=== PATIENT | male | born 1955 | race Caucasian/White ===

== ENCOUNTER 2018-09-29 07:07 | Day surgery (SDC) | END 2018-09-29 14:20 | disposition home or self-care (01) ==

== ENCOUNTER 2018-10-28 08:45 | Day surgery (SDC) | END 2018-10-28 15:42 | disposition home or self-care (01) ==

== ENCOUNTER 2019-05-17 21:00 | Inpatient (IN) | payer MEDICARE, OTHER ==
[~2019-05-17] VITALS: Ht 165.1 cm; Wt 84.8 kg
[~2019-05-17 21:00] MED LIST: ALLO100T PO; ATOR-2 PO; CALC667C PO; CARV3.1260 PO; FURO80TA78 PO; INSU100I12 SQ; INSU100I33 SC; MIRT7.5T8 PO; NIFE30TA23 PO; OMEG-158 PO; RANI150T5 PO; TAMS0.4C2 PO
[2019-05-18] VITALS (19 sets, daily range): BP systolic 94–142; BP diastolic 44–71; PULSE 77–92; RESP 18–20; Ht 165.1 cm; Wt 84.8 kg
--- NOTE | 2019-05-18 01:01 | ERD ---
ER Documentation Chief Complaint Chief Complaint FEVER, VOMIT X'S 2 DAYS HPI This is a 63-year-old male who presents here in the emergency department with multiple complaints including fever, vomiting, epigastric discomfort for about 2 days. Denies headache, head injury, loss of consciousness, dizziness, neck pain, neck stiffness, throat pain, difficulty swallowing, difficulty breathing lying flat, shoulder pain, chest pain, back pain, abdominal pain, nausea, vomiting, constipation, diarrhea, urinary symptoms, loss of bowel and bladder control, trauma, injury, falls, difficulty walking due to pain, numbness or tingling sens ation, calf pain, recent travel, recent major surgery in the last 3 weeks, calf pain, recent long travel, recent exposure to any illness, recent antibiotic use in the last 3 months, fever, chills, seizures. Past medical history: Diabetes. Hypertension. CHF. Surgical history: Appendectomy. Social: Denies smoking, use of alcoholic beverages, use of illegal drugs. ROS All systems reviewed and are negative except as per history of present illness. Medications Home Meds Reported Medications Insulin Lispro (Humalog Kwikpen U-100) 100 Unit/1 Ml Insuln.pen, 5 UNIT SQ AC B, EA 09/29/18 Insulin Glargine,Hum.rec.anlog (Basaglar Kwikpen U-100) 100 Unit/1 Ml Insuln.pen, 10 UNIT SC QHS, EA 09/29/18 Allopurinol* (Allopurinol*) 100 Mg Tablet, 100 MG PO DAILY, TAB 09/29/18 Mirtazapine* (Mirtazapine*) 7.5 Mg Tablet, 7.5 MG PO HS, TAB 09/29/18 [place]-3/Dha/Epa/Fish Oil (FISH OIL 1,000 MG SOFTGEL) 1 Each Capsule, 1 EACH PO BID, CAP 09/29/18 Atorvastatin* (Atorvastatin*) 80 Mg Tablet, 80 MG PO QHS, #30 TAB 09/29/18 Carvedilol* (Carvedilol*) 3.125 Mg Tablet, 3.125 MG PO BID, #60 TAB 09/29/18 Tamsulosin Hcl* (Tamsulosin Hcl*) 0.4 Mg Cap.er.24h, 0.4 MG PO HS, CAP 09/29/18 Nifedipine* (Nifedipine ER*) 30 Mg Tablet.sa, 30 MG PO DAILY, TAB.SA 09/29/18 Ranitidine Hcl* (Ranitidine Hcl*) 150 Mg Tablet, 150 MG PO HS, #30 TAB 09/29/18 Furosemide* (Lasix*) 80 Mg Tablet, 80 MG PO DAILY, TAB 09/29/18 Calcium Acetate* (Calcium Acetate*) 667 Mg Capsule, 1334 MG PO WITH MEALS, #60 CAP 09/29/18 Allergies Allergies: Coded Allergies: Penicillins (Verified Allergy, Unknown, 09/29/18) PMhx/Soc History of Surgery: Yes (permackat, AV fistula, apendicitis) Anesthesia Reaction: No Hx Neurological Disorder: No Hx Respiratory Disorders: No Hx Cardiac Disorders: Yes (htn) Hx Psychiatric Problems: No Hx Miscellaneous Medical Probl: No Hx Alcohol Use: No Hx Substance Use: No Hx Tobacco Use: No Smoking Status: Never smoker Physical Exam Vitals Vital Signs Date Temp Pulse Resp B/P (MAP) Pulse Ox O2 O2 Flow FiO2 Time Delivery Rate 05/17/19 101.7 108 18 159/74 97 21:03 (102) Physical Exam Const: No acute distress Head: Atraumatic Eyes: Normal Conjunctiva. ENT: Normal External Ears, Nose and Mouth. Neck: Full range of motion. No meningismus. Resp: Clear to auscultation bilaterally Cardio: Regular rate and rhythm, no murmurs Abd: Soft, non tender, non distended. Normal bowel sounds. Right upper abdominal tenderness to light and deep palpation. Negative Mora sign (heel jar test). Negative psoas sign. Negative Rovsing sign. Able to jump 10 times without developing lower abdominal pain. No CVA tenderness. Ambulatory with st ailyn gait and without pain to abdomen. Skin: No petechiae or rashes. Color appears normal for ethnicity. No skin tenting. No signs of severe dehydration. Back: No midline or flank tenderness Ext: No cyanosis, or edema Neur: Awake and alert. No neurological deficits. Psych: Normal Mood and Affect Result Diagram: 05/18/1920905/18/19209 Results 24 hrs Laboratory Tests Test 05/18/19 02:10 05/18/19 02:18 White Blood Count 15.7 10^3/ul Red Blood Count 3.26 10^6/ul Hemoglobin 9.9 g/dl Hematocrit 30.7 % Mean Corpuscular Volume 94.2 fl Mean Corpuscular Hemoglobin 30.4 pg Mean Corpuscular Hemoglobin Concent 32.2 g/dl Red Cell Distribution Width 14.7 % Platelet Count 236 10^3/UL Mean Platelet Volume 11.1 fl Immature Granulocytes % 1.000 % Neutrophils % 88.6 % Lymphocytes % 3.2 % Monocytes % 6.4 % Eosinophils % 0.4 % Basophils % 0.4 % Nucleated Red Blood Cells % 0.0 /100WBC Immature Granulocytes # 0.150 10^3/ul Neutrophils # 13.9 10^3/ul Lymphocytes # 0.5 10^3/ul Monocytes # 1.0 10^3/ul Eosinophils # 0.1 10^3/ul Basophils # 0.1 10^3/ul Nucleated Red Blood Cells # 0.0 10^3/ul Prothrombin Time 15.4 Sec Prothrombin Time Ratio 1.2 INR International Normalized Ratio 1.21 Activated Partial Thromboplast Time 31.0 Sec Sodium Level 138 mmol/L Potassium Level 4.2 mmol/L Chloride Level 90 mmol/L Carbon Dioxide Level 31 mmol/L Anion Gap 17 Blood Urea Nitrogen 55 mg/dl Creatinine 8.09 mg/dl Est Glomerular Filtrat Rate mL/min 7 mL/min Glucose Level 228 mg/dl Calcium Level 8.0 mg/dl Total Bilirubin 0.5 mg/dl Direct Bilirubin 0.00 mg/dl Indirect Bilirubin 0.5 mg/dl Aspartate Amino Transf (AST/SGOT) 31 IU/L Alanine Aminotransferase (ALT/SGPT) 41 IU/L Alkaline Phosphatase 352 IU/L Troponin I 0.078 ng/ml B-Type Natriuretic Peptide 92798 PG/ML Total Protein 7.8 g/dl Albumin 3.9 g/dl Globulin 3.90 g/dl Albumin/Globulin Ratio 1.00 Amylase Level 83 U/L Lipase 46 U/L POC Venous Lactate 1.3 mmol/L Current Medications Medications Dose Sig/[place] Start Time Status Last (Trade) Ordered Route PRN Stop Time Admin Dose Reason Admin Cefepime HCl 50 ml @ ONCE STAT 05/18/19 100 mls/hr IVPB 03:36 05/18/19 04:05 Vancomycin 250 ml @ ONCE ONCE 05/18/19 HCl 125 mls/hr IVPB 04:00 05/18/19 05:59 Procedures/MDM Diagnostic tests: EKG: Sinus tachycardia with ventricular rate of 1 1 bpm. No STEMI. Read by supervising physician. Urinalysis: Blood works: Chest x-ray: Ultrasound of the abdomen: Treatment: Re-evaluation: Differential diagnosis Final diagnosis: Prescription: Follow-up with PCP in the next 24-48 hours. Come back here in the emergency department for any new symptoms or any worsening symptoms. All questions and concerns were answered. Patient and family members verbalized understanding and agreed with plan of care. Hemodynamically stable on discharge. SUBHASH FAULKNER May 18, 2019 01:01
[2019-05-18] MEDS ORDERED: CEFEPIME 2GM/50 ML (PMX) 50 ML IVPB STA (03:36)
[2019-05-18] MEDS ORDERED: ONDANSETRON 4 MG INJ IV PRN ×2 (04:00→07:00)
[2019-05-18] MEDS ORDERED: ACETAMINOPHEN 325 MG TAB PO PRN ×2 (04:00→07:00)
[2019-05-18] MEDS ORDERED: VANCOMYCIN 1 GM (PMX) 250 ML IVPB ONE (04:00)
--- NOTE | 2019-05-18 04:06 | ERD ---
ER Documentation Chief Complaint Chief Complaint FEVER, VOMIT X'S 2 DAYS HPI This 63-year-old male who presents for evaluation of fever for the last 2 days. Associated with nausea and vomiting as well as a cough. He denies chest pain or shortness of breath, he has not had any altered mental state, he has not had any numbness or tingling. He denies leg swelling, he has not noted any rashes. Patient received dialysis through a left-sided AV fistula. ROS All systems reviewed and are negative except as per history of present illness. Medications Home Meds Reported Medications Insulin Lispro (Humalog Kwikpen U-100) 100 Unit/1 Ml Insuln.pen, 5 UNIT SQ AC B, EA 09/29/18 Insulin Glargine,Hum.rec.anlog (Basaglar Kwikpen U-100) 100 Unit/1 Ml Insuln.pen , 10 UNIT SC QHS, EA 09/29/18 Allopurinol* (Allopurinol*) 100 Mg Tablet, 100 MG PO DAILY, TAB 09/29/18 Mirtazapine* (Mirtazapine*) 7.5 Mg Tablet, 7.5 MG PO HS, TAB 09/29/18 [place]-3/Dha/Epa/Fish Oil (FISH OIL 1,000 MG SOFTGEL) 1 Each Capsule, 1 EACH PO BID, CAP 09/29/18 Atorvastatin* (Atorvastatin*) 80 Mg Tablet, 80 MG PO QHS, #30 TAB 09/29/18 Carvedilol* (Carvedilol*) 3.125 Mg Tablet, 3.125 MG PO BID, #60 TAB 09/29/18 Tamsulosin Hcl* (Tamsulosin Hcl*) 0.4 Mg Cap.er.24h, 0.4 MG PO HS, CAP 09/29/18 Nifedipine* (Nifedipine ER*) 30 Mg Tablet.sa, 30 MG PO DAILY, TAB.SA 09/29/18 Ranitidine Hcl* (Ranitidine Hcl*) 150 Mg Tablet, 150 MG PO HS, #30 TAB 09/29/18 Furosemide* (Lasix*) 80 Mg Tablet, 80 MG PO DAILY, TAB 09/29/18 Calcium Acetate* (Calcium Acetate*) 667 Mg Capsule, 1334 MG PO WITH MEALS, #60 CAP 09/29/18 Allergies Allergies: Coded Allergies: Penicillins (Verified Allergy, Unknown, 09/29/18) PMhx/Soc History of Surgery: Yes (permackat, AV fistula, apendicitis) Anesthesia Reaction: No Hx Neurological Disorder: No Hx Respiratory Disorders: No Hx Cardiac Disorders: Yes (htn) Hx Psychiatric Problems: No Hx Miscellaneous Medical Probl: No Hx Alcohol Use: No Hx Substance Use: No Hx Tobacco Use: No Smoking Status: Never smoker Physical Exam Vitals Vital Signs Date Temp Pulse Resp B/P (MAP) Pulse Ox O2 O2 Flow FiO2 Time Delivery Rate 05/17/19 101.7 108 18 159/74 97 21:03 (102) Physical Exam Const: Fever noted, Head: Atraumatic Eyes: Normal Conjunctiva ENT: Normal External Ears, Nose and Mouth. Neck: Full range of motion. No meningismus. Resp: Clear to auscultation bilaterally Cardio: Regular rate and rhythm, no murmurs Abd: Soft, non tender, non distended, no rebound or guarding. Normal bowel sounds Skin: No petechiae or rashes Back: No midline or flank tenderness Ext: No cyanosis, or edema Neur: Awake and alert Psych: Normal Mood and Affect Result Diagram: 05/18/19 0210 05/18/19 0210 Results 24 hrs Laboratory Tests Test 05/18/19 02:10 05/18/19 02:18 White Blood Count 15.7 10^3/ul Red Blood Count 3.26 10^6/ul Hemoglobin 9.9 g/dl Hematocrit 30.7 % Mean Corpuscular Volume 94.2 fl Mean Corpuscular Hemoglobin 30.4 pg Mean Corpuscular Hemoglobin Concent 32.2 g/dl Red Cell Distribution Width 14.7 % Platelet Count 236 10^3/UL Mean Platelet Volume 11.1 fl Immature Granulocytes % 1.000 % Neutrophils % 88.6 % Lymphocytes % 3.2 % Monocytes % 6.4 % Eosinophils % 0.4 % Basophils % 0.4 % Nucleated Red Blood Cells % 0.0 /100WBC Immature Granulocytes # 0.150 10^3/ul Neutrophils # 13.9 10^3/ul Lymphocytes # 0.5 10^3/ul Monocytes # 1.0 10^3/ul Eosinophils # 0.1 10^3/ul Basophils # 0.1 10^3/ul Nucleated Red Blood Cells # 0.0 10^3/ul Prothrombin Time 15.4 Sec Prothrombin Time Ratio 1.2 INR International Normalized Ratio 1.21 Activated Partial Thromboplast Time 31.0 Sec Sodium Level 138 mmol/L Potassium Level 4.2 mmol/L Chloride Level 90 mmol/L Carbon Dioxide Level 31 mmol/L Anion Gap 17 Blood Urea Nitrogen 55 mg/dl Creatinine 8.09 mg/dl Est Glomerular Filtrat Rate mL/min 7 mL/min Glucose Level 228 mg/dl Calcium Level 8.0 mg/dl Total Bilirubin 0.5 mg/dl Direct Bilirubin 0.00 mg/dl Indirect Bilirubin 0.5 mg/dl Aspartate Amino Transf (AST/SGOT) 31 IU/L Alanine Aminotransferase (ALT/SGPT) 41 IU/L Alkaline Phosphatase 352 IU/L Troponin I 0.078 ng/ml B-Type Natriuretic Peptide 87963 PG/ML Total Protein 7.8 g/dl Albumin 3.9 g/dl Globulin 3.90 g/dl Albumin/Globulin Ratio 1.00 Amylase Level 83 U/L Lipase 46 U/L POC Venous Lactate 1.3 mmol/L Current Medications Medications Dose Sig/[place] Start Time Status Last (Trade) Ordered Route PRN Stop Time Admin Dose Reason Admin Cefepime HCl 50 ml @ ONCE STAT 05/18/19 05/18/19 100 mls/hr IVPB 03:36 05/18/19 03:48 04:05 Vancomycin 250 ml @ ONCE ONCE 05/18/19 HCl 125 mls/hr IVPB 04:00 05/18/19 05:59 Procedures/MDM 63-year-old male presents for relation of fever. Patient had initially been evaluated here, for fever without a source, he had no evidence of severe sepsis or septic shock. But given that he met septic criteria, and with a history of immunosuppression, he is at high risk for bacteremia, thus he will be admitted for treatment of sepsis, with vancomycin and cefepime. I received a call from mid-level provider Jewel, and at approximately 3:30 AM, who discussed the case with me, code sepsis had not been called initially, given that the patient did not have a source, when I reviewed the case, I determined that antibiotics should be initiated, based on his past medical history as above. EKG: Rate/Rhythm: Normal Sinus Rhythm QRS, ST, T-waves: No changes consistent w/ acute ischemia Impression: No evidence of ischemia or arrhythmia Sepsis Documentation: Patient's infectious symptoms have not stabilized and the patient is at risk of rapid decompensation. The patient will be admitted for careful hydration, antibiotic therapy, and infectious source control. SEVERE SEPSIS CRITERIA: Infectious source: Unknown End organ damage indicated by: No evidence of organ damage SEPSIS MANAGEMENT Time of recognition of sepsis: 3:30 AM. Time of recognition of severe sepsis: [No severe sepsis at this time]. Time of recognition of septic shock: [No septic shock at this time]. 3 HOUR BUNDLE Blood cultures x 2 before broad-spectrum antibiotics: [Yes] 30 ml/kg NS bolus not given secondary to renal failure, with concern for volume overload Initial lactate 1.2 Repeat lactate not needed CRITICAL CARE Critical care time [35] minutes Emergent fluid management while maintaining close respiratory support. Provision of immediate and broad-spectrum antibiotic therapy. Simultaneous assessment for possible sources in order to direct targeted therapy. Consideration for invasive and chemical support to prevent cardiopulmonary collapse. Critical care time is independent of procedures performed. Departure Diagnosis: Primary Impression: Fever Fever type: unspecified Qualified Codes: R50.9 - Fever, unspecified Additional Impressions: Sepsis Sepsis type: sepsis due to unspecified organism Qualified Codes: A41.9 - Sepsis, unspecified organism Renal failure Renal failure chronicity: unspecified chronicity Qualified Codes: N19 - Unspecified kidney failure Condition: TITO Ortiz MD May 18, 2019 04:06
[2019-05-18] MEDS ORDERED: NON-FORMULARY/PATIENT OWN MED (Insulin Lispro (Humalog Kwikpen U-100) 5 UNIT) SQ SCH (07:00)
[2019-05-18] MEDS ORDERED: NACL 0.9% 3 ML SYG IV SCH (07:00)
[2019-05-18] MEDS ORDERED: ALBUTEROL/IPRATROPIUM (NEB) 3 ML AMP HHN PRN (07:00)
[2019-05-18] MEDS ORDERED: NITROGLYCERIN (SL) 0.4 MG TAB SL PRN (07:00)
[2019-05-18] MEDS: CALCIUM ACETATE 667 MG CAP PO SCH ×3 (08:56→17:51)
[2019-05-18] MEDS: FUROSEMIDE 40 MG TAB PO SCH (08:57)
[2019-05-18] MEDS: NIFEdipine (XL) 30 MG TAB PO SCH (08:57)
[2019-05-18] MEDS: HEPARIN 5,000 UNIT/1 ML VIAL SC SCH ×2 (09:19→21:34)
--- NOTE | 2019-05-18 09:21 | HP ---
Date/Time of Note Date/Time of Note DATE: 05/18/19 TIME: 09:18 Assessment/Plan VTE Prophylaxis Pharmacological prophylaxis: heparin Lines/Catheters IV Catheter Type (from Nrsg): Saline Lock Assessment/Plan Assessment/Plan 1. Sepsis: Suspect gastroenteritis or URI -Empiric IV antibiotic -Follow-up culture results 2. ESRD on HD: Nephrology for dialysis 3. Type 1 diabetes: Continue insulin 4. Hypertension: Continue home meds. Adjust as needed Result Diagram: 05/18/1920905/18/190 Results 24hrs Laboratory Tests Test 05/18/19 02:10 05/18/19 02:18 05/18/19 03:30 05/18/19 05:47 White Blood Count 15.7 #H Red Blood Count 3.26 L Hemoglobin 9.9 L Hematocrit 30.7 L Mean Corpuscular Volume 94.2 Mean Corpuscular 30.4 Hemoglobin Mean Corpuscular 32.2 Hemoglobin Concent Red Cell Distribution 14.7 H Width Platelet Count 236 Mean Platelet Volume 11.1 H Immature Granulocytes % 1.000 H Neutrophils % 88.6 H Lymphocytes % 3.2 L Monocytes % 6.4 Eosinophils % 0.4 Basophils % 0.4 Nucleated Red Blood 0.0 Cells % Immature Granulocytes # 0.150 H Neutrophils # 13.9 H Lymphocytes # 0.5 L Monocytes # 1.0 H Eosinophils # 0.1 Basophils # 0.1 Nucleated Red Blood 0.0 Cells # Prothrombin Time 15.4 H 15.8 H Prothrombin Time Ratio 1.2 1.2 INR International 1.21 1.25 Normalized Ratio Activated 31.0 31.2 Partial Thromboplast Time Sodium Level 138 Potassium Level 4.2 Chloride Level 90 L Carbon Dioxide Level 31 Anion Gap 17 H Blood Urea Nitrogen 55 H Creatinine 8.09 H Est Glomerular Filtrat 7 L Rate mL/min Glucose Level 228 H Calcium Level 8.0 L Total Bilirubin 0.5 Direct Bilirubin 0.00 Indirect Bilirubin 0.5 Aspartate Amino 31 Transf (AST/SGOT) Alanine 41 Aminotransferase (ALT/SG PT) Alkaline Phosphatase 352 H Troponin I 0.078 0.079 B-Type Natriuretic 42402 H Peptide Total Protein 7.8 Albumin 3.9 Globulin 3.90 H Albumin/Globulin Ratio 1.00 Amylase Level 83 Lipase 46 POC Venous Lactate 1.3 Urine Color YELLOW Urine Clarity CLEAR Urine pH 8.0 Urine Specific [place] 1.017 Urine Ketones NEGATIVE Urine Nitrite NEGATIVE Urine Bilirubin NEGATIVE Urine Urobilinogen NEGATIVE Urine Leukocyte Esterase NEGATIVE Urine Microscopic RBC 2 Urine Microscopic WBC 4 Urine Mucus FEW A Urine Hemoglobin NEGATIVE Urine Glucose 2+ H Urine Total Protein 3+ H Lactic Acid Level 1.5 Creatine Kinase 102 Creatine Kinase Index 2.3 Creatinine Kinase MB 2.30 (Mass) HPI/ROS Admit Date/Time Admit Date/Time May 18, 2019 at 03:55 Hx of Present Illness Patient is a 63-year-old male with a history of hypertension, type 1 diabetes, ESRD on HD who presented to the ER complaining of fever as well as nausea and vomiting. Patient also reported some cough and malaise. Denies chest pain or acute shortness of breath When presented to ER, he was febrile with temperature of 101.7. WBC almost 16,000. Chest x-ray and UA nondiagnostic. PMH/Family/Social Past Medical History Past Surgical Hx: other Family History Significant Family History: no pertinent family hx Social History Alcohol Use: none Smoking Status: Never smoker Drug Use: none Exam Constitutional: other (No acute distress) Head: normocephalic, atraumatic Eyes: EOMI, PERRL Respiratory: clear to auscultation, normal air movement Cardiovascular: regular rate and rhythm Gastrointestinal: soft Extremities: normal pulses Medications Current Medications IV Flush (NS 3 ml) 3 ml PER PROTOCOL IV ; Start 05/18/19 at 07:00 Ondansetron HCl (Zofran Inj) 4 mg Q6H PRN IV NAUSEA/VOMITING; Start 05/18/19 at 07:00 Nitroglycerin (Nitroglycerin (Sl Tab) 0.4 Mg) 1 tab Q5M PRN SL .CHEST PAIN; Start 05/18/19 at 07:00 Acetaminophen (Tylenol Tab) 650 mg Q6H PRN PO .PAIN 1-3 OR TEMP; Start 05/18/19 at 07:00 Heparin Sodium (Porcine) (Heparin (5000 Units/1ml)) 5,000 unit Q12 SC ; Start 05/18/19 at 09:00 Albuterol/ Ipratropium (Duoneb) 3 ml Q2H RESP THERAPY PRN HHN SHORTNESS OF BREATH; Start 05/18/19 at 07:00 Allopurinol (Zyloprim) 100 mg DAILY PO ; Start 05/18/19 at 09:00 Atorvastatin Calcium (Lipitor) 80 mg QHS PO ; Start 05/18/19 at 21:00 Calcium Acetate (Phoslo) 1,334 mg WITH MEALS PO ; Start 05/18/19 at 08:00 Carvedilol (Coreg) 3.125 mg BID PO ; Start 05/18/19 at 09:00 Furosemide (Lasix) 80 mg DAILY PO ; Start 05/18/19 at 09:00 Insulin Glargine (Lantus) 10 units HS SC ; Start 05/18/19 at 21:00 Mirtazapine (Remeron) 7.5 mg HS PO ; Start 05/18/19 at 21:00 Nifedipine (Procardia Xl) 30 mg DAILY PO ; Start 05/18/19 at 09:00 Ranitidine HCl (Zantac) 150 mg HS PO ; Start 05/18/19 at 21:00 Tamsulosin HCl (Flomax) 0.4 mg HS PO ; Start 05/18/19 at 21:00 Miscellaneous Information 5 unit AC B SQ ; Start 05/18/19 at 07:00; Status UNV Coded Allergies: Penicillins (Verified Allergy, Unknown, 09/29/18) Social History Smoking Status: Never smoker Exam/Review of Systems Vital Signs Vitals Vital Signs Date Temp Pulse Resp B/P (MAP) Pulse Ox O2 O2 Flow FiO2 Time Delivery Rate 05/18/19 98.2 88 18 125/62 98 Room Air 07:57 (83) 05/18/19 2.0 06:32 Intake and Output 05/17/19 05/17/19 05/18/19 1515:00 23:00 07:00 IntakeIntake Total 50 ml BalanceBalance 50 ml MICHEL HERNANDEZ MD May 18, 2019 09:21
[2019-05-18] MEDS ORDERED: GLUCAGON 1 MG INJ IM PRN (10:00)
[2019-05-18] MEDS ORDERED: GLUCOSE GEL 15 GRAM TUBE BUCCAL PRN (10:00)
[2019-05-18] MEDS ORDERED: LEVOFLOXACIN 500MG/D5W (PMX) 100 ML IVPB ONE (10:00)
[2019-05-18] MEDS ORDERED: GLUCOSE GEL 15 GRAM TUBE PO PRN ×2 (10:00)
[2019-05-18] MEDS ORDERED: DEXTROSE 50% 50 ML SYRINGE IV PRN ×2 (10:00)
[2019-05-18] MEDS: ALLOPURINOL 100 MG TAB PO SCH (11:28)
[2019-05-18] MEDS: INSULIN ASPART [NOVOLOG] 3 ML PEN SC SCH ×3 (12:33→21:00)
[2019-05-18] MEDS: RANITIDINE 150 MG TAB PO SCH ×2 (13:02→21:17)
[2019-05-18] MEDS: FISH OIL 1,000 MG CAP PO SCH ×2 (13:09→21:18)
--- NOTE | 2019-05-18 13:14 | PN ---
Date/Time of Note Date/Time of Note DATE: 05/18/19 TIME: 13:10 Assessment/Plan VTE Prophylaxis Risk score (from Ns)>0 risk: 5 SCD applied (from Ns): No SCD contraindicated: other Pharmacological prophylaxis: heparin Lines/Catheters IV Catheter Type (from [facility]): [place] [facility] Assessment/Plan Hospital Course S: Patient still having some cough. Seen by renal team earlier today and await ing dialysis for later today. O: VS - see below PE: Gen: Lying in bed, no acute distress Head: Atraumatic Eyes: Normal Conjunctiva ENT: Normal External Ears, Nose and Mouth. Neck: Full range of motion. No meningismus. Resp: Clear to auscultation bilaterally Cardio: Regular rate and rhythm, no murmurs Abd: Soft, non tender, non distended, no rebound or guarding. Normal bowel sounds Ext: Small 2 to 3 cm circumferential ulcer with some drainage noted on right foot sole, no bilateral lower extremity edema Neuro: Awake and alert Assessment/Plan: 63-year-old male who presents with: 1. Nausea vomiting and fever: Signs of sepsis, possibly secondary to gas troenteritis or URI, or right foot wound infection. -We will obtain infectious disease consult and for now continue empiric IV antibiotic -Follow-up culture results 2. ESRD on HD: Have consulted nephrology for dialysis 3. Type 1 diabetes: Monitor sugars, follow-up A1c, continue insulin 4. Hypertension: Continue home meds. Adjust as needed Result Diagram: 05/18/19 0210 05/18/19 0210 Results 24hrs Laboratory Tests Test 05/18/19 02:10 05/18/19 02:18 05/18/19 03:30 05/18/19 05:47 White Blood Count 15.7 #H Red Blood Count 3.26 L Hemoglobin 9.9 L Hematocrit 30.7 L Mean Corpuscular Volume 94.2 Mean Corpuscular 30.4 Hemoglobin Mean Corpuscular 32.2 Hemoglobin Concent Red Cell Distribution 14.7 H Width Platelet Count 236 Mean Platelet Volume 11.1 H Immature Granulocytes % 1.000 H Neutrophils % 88.6 H Lymphocytes % 3.2 L Monocytes % 6.4 Eosinophils % 0.4 Basophils % 0.4 Nucleated Red Blood 0.0 Cells % Immature Granulocytes # 0.150 H Neutrophils # 13.9 H Lymphocytes # 0.5 L Monocytes # 1.0 H Eosinophils # 0.1 Basophils # 0.1 Nucleated Red Blood 0.0 Cells # Prothrombin Time 15.4 H 15.8 H Prothrombin Time Ratio 1.2 1.2 INR International 1.21 1.25 Normalized Ratio Activated 31.0 31.2 Partial Thromboplast Time Sodium Level 138 Potassium Level 4.2 Chloride Level 90 L Carbon Dioxide Level 31 Anion Gap 17 H Blood Urea Nitrogen 55 H Creatinine 8.09 H Est Glomerular Filtrat 7 L Rate mL/min Glucose Level 228 H Calcium Level 8.0 L Total Bilirubin 0.5 Direct Bilirubin 0.00 Indirect Bilirubin 0.5 Aspartate Amino 31 Transf (AST/SGOT) Alanine 41 Aminotransferase (ALT/SG PT) Alkaline Phosphatase 352 H Troponin I 0.078 0.079 B-Type Natriuretic 58099 H Peptide Total Protein 7.8 Albumin 3.9 Globulin 3.90 H Albumin/Globulin Ratio 1.00 Amylase Level 83 Lipase 46 POC Venous Lactate 1.3 Urine Color YELLOW Urine Clarity CLEAR Urine pH 8.0 Urine Specific Reed 1.017 Urine Ketones NEGATIVE Urine Nitrite NEGATIVE Urine Bilirubin NEGATIVE Urine Urobilinogen NEGATIVE Urine Leukocyte Esterase NEGATIVE Urine Microscopic RBC 2 Urine Microscopic WBC 4 Urine Mucus FEW A Urine Hemoglobin NEGATIVE Urine Glucose 2+ H Urine Total Protein 3+ H Lactic Acid Level 1.5 Creatine Kinase 102 Creatine Kinase Index 2.3 Creatinine Kinase MB 2.30 (Mass) Test 05/18/19 11:51 Bedside Glucose 207 Exam/Review of Systems Exam Vitals Vital Signs Date Temp Pulse Resp B/P (MAP) Pulse Ox O2 O2 Flow FiO2 Time Delivery Rate 05/18/19 98.3 83 140/67 96 Room Air 11:10 (91) 05/18/19 18 07:57 05/18/19 2.0 06:32 Intake and Output 05/17/19 05/17/19 05/18/19 1515:00 23:00 07:00 IntakeIntake Total 50 ml BalanceBalance 50 ml Results Results 24hrs Laboratory Tests Test 05/18/19 02:10 05/18/19 02:18 05/18/19 03:30 05/18/19 05:47 White Blood Count 15.7 #H Red Blood Count 3.26 L Hemoglobin 9.9 L Hematocrit 30.7 L Mean Corpuscular Volume 94.2 Mean Corpuscular 30.4 Hemoglobin Mean Corpuscular 32.2 Hemoglobin Concent Red Cell Distribution 14.7 H Width Platelet Count 236 Mean Platelet Volume 11.1 H Immature Granulocytes % 1.000 H Neutrophils % 88.6 H Lymphocytes % 3.2 L Monocytes % 6.4 Eosinophils % 0.4 Basophils % 0.4 Nucleated Red Blood 0.0 Cells % Immature Granulocytes # 0.150 H Neutrophils # 13.9 H Lymphocytes # 0.5 L Monocytes # 1.0 H Eosinophils # 0.1 Basophils # 0.1 Nucleated Red Blood 0.0 Cells # Prothrombin Time 15.4 H 15.8 H Prothrombin Time Ratio 1.2 1.2 INR International 1.21 1.25 Normalized Ratio Activated 31.0 31.2 Partial Thromboplast Time Sodium Level 138 Potassium Level 4.2 Chloride Level 90 L Carbon Dioxide Level 31 Anion Gap 17 H Blood Urea Nitrogen 55 H Creatinine 8.09 H Est Glomerular Filtrat 7 L Rate mL/min Glucose Level 228 H Calcium Level 8.0 L Total Bilirubin 0.5 Direct Bilirubin 0.00 Indirect Bilirubin 0.5 Aspartate Amino 31 Transf (AST/SGOT) Alanine 41 Aminotransferase (ALT/SG PT) Alkaline Phosphatase 352 H Troponin I 0.078 0.079 B-Type Natriuretic 00436 H Peptide Total Protein 7.8 Albumin 3.9 Globulin 3.90 H Albumin/Globulin Ratio 1.00 Amylase Level 83 Lipase 46 POC Venous Lactate 1.3 Urine Color YELLOW Urine Clarity CLEAR Urine pH 8.0 Urine Specific Reed 1.017 Urine Ketones NEGATIVE Urine Nitrite NEGATIVE Urine Bilirubin NEGATIVE Urine Urobilinogen NEGATIVE Urine Leukocyte Esterase NEGATIVE Urine Microscopic RBC 2 Urine Microscopic WBC 4 Urine Mucus FEW A Urine Hemoglobin NEGATIVE Urine Glucose 2+ H Urine Total Protein 3+ H Lactic Acid Level 1.5 Creatine Kinase 102 Creatine Kinase Index 2.3 Creatinine Kinase MB 2.30 (Mass) Test 05/18/19 11:51 Bedside Glucose 207 Medications Medication Current Medications IV Flush (NS 3 ml) 3 ml PER PROTOCOL IV ; Start 05/18/19 at 07:00 Ondansetron HCl (Zofran Inj) 4 mg Q6H PRN IV NAUSEA/VOMITING; Start 05/18/19 at 07:00 Nitroglycerin (Nitroglycerin (Sl Tab) 0.4 Mg) 1 tab Q5M PRN SL .CHEST PAIN; Start 05/18/19 at 07:00 Acetaminophen (Tylenol Tab) 650 mg Q6H PRN PO .PAIN 1-3 OR TEMP; Start 05/18/19 at 07:00 Heparin Sodium (Porcine) (Heparin (5000 Units/1ml)) 5,000 unit Q12 SC Last administered on 05/18/19at 09:19; Admin Dose 5,000 UNIT; Start 05/18/19 at 09:00 Albuterol/ Ipratropium (Duoneb) 3 ml Q2H RESP THERAPY PRN HHN SHORTNESS OF BREATH; Start 05/18/19 at 07:00 Allopurinol (Zyloprim) 100 mg DAILY PO ; Start 05/18/19 at 09:00 Atorvastatin Calcium (Lipitor) 80 mg QHS PO ; Start 05/18/19 at 21:00 Calcium Acetate (Phoslo) 1,334 mg WITH MEALS PO Last administered on 05/18/19at 12:30; Admin Dose 1,334 MG; Start 05/18/19 at 08:00 Carvedilol (Coreg) 3.125 mg BID PO Last administered on 05/18/19at 08:57; Admin Dose 3.125 MG; Start 05/18/19 at 09:00 Furosemide (Lasix) 80 mg DAILY PO Last administered on 05/18/19at 08:57; Admin Dose 80 MG; Start 05/18/19 at 09:00 Insulin Glargine (Lantus) 10 units HS SC ; Start 05/18/19 at 21:00 Mirtazapine (Remeron) 7.5 mg HS PO ; Start 05/18/19 at 21:00 Nifedipine (Procardia Xl) 30 mg DAILY PO Last administered on 05/18/19at 08:57; Admin Dose 30 MG; Start 05/18/19 at 09:00 Tamsulosin HCl (Flomax) 0.4 mg HS PO ; Start 05/18/19 at 21:00 Miscellaneous Information 5 unit AC B SQ ; Start 05/18/19 at 07:00; Status UNV Diagnostic Test (Pha) (Accu-Chek) 1 ea 02 XX ; Start 05/19/19 at 02:00 Insulin Aspart (Novolog Insulin Pen) NOVOLOG *MILD* ALGORITHM WITH MEALS BEDTIME SC Last administered on 05/18/19at 12:33; Admin Dose 2 UNIT; Start 05/18/19 at 11:50 Levofloxacin/ Dextrose 50 ml @ 50 mls/hr Q48H IVPB ; Start 05/20/19 at 10:00 Miscellaneous Information 1 ea NOTE XX ; Start 05/18/19 at 10:00 Glucose (Glutose) 15 gm Q15M PRN PO DECREASED GLUCOSE; Start 05/18/19 at 10:00 Glucose (Glutose) 22.5 gm Q15M PRN PO DECREASED GLUCOSE; Start 05/18/19 at 10:00 Dextrose (D50w Syringe) 25 ml Q15M PRN IV DECREASED GLUCOSE; Start 05/18/19 at 10:00 Dextrose (D50w Syringe) 50 ml Q15M PRN IV DECREASED GLUCOSE; Start 05/18/19 at 10:00 Glucagon (Glucagen) 1 mg Q15M PRN IM DECREASED GLUCOSE; Start 05/18/19 at 10:00 Glucose (Glutose) 15 gm Q15M PRN BUCCAL DECREASED GLUCOSE; Start 05/18/19 at 10:00 Ranitidine HCl (Zantac) 150 mg HS PO ; Start 05/18/19 at 13:00 Fish Oil (Fish Oil) 1,000 mg BID PO ; Start 05/18/19 at 13:00 CHRISTO BROWNING May 18, 2019 13:14
--- NOTE | 2019-05-18 15:07 | CONS ---
DATE OF ADMISSION: 05/18/2019 DATE OF CONSULTATION: 05/18/2019 TYPE OF CONSULTATION: Nephrology. REASON FOR CONSULTATION: End-stage renal disease. HISTORY OF PRESENT ILLNESS: This is a 63-year-old male with a past medical history of end-stage syd l disease on dialysis Wednesday, , Wednesday, access AV fistula. The patient's primary nephrolo gist is Dr. Berry, who presents to [facility] with nausea and vomiting. The patient states he is having increased nausea and vomiting over the past several days which progressively wor sened. The patient also reported some cough. The patient upon arrival to the emergency room was not ed to be febrile with temperature of 101.7 Chest x-ray, urinalysis was done, showed no acute infiltr ates or pyuria. The patient had a white count of 16,000. In the emergency room, the patient was sta rted on antibiotic therapy and admitted to telemetry for evaluation. In terms of patient's renal history, the patient has end-stage renal disease on hemodialysis Wednesday as stated above. The patient dialyzes at a lower [place]. 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 Berry. The patient denies any hemoptysis, hematemesis or hematochezia. PAST MEDICAL HISTORY: History of end-stage renal disease, history of diabetes, history of hypertensi on, history of anemia, mineral bone disorder. FAMILY HISTORY: No family history of . SOCIAL HISTORY: Does not drink, smoke or do drugs. MEDICATIONS: Reviewed. PAST SURGICAL HISTORY: Status post AV fistula. REVIEW OF SYSTEMS: A 14-point review of systems conducted. Pertinent positives stated in HPI, other dong negative. PHYSICAL EXAMINATION: VITAL SIGNS: Blood pressure is 135/76, respirations 16, pulse 72, temperature 98.6. HEENT: Head is normocephalic. NECK: Supple. HEART: Regular rate. LUNGS: Show diminished breath sounds at the base. ABDOMEN: Soft, nontender to palpation without rebound or guarding. EXTREMITIES: Negative for clubbing, cyanosis, no edema. DERMATOLOGIC: No rashes. MUSCULOSKELETAL: No joint effusions. NEUROLOGIC: No focal deficits. MEDICATIONS: The patient's medications have been reviewed. LABORATORY DATA: Has been reviewed. IMAGING STUDIES: Have been reviewed. ASSESSMENT AND PLAN: This is a 63-year-old male who presents with: 1. End-stage renal disease. The patient is on dialysis Wednesday, , Wednesday, access AV fistu la, plan for dialysis today. We will dialyze 3 hours 3k bath, calcium 2.5, ultrafiltrate as tolerate d. 2. Anemia. Continue to monitor hemoglobin and hematocrit levels. Will give Epogen as needed. 3. Mineral bone disorder, monitor calcium and phosphorus levels. We will give phosphate binders as needed. 4. Sepsis secondary to possible upper respiratory infection, gastroenteritis. Continue current anti biotic regimen. Follow up cultures. 5. Diabetes. Continue current insulin regimen. 6. Hypertension. Continue current blood pressure regimen. Will continue ultrafiltration with dialy sis. Thank you, Dr. Hernandez, for this interesting consult. It will be a pleasure to follow patient with you throughout the hospital course. Dictated By: MEGHAN CASILLAS DO NR/NTS Conf#: [id number] DID#: [id number] CC: MICHEL HERNANDEZ MD;*EndCC*
--- NOTE | 2019-05-18 16:11 | CONS ---
DATE OF ADMISSION: 05/18/2019 DATE OF CONSULTATION: 05/18/2019 TYPE OF CONSULTATION: Infectious disease. REASON FOR CONSULTATION: Antibiotic management. HISTORY OF PRESENT ILLNESS: Bandar Cunningham is a 63-year-old male who came in with fever and vomitin g for 2 days. The patient also complains of a cough. The patient is end-stage renal disease on hemo dialysis. He has an AV fistula. He also has a Perm-A-Cath and has a history of appendectomy in the past. He denies chest pain or shortness of breath. He denies altered mental status without numbness or tingling. He received dialysis through a left-sided AV fistula. PAST MEDICAL HISTORY: As outlined. Has a history of hypertension as well. FAMILY HISTORY: Noncontributory. SOCIAL HISTORY: He does not smoke, drink or abuse drugs. ALLERGIES: PENICILLIN, not to sulfa or foods. MEDICATIONS: Per chart. REVIEW OF SYSTEMS: As per HPI. PHYSICAL EXAMINATION: VITAL SIGNS: His temperature was 101.7 in the Emergency Room. ANCILLARY LABORATORY DATA: White count was 15.7 with 89% neutrophils, H and H of 9.9 and 30.7, plate let count of 236. BUN and creatinine 55/8.09. Random glucose of 228. PHYSICAL EXAMINATION: GENERAL: He is a well-developed, somewhat ill 63-year-old male, awake, responsive, in no acute distr ess. VITAL SIGNS: As noted T-max of 101.7. SKIN: Without generalized rash. HEENT: Within normal limits. NECK: Supple. LYMPH NODES: None palpable. CHEST: Decreased breath sounds at the bases. HEART: Without murmur or gallop. ABDOMEN: Soft, nontender, without organosplenomegaly or masses. EXTREMITIES: Without cyanosis, clubbing, or edema. RECTAL AND GENITAL: Deferred. NEUROLOGIC: No focal neurological abnormality. IMPRESSION AND PLAN: Patient was started on vancomycin and cefepime. The patient had no evidence of severe sepsis or septic shock. He has a history of immunosuppression and is therefore at high risk for bacteremia. He was admitted, started on vancomycin and cefepime. Blood cultures were done today there is suspect for gastroenteritis or upper respiratory tract infection. He is on IV antibiotics. White count today 15.7 as before. Still having some cough. He has a small 2 to 3 cm circumferenti al ulcer with some drainage noted on his right foot. No bilateral lower extremity edema. I doubt th at that is the source of his sepsis. A gallbladder ultrasound showed no cholelithiasis or pericholec ystic fluid. There is gallbladder wall thickening and acalculous cholecystitis, no biliary duct dila tation. Hepatomegaly, hepatic fatty infiltration, 1 cm superior right renal cyst, otherwise unremark able right kidney, inability to visualize the pancreas. At this point, there is no evidence of christine lithiasis or pericholecystic fluid. The source of his sepsis is unclear, it may be from the wound on his leg. We will continue him on current antibiotic therapy. I will dictate my findings to the [facility] pitalist. At this point, the patient had received vancomycin and cefepime and vancomycin will last f or 3 or 4 days and he was also given Levaquin. I will dictate my findings to the hospitalist. Dictated By: MIGUEL BURR MD, JD/NTS Conf#: [id number] DID#: [id number] CC: MICHEL HERNANDEZ MD;*EndCC*
[2019-05-18] MEDS ORDERED: VANCOMYCIN IV PER PHARMACY XX SCH (18:30)
[2019-05-18] MEDS ORDERED: RANITIDINE 150 MG TAB PO SCH (21:00)
[2019-05-18] MEDS: MIRTAZAPINE 15 MG TAB PO SCH (21:18)
[2019-05-18] MEDS: ATORVASTATIN 80 MG TAB PO SCH (21:18)
[2019-05-18] MEDS: TAMSULOSIN (SR) 0.4 MG CAP PO SCH (21:19)
[2019-05-18] MEDS: INSULIN GLARGINE [LANTus] (100 UNITS/ML) SYG SC SCH (21:35)
[2019-05-18] MEDS ORDERED: VANCOMYCIN 500 MG (PMX) 100 ML IVPB ONE (22:00)
[2019-05-19] MEDS: ACCU-CHEK XX SCH (02:00)
[2019-05-19 03:22] VITALS: BP 102/51; PULSE 81; RESP 18
[2019-05-19 07:25] VITALS: BP 95/39; PULSE 77; RESP 20
[2019-05-19] MEDS: INSULIN ASPART [NOVOLOG] 3 ML PEN SC SCH ×5 (08:18→21:32)
--- NOTE | 2019-05-19 08:49 | PN ---
DATE: 05/19/2019 SUBJECTIVE: The patient is stable. No events overnight. No fevers, chills, nausea or vomiting. OBJECTIVE: VITAL SIGNS: Blood pressure is 95/39, pulse 77, respirations 20, temperature 98.4. HEENT: Head is normocephalic. NECK: Supple. HEART: Regular rate. LUNGS: Show diminished breath sounds at the base. ABDOMEN: Soft, nontender to palpation without rebound or guarding. EXTREMITIES: Negative for clubbing, cyanosis, no edema. DERMATOLOGIC: No rashes. MUSCULOSKELETAL: No joint effusion. NEUROLOGIC: No change in exam. MEDICATIONS: Reviewed. LABORATORY DATA: Reviewed. IMAGING STUDIES: Reviewed. ASSESSMENT AND PLAN: 1. End-stage renal disease. The patient had hemodialysis yesterday, tolerated well. Plan is for di alysis again tomorrow. 2. Anemia. Monitor hemoglobin and hematocrit levels. We will give Epogen as needed. 3. Mineral bone disorder. Monitor calcium and phosphorus levels. We will give phosphate binders. 4. Sepsis, secondary to possible gastroenteritis, upper respiratory infection. Continue current ant ibiotic regimen. Follow up with Infectious Disease. 5. Diabetes. Continue current insulin regimen. 6. Hypertension. Blood pressure is improved. Continue ultrafiltration with dialysis. Dictated By: MEGHAN CASILLAS DO NR/NTS Conf#: [id number] DID#: [id number] CC: MICHEL HERNANDEZ MD; MIGUEL BURR MD;*EndCC*
[2019-05-19] MEDS: CALCIUM ACETATE 667 MG CAP PO SCH ×3 (08:53→17:05)
[2019-05-19] MEDS: FISH OIL 1,000 MG CAP PO SCH ×2 (08:54→21:06)
[2019-05-19] MEDS: ALLOPURINOL 100 MG TAB PO SCH (08:55)
[2019-05-19] MEDS: FUROSEMIDE 40 MG TAB PO SCH (08:55)
[2019-05-19] MEDS: NIFEdipine (XL) 30 MG TAB PO SCH (08:55)
[2019-05-19] MEDS: HEPARIN 5,000 UNIT/1 ML VIAL SC SCH ×2 (09:15→21:32)
[2019-05-19] MEDS ORDERED: EPOETIN ALFA-EPBX (ESRD) 10,000 UNIT/ML VIAL SC SCH (10:00)
--- NOTE | 2019-05-19 10:35 | PN ---
Date/Time of Note Date/Time of Note DATE: 05/19/19 TIME: 10:29 Assessment/Plan VTE Prophylaxis Risk score (from Ns)>0 risk: 5 SCD applied (from Ns): No SCD contraindicated: other Pharmacological prophylaxis: heparin Lines/Catheters IV Catheter Type (from [facility], [place]): Saline Lock Urinary Cath still in place: No Assessment/Plan Hospital Course S: Patient seen by renal and ID team yesterday. Both urine and blood cultures have come back positive for group B strep. Tolerating diet, had dialysis yesterday. O: VS - see below PE: Gen: Lying in bed, no acute distress Head: Atraumatic Eyes: Normal Conjunctiva ENT: Normal External Ears, Nose and Mouth. Neck: Full range of motion. No meningismus. Resp: Clear to auscultation bilaterally Cardio: Regular rate and rhythm, no murmurs Abd: Soft, non tender, non distended, no rebound or guarding. Normal bowel sounds Ext: Small 2 to 3 cm circumferential ulcer with some drainage noted on right foot sole, no bilateral lower extremity edema Neuro: Awake and alert Assessment/Plan: 63-year-old male who presents with: 1. Nausea vomiting and fever: Symptoms improving, initial signs of sepsis, now likely secondary to both blood and urine group B strep infections. -Continue vancomycin, stop Levaquin and switch to meropenem for now, follow further ID recommendations -Tylenol PRN pain fever -Follow-up results of the wound culture drawn from the small foot ulcer 2. ESRD on HD: Received dialysis yesterday -Continue dialysis per renal recommendations, continue current medications 3. Type 1 diabetes: A1c = 6.2. -Monitor sugars, continue insulin 4. Hypertension: Today blood pressure in the low normal range -Monitor, hold p.o. Lasix for now, but continue other medications Result Diagram: 05/19/19 0626 05/19/19 0625 Results 24hrs Laboratory Tests Test 05/18/19 11:51 05/18/19 17:49 05/18/19 21:15 05/19/19 06:25 Bedside Glucose 207 118 113 Sodium Level 139 Potassium Level 4.3 Chloride Level 94 L Carbon Dioxide Level 32 H Anion Gap 13 Blood Urea Nitrogen 40 #H Creatinine 5.71 #H Est Glomerular Filtrat 10 L Rate mL/min Glucose Level 209 Calcium Level 8.2 L Magnesium Level 1.8 Total Bilirubin 0.5 Direct Bilirubin 0.00 Indirect Bilirubin 0.5 Aspartate Amino 22 Transf (AST/SGOT) Alanine 34 Aminotransferase (ALT/SG PT) Alkaline Phosphatase 282 H Total Protein 6.8 # Albumin 3.4 Globulin 3.40 H Albumin/Globulin Ratio 1.00 Triglycerides Level 181 H Cholesterol Level 102 LDL Cholesterol, 49 Calculated HDL Cholesterol 17 L Cholesterol/HDL Ratio 6.0 Test 05/19/19 06:26 05/19/19 08:07 White Blood Count 8.3 # Red Blood Count 2.87 L Hemoglobin 8.8 L Hematocrit 27.3 L Mean Corpuscular Volume 95.1 Mean Corpuscular 30.7 Hemoglobin Mean Corpuscular 32.2 Hemoglobin Concent Red Cell Distribution 14.8 H Width Platelet Count 182 # Mean Platelet Volume 11.4 H Immature Granulocytes % 0.200 Neutrophils % 81.1 H Lymphocytes % 8.3 L Monocytes % 8.1 Eosinophils % 1.6 Basophils % 0.7 Nucleated Red Blood 0.0 Cells % Immature Granulocytes # 0.020 Neutrophils # 6.8 Lymphocytes # 0.7 L Monocytes # 0.7 Eosinophils # 0.1 Basophils # 0.1 Nucleated Red Blood 0.0 Cells # Bedside Glucose 184 Exam/Review of Systems Exam Vitals Vital Signs Date Temp Pulse Resp B/P (MAP) Pulse Ox O2 O2 Flow FiO2 Time Delivery Rate 05/19/19 98.4 77 20 95/39 (57) 96 Room Air 07:25 05/18/19 2.0 06:32 Intake and Output 05/18/19 05/18/19 05/19/19 1414:59 22:59 06:59 IntakeIntake Total 100 ml 350 ml OutputOutput Total 2500 ml BalanceBalance 100 ml -2500 ml 350 ml Results Results 24hrs Laboratory Tests Test 05/18/19 11:51 05/18/19 17:49 05/18/19 21:15 05/19/19 06:25 Bedside Glucose 207 118 113 Sodium Level 139 Potassium Level 4.3 Chloride Level 94 L Carbon Dioxide Level 32 H Anion Gap 13 Blood Urea Nitrogen 40 #H Creatinine 5.71 #H Est Glomerular Filtrat 10 L Rate mL/min Glucose Level 209 Calcium Level 8.2 L Magnesium Level 1.8 Total Bilirubin 0.5 Direct Bilirubin 0.00 Indirect Bilirubin 0.5 Aspartate Amino 22 Transf (AST/SGOT) Alanine 34 Aminotransferase (ALT/SG PT) Alkaline Phosphatase 282 H Total Protein 6.8 # Albumin 3.4 Globulin 3.40 H Albumin/Globulin Ratio 1.00 Triglycerides Level 181 H Cholesterol Level 102 LDL Cholesterol, 49 Calculated HDL Cholesterol 17 L Cholesterol/HDL Ratio 6.0 Test 05/19/19 06:26 05/19/19 08:07 White Blood Count 8.3 # Red Blood Count 2.87 L Hemoglobin 8.8 L Hematocrit 27.3 L Mean Corpuscular Volume 95.1 Mean Corpuscular 30.7 Hemoglobin Mean Corpuscular 32.2 Hemoglobin Concent Red Cell Distribution 14.8 H Width Platelet Count 182 # Mean Platelet Volume 11.4 H Immature Granulocytes % 0.200 Neutrophils % 81.1 H Lymphocytes % 8.3 L Monocytes % 8.1 Eosinophils % 1.6 Basophils % 0.7 Nucleated Red Blood 0.0 Cells % Immature Granulocytes # 0.020 Neutrophils # 6.8 Lymphocytes # 0.7 L Monocytes # 0.7 Eosinophils # 0.1 Basophils # 0.1 Nucleated Red Blood 0.0 Cells # Bedside Glucose 184 Medications Medication Current Medications IV Flush (NS 3 ml) 3 ml PER PROTOCOL IV ; Start 05/18/19 at 07:00 Ondansetron HCl (Zofran Inj) 4 mg Q6H PRN IV NAUSEA/VOMITING; Start 05/18/19 at 07:00 Nitroglycerin (Nitroglycerin (Sl Tab) 0.4 Mg) 1 tab Q5M PRN SL .CHEST PAIN; Start 05/18/19 at 07:00 Acetaminophen (Tylenol Tab) 650 mg Q6H PRN PO .PAIN 1-3 OR TEMP; Start 05/18/19 at 07:00 Heparin Sodium (Porcine) (Heparin (5000 Units/1ml)) 5,000 unit Q12 SC Last administered on 05/19/19at 09:15; Admin Dose 5,000 UNIT; Start 05/18/19 at 09:00 Albuterol/ Ipratropium (Duoneb) 3 ml Q2H RESP THERAPY PRN HHN SHORTNESS OF BREATH; Start 05/18/19 at 07:00 Allopurinol (Zyloprim) 100 mg DAILY PO Last administered on 05/19/19at 08:55; Admin Dose 100 MG; Start 05/18/19 at 09:00 Atorvastatin Calcium (Lipitor) 80 mg QHS PO Last administered on 05/18/19 21:18; Admin Dose 80 MG; Start 05/18/19 at 21:00 Calcium Acetate (Phoslo) 1,334 mg WITH MEALS PO Last administered on 05/19/19 08:53; Admin Dose 1,334 MG; Start 05/18/19 at 08:00 Carvedilol (Coreg) 3.125 mg BID PO Last administered on 05/18/19 21:18; Admin Dose 3.125 MG; Start 05/18/19 at 09:00 Furosemide (Lasix) 80 mg DAILY PO Last administered on 05/18/19 08:57; Admin Dose 80 MG; Start 05/18/19 at 09:00 Insulin Glargine (Lantus) 10 units HS SC Last administered on 05/18/19 21:35; Admin Dose 10 UNITS; Start 05/18/19 at 21:00 Mirtazapine (Remeron) 7.5 mg HS PO Last administered on 05/18/19 21:18; Admin Dose 7.5 MG; Start 05/18/19 at 21:00 Nifedipine (Procardia Xl) 30 mg DAILY PO Last administered on 05/18/19 08:57; Admin Dose 30 MG; Start 05/18/19 at 09:00 Tamsulosin HCl (Flomax) 0.4 mg HS PO Last administered on 05/18/19 21:19; Admin Dose 0.4 MG; Start 05/18/19 at 21:00 Diagnostic Test (Pha) (Accu-Chek) 1 ea 02 XX ; Start 05/19/19 at 02:00 Insulin Aspart (Novolog Insulin Pen) NOVOLOG *MILD* ALGORITHM WITH MEALS BEDTIME SC Last administered on 05/19/19 08:18; Admin Dose 2 UNIT; Start 05/18/19 at 11:50 Miscellaneous Information 1 ea NOTE XX ; Start 05/18/19 at 10:00 Glucose (Glutose) 15 gm Q15M PRN PO DECREASED GLUCOSE; Start 05/18/19 at 10:00 Glucose (Glutose) 22.5 gm Q15M PRN PO DECREASED GLUCOSE; Start 05/18/19 at 10:00 Dextrose (D50w Syringe) 25 ml Q15M PRN IV DECREASED GLUCOSE; Start 05/18/19 at 10:00 Dextrose (D50w Syringe) 50 ml Q15M PRN IV DECREASED GLUCOSE; Start 05/18/19 at 10:00 Glucagon (Glucagen) 1 mg Q15M PRN IM DECREASED GLUCOSE; Start 05/18/19 at 10:00 Glucose (Glutose) 15 gm Q15M PRN BUCCAL DECREASED GLUCOSE; Start 05/18/19 at 10:00 Ranitidine HCl (Zantac) 150 mg HS PO Last administered on 05/18/19at 21:17; Admin Dose 150 MG; Start 05/18/19 at 13:00 Fish Oil (Fish Oil) 1,000 mg BID PO Last administered on 05/19/19at 08:54; Admin Dose 1,000 MG; Start 05/18/19 at 13:00 Vancomycin HCl (Vanco Iv Per Pharmacy) VANCOMYCIN PER PHARMACY PER PROTOCOL XX ; Start 05/18/19 at 18:30 Insulin Aspart (Novolog Insulin Pen) 5 unit WITH BREAKFAST SC Last administered on 05/19/19at 08:18; Admin Dose 5 UNIT; Start 05/19/19 at 07:55 Miscellaneous Information (*Rx Drug Level Order Reminder*) RANDOM VANCO W/ AM LABS... 0500 ONCE XX ; Start 05/20/19 at 05:00; Stop 05/20/19 at 05:01 Epoetin Tutu-epbx (Retacrit (Esrd)) 10,000 unit ONCE SC ; Start 05/19/19 at 10:00; Stop 05/19/19 at 23:59 Epoetin Tutu-epbx (Retacrit (Esrd)) 10,000 unit TuThSa@1700 SC ; Start 05/20/19 at 17:00 Meropenem/Sodium Chloride 50 ml @ 100 mls/hr Q12 IVPB ; Start 05/19/19 at 21:00; Status CHRISTO FAITH May 19, 2019 10:35
[2019-05-19 10:59] VITALS: BP 102/54; PULSE 78; RESP 20
--- NOTE | 2019-05-19 11:17 | RADRPT ---
Echocardiogram Report Patient Name: ALIS SHARMAPatient ID: [id number] : 1955 (63y 5m)Study Date: 05/18/2019 10:13:42 AM Gender: MAccession #: [id number] Tech: Ubaldo Riley RDCS Location: Ref.Physician: MICHEL HERNANDEZ Height(Cm): BSA: Weight(Kg): Quality: AdequateOrder Physician: MICHEL HERNANDEZ Account #: Procedures: Echocardiographic Report: Transthoracic echocardiogram with complete 2D, M-Mode, and doppler examination. Indications: Congestive Heart Failure. Measurements: 2D/M Mode Doppler Measurement Value Normal Range Measurement Value Normal Range LVIDd 2D 4.8 [ 4.2 - 5.8 ] cm AV Peak Raúl 1.4 [ 100.0 - 170.0 ] cm/se c LVIDs 2D 3.4 [ 2.5 - 4.0 ] cm AV Peak PG 8.0 [ 2.0 - 9.0 ] mmHg LVPWd 2D 0.9 [ 0.6 - 1.0 ] cm LVOT Peak Raúl 1.0 [ 70.0 - 110.0 ] cm/sec IVSd 2D 1.0 [ 0.6 - 1.0 ] cm LVOT Peak PG 4.0 [ 2.0 - 6.0 ] mmHg AoR Diam 2D 2.7 [ 2.6 - 3.4 ] cm MV E Peak Raúl 1.1 [ 60.0 - 130.0 ] cm/sec EDV 2D 106.0 [ 62.0 - 150.0 ] ml MV A Peak Raúl 0.6 [ 100.0 - 120.0 ] cm/se c ESV 2D 47.4 [ 21.0 - 61.0 ] ml MV E/A 1.7 [ 0.8 - 1.5 ] ratio EF 2D 55.3 [ 52.0 - 72.0 ] percent MV PHT 57.0 [ 20.0 - 100.0 ] msec LA Dimen 2D 4.3 [ 3.0 - 4.0 ] cm MV Decel Time 194 [ 104 - 258 ] msec MV Decel Lemhi 6 Lat E` Raúl 0.1 [ 10.0 - 15.0 ] cm/sec Lateral E/E` 13.2 [ 1.0 - 2.0 ] ratio Med E` Raúl 0.1 cm/sec MV E/A 1.7 [ 0.8 - 1.5 ] ratio MVA PHT 3.9 [ 2.0 - 4.0 ] cm2 Findings: Left Ventricle: Normal left ventricular systolic function. Normal left ventricular cavity size. Normal left ventricular wall thickness. Ejection fraction is visually estimated at 50-55 %. Right Ventricle: Normal right ventricular size. Normal right ventricular systolic function. Left Atrium: Upper limit of normal left atrial size. Right Atrium: The right atrium is normal in size. Atrial Septum: Normal atrial septum. Ventricular septum: Normal/intact ventricular septum. Mitral Valve: Normal appearance of the mitral valve. Mild mitral valve regurgitation. Aortic Valve: Normal appearance of the aortic valve. No aortic regurgitation. Tricuspid Valve: Normal appearance of the tricuspid valve. Unable to obtain RVSP due to minimal presence of tricuspid regurgitation. No evidence of tricuspid regurgitation. Pulmonic Valve: Normal pulmonic valve appearance. No evidence of pulmonic regurgitation. Pericardium: Normal pericardium with no significant pericardial effusion. Aorta: Normal aortic root. IVC: Normal size and normal respiratory collapse consistent with normal right atrial pressure. Conclusions: Normal left ventricular systolic function. Normal left ventricular cavity size. Normal left ventricular wall thickness. Ejection fraction is visually estimated at 50-55 %. Normal appearance of the mitral valve. Mild mitral valve regurgitation. n. Normal appearance of the tricuspid valve. Unable to obtain RVSP due to minimal presence of tricuspid regurgitation. No evidence of tricuspid regurgitation. Electronically Signed By: Cain Abebe 2019-05-19 11:16:44 PDT
[2019-05-19] MEDS: MEROPENEM 1 GM/50ML(PMX) 50 ML IVPB SCH (11:22)
[2019-05-19 15:11] VITALS: BP 111/56; PULSE 78; RESP 20
--- NOTE | 2019-05-19 15:53 | CONS ---
Assessment/Plan Assessment/Plan Hospital Course (Demo Recall) ID PROGRESS NOTE CURRENT ABX: DAY # 2=>MERREM S/P Vanco IV X1 05/19/19 0626 05/19/19 0625 24H INTERVAL SUMMARY * Awake, alert, fevers resolved, WBC normalized -- s/p HD yesterday, feeling better, tired DIAGNOSTIC IMAGING * 05/18/19 CXR:Mild cardiomegaly without congestive heart failure or pneumonia. * 05/18/19 GB US:1. No cholelithiasis or pericholecystic fluid. There is however gallbladder wall thickening and rule out acalculous cholecystitis. 2. No biliary ductal dilation. 3. Hepatomegaly with hepatic fatty infiltration. 4. 1 cm superior right renal cyst with an otherwise unremarkable right kidney. 5. Inability to visualize the pancreas. MICRO * 05/18/19 BCx #2=> (-) * 05/18/19 FOOT Cx (+) STREP AGALACTIAE - (GROUP B) * 05/18/19 Urine Cx (+) STREP AGALACTIAE - (GROUP B) * 05/18/19 BCx #1 (+) 2/2 bottles: STREP AGALACTIAE - (GROUP B) PHYSICAL EXAMINATION: GENERAL: VSS, NAD HEENT: AT, NC, NECK: Supple, CHEST: Rise symmetrical HEART: Pulse RRR ABDOMEN: Obese EXTREMITIES: Warm, dry Small 2 to 3 cm circumferential ulcer with some drainage noted on right foot sole, no bilateral lower extremity edema SKIN: No rash, no diaphoresis ID ASSESSMENT 63 yo M admit with: 1. Sepsis w/Strep Agalactiae (GBS) bacteremia due to UTI and R-Foot ulcer 2. DMT1 w/polyneuropathies: Renal, Peripheral 3. Right DM foot ulcer 4. 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 Gallbladder wall thickening and rule out acalculous cholecystitis 6. Hepatomegaly with fatty liver disease 7. ESRD on HD 8. Anemia 9. Hypertension 10. Obesity ABX ALLERGIES: PCN INVASIVES: PIV CURRENT ABX: ABX DAY # 2=>MERREM S/P Vanco IV X1 ID RECOMMENDATIONS/PLAN: 1. Continue current ABX -- Merrem appropriate due to PCN allergy / Consultation Date/Type/Reason Admit Date/Time May 18, 2019 at 03:55 Initial Consult Date Date/Time of Note DATE: 05/19/19 TIME: 15:42 Exam/Review of Systems Exam Vitals Vital Signs Date Temp Pulse Resp B/P (MAP) Pulse Ox O2 O2 Flow FiO2 Time Delivery Rate 05/19/19 97.8 78 20 111/56 95 Room Air 15:11 (74) 05/18/19 2.0 06:32 Intake and Output 05/18/19 05/18/19 05/19/19 1515:00 23:00 07:00 IntakeIntake Total 100 ml 350 ml OutputOutput Total 2500 ml BalanceBalance 100 ml -2500 ml 350 ml Results Result Diagram: 05/19/19 0626 05/19/19 0625 Results 24hrs Laboratory Tests Test 05/18/19 17:49 05/18/19 21:15 05/19/19 06:25 05/19/19 06:26 Bedside Glucose 118 113 Sodium Level 139 Potassium Level 4.3 Chloride Level 94 L Carbon Dioxide Level 32 H Anion Gap 13 Blood Urea Nitrogen 40 #H Creatinine 5.71 #H Est Glomerular Filtrat 10 L Rate mL/min Glucose Level 209 Calcium Level 8.2 L Magnesium Level 1.8 Total Bilirubin 0.5 Direct Bilirubin 0.00 Indirect Bilirubin 0.5 Aspartate Amino 22 Transf (AST/SGOT) Alanine 34 Aminotransferase (ALT/SG PT) Alkaline Phosphatase 282 H Total Protein 6.8 # Albumin 3.4 Globulin 3.40 H Albumin/Globulin Ratio 1.00 Triglycerides Level 181 H Cholesterol Level 102 LDL Cholesterol, 49 Calculated HDL Cholesterol 17 L Cholesterol/HDL Ratio 6.0 White Blood Count 8.3 # Red Blood Count 2.87 L Hemoglobin 8.8 L Hematocrit 27.3 L Mean Corpuscular Volume 95.1 Mean Corpuscular 30.7 Hemoglobin Mean Corpuscular 32.2 Hemoglobin Concent Red Cell Distribution 14.8 H Width Platelet Count 182 # Mean Platelet Volume 11.4 H Immature Granulocytes % 0.200 Neutrophils % 81.1 H Lymphocytes % 8.3 L Monocytes % 8.1 Eosinophils % 1.6 Basophils % 0.7 Nucleated Red Blood 0.0 Cells % Immature Granulocytes # 0.020 Neutrophils # 6.8 Lymphocytes # 0.7 L Monocytes # 0.7 Eosinophils # 0.1 Basophils # 0.1 Nucleated Red Blood 0.0 Cells # Test 05/19/19 08:07 05/19/19 12:17 Bedside Glucose 184 139 Medications Medication Current Medications IV Flush (NS 3 ml) 3 ml PER PROTOCOL IV ; Start 05/18/19 at 07:00 Ondansetron HCl (Zofran Inj) 4 mg Q6H PRN IV NAUSEA/VOMITING; Start 05/18/19 at 07:00 Nitroglycerin (Nitroglycerin (Sl Tab) 0.4 Mg) 1 tab Q5M PRN SL .CHEST PAIN; Start 05/18/19 at 07:00 Acetaminophen (Tylenol Tab) 650 mg Q6H PRN PO .PAIN 1-3 OR TEMP; Start 05/18/19 at 07:00 Heparin Sodium (Porcine) (Heparin (5000 Units/1ml)) 5,000 unit Q12 SC Last administered on 05/19/19at 09:15; Admin Dose 5,000 UNIT; Start 05/18/19 at 09:00 Albuterol/ Ipratropium (Duoneb) 3 ml Q2H RESP THERAPY PRN HHN SHORTNESS OF BREATH; Start 05/18/19 at 07:00 Allopurinol (Zyloprim) 100 mg DAILY PO Last administered on 05/19/19at 08:55; Admin Dose 100 MG; Start 05/18/19 at 09:00 Atorvastatin Calcium (Lipitor) 80 mg QHS PO Last administered on 05/18/19at 21:18; Admin Dose 80 MG; Start 05/18/19 at 21:00 Calcium Acetate (Phoslo) 1,334 mg WITH MEALS PO Last administered on 05/19/19 12:19; Admin Dose 1,334 MG; Start 05/18/19 at 08:00 Carvedilol (Coreg) 3.125 mg BID PO Last administered on 05/18/19at 21:18; Admin Dose 3.125 MG; Start 05/18/19 at 09:00 Furosemide (Lasix) 80 mg DAILY PO Last administered on 05/18/19at 08:57; Admin Dose 80 MG; Start 05/18/19 at 09:00; Status Hold Insulin Glargine (Lantus) 10 units HS SC Last administered on 05/18/19at 21:35; Admin Dose 10 UNITS; Start 05/18/19 at 21:00 Mirtazapine (Remeron) 7.5 mg HS PO Last administered on 05/18/19at 21:18; Admin Dose 7.5 MG; Start 05/18/19 at 21:00 Nifedipine (Procardia Xl) 30 mg DAILY PO Last administered on 05/18/19at 08:57; Admin Dose 30 MG; Start 05/18/19 at 09:00 Tamsulosin HCl (Flomax) 0.4 mg HS PO Last administered on 05/18/19 21:19; Admin Dose 0.4 MG; Start 05/18/19 at 21:00 Diagnostic Test (Pha) (Accu-Chek) 1 ea 02 XX ; Start 05/19/19 at 02:00 Insulin Aspart (Novolog Insulin Pen) NOVOLOG *MILD* ALGORITHM WITH MEALS BEDTIME SC Last administered on 05/19/19at 08:18; Admin Dose 2 UNIT; Start 05/18/19 at 11:50 Miscellaneous Information 1 ea NOTE XX ; Start 05/18/19 at 10:00 Glucose (Glutose) 15 gm Q15M PRN PO DECREASED GLUCOSE; Start 05/18/19 at 10:00 Glucose (Glutose) 22.5 gm Q15M PRN PO DECREASED GLUCOSE; Start 05/18/19 at 10:00 Dextrose (D50w Syringe) 25 ml Q15M PRN IV DECREASED GLUCOSE; Start 05/18/19 at 10:00 Dextrose (D50w Syringe) 50 ml Q15M PRN IV DECREASED GLUCOSE; Start 05/18/19 at 10:00 Glucagon (Glucagen) 1 mg Q15M PRN IM DECREASED GLUCOSE; Start 05/18/19 at 10:00 Glucose (Glutose) 15 gm Q15M PRN BUCCAL DECREASED GLUCOSE; Start 05/18/19 at 10:00 Ranitidine HCl (Zantac) 150 mg HS PO Last administered on 05/18/19at 21:17; Admin Dose 150 MG; Start 05/18/19 at 13:00 Fish Oil (Fish Oil) 1,000 mg BID PO Last administered on 05/19/19at 08:54; Admin Dose 1,000 MG; Start 05/18/19 at 13:00 Vancomycin HCl (Vanco Iv Per Pharmacy) VANCOMYCIN PER PHARMACY PER PROTOCOL XX ; Start 05/18/19 at 18:30 Insulin Aspart (Novolog Insulin Pen) 5 unit WITH BREAKFAST SC Last administered on 05/19/19at 08:18; Admin Dose 5 UNIT; Start 05/19/19 at 07:55 Miscellaneous Information (*Rx Drug Level Order Reminder*) RANDOM VANCO W/ AM LABS... 0500 ONCE XX ; Start 05/20/19 at 05:00; Stop 05/20/19 at 05:01 Epoetin Tutu-epbx (Retacrit (Esrd)) 10,000 unit ONCE SC Last administered on 05/19/19at 11:13; Admin Dose 10,000 UNIT; Start 05/19/19 at 10:00; Stop 05/19/19 at 23:59 Epoetin Tutu-epbx (Retacrit (Esrd)) 10,000 unit TuThSa@1700 SC ; Start 05/20/19 at 17:00 Meropenem/Sodium Chloride 50 ml @ 100 mls/hr Q24H IVPB Last administered on 05/19/19at 11:22; Admin Dose 100 MLS/HR; Start 05/19/19 at 11:00 RUPINDER WOODWARD NP May 19, 2019 15:53
[2019-05-19 20:00] VITALS: BP 131/61; PULSE 77; RESP 20
[2019-05-19] MEDS: ATORVASTATIN 80 MG TAB PO SCH (21:06)
[2019-05-19] MEDS: TAMSULOSIN (SR) 0.4 MG CAP PO SCH (21:06)
[2019-05-19] MEDS: RANITIDINE 150 MG TAB PO SCH (21:06)
[2019-05-19] MEDS: MIRTAZAPINE 15 MG TAB PO SCH (21:06)
[2019-05-19] MEDS: INSULIN GLARGINE [LANTus] (100 UNITS/ML) SYG SC SCH (21:31)
[2019-05-20] VITALS (20 sets, daily range): BP systolic 111–134; BP diastolic 52–68; PULSE 65–77; RESP 17–18
[2019-05-20] MEDS: ACCU-CHEK XX SCH (01:50)
[2019-05-20] MEDS: INSULIN ASPART [NOVOLOG] 3 ML PEN SC SCH ×5 (07:55→20:54)
[2019-05-20] MEDS: NIFEdipine (XL) 30 MG TAB PO SCH (08:10)
[2019-05-20] MEDS: CALCIUM ACETATE 667 MG CAP PO SCH ×3 (08:10→17:39)
[2019-05-20] MEDS: FISH OIL 1,000 MG CAP PO SCH ×2 (08:12→20:21)
[2019-05-20] MEDS: ALLOPURINOL 100 MG TAB PO SCH (08:12)
[2019-05-20] MEDS: HEPARIN 5,000 UNIT/1 ML VIAL SC SCH ×2 (08:14→20:22)
--- NOTE | 2019-05-20 08:51 | PN ---
DATE: 05/20/2019 SUBJECTIVE: The patient is stable, no events overnight. No fevers, chills. OBJECTIVE: VITAL SIGNS: Blood pressure is 132/56, pulse 65, respiration 18, temperature 98.2. HEENT: Head is normocephalic. NECK: Supple. HEART: Regular rate. LUNGS: Show diminished breath sounds at the base. ABDOMEN: Soft, nontender to palpation. No rebound or guarding. EXTREMITIES: Negative for clubbing, cyanosis, no edema. DERMATOLOGIC: No rashes. MUSCULOSKELETAL: No joint effusions. NEUROLOGIC: No change in exam. MEDICATIONS: Have been reviewed. LABORATORY DATA: Has been reviewed. IMAGING STUDIES: Have been reviewed. ASSESSMENT AND PLAN: 1. End-stage renal disease, plan for hemodialysis today. Will dialyze 3 hours 2k bath, calcium 2.5. 2. Anemia. Continue to monitor hemoglobin and hematocrit levels. Will give Epogen intermittently. 3. Mineral bone disorder, monitor calcium and phosphorus levels. Continue phosphatase binders. 4. Sepsis. Etiology secondary to bacteremia, strep agalactia, upper respiratory infection. Etiolog y was due to right foot ulcer, urinary tract infection. Continue broad spectrum antibiotics. Follow up infectious disease. 5. Diabetes, continue current insulin regimen. 6. Hypertension. Blood pressure is improved. Continue ultrafiltration dialysis. Dictated By: MEGHAN HODGES/WARREN Conf#: [id number] DID#: [id number] CC: MICHEL HERNANDEZ MD;*EndCC*
[2019-05-20] MEDS ORDERED: VANCOMYCIN 1 GM 250 ML IVPB SCH (10:00)
[2019-05-20] MEDS ORDERED: LEVOFLOXACIN 250MG/D5W (PMX) 50 ML IVPB SCH (10:00)
--- NOTE | 2019-05-20 12:07 | PN ---
Date/Time of Note Date/Time of Note DATE: 05/20/19 TIME: 12:03 Assessment/Plan VTE Prophylaxis Risk score (from Ns)>0 risk: 5 SCD applied (from Ns): No SCD contraindicated: other Pharmacological prophylaxis: heparin Lines/Catheters IV [facility]from [facility] Urinary Cath still in place: No Assessment/Plan Hospital Course S: Had no acute events overnight. Presently getting dialysis. O: VS - see below PE: Gen: Lying in bed, no acute distress Head: Atraumatic Eyes: Normal Conjunctiva ENT: Normal External Ears, Nose and Mouth. Neck: Full range of motion. No meningismus. Resp: Clear to auscultation bilaterally Cardio: Regular rate and rhythm, no murmurs Abd: Soft, non tender, non distended, no rebound or guarding. Normal bowel sounds Ext: Small 2 to 3 cm circumferential ulcer with some drainage noted on right foot sole, no bilateral lower extremity edema Neuro: no focal deficits Assessment/Plan: 63-year-old male who presents with: 1. Nausea vomiting and fever: Symptoms improving, initial signs of sepsis, now likely secondary to both blood and urine group B strep infections. Wound culture also positive for group B strep infection -Continue vancomycin, meropenem for now, follow further ID recommendations -Tylenol PRN pain fever 2. ESRD on HD: Followed by renal team -Continue dialysis per renal recommendations, continue current medications 3. Type 1 diabetes: A1c = 6.2. -Monitor sugars, continue insulin 4. Hypertension: Today blood pressure in the low normal range -Monitor, hold p.o. Lasix for now, but continue other medications Result Diagram: 05/20/19 0457 05/20/19 0457 Results 24hrs Laboratory Tests Test 05/19/19 12:17 05/19/19 17:03 05/19/19 21:09 05/20/19 01:48 Bedside Glucose 139 182 202 140 Test 05/20/19 04:57 05/20/19 08:07 05/20/19 11:49 White Blood Count 7.6 Red Blood Count 2.99 L Hemoglobin 9.3 L Hematocrit 27.9 L Mean Corpuscular Volume 93.3 Mean Corpuscular 31.1 Hemoglobin Mean Corpuscular 33.3 Hemoglobin Concent Red Cell Distribution 14.7 H Width Platelet Count 213 Mean Platelet Volume 11.9 H Immature Granulocytes % 0.500 H Neutrophils % 65.7 Lymphocytes % 15.9 Monocytes % 11.6 H Eosinophils % 5.1 Basophils % 1.2 Nucleated Red Blood 0.0 Cells % Immature Granulocytes # 0.040 H Neutrophils # 5.0 Lymphocytes # 1.2 Monocytes # 0.9 Eosinophils # 0.4 Basophils # 0.1 Nucleated Red Blood 0.0 Cells # Sodium Level 136 Potassium Level 4.5 Chloride Level 92 L Carbon Dioxide Level 26 Anion Gap 18 H Blood Urea Nitrogen 69 H Creatinine 7.69 H Est Glomerular Filtrat 7 L Rate mL/min Glucose Level 125 # Calcium Level 8.4 Phosphorus Level 6.1 H Magnesium Level 2.2 Random Vancomycin Level 10.3 Bedside Glucose 119 131 Exam/Review of Systems Exam Vitals Vital Signs Date Temp Pulse Resp B/P (MAP) Pulse Ox O2 O2 Flow FiO2 Time Delivery Rate 05/20/19 98.0 69 18 111/59 96 11:14 (76) 05/20/19 Room Air 10:30 05/18/19 2.0 06:32 Intake and Output 05/19/19 05/19/19 05/20/19 1515:00 23:00 07:00 IntakeIntake Total 720 ml 240 ml 100 ml BalanceBalance 720 ml 240 ml 100 ml Results Results 24hrs Laboratory Tests Test 05/19/19 12:17 05/19/19 17:03 05/19/19 21:09 05/20/19 01:48 Bedside Glucose 139 182 202 140 Test 05/20/19 04:57 05/20/19 08:07 05/20/19 11:49 White Blood Count 7.6 Red Blood Count 2.99 L Hemoglobin 9.3 L Hematocrit 27.9 L Mean Corpuscular Volume 93.3 Mean Corpuscular 31.1 Hemoglobin Mean Corpuscular 33.3 Hemoglobin Concent Red Cell Distribution 14.7 H Width Platelet Count 213 Mean Platelet Volume 11.9 H Immature Granulocytes % 0.500 H Neutrophils % 65.7 Lymphocytes % 15.9 Monocytes % 11.6 H Eosinophils % 5.1 Basophils % 1.2 Nucleated Red Blood 0.0 Cells % Immature Granulocytes # 0.040 H Neutrophils # 5.0 Lymphocytes # 1.2 Monocytes # 0.9 Eosinophils # 0.4 Basophils # 0.1 Nucleated Red Blood 0.0 Cells # Sodium Level 136 Potassium Level 4.5 Chloride Level 92 L Carbon Dioxide Level 26 Anion Gap 18 H Blood Urea Nitrogen 69 H Creatinine 7.69 H Est Glomerular Filtrat 7 L Rate mL/min Glucose Level 125 # Calcium Level 8.4 Phosphorus Level 6.1 H Magnesium Level 2.2 Random Vancomycin Level 10.3 Bedside Glucose 119 131 Medications Medication Current Medications IV Flush (NS 3 ml) 3 ml PER PROTOCOL IV ; Start 05/18/19 at 07:00 Ondansetron HCl (Zofran Inj) 4 mg Q6H PRN IV NAUSEA/VOMITING; Start 05/18/19 at 07:00 Nitroglycerin (Nitroglycerin (Sl Tab) 0.4 Mg) 1 tab Q5M PRN SL .CHEST PAIN; Start 05/18/19 at 07:00 Acetaminophen (Tylenol Tab) 650 mg Q6H PRN PO .PAIN 1-3 OR TEMP; Start 05/18/19 at 07:00 Heparin Sodium (Porcine) (Heparin (5000 Units/1ml)) 5,000 unit Q12 SC Last administered on 05/20/19at 08:14; Admin Dose 5,000 UNIT; Start 05/18/19 at 09:00 Albuterol/ Ipratropium (Duoneb) 3 ml Q2H RESP THERAPY PRN HHN SHORTNESS OF BREATH; Start 05/18/19 at 07:00 Allopurinol (Zyloprim) 100 mg DAILY PO Last administered on 05/20/19at 08:12; A dmin Dose 100 MG; Start 05/18/19 at 09:00 Atorvastatin Calcium (Lipitor) 80 mg QHS PO Last administered on 05/19/19at 21:06; Admin Dose 80 MG; Start 05/18/19 at 21:00 Calcium Acetate (Phoslo) 1,334 mg WITH MEALS PO Last administered on 05/20/19at 08:10; Admin Dose 1,334 MG; Start 05/18/19 at 08:00 Carvedilol (Coreg) 3.125 mg BID PO Last administered on 05/20/19at 08:13; Admin Dose 3.125 MG; Start 05/18/19 at 09:00 Furosemide (Lasix) 80 mg DAILY PO Last administered on 05/18/19at 08:57; Admin Dose 80 MG; Start 05/18/19 at 09:00; Status Hold Insulin Glargine (Lantus) 10 units HS SC Last administered on 05/19/19 21:31; Admin Dose 10 UNITS; Start 05/18/19 at 21:00 Mirtazapine (Remeron) 7.5 mg HS PO Last administered on 05/19/19 21:06; Admin Dose 7.5 MG; Start 05/18/19 at 21:00 Nifedipine (Procardia Xl) 30 mg DAILY PO Last administered on 05/20/19 08:10; Admin Dose 30 MG; Start 05/18/19 at 09:00 Tamsulosin HCl (Flomax) 0.4 mg HS PO Last administered on 05/19/19 21:06; Admin Dose 0.4 MG; Start 05/18/19 at 21:00 Diagnostic Test (Pha) (Accu-Chek) 1 ea 02 XX Last administered on 05/20/19at 01:50; Admin Dose 1 EA; Start 05/19/19 at 02:00 Insulin Aspart (Novolog Insulin Pen) NOVOLOG *MILD* ALGORITHM WITH MEALS BEDTIME SC Last administered on 05/19/19 21:32; Admin Dose 1 UNIT; Start 05/18/19 at 11:50 Miscellaneous Information 1 ea NOTE XX ; Start 05/18/19 at 10:00 Glucose (Glutose) 15 gm Q15M PRN PO DECREASED GLUCOSE; Start 05/18/19 at 10:00 Glucose (Glutose) 22.5 gm Q15M PRN PO DECREASED GLUCOSE; Start 05/18/19 at 10:00 Dextrose (D50w Syringe) 25 ml Q15M PRN IV DECREASED GLUCOSE; Start 05/18/19 at 10:00 Dextrose (D50w Syringe) 50 ml Q15M PRN IV DECREASED GLUCOSE; Start 05/18/19 at 10:00 Glucagon (Glucagen) 1 mg Q15M PRN IM DECREASED GLUCOSE; Start 05/18/19 at 10:00 Glucose (Glutose) 15 gm Q15M PRN BUCCAL DECREASED GLUCOSE; Start 05/18/19 at 10:00 Ranitidine HCl (Zantac) 150 mg HS PO Last administered on 05/19/19 21:06; Admin Dose 150 MG; Start 05/18/19 at 13:00 Fish Oil (Fish Oil) 1,000 mg BID PO Last administered on 7/6/19at 08:12; Admin Dose 1,000 MG; Start 05/18/19 at 13:00 Vancomycin HCl (Vanco Iv Per Pharmacy) VANCOMYCIN PER PHARMACY PER PROTOCOL XX ; Start 05/18/19 at 18:30 Insulin Aspart (Novolog Insulin Pen) 5 unit WITH BREAKFAST SC Last administered on 05/20/19at 08:13; Admin Dose 5 UNIT; Start 05/19/19 at 07:55 Epoetin Tutu-epbx (Retacrit (Esrd)) 10,000 unit TuThSa@1700 SC ; Start 05/20/19 at 17:00 Meropenem/Sodium Chloride 50 ml @ 100 mls/hr Q24H IVPB Last administered on 05/19/19at 11:22; Admin Dose 100 MLS/HR; Start 05/19/19 at 11:00 CHRISTO BROWNING May 20, 2019 12:07
[2019-05-20] MEDS ORDERED: CALCIUM CARBONATE 500 MG CHEW TAB PO PRN (12:30)
[2019-05-20] MEDS: MEROPENEM 1 GM/50ML(PMX) 50 ML IVPB SCH (13:50)
--- NOTE | 2019-05-20 15:02 | CONS ---
Assessment/Plan Assessment/Plan Hospital Course (Demo Recall) ID PROGRESS NOTE CURRENT ABX: DAY # 3 =>MERREM + Vanco IV S/P Vanco IV X1 24H INTERVAL SUMMARY * Awake, alert, fevers resolved, WBC normalized -- s/p HD yesterday, feeling better, tired DIAGNOSTIC IMAGING * 05/18/19 CXR:Mild cardiomegaly without congestive heart failure or pneumonia. * 05/18/19 GB US:1. No cholelithiasis or pericholecystic fluid. There is however gallbladder wall thickening and rule out acalculous cholecystitis. 2. No biliary ductal dilation. 3. Hepatomegaly with hepatic fatty infiltration. 4. 1 cm superior right renal cyst with an otherwise unremarkable right kidney. 5. Inability to visualize the pancreas. MICRO * 05/18/19 BCx #2=> (-) * 05/18/19 FOOT Cx (+) WOUND CULTURE Preliminary Organism 1 STREP AGALACTIAE - (GROUP B) QUANTITY 1+ Organism 2 STAPHYLOCOCCUS SPECIES QUANTITY SCANT GROWTH S AGA(GR B Zone Size RX --------- --- * CEFOTAXIME S * CLINDAMYCIN S * ERYTHROMYCIN S * PENICILLIN S * VANCOMYCIN S * 05/18/19 Urine Cx (+) STREP AGALACTIAE - (GROUP B) * 05/18/19 BCx #1 (+) 2/2 bottles: STREP AGALACTIAE - (GROUP B) PHYSICAL EXAMINATION: GENERAL: VSS, NAD HEENT: AT, NC, NECK: Supple, CHEST: Rise symmetrical HEART: Pulse RRR ABDOMEN: Obese EXTREMITIES: Warm, dry Small 2 to 3 cm circumferential ulcer with some drainage noted on right foot sole, no bilateral lower extremity edema SKIN: No rash, no diaphoresis ID ASSESSMENT 63 yo M admit with: 1. Sepsis w/Strep Agalactiae (GBS) bacteremia due to UTI and R-Foot ulcer 2. DMT1 w/polyneuropathies: Renal, Peripheral 3. Right DM foot ulcer 4. 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 Gallbladder wall thickening and rule out acalculous cholecystitis 6. Hepatomegaly with fatty liver disease 7. ESRD on HD 8. Anemia 9. Hypertension 10. Obesity ABX ALLERGIES: PCN INVASIVES: PIV CURRENT ABX: ABX DAY # 3 =>MERREM + Vanco IV ID RECOMMENDATIONS/PLAN: 1. Continue current ABX -- Merrem appropriate due to PCN allergy 2. Await final result of STAPH pending prior to final ABX recommendations / Consultation Date/Type/Reason Admit Date/Time May 18, 2019 at 03:55 Initial Consult Date Date/Time of Note DATE: 05/20/19 TIME: 14:58 Exam/Review of Systems Exam Vitals Vital Signs Date Temp Pulse Resp B/P (MAP) Pulse Ox O2 O2 Flow FiO2 Time Delivery Rate 05/20/19 70 13:30 05/20/19 98.0 18 111/59 96 11:14 (76) 05/20/19 Room Air 10:30 05/18/19 2.0 06:32 Intake and Output 05/19/19 05/19/19 05/20/19 1515:00 23:00 07:00 IntakeIntake Total 720 ml 240 ml 100 ml BalanceBalance 720 ml 240 ml 100 ml Results Result Diagram: 05/20/19 0457 05/20/19 0457 Results 24hrs Laboratory Tests Test 05/19/19 17:03 05/19/19 21:09 05/20/19 01:48 05/20/19 04:57 Bedside Glucose 182 202 140 White Blood Count 7.6 Red Blood Count 2.99 L Hemoglobin 9.3 L Hematocrit 27.9 L Mean Corpuscular Volume 93.3 Mean Corpuscular 31.1 Hemoglobin Mean Corpuscular 33.3 Hemoglobin Concent Red Cell Distribution 14.7 H Width Platelet Count 213 Mean Platelet Volume 11.9 H Immature Granulocytes % 0.500 H Neutrophils % 65.7 Lymphocytes % 15.9 Monocytes % 11.6 H Eosinophils % 5.1 Basophils % 1.2 Nucleated Red Blood 0.0 Cells % Immature Granulocytes # 0.040 H Neutrophils # 5.0 Lymphocytes # 1.2 Monocytes # 0.9 Eosinophils # 0.4 Basophils # 0.1 Nucleated Red Blood 0.0 Cells # Sodium Level 136 Potassium Level 4.5 Chloride Level 92 L Carbon Dioxide Level 26 Anion Gap 18 H Blood Urea Nitrogen 69 H Creatinine 7.69 H Est Glomerular Filtrat 7 L Rate mL/min Glucose Level 125 # Calcium Level 8.4 Phosphorus Level 6.1 H Magnesium Level 2.2 Random Vancomycin Level 10.3 Test 05/20/19 08:07 05/20/19 11:49 Bedside Glucose 119 131 Medications Medication Current Medications IV Flush (NS 3 ml) 3 ml PER PROTOCOL IV ; Start 05/18/19 at 07:00 Ondansetron HCl (Zofran Inj) 4 mg Q6H PRN IV NAUSEA/VOMITING; Start 05/18/19 at 07:00 Nitroglycerin (Nitroglycerin (Sl Tab) 0.4 Mg) 1 tab Q5M PRN SL .CHEST PAIN; Start 05/18/19 at 07:00 Acetaminophen (Tylenol Tab) 650 mg Q6H PRN PO .PAIN 1-3 OR TEMP; Start 05/18/19 at 07:00 Heparin Sodium (Porcine) (Heparin (5000 Units/1ml)) 5,000 unit Q12 SC Last administered on 05/20/19at 08:14; Admin Dose 5,000 UNIT; Start 05/18/19 at 09:00 Albuterol/ Ipratropium (Duoneb) 3 ml Q2H RESP THERAPY PRN HHN SHORTNESS OF BREATH; Start 05/18/19 at 07:00 Allopurinol (Zyloprim) 100 mg DAILY PO Last administered on 05/20/19at 08:12; Admin Dose 100 MG; Start 05/18/19 at 09:00 Atorvastatin Calcium (Lipitor) 80 mg QHS PO Last administered on 05/19/19at 21:06 ; Admin Dose 80 MG; Start 05/18/19 at 21:00 Calcium Acetate (Phoslo) 1,334 mg WITH MEALS PO Last administered on 05/20/19at 12:24; Admin Dose 1,334 MG; Start 05/18/19 at 08:00 Carvedilol (Coreg) 3.125 mg BID PO Last administered on 05/20/19at 08:13; Admin Dose 3.125 MG; Start 05/18/19 at 09:00 Furosemide (Lasix) 80 mg DAILY PO Last administered on 05/18/19at 08:57; Admin Dose 80 MG; Start 05/18/19 at 09:00; Status Hold Insulin Glargine (Lantus) 10 units HS SC Last administered on 05/19/19 21:31; Admin Dose 10 UNITS; Start 05/18/19 at 21:00 Mirtazapine (Remeron) 7.5 mg HS PO Last administered on 05/19/19 21:06; Admin Dose 7.5 MG; Start 05/18/19 at 21:00 Nifedipine (Procardia Xl) 30 mg DAILY PO Last administered on 05/20/19 08:10; Admin Dose 30 MG; Start 05/18/19 at 09:00 Tamsulosin HCl (Flomax) 0.4 mg HS PO Last administered on 05/19/19 21:06; Admin Dose 0.4 MG; Start 05/18/19 at 21:00 Diagnostic Test (Pha) (Accu-Chek) 1 ea 02 XX Last administered on 05/20/19at 01:50; Admin Dose 1 EA; Start 05/19/19 at 02:00 Insulin Aspart (Novolog Insulin Pen) NOVOLOG *MILD* ALGORITHM WITH MEALS BEDTIME SC Last administered on 05/19/19 21:32; Admin Dose 1 UNIT; Start 05/18/19 at 11:50 Miscellaneous Information 1 ea NOTE XX ; Start 05/18/19 at 10:00 Glucose (Glutose) 15 gm Q15M PRN PO DECREASED GLUCOSE; Start 05/18/19 at 10:00 Glucose (Glutose) 22.5 gm Q15M PRN PO DECREASED GLUCOSE; Start 05/18/19 at 10:00 Dextrose (D50w Syringe) 25 ml Q15M PRN IV DECREASED GLUCOSE; Start 05/18/19 at 10:00 Dextrose (D50w Syringe) 50 ml Q15M PRN IV DECREASED GLUCOSE; Start 05/18/19 at 10:00 Glucagon (Glucagen) 1 mg Q15M PRN IM DECREASED GLUCOSE; Start 05/18/19 at 10:00 Glucose (Glutose) 15 gm Q15M PRN BUCCAL DECREASED GLUCOSE; Start 05/18/19 at 10:00 Ranitidine HCl (Zantac) 150 mg HS PO Last administered on 05/19/19 21:06; Admin Dose 150 MG; Start 05/18/19 at 13:00 Fish Oil (Fish Oil) 1,000 mg BID PO Last administered on 7/6/19at 08:12; Admin Dose 1,000 MG; Start 05/18/19 at 13:00 Vancomycin HCl (Vanco Iv Per Pharmacy) VANCOMYCIN PER PHARMACY PER PROTOCOL XX ; Start 05/18/19 at 18:30 Insulin Aspart (Novolog Insulin Pen) 5 unit WITH BREAKFAST SC Last administered on 05/20/19at 08:13; Admin Dose 5 UNIT; Start 05/19/19 at 07:55 Epoetin Tutu-epbx (Retacrit (Esrd)) 10,000 unit TuThSa@1700 SC ; Start 05/20/19 a t 17:00 Meropenem/Sodium Chloride 50 ml @ 100 mls/hr Q24H IVPB Last administered on 05/20/19at 13:50; Admin Dose 100 MLS/HR; Start 05/19/19 at 11:00 Calcium Carbonate (Tums) 500 mg PC MEALS PRN PO PAIN; Start 05/20/19 at 12:30 RUPINDER WOODWARD NP May 20, 2019 15:02
[2019-05-20] MEDS: EPOETIN ALFA-EPBX (ESRD) 10,000 UNIT/ML VIAL SC SCH (16:19)
[2019-05-20] MEDS: ATORVASTATIN 80 MG TAB PO SCH (20:21)
[2019-05-20] MEDS: MIRTAZAPINE 15 MG TAB PO SCH (20:21)
[2019-05-20] MEDS: RANITIDINE 150 MG TAB PO SCH (20:21)
[2019-05-20] MEDS: TAMSULOSIN (SR) 0.4 MG CAP PO SCH (20:21)
[2019-05-20] MEDS: INSULIN GLARGINE [LANTus] (100 UNITS/ML) SYG SC SCH (20:55)
[2019-05-21] VITALS (7 sets, daily range): BP systolic 103–140; BP diastolic 52–79; PULSE 70–78; RESP 18–20
[2019-05-21] MEDS: ACCU-CHEK XX SCH (01:27)
[2019-05-21] MEDS: INSULIN ASPART [NOVOLOG] 3 ML PEN SC SCH ×5 (07:55→20:12)
[2019-05-21] MEDS: ALLOPURINOL 100 MG TAB PO SCH (08:35)
[2019-05-21] MEDS: NIFEdipine (XL) 30 MG TAB PO SCH (08:35)
[2019-05-21] MEDS: FISH OIL 1,000 MG CAP PO SCH ×2 (08:35→20:11)
[2019-05-21] MEDS: CALCIUM ACETATE 667 MG CAP PO SCH ×3 (08:35→17:46)
--- NOTE | 2019-05-21 08:45 | PN ---
DATE: 05/21/2019 SUBJECTIVE: The patient is stable, no events overnight. OBJECTIVE: VITAL SIGNS: Blood pressure is 140/60, pulse 70, respirations 20, temperature 98.2. HEENT: Head is normocephalic. NECK: Supple. HEART: Regular rate. LUNGS: Show diminished breath sounds at the base. ABDOMEN: Soft, nontender to palpation without rebound or guarding. EXTREMITIES: Negative for clubbing, cyanosis, no edema. DERMATOLOGIC: No rashes. MUSCULOSKELETAL: No joint effusion. NEUROLOGIC: No change in exam. MEDICATIONS: The patient's medications have been reviewed. LABORATORY DATA: Has been reviewed. IMAGING STUDIES: Imaging have been reviewed. ASSESSMENT AND PLAN: 1. End-stage renal disease. The patient had hemodialysis yesterday, tolerated it well. Anticipate next dialysis on Wednesday. 2. Anemia. Monitor hemoglobin and hematocrit levels. Continue Epogen intermittently. 3. Mineral bone disorder. Monitor calcium and phosphorus levels. Give phosphate binders. 4. Sepsis, secondary to bacteremia respiratory infection, diabetic foot ulcer. Continue current ant ibiotic regimen. Follow up with infectious disease. 5. Diabetes. Continue current insulin regimen. 6. Hypertension. Continue current blood pressure regimen. Dictated By: MEGHAN CASILLAS DO NR/NTS Conf#: [id number] DID#: [id number] CC: MICHEL HERNANDEZ MD; CHRISTO BROWNING; MIGUEL BURR MD;*EndCC*
[2019-05-21] MEDS: HEPARIN 5,000 UNIT/1 ML VIAL SC SCH ×2 (10:04→20:43)
[2019-05-21] MEDS: MEROPENEM 1 GM/50ML(PMX) 50 ML IVPB SCH (11:24)
--- NOTE | 2019-05-21 12:35 | CONS ---
Assessment/Plan Assessment/Plan Hospital Course (Demo Recall) ID PROGRESS NOTE CURRENT ABX: DAY # 4 =>MERREM + Vanco IV S/P Vanco IV X1 05/21/19 0607 05/21/19 0607 24H INTERVAL SUMMARY * Doing well - afebrile, generalized weakness,fatigue DIAGNOSTIC IMAGING * 05/18/19 CXR:Mild cardiomegaly without congestive heart failure or pneumonia. * 05/18/19 GB US:1. No cholelithiasis or pericholecystic fluid. There is however gallbladder wall thickening and rule out acalculous cholecystitis. 2. No biliary ductal dilation. 3. Hepatomegaly with hepatic fatty infiltration. 4. 1 cm superior right renal cyst with an otherwise unremarkable right kidney . 5. Inability to visualize the pancreas. MICRO * 05/18/19 BCx #2=> (-) * 05/18/19 FOOT Cx (+) WOUND CULTURE Preliminary Organism 1 STREP AGALACTIAE - (GROUP B) QUANTITY 1+ Organism 2 STAPHYLOCOCCUS SPECIES QUANTITY SCANT GROWTH Organism 3 DIPTHEROIDS QUANTITY 1+ S AGA(GR B Zone Size RX --------- --- * CEFOTAXIME S * CLINDAMYCIN S * ERYTHROMYCIN S * PENICILLIN S * VANCOMYCIN S * 05/18/19 Urine Cx (+) STREP AGALACTIAE - (GROUP B) * 05/18/19 BCx #1 (+) 2/2 bottles: STREP AGALACTIAE - (GROUP B) PHYSICAL EXAMINATION: GENERAL: VSS, NAD HEENT: AT, NC, NECK: Supple, CHEST: Rise symmetrical HEART: Pulse RRR ABDOMEN: Obese EXTREMITIES: Warm, dry Small 2 to 3 cm circumferential ulcer with some drainage noted on right foot sole, no bilateral lower extremity edema SKIN: No rash, no diaphoresis ID ASSESSMENT 63 yo M admit with: 1. Sepsis w/Strep Agalactiae (GBS) bacteremia due to UTI and R-Foot ulcer 2. DMT1 w/polyneuropathies: Renal, Peripheral 3. Right DM foot ulcer 4. 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 Gallbladder wall thickening and rule out acalculous cholecystitis 6. Hepatomegaly with fatty liver disease 7. ESRD on HD 8. Anemia 9. Hypertension 10. Obesity ABX ALLERGIES: PCN INVASIVES: PIV CURRENT ABX: ABX DAY # 4=>MERREM + Vanco IV ID RECOMMENDATIONS/PLAN: 1. Continue current ABX -- Merrem appropriate due to PCN allergy 2. Await final result of STAPH pending prior to final ABX recommendations / Consultation Date/Type/Reason Admit Date/Time May 18, 2019 at 03:55 Initial Consult Date Date/Time of Note DATE: 05/21/19 TIME: 12:33 Exam/Review of Systems Exam Vitals Vital Signs Date Temp Pulse Resp B/P (MAP) Pulse Ox O2 O2 Flow FiO2 Time Delivery Rate 05/21/19 97.6 70 20 138/65 96 Room Air 10:57 (89) 05/18/19 2.0 06:32 Intake and Output 05/20/19 05/20/19 05/21/19 1515:00 23:00 07:00 IntakeIntake Total 530 ml 300 ml 500 ml OutputOutput Total 2600 ml BalanceBalance -2070 ml 300 ml 500 ml Results Result Diagram: 05/21/19 0607 05/21/19 0607 Results 24hrs Laboratory Tests Test 05/20/19 16:53 05/20/19 20:12 05/21/19 01:21 05/21/19 06:07 Bedside Glucose 154 276 H 217 White Blood Count 8.1 Red Blood Count 3.14 L Hemoglobin 9.4 L Hematocrit 29.4 L Mean Corpuscular Volume 93.6 Mean Corpuscular 29.9 Hemoglobin Mean Corpuscular 32.0 Hemoglobin Concent Red Cell Distribution 15.0 H Width Platelet Count 238 Mean Platelet Volume 11.5 H Immature Granulocytes % 1.400 H Neutrophils % 57.5 Lymphocytes % 19.4 Monocytes % 13.5 H Eosinophils % 7.2 H Basophils % 1.0 Nucleated Red Blood 0.0 Cells % Immature Granulocytes # 0.110 H Neutrophils # 4.7 Lymphocytes # 1.6 Monocytes # 1.1 H Eosinophils # 0.6 H Basophils # 0.1 Nucleated Red Blood 0.0 Cells # Sodium Level 138 Potassium Level 5.1 Chloride Level 97 Carbon Dioxide Level 26 Anion Gap 15 H Blood Urea Nitrogen 51 H Creatinine 6.19 H Est Glomerular Filtrat 9 L Rate mL/min Glucose Level 135 Calcium Level 8.6 Test 05/21/19 07:55 05/21/19 11:37 Bedside Glucose 118 106 Medications Medication Current Medications IV Flush (NS 3 ml) 3 ml PER PROTOCOL IV ; Start 05/18/19 at 07:00 Ondansetron HCl (Zofran Inj) 4 mg Q6H PRN IV NAUSEA/VOMITING; Start 05/18/19 at 07:00 Nitroglycerin (Nitroglycerin (Sl Tab) 0.4 Mg) 1 tab Q5M PRN SL .CHEST PAIN; Start 05/18/19 at 07:00 Acetaminophen (Tylenol Tab) 650 mg Q6H PRN PO .PAIN 1-3 OR TEMP; Start 05/18/19 at 07:00 Heparin Sodium (Porcine) (Heparin (5000 Units/1ml)) 5,000 unit Q12 SC Last administered on 05/21/19at 10:04; Admin Dose 5,000 UNIT; Start 05/18/19 at 09:00 Albuterol/ Ipratropium (Duoneb) 3 ml Q2H RESP THERAPY PRN HHN SHORTNESS OF BREATH; Start 05/18/19 at 07:00 Allopurinol (Zyloprim) 100 mg DAILY PO Last administered on 05/21/19at 08:35; Admin Dose 100 MG; Start 05/18/19 at 09:00 Atorvastatin Calcium (Lipitor) 80 mg QHS PO Last administered on 05/20/19 20:21; Admin Dose 80 MG; Start 05/18/19 at 21:00 Calcium Acetate (Phoslo) 1,334 mg WITH MEALS PO Last administered on 05/21/19at 11:39; Admin Dose 1,334 MG; Start 05/18/19 at 08:00 Carvedilol (Coreg) 3.125 mg BID PO Last administered on 05/21/19 08:35; Admin Dose 3.125 MG; Start 05/18/19 at 09:00 Furosemide (Lasix) 80 mg DAILY PO Last administered on 05/18/19at 08:57; Admin Dose 80 MG; Start 05/18/19 at 09:00; Status Hold Insulin Glargine (Lantus) 10 units HS SC Last administered on 05/20/19 20:55; Admin Dose 10 UNITS; Start 05/18/19 at 21:00 Mirtazapine (Remeron) 7.5 mg HS PO Last administered on 05/20/19 20:21; Admin Dose 7.5 MG; Start 05/18/19 at 21:00 Nifedipine (Procardia Xl) 30 mg DAILY PO Last administered on 05/21/19 08:35; Admin Dose 30 MG; Start 05/18/19 at 09:00 Tamsulosin HCl (Flomax) 0.4 mg HS PO Last administered on 05/20/19 20:21; Admin Dose 0.4 MG; Start 05/18/19 at 21:00 Diagnostic Test (Pha) (Accu-Chek) 1 ea 02 XX Last administered on 05/21/19 01:27; Admin Dose 1 EA; Start 05/19/19 at 02:00 Insulin Aspart (Novolog Insulin Pen) NOVOLOG *MILD* ALGORITHM WITH MEALS BEDTIME SC Last administered on 05/20/19 20:54; Admin Dose 3 UNIT; Start 05/18/19 at 11:50 Miscellaneous Information 1 ea NOTE XX ; Start 05/18/19 at 10:00 Glucose (Glutose) 15 gm Q15M PRN PO DECREASED GLUCOSE; Start 05/18/19 at 10:00 Glucose (Glutose) 22.5 gm Q15M PRN PO DECREASED GLUCOSE; Start 05/18/19 at 10:00 Dextrose (D50w Syringe) 25 ml Q15M PRN IV DECREASED GLUCOSE; Start 05/18/19 at 10:00 Dextrose (D50w Syringe) 50 ml Q15M PRN IV DECREASED GLUCOSE; Start 05/18/19 at 10:00 Glucagon (Glucagen) 1 mg Q15M PRN IM DECREASED GLUCOSE; Start 05/18/19 at 10:00 Glucose (Glutose) 15 gm Q15M PRN BUCCAL DECREASED GLUCOSE; Start 05/18/19 at 10:00 Ranitidine HCl (Zantac) 150 mg HS PO Last administered on 05/20/19 20:21; Admin Dose 150 MG; Start 05/18/19 at 13:00 Fish Oil (Fish Oil) 1,000 mg BID PO Last administered on 05/21/19 08:35; Admin Dose 1,000 MG; Start 05/18/19 at 13:00 Vancomycin HCl (Vanco Iv Per Pharmacy) VANCOMYCIN PER PHARMACY PER PROTOCOL XX ; Start 05/18/19 at 18:30 Insulin Aspart (Novolog Insulin Pen) 5 unit WITH BREAKFAST SC Last a dministered on 05/21/19at 07:59; Admin Dose 5 UNIT; Start 05/19/19 at 07:55 Epoetin Tutu-epbx (Retacrit (Esrd)) 10,000 unit TuThSa@1700 SC Last administered on 05/20/19at 16:19; Admin Dose 10,000 UNIT; Start 05/20/19 at 17:00 Meropenem/Sodium Chloride 50 ml @ 100 mls/hr Q24H IVPB Last administered on at 11:24; Admin Dose 100 MLS/HR; Start 05/19/19 at 11:00 Calcium Carbonate (Tums) 500 mg PC MEALS PRN PO PAIN; Start 05/20/19 at 12:30 RUPINDER WOODWARD NP May 21, 2019 12:35
[2019-05-21] MEDS ORDERED: CEPASTAT LOZENGE MT PRN (17:00)
[2019-05-21] MEDS ORDERED: GUAIFENESIN 20 MG/ML 5ML CUP PO PRN (17:00)
--- NOTE | 2019-05-21 17:00 | PN ---
Date/Time of Note Date/Time of Note DATE: 05/21/19 TIME: 16:58 Assessment/Plan VTE Prophylaxis Risk score (from Ns)>0 risk: 5 SCD applied (from Ns): No SCD contraindicated: other Pharmacological prophylaxis: heparin Lines/Catheters IV [facility]ter [facility]from [facility] Saline Lock Urinary Cath still in place: No Assessment/Plan Hospital Course S: Patient complaining of some mild foot pain, seen by ID and renal teams earlier. O: VS - see below PE: Gen: Lying in bed, no acute distress Head: Atraumatic Eyes: Normal Conjunctiva ENT: Normal External Ears, Nose and Mouth. Neck: Full range of motion. No meningismus. Resp: Clear to auscultation bilaterally Cardio: Regular rate and rhythm, no murmurs Abd: Soft, non tender, non distended, no rebound or guarding. Normal bowel sounds Ext: Small 2 to 3 cm circumferential ulcer with some drainage noted on right foot sole, no bilateral lower extremity edema Neuro: no focal deficits Assessment/Plan: 63-year-old male who presents with: 1. Nausea + vomiting and fever: Symptoms improving, initial signs of sepsis, likely secondary to both blood and urine group B strep infections. Wound culture also positive for group B strep infection, along with 2 other bacteria -Continue vancomycin, meropenem for now, follow up further ID recommendations -Tylenol PRN pain fever 2. ESRD on HD: Followed by renal team -Continue dialysis per renal recommendations, continue current medications 3. Type 1 diabetes: A1c = 6.2. -Monitor sugars, continue insulin 4. Hypertension: Stable -Monitor, continue current medications Result Diagram: 05/21/19 0607 05/21/19 0607 Results 24hrs Laboratory Tests Test 05/20/19 20:12 05/21/19 01:21 05/21/19 06:07 05/21/19 07:55 Bedside Glucose 276 H 217 118 White Blood Count 8.1 Red Blood Count 3.14 L Hemoglobin 9.4 L Hematocrit 29.4 L Mean Corpuscular Volume 93.6 Mean Corpuscular 29.9 Hemoglobin Mean Corpuscular 32.0 Hemoglobin Concent Red Cell Distribution 15.0 H Width Platelet Count 238 Mean Platelet Volume 11.5 H Immature Granulocytes % 1.400 H Neutrophils % 57.5 Lymphocytes % 19.4 Monocytes % 13.5 H Eosinophils % 7.2 H Basophils % 1.0 Nucleated Red Blood 0.0 Cells % Immature Granulocytes # 0.110 H Neutrophils # 4.7 Lymphocytes # 1.6 Monocytes # 1.1 H Eosinophils # 0.6 H Basophils # 0.1 Nucleated Red Blood 0.0 Cells # Sodium Level 138 Potassium Level 5.1 Chloride Level 97 Carbon Dioxide Level 26 Anion Gap 15 H Blood Urea Nitrogen 51 H Creatinine 6.19 H Est Glomerular Filtrat 9 L Rate mL/min Glucose Level 135 Calcium Level 8.6 Test 05/21/19 11:37 Bedside Glucose 106 Exam/Review of Systems Exam Vitals Vital Signs Date Temp Pulse Resp B/P (MAP) Pulse Ox O2 O2 Flow FiO2 Time Delivery Rate 05/21/19 97.9 75 20 103/55 95 Room Air 15:11 (71) 05/18/19 2.0 06:32 Intake and Output 05/20/19 05/20/19 05/21/19 1414:59 22:59 06:59 IntakeIntake Total 530 ml 300 ml 500 ml OutputOutput Total 2600 ml BalanceBalance -2070 ml 300 ml 500 ml Results Results 24hrs Laboratory Tests Test 05/20/19 20:12 05/21/19 01:21 05/21/19 06:07 05/21/19 07:55 Bedside Glucose 276 H 217 118 White Blood Count 8.1 Red Blood Count 3.14 L Hemoglobin 9.4 L Hematocrit 29.4 L Mean Corpuscular Volume 93.6 Mean Corpuscular 29.9 Hemoglobin Mean Corpuscular 32.0 Hemoglobin Concent Red Cell Distribution 15.0 H Width Platelet Count 238 Mean Platelet Volume 11.5 H Immature Granulocytes % 1.400 H Neutrophils % 57.5 Lymphocytes % 19.4 Monocytes % 13.5 H Eosinophils % 7.2 H Basophils % 1.0 Nucleated Red Blood 0.0 Cells % Immature Granulocytes # 0.110 H Neutrophils # 4.7 Lymphocytes # 1.6 Monocytes # 1.1 H Eosinophils # 0.6 H Basophils # 0.1 Nucleated Red Blood 0.0 Cells # Sodium Level 138 Potassium Level 5.1 Chloride Level 97 Carbon Dioxide Level 26 Anion Gap 15 H Blood Urea Nitrogen 51 H Creatinine 6.19 H Est Glomerular Filtrat 9 L Rate mL/min Glucose Level 135 Calcium Level 8.6 Test 05/21/19 11:37 Bedside Glucose 106 Medications Medication Current Medications IV Flush (NS 3 ml) 3 ml PER PROTOCOL IV ; Start 05/18/19 at 07:00 Ondansetron HCl (Zofran Inj) 4 mg Q6H PRN IV NAUSEA/VOMITING; Start 05/18/19 at 07:00 Nitroglycerin (Nitroglycerin (Sl Tab) 0.4 Mg) 1 tab Q5M PRN SL .CHEST PAIN; Start 05/18/19 at 07:00 Acetaminophen (Tylenol Tab) 650 mg Q6H PRN PO .PAIN 1-3 OR TEMP; Start 05/18/19 at 07:00 Heparin Sodium (Porcine) (Heparin (5000 Units/1ml)) 5,000 unit Q12 SC Last administered on 05/21/19 10:04; Admin Dose 5,000 UNIT; Start 05/18/19 at 09:00 Albuterol/ Ipratropium (Duoneb) 3 ml Q2H RESP THERAPY PRN HHN SHORTNESS OF BREATH; Start 05/18/19 at 07:00 Allopurinol (Zyloprim) 100 mg DAILY PO Last administered on 05/21/19 08:35; Admin Dose 100 MG; Start 05/18/19 at 09:00 Atorvastatin Calcium (Lipitor) 80 mg QHS PO Last administered on 05/20/19 20:21; Admin Dose 80 MG; Start 05/18/19 at 21:00 Calcium Acetate (Phoslo) 1,334 mg WITH MEALS PO Last administered on 05/21/19 11:39; Admin Dose 1,334 MG; Start 05/18/19 at 08:00 Carvedilol (Coreg) 3.125 mg BID PO Last administered on 05/21/19 08:35; Admin Dose 3.125 MG; Start 05/18/19 at 09:00 Furosemide (Lasix) 80 mg DAILY PO Last administered on 05/18/19 08:57; Admin Dose 80 MG; Start 05/18/19 at 09:00; Status Hold Insulin Glargine (Lantus) 10 units HS SC Last administered on 05/20/19 20:55; Admin Dose 10 UNITS; Start 05/18/19 at 21:00 Mirtazapine (Remeron) 7.5 mg HS PO Last administered on 05/20/19 20:21; Admin Dose 7.5 MG; Start 05/18/19 at 21:00 Nifedipine (Procardia Xl) 30 mg DAILY PO Last administered on 05/21/19 08:35; Admin Dose 30 MG; Start 05/18/19 at 09:00 Tamsulosin HCl (Flomax) 0.4 mg HS PO Last administered on 05/20/19 20:21; Admin Dose 0.4 MG; Start 05/18/19 at 21:00 Diagnostic Test (Pha) (Accu-Chek) 1 ea 02 XX Last administered on 05/21/19 01:27; Admin Dose 1 EA; Start 05/19/19 at 02:00 Insulin Aspart (Novolog Insulin Pen) NOVOLOG *MILD* ALGORITHM WITH MEALS BEDTIME SC Last administered on 05/20/19 20:54; Admin Dose 3 UNIT; Start 05/18/19 at 11:50 Miscellaneous Information 1 ea NOTE XX ; Start 05/18/19 at 10:00 Glucose (Glutose) 15 gm Q15M PRN PO DECREASED GLUCOSE; Start 05/18/19 at 10:00 Glucose (Glutose) 22.5 gm Q15M PRN PO DECREASED GLUCOSE; Start 05/18/19 at 10:00 Dextrose (D50w Syringe) 25 ml Q15M PRN IV DECREASED GLUCOSE; Start 05/18/19 at 10:00 Dextrose (D50w Syringe) 50 ml Q15M PRN IV DECREASED GLUCOSE; Start 05/18/19 at 10:00 Glucagon (Glucagen) 1 mg Q15M PRN IM DECREASED GLUCOSE; Start 05/18/19 at 10:00 Glucose (Glutose) 15 gm Q15M PRN BUCCAL DECREASED GLUCOSE; Start 05/18/19 at 10: 00 Ranitidine HCl (Zantac) 150 mg HS PO Last administered on 05/20/19 20:21; Admin Dose 150 MG; Start 05/18/19 at 13:00 Fish Oil (Fish Oil) 1,000 mg BID PO Last administered on 05/21/19 08:35; Admin Dose 1,000 MG; Start 05/18/19 at 13:00 Vancomycin HCl (Vanco Iv Per Pharmacy) VANCOMYCIN PER PHARMACY PER PROTOCOL XX ; Start 05/18/19 at 18:30 Insulin Aspart (Novolog Insulin Pen) 5 unit WITH BREAKFAST SC Last administered on 05/21/19at 07:59; Admin Dose 5 UNIT; Start 05/19/19 at 07:55 Epoetin Tutu-epbx (Retacrit (Esrd)) 10,000 unit TuThSa@1700 SC Last administered on 05/20/19at 16:19; Admin Dose 10,000 UNIT; Start 05/20/19 at 17:00 Meropenem/Sodium Chloride 50 ml @ 100 mls/hr Q24H IVPB Last administered on 05/21/19at 11:24; Admin Dose 100 MLS/HR; Start 05/19/19 at 11:00 Calcium Carbonate (Tums) 500 mg PC MEALS PRN PO PAIN; Start 05/20/19 at 12:30 CHRISTO BROWNING May 21, 2019 17:00
[2019-05-21] MEDS: MIRTAZAPINE 15 MG TAB PO SCH (20:11)
[2019-05-21] MEDS: RANITIDINE 150 MG TAB PO SCH (20:11)
[2019-05-21] MEDS: TAMSULOSIN (SR) 0.4 MG CAP PO SCH (20:11)
[2019-05-21] MEDS: ATORVASTATIN 80 MG TAB PO SCH (20:11)
[2019-05-21] MEDS: INSULIN GLARGINE [LANTus] (100 UNITS/ML) SYG SC SCH (20:43)
[2019-05-21] MEDS: ZOLPIDEM 5 MG TAB PO PRN (21:41)
[2019-05-22] MEDS: ACCU-CHEK XX SCH (01:50)
[2019-05-22 04:16] VITALS: BP 131/64; PULSE 70; RESP 20
[2019-05-22 07:52] VITALS: BP 127/78; PULSE 70; RESP 18
[2019-05-22] MEDS: INSULIN ASPART [NOVOLOG] 3 ML PEN SC SCH ×6 (07:55→21:00)
[2019-05-22] MEDS: ALLOPURINOL 100 MG TAB PO SCH (08:18)
[2019-05-22] MEDS: CALCIUM ACETATE 667 MG CAP PO SCH ×3 (08:19→17:21)
[2019-05-22] MEDS: NIFEdipine (XL) 30 MG TAB PO SCH (08:19)
[2019-05-22] MEDS: FISH OIL 1,000 MG CAP PO SCH ×2 (08:19→20:44)
[2019-05-22] MEDS: HEPARIN 5,000 UNIT/1 ML VIAL SC SCH ×2 (08:22→21:01)
--- NOTE | 2019-05-22 08:36 | PN ---
DATE: 05/22/2019 SUBJECTIVE: The patient is stable. No events overnight. Clinically improving. OBJECTIVE: VITAL SIGNS: Blood pressure is 127/78, pulse 70, respiration 19, temperature 98.2. HEENT: Head is normocephalic. NECK: Supple. HEART: Regular rate. LUNGS: Show diminished breath sounds at the base. ABDOMEN: Soft, nontender to palpation without rebound or guarding. EXTREMITIES: Negative for clubbing, cyanosis, no edema. DERMATOLOGIC: No rashes. MUSCULOSKELETAL: No joint effusion. NEUROLOGIC: No change in exam. MEDICATIONS: Have been reviewed. LABORATORY DATA: Has been reviewed. IMAGING STUDIES: Have been reviewed. ASSESSMENT AND PLAN: 1. End-stage renal disease. The patient had hemodialysis Wednesday, tolerated well. Anticipate next dialysis on Wednesday. 2. Anemia. Monitor hemoglobin and hematocrit levels. Will give Epogen intermittently. 3. Mineral bone disorder. Monitor calcium and phosphorus levels. 4. Sepsis secondary to bacteremia, diabetic foot ulcer. Continue current antibiotic regimen. 5. Diabetes. Continue current insulin regimen. 6. Hypertension. Continue current blood pressure regimen. Dictated By: MEGHAN HODGES/WARREN Conf#: [id number] DID#: [id number]
[2019-05-22] MEDS: MEROPENEM 1 GM/50ML(PMX) 50 ML IVPB SCH (11:26)
[2019-05-22 12:40] VITALS: BP 155/74; PULSE 72; RESP 18
[2019-05-22] MEDS ORDERED: VANCOMYCIN 1 GM 250 ML IVPB SCH (16:00)
[2019-05-22 16:08] VITALS: BP 146/68; PULSE 78; RESP 18
--- NOTE | 2019-05-22 16:13 | CONS ---
Assessment/Plan Assessment/Plan Hospital Course (Demo Recall) ID PROGRESS NOTE CURRENT ABX: DAY #5 =>MERREM + Vanco IV S/P Vanco IV X1 24H INTERVAL SUMMARY * No complaints, no new issues since yesterday -- VSS, afebrile, WBC normal, generalized weakness,fatigue DIAGNOSTIC IMAGING * 05/18/19 CXR:Mild cardiomegaly without congestive heart failure or pneumonia. * 05/18/19 GB US:1. No cholelithiasis or pericholecystic fluid. There is however gallbladder wall thickening and rule out acalculous cholecystitis. 2. No biliary ductal dilation. 3. Hepatomegaly with hepatic fatty infiltration. 4. 1 cm superior right renal cyst with an otherwise unremarkable right kidney. 5. Inability to visualize the pancreas. MICRO * 05/18/19 BCx #2=> (-) * 05/18/19 FOOT Cx (+) WOUND CULTURE Preliminary Organism 1 STREP AGALACTIAE - (GROUP B) QUANTITY 1+ Organism 2 STAPHYLOCOCCUS SPECIES QUANTITY SCANT GROWTH Organism 3 DIPTHEROIDS QUANTITY 1+ S AGA(GR B Zone Size RX --------- --- * CEFOTAXIME S * CLINDAMYCIN S * ERYTHROMYCIN S * PENICILLIN S * VANCOMYCIN S * 05/18/19 Urine Cx (+) STREP AGALACTIAE - (GROUP B) * 05/18/19 BCx #1 (+) 2/2 bottles: STREP AGALACTIAE - (GROUP B) PHYSICAL EXAMINATION: GENERAL: VSS, NAD HEENT: AT, NC, NECK: Supple, CHEST: Rise symmetrical HEART: Pulse RRR ABDOMEN: Obese EXTREMITIES: Warm, dry Small 2 to 3 cm circumferential ulcer with some drainage noted on right foot sole, no bilateral lower extremity edema SKIN: No rash, no diaphoresis ID ASSESSMENT 63 yo M admit with: 1. Sepsis w/Strep Agalactiae (GBS) bacteremia due to UTI and R-Foot ulcer 2. DMT1 w/polyneuropathies: Renal, Peripheral 3. Right DM foot ulcer 4. 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 Gallbladder wall thickening and rule out acalculous cholecystitis 6. Hepatomegaly with fatty liver disease 7. ESRD on HD 8. Anemia 9. Hypertension 10. Obesity ABX ALLERGIES: PCN INVASIVES: PIV CURRENT ABX: ABX DAY # 5=>MERREM + Vanco IV ID RECOMMENDATIONS/PLAN: 1. Continue current ABX -- Merrem appropriate due to PCN allergy 2. Await final result of STAPH pending prior to final ABX recommendations / Consultation Date/Type/Reason Admit Date/Time May 18, 2019 at 03:55 Initial Consult Date Date/Time of Note DATE: 05/22/19 TIME: 16:12 Exam/Review of Systems Exam Vitals Vital Signs Date Temp Pulse Resp B/P (MAP) Pulse Ox O2 O2 Flow FiO2 Time Delivery Rate 05/22/19 98.0 78 18 146/68 98 16:08 (94) 05/22/19 Room Air 04:16 Intake and Output 05/21/19 05/21/19 05/22/19 1515:00 23:00 07:00 IntakeIntake Total 480 ml 240 ml 480 ml BalanceBalance 480 ml 240 ml 480 ml Results Result Diagram: 05/22/19 0703 05/22/19 0703 Results 24hrs Laboratory Tests Test 05/21/19 17:27 05/21/19 20:09 05/22/19 07:03 05/22/19 07:04 Bedside Glucose 139 160 White Blood Count 8.8 Red Blood Count 3.18 L Hemoglobin 9.8 L Hematocrit 30.0 L Mean Corpuscular Volume 94.3 Mean Corpuscular 30.8 Hemoglobin Mean Corpuscular 32.7 Hemoglobin Concent Red Cell Distribution 15.0 H Width Platelet Count 254 Mean Platelet Volume 11.4 H Immature Granulocytes % 2.300 H Neutrophils % 55.3 Lymphocytes % 22.6 Monocytes % 11.5 H Eosinophils % 7.2 H Basophils % 1.1 Nucleated Red Blood 0.0 Cells % Immature Granulocytes # 0.200 H Neutrophils # 4.8 Lymphocytes # 2.0 Monocytes # 1.0 H Eosinophils # 0.6 H Basophils # 0.1 Nucleated Red Blood 0.0 Cells # Sodium Level 137 Potassium Level 5.8 H Chloride Level 98 Carbon Dioxide Level 24 Anion Gap 15 H Blood Urea Nitrogen 69 H Creatinine 8.02 H Est Glomerular Filtrat 7 L Rate mL/min Glucose Level 84 # Calcium Level 9.0 Random Vancomycin Level 16.7 Test 05/22/19 08:18 05/22/19 11:26 Bedside Glucose 78 121 Medications Medication Current Medications IV Flush (NS 3 ml) 3 ml PER PROTOCOL IV ; Start 05/18/19 at 07:00 Ondansetron HCl (Zofran Inj) 4 mg Q6H PRN IV NAUSEA/VOMITING; Start 05/18/19 at 07:00 Nitroglycerin (Nitroglycerin (Sl Tab) 0.4 Mg) 1 tab Q5M PRN SL .CHEST PAIN; Start 05/18/19 at 07:00 Acetaminophen (Tylenol Tab) 650 mg Q6H PRN PO .PAIN 1-3 OR TEMP; Start 05/18/19 at 07:00 Heparin Sodium (Porcine) (Heparin (5000 Units/1ml)) 5,000 unit Q12 SC Last administered on 05/22/19 08:22; Admin Dose 5,000 UNIT; Start 05/18/19 at 09:00 Albuterol/ Ipratropium (Duoneb) 3 ml Q2H RESP THERAPY PRN HHN SHORTNESS OF BREATH; Start 05/18/19 at 07:00 Allopurinol (Zyloprim) 100 mg DAILY PO Last administered on 05/22/19 08:18; Admin Dose 100 MG; Start 05/18/19 at 09:00 Atorvastatin Calcium (Lipitor) 80 mg QHS PO Last administered on 05/21/19 20:1 1; Admin Dose 80 MG; Start 05/18/19 at 21:00 Calcium Acetate (Phoslo) 1,334 mg WITH MEALS PO Last administered on 05/22/19 11:26; Admin Dose 1,334 MG; Start 05/18/19 at 08:00 Carvedilol (Coreg) 3.125 mg BID PO Last administered on 05/22/19 08:20; Admin Dose 3.125 MG; Start 05/18/19 at 09:00 Furosemide (Lasix) 80 mg DAILY PO Last administered on 05/18/19 08:57; Admin Dose 80 MG; Start 05/18/19 at 09:00; Status Hold Insulin Glargine (Lantus) 10 units HS SC Last administered on 05/21/19 20:43; Admin Dose 10 UNITS; Start 05/18/19 at 21:00 Mirtazapine (Remeron) 7.5 mg HS PO Last administered on 05/21/19 20:11; Admin Dose 7.5 MG; Start 05/18/19 at 21:00 Nifedipine (Procardia Xl) 30 mg DAILY PO Last administered on 05/22/19 08:19; Admin Dose 30 MG; Start 05/18/19 at 09:00 Tamsulosin HCl (Flomax) 0.4 mg HS PO Last administered on 05/21/19 20:11; Admin Dose 0.4 MG; Start 05/18/19 at 21:00 Diagnostic Test (Pha) (Accu-Chek) 1 ea 02 XX Last administered on 05/21/19 01:27; Admin Dose 1 EA; Start 05/19/19 at 02:00 Insulin Aspart (Novolog Insulin Pen) NOVOLOG *MILD* ALGORITHM WITH MEALS BEDTIME SC Last administered on 05/20/19 20:54; Admin Dose 3 UNIT; Start 05/18/19 at 11:50 Miscellaneous Information 1 ea NOTE XX ; Start 05/18/19 at 10:00 Glucose (Glutose) 15 gm Q15M PRN PO DECREASED GLUCOSE; Start 05/18/19 at 10:00 Glucose (Glutose) 22.5 gm Q15M PRN PO DECREASED GLUCOSE; Start 05/18/19 at 10:00 Dextrose (D50w Syringe) 25 ml Q15M PRN IV DECREASED GLUCOSE; Start 05/18/19 at 10:00 Dextrose (D50w Syringe) 50 ml Q15M PRN IV DECREASED GLUCOSE; Start 05/18/19 at 10:00 Glucagon (Glucagen) 1 mg Q15M PRN IM DECREASED GLUCOSE; Start 05/18/19 at 10:00 Glucose (Glutose) 15 gm Q15M PRN BUCCAL DECREASED GLUCOSE; Start 05/18/19 at 10:00 Ranitidine HCl (Zantac) 150 mg HS PO Last administered on 05/21/19 20:11; Admin Dose 150 MG; Start 05/18/19 at 13:00 Fish Oil (Fish Oil) 1,000 mg BID PO Last administered on 05/22/19 08:19; Admin Dose 1,000 MG; Start 05/18/19 at 13:00 Vancomycin HCl (Vanco Iv Per Pharmacy) VANCOMYCIN PER PHARMACY PER PROTOCOL XX ; Start 05/18/19 at 18:30 Insulin Aspart (Novolog Insulin Pen) 5 unit WITH BREAKFAST SC Last administered on 05/22/19 11:31; Admin Dose 5 UNIT; Start 05/19/19 at 07:55 Epoetin Tutu-epbx (Retacrit (Esrd)) 10,000 unit TuThSa@1700 SC Last administer ed on 05/20/19 16:19; Admin Dose 10,000 UNIT; Start 05/20/19 at 17:00 Meropenem/Sodium Chloride 50 ml @ 100 mls/hr Q24H IVPB Last administered on 05/22/19 11:26; Admin Dose 100 MLS/HR; Start 05/19/19 at 11:00 Calcium Carbonate (Tums) 500 mg PC MEALS PRN PO PAIN; Start 05/20/19 at 12:30 Phenol (Cepastat Lozenge) 1 lozenge Q1H PRN MT COUGH Last administered on 05/21/19 21:41; Admin Dose 1 LOZENGE; Start 05/21/19 at 17:00 Guaifenesin (Robitussin Liquid Cup) 200 mg Q4H PRN PO COUGH Last administered on 05/21/19 17:45; Admin Dose 200 MG; Start 05/21/19 at 17:00 Zolpidem Tartrate (Ambien) 2.5 mg HS PRN PO INSOMNIA Last administered on 05/21/19 21:41; Admin Dose 2.5 MG; Start 05/21/19 at 18:00 Vancomycin HCl 250 ml @ 125 mls/hr ONCE IVPB Last administered on 05/22/19 15:23; Admin Dose 125 MLS/HR; Start 05/22/19 at 16:00; Stop 05/22/19 at 23:00 RUPINDER WOODWARD NP May 22, 2019 16:13
--- NOTE | 2019-05-22 18:21 | PN ---
Date/Time of Note Date/Time of Note DATE: 05/22/19 TIME: 18:09 Assessment/Plan VTE Prophylaxis Risk score (from Ns)>0 risk: 5 SCD applied (from Nsg): Yes Pharmacological prophylaxis: NA/contraindicated Pharm contraindication: low risk/ambulating Lines/Catheters IV Catheter Type (from [facility]): Saline Lock Urinary Cath still in place: No Assessment/Plan Assessment/Plan 63-year-old male with type I diabetes and ESRD on dialysis presents with nausea, vomiting. 1. Nausea + vomiting and fever: - Appears to be UTI that caused bacteremia - Has "wound culture" from a foot ulcer which is polymicrobial but unclear how this sample was collected. There is no documented debridement. If this was a swab on top of the ulcer then it is certainly just skin susi. - Plan for 14 days of IV vancomycin for strep bacteremia 2. ESRD on HD: Followed by renal team -Continue dialysis per renal recommendations, continue current medications 3. Type 1 diabetes: A1c = 6.2. -Monitor sugars, continue insulin 4. Hypertension: Stable -Monitor, continue current medications Dispo: Plan for discharge tomorrow to complete a 14 day course of IV vancomycin. Result Diagram: 05/22/19 0703 05/22/19 0703 Subjective 24 Hr Interval Summary Free Text/Dictation No acute overnight events. Patient feeling better. Exam/Review of Systems Exam Vitals Vital Signs Date Temp Pulse Resp B/P (MAP) Pulse Ox O2 O2 Flow FiO2 Time Delivery Rate 05/22/19 98.0 78 18 146/68 98 16:08 (94) 05/22/19 Room Air 04:16 Intake and Output 05/21/19 05/21/19 05/22/19 1515:00 23:00 07:00 IntakeIntake Total 480 ml 240 ml 480 ml BalanceBalance 480 ml 240 ml 480 ml Exam Gen: Sitting in chair, no acute distress. Head: Atraumatic Eyes: Normal Conjunctiva ENT: Normal External Ears, Nose and Mouth. Neck: Full range of motion. No meningismus. Resp: Clear to auscultation bilaterally Cardio: Regular rate and rhythm, no murmurs Abd: Soft, non tender, non distended, no rebound or guarding. Normal bowel sounds Ext: Small 2 to 3 cm circumferential ulcer with some drainage noted on right foot sole, no bilateral lower extremity edema Results Results 24hrs Laboratory Tests Test 05/21/19 20:09 05/22/19 07:03 05/22/19 07:04 05/22/19 08:18 Bedside Glucose 160 78 White Blood Count 8.8 Red Blood Count 3.18 L Hemoglobin 9.8 L Hematocrit 30.0 L Mean Corpuscular Volume 94.3 Mean Corpuscular 30.8 Hemoglobin Mean Corpuscular 32.7 Hemoglobin Concent Red Cell Distribution 15.0 H Width Platelet Count 254 Mean Platelet Volume 11.4 H Immature Granulocytes % 2.300 H Neutrophils % 55.3 Lymphocytes % 22.6 Monocytes % 11.5 H Eosinophils % 7.2 H Basophils % 1.1 Nucleated Red Blood 0.0 Cells % Immature Granulocytes # 0.200 H Neutrophils # 4.8 Lymphocytes # 2.0 Monocytes # 1.0 H Eosinophils # 0.6 H Basophils # 0.1 Nucleated Red Blood 0.0 Cells # Sodium Level 137 Potassium Level 5.8 H Chloride Level 98 Carbon Dioxide Level 24 Anion Gap 15 H Blood Urea Nitrogen 69 H Creatinine 8.02 H Est Glomerular Filtrat 7 L Rate mL/min Glucose Level 84 # Calcium Level 9.0 Random Vancomycin Level 16.7 Test 05/22/19 11:26 05/22/19 17:20 Bedside Glucose 121 133 Medications Medication Current Medications IV Flush (NS 3 ml) 3 ml PER PROTOCOL IV ; Start 05/18/19 at 07:00 Ondansetron HCl (Zofran Inj) 4 mg Q6H PRN IV NAUSEA/VOMITING; Start 05/18/19 at 07:00 Nitroglycerin (Nitroglycerin (Sl Tab) 0.4 Mg) 1 tab Q5M PRN SL .CHEST PAIN; Start 05/18/19 at 07:00 Acetaminophen (Tylenol Tab) 650 mg Q6H PRN PO .PAIN 1-3 OR TEMP; Start 05/18/19 at 07:00 Heparin Sodium (Porcine) (Heparin (5000 Units/1ml)) 5,000 unit Q12 SC Last administered on 05/22/19at 08:22; Admin Dose 5,000 UNIT; Start 05/18/19 at 09:00 Albuterol/ Ipratropium (Duoneb) 3 ml Q2H RESP THERAPY PRN HHN SHORTNESS OF BREATH; Start 05/18/19 at 07:00 Allopurinol (Zyloprim) 100 mg DAILY PO Last administered on 05/22/19 08:18; Admin Dose 100 MG; Start 05/18/19 at 09:00 Atorvastatin Calcium (Lipitor) 80 mg QHS PO Last administered on 05/21/19 20:11; Admin Dose 80 MG; Start 05/18/19 at 21:00 Calcium Acetate (Phoslo) 1,334 mg WITH MEALS PO Last administered on 05/22/19 17:21; Admin Dose 1,334 MG; Start 05/18/19 at 08:00 Carvedilol (Coreg) 3.125 mg BID PO Last administered on 05/22/19 08:20; Admin Dose 3.125 MG; Start 05/18/19 at 09:00 Furosemide (Lasix) 80 mg DAILY PO Last administered on 05/18/19 08:57; Admin Dose 80 MG; Start 05/18/19 at 09:00; Status Hold Insulin Glargine (Lantus) 10 units HS SC Last administered on 05/21/19 20:43; Admin Dose 10 UNITS; Start 05/18/19 at 21:00 Mirtazapine (Remeron) 7.5 mg HS PO Last administered on 05/21/19 20:11; Admin Dose 7.5 MG; Start 05/18/19 at 21:00 Nifedipine (Procardia Xl) 30 mg DAILY PO Last administered on 05/22/19 08:19; Admin Dose 30 MG; Start 05/18/19 at 09:00 Tamsulosin HCl (Flomax) 0.4 mg HS PO Last administered on 05/21/19 20:11; Admin Dose 0.4 MG; Start 05/18/19 at 21:00 Diagnostic Test (Pha) (Accu-Chek) 1 ea 02 XX Last administered on 05/21/19 01:27; Admin Dose 1 EA; Start 05/19/19 at 02:00 Insulin Aspart (Novolog Insulin Pen) NOVOLOG *MILD* ALGORITHM WITH MEALS BEDTIME SC Last administered on 05/20/19 20:54; Admin Dose 3 UNIT; Start 05/18 at 11:50 Miscellaneous Information 1 ea NOTE XX ; Start 05/18/19 at 10:00 Glucose (Glutose) 15 gm Q15M PRN PO DECREASED GLUCOSE; Start 05/18/19 at 10:00 Glucose (Glutose) 22.5 gm Q15M PRN PO DECREASED GLUCOSE; Start 05/18/19 at 10:00 Dextrose (D50w Syringe) 25 ml Q15M PRN IV DECREASED GLUCOSE; Start 05/18/19 at 10:00 Dextrose (D50w Syringe) 50 ml Q15M PRN IV DECREASED GLUCOSE; Start 05/18/19 at 10:00 Glucagon (Glucagen) 1 mg Q15M PRN IM DECREASED GLUCOSE; Start 05/18/19 at 10:00 Glucose (Glutose) 15 gm Q15M PRN BUCCAL DECREASED GLUCOSE; Start 05/18/19 at 10:00 Ranitidine HCl (Zantac) 150 mg HS PO Last administered on 05/21/19at 20:11; Admin Dose 150 MG; Start 05/18/19 at 13:00 Fish Oil (Fish Oil) 1,000 mg BID PO Last administered on 05/22/19 08:19; Admin Dose 1,000 MG; Start 05/18/19 at 13:00 Vancomycin HCl (Vanco Iv Per Pharmacy) VANCOMYCIN PER PHARMACY PER PROTOCOL XX ; Start 05/18/19 at 18:30 Insulin Aspart (Novolog Insulin Pen) 5 unit WITH BREAKFAST SC Last administered on 05/22/19 11:31; Admin Dose 5 UNIT; Start 05/19/19 at 07:55 Epoetin Tutu-epbx (Retacrit (Esrd)) 10,000 unit TuThSa@1700 SC Last administered on 05/20/19at 16:19; Admin Dose 10,000 UNIT; Start 05/20/19 at 17:00 Meropenem/Sodium Chloride 50 ml @ 100 mls/hr Q24H IVPB Last administered on 05/22/19at 11:26; Admin Dose 100 MLS/HR; Start 05/19/19 at 11:00 Calcium Carbonate (Tums) 500 mg PC MEALS PRN PO PAIN; Start 05/20/19 at 12:30 Phenol (Cepastat Lozenge) 1 lozenge Q1H PRN MT COUGH Last administered on 05/21/19at 21:41; Admin Dose 1 LOZENGE; Start 05/21/19 at 17:00 Guaifenesin (Robitussin Liquid Cup) 200 mg Q4H PRN PO COUGH Last administered on 05/21/19at 17:45; Admin Dose 200 MG; Start 05/21/19 at 17:00 Zolpidem Tartrate (Ambien) 2.5 mg HS PRN PO INSOMNIA Last administered on 05/21/19at 21:41; Admin Dose 2.5 MG; Start 05/21/19 at 18:00 Vancomycin HCl 250 ml @ 125 mls/hr ONCE IVPB Last administered on 05/22/19at 15:23; Admin Dose 125 MLS/HR; Start 05/22/19 at 16:00; Stop 05/22/19 at 23:00 JUAQUIN LOTT MD May 22, 2019 18:19
--- NOTE | 2019-05-22 18:22 | CONS ---
Assessment/Plan Assessment/Plan Hospital Course (Demo Recall) ID PROGRESS NOTE CURRENT ABX: DAY #5 =>MERREM + Vanco IV S/P Vanco IV X1 24H INTERVAL SUMMARY * No complaints, no new issues since yesterday -- VSS, afebrile, WBC normal, generalized weakness,fatigue DIAGNOSTIC IMAGING * 05/18/19 CXR:Mild cardiomegaly without congestive heart failure or pneumonia. * 05/18/19 GB US:1. No cholelithiasis or pericholecystic fluid. There is however gallbladder wall thickening and rule out acalculous cholecystitis. 2. No biliary ductal dilation. 3. Hepatomegaly with hepatic fatty infiltration. 4. 1 cm superior right renal cyst with an otherwise unremarkable right kidney. 5. Inability to visualize the pancreas. MICRO * 05/18/19 BCx #2=> (-) * 05/18/19 FOOT Cx (+) WOUND CULTURE Preliminary Organism 1 STREP AGALACTIAE - (GROUP B) QUANTITY 1+ Organism 2 STAPHYLOCOCCUS SPECIES QUANTITY SCANT GROWTH Organism 3 DIPTHEROIDS QUANTITY 1+ S AGA(GR B Zone Size RX --------- --- * CEFOTAXIME S * CLINDAMYCIN S * ERYTHROMYCIN S * PENICILLIN S * VANCOMYCIN S * 05/18/19 Urine Cx (+) STREP AGALACTIAE - (GROUP B) * 05/18/19 BCx #1 (+) 2/2 bottles: STREP AGALACTIAE - (GROUP B) PHYSICAL EXAMINATION: GENERAL: VSS, NAD HEENT: AT, NC, NECK: Supple, CHEST: Rise symmetrical HEART: Pulse RRR ABDOMEN: Obese EXTREMITIES: Warm, dry Small 2 to 3 cm circumferential ulcer with some drainage noted on right foot sole, no bilateral lower extremity edema SKIN: No rash, no diaphoresis ID ASSESSMENT 63 yo M admit with: 1. Sepsis w/Strep Agalactiae (GBS) bacteremia due to UTI and R-Foot ulcer 2. DMT1 w/polyneuropathies: Renal, Peripheral 3. Right DM foot ulcer plantar 4. 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 Gallbladder wall thickening and rule out acalculous cholecystitis 6. Hepatomegaly with fatty liver disease 7. ESRD on HD 8. Anemia 9. Hypertension 10. Obesity ABX ALLERGIES: PCN INVASIVES: PIV CURRENT ABX: ABX DAY # 5=>MERREM + Vanco IV ID RECOMMENDATIONS/PLAN: 1. He can DC on Vanco IV continued dose per pharmacist to be given at HD unit to complete 14 days coverage for STREP bacteremia 2. Plantar foot wound improved, not draining. Source of bacteremia is UTI 3. DC Merrem / Consultation Date/Type/Reason Admit Date/Time May 18, 2019 at 03:55 Initial Consult Date Date/Time of Note DATE: 05/22/19 TIME: 18:16 Exam/Review of Systems Exam Vitals Vital Signs Date Temp Pulse Resp B/P (MAP) Pulse Ox O2 O2 Flow FiO2 Time Delivery Rate 05/22/19 98.0 78 18 146/68 98 16:08 (94) 05/22/19 Room Air 04:16 Intake and Output 05/21/19 05/21/19 05/22/19 1515:00 23:00 07:00 IntakeIntake Total 480 ml 240 ml 480 ml BalanceBalance 480 ml 240 ml 480 ml Results Result Diagram: 05/22/19 0703 05/22/19 0703 Results 24hrs Laboratory Tests Test 05/21/19 20:09 05/22/19 07:03 05/22/19 07:04 05/22/19 08:18 Bedside Glucose 160 78 White Blood Count 8.8 Red Blood Count 3.18 L Hemoglobin 9.8 L Hematocrit 30.0 L Mean Corpuscular Volume 94.3 Mean Corpuscular 30.8 Hemoglobin Mean Corpuscular 32.7 Hemoglobin Concent Red Cell Distribution 15.0 H Width Platelet Count 254 Mean Platelet Volume 11.4 H Immature Granulocytes % 2.300 H Neutrophils % 55.3 Lymphocytes % 22.6 Monocytes % 11.5 H Eosinophils % 7.2 H Basophils % 1.1 Nucleated Red Blood 0.0 Cells % Immature Granulocytes # 0.200 H Neutrophils # 4.8 Lymphocytes # 2.0 Monocytes # 1.0 H Eosinophils # 0.6 H Basophils # 0.1 Nucleated Red Blood 0.0 Cells # Sodium Level 137 Potassium Level 5.8 H Chloride Level 98 Carbon Dioxide Level 24 Anion Gap 15 H Blood Urea Nitrogen 69 H Creatinine 8.02 H Est Glomerular Filtrat 7 L Rate mL/min Glucose Level 84 # Calcium Level 9.0 Random Vancomycin Level 16.7 Test 05/22/19 11:26 05/22/19 17:20 Bedside Glucose 121 133 Medications Medication Current Medications IV Flush (NS 3 ml) 3 ml PER PROTOCOL IV ; Start 05/18/19 at 07:00 Ondansetron HCl (Zofran Inj) 4 mg Q6H PRN IV NAUSEA/VOMITING; Start 05/18/19 at 07:00 Nitroglycerin (Nitroglycerin (Sl Tab) 0.4 Mg) 1 tab Q5M PRN SL .CHEST PAIN; Start 05/18/19 at 07:00 Acetaminophen (Tylenol Tab) 650 mg Q6H PRN PO .PAIN 1-3 OR TEMP; Start 05/18/19 at 07:00 Heparin Sodium (Porcine) (Heparin (5000 Units/1ml)) 5,000 unit Q12 SC Last administered on 05/22/19 08:22; Admin Dose 5,000 UNIT; Start 05/18/19 at 09:00 Albuterol/ Ipratropium (Duoneb) 3 ml Q2H RESP THERAPY PRN HHN SHORTNESS OF BREATH; Start 05/18/19 at 07:00 Allopurinol (Zyloprim) 100 mg DAILY PO Last administered on 05/22/19at 08:18; Admin Dose 100 MG; Start 05/18/19 at 09:00 Atorvastatin Calcium (Lipitor) 80 mg QHS PO Last administered on 05/21/19at 20:11; Admin Dose 80 MG; Start 05/18/19 at 21:00 Calcium Acetate (Phoslo) 1,334 mg WITH MEALS PO Last administered on 05/22/19 17:21; Admin Dose 1,334 MG; Start 05/18/19 at 08:00 Carvedilol (Coreg) 3.125 mg BID PO Last administered on 05/22/19 08:20; Admin Dose 3.125 MG; Start 05/18/19 at 09:00 Furosemide (Lasix) 80 mg DAILY PO Last administered on 05/18/19at 08:57; Admin Dose 80 MG; Start 05/18/19 at 09:00; Status Hold Insulin Glargine (Lantus) 10 units HS SC Last administered on 05/21/19 20:43; Admin Dose 10 UNITS; Start 05/18/19 at 21:00 Mirtazapine (Remeron) 7.5 mg HS PO Last administered on 05/21/19 20:11; Admin Dose 7.5 MG; Start 05/18/19 at 21:00 Nifedipine (Procardia Xl) 30 mg DAILY PO Last administered on 05/22/19 08:19; Admin Dose 30 MG; Start 05/18/19 at 09:00 Tamsulosin HCl (Flomax) 0.4 mg HS PO Last administered on 05/21/19 20:11; Admin Dose 0.4 MG; Start 05/18/19 at 21:00 Diagnostic Test (Pha) (Accu-Chek) 1 ea 02 XX Last administered on 05/21/19at 01:27; Admin Dose 1 EA; Start 05/19/19 at 02:00 Insulin Aspart (Novolog Insulin Pen) NOVOLOG *MILD* ALGORITHM WITH MEALS BEDTIME SC Last administered on 05/20/19 20:54; Admin Dose 3 UNIT; Start 05/18/19 at 11:50 Miscellaneous Information 1 ea NOTE XX ; Start 05/18/19 at 10:00 Glucose (Glutose) 15 gm Q15M PRN PO DECREASED GLUCOSE; Start 05/18/19 at 10:00 Glucose (Glutose) 22.5 gm Q15M PRN PO DECREASED GLUCOSE; Start 05/18/19 at 10:00 Dextrose (D50w Syringe) 25 ml Q15M PRN IV DECREASED GLUCOSE; Start 05/18/19 at 10:00 Dextrose (D50w Syringe) 50 ml Q15M PRN IV DECREASED GLUCOSE; Start 05/18/19 at 10:00 Glucagon (Glucagen) 1 mg Q15M PRN IM DECREASED GLUCOSE; Start 05/18/19 at 10:00 Glucose (Glutose) 15 gm Q15M PRN BUCCAL DECREASED GLUCOSE; Start 05/18/19 at 10:00 Ranitidine HCl (Zantac) 150 mg HS PO Last administered on 05/21/19 20:11; Admin Dose 150 MG; Start 05/18/19 at 13:00 Fish Oil (Fish Oil) 1,000 mg BID PO Last administered on 05/22/19 08:19; Admin Dose 1,000 MG; Start 05/18/19 at 13:00 Vancomycin HCl (Vanco Iv Per Pharmacy) VANCOMYCIN PER PHARMACY PER PROTOCOL XX ; Start 05/18/19 at 18:30 Insulin Aspart (Novolog Insulin Pen) 5 unit WITH BREAKFAST SC Last administered on 05/22/19 11:31; Admin Dose 5 UNIT; Start 05/19/19 at 07:55 Epoetin Tutu-epbx (Retacrit (Esrd)) 10,000 unit TuThSa@1700 SC Last administered on 05/20/19 16:19; Admin Dose 10,000 UNIT; Start 05/20/19 at 17:00 Meropenem/Sodium Chloride 50 ml @ 100 mls/hr Q24H IVPB Last administered on 05/22/19 11:26; Admin Dose 100 MLS/HR; Start 05/19/19 at 11:00 Calcium Carbonate (Tums) 500 mg PC MEALS PRN PO PAIN; Start 05/20/19 at 12:30 Phenol (Cepastat Lozenge) 1 lozenge Q1H PRN MT COUGH Last administered on 05/21/19 21:41; Admin Dose 1 LOZENGE; Start 05/21/19 at 17:00 Guaifenesin (Robitussin Liquid Cup) 200 mg Q4H PRN PO COUGH Last administered on 05/21/19 17:45; Admin Dose 200 MG; Start 05/21/19 at 17:00 Zolpidem Tartrate (Ambien) 2.5 mg HS PRN PO INSOMNIA Last administered on 05/21/19 21:41; Admin Dose 2.5 MG; Start 05/21/19 at 18:00 Vancomycin HCl 250 ml @ 125 mls/hr ONCE IVPB Last administered on 05/22/19 15:23; Admin Dose 125 MLS/HR; Start 05/22/19 at 16:00; Stop 05/22/19 at 23:00 RUPINDER WOODWARD NP May 22, 2019 18:22
[2019-05-22 20:06] VITALS: BP 131/64; PULSE 75; RESP 19
[2019-05-22] MEDS: RANITIDINE 150 MG TAB PO SCH (20:43)
[2019-05-22] MEDS: TAMSULOSIN (SR) 0.4 MG CAP PO SCH (20:44)
[2019-05-22] MEDS: MIRTAZAPINE 15 MG TAB PO SCH (20:44)
[2019-05-22] MEDS: ATORVASTATIN 80 MG TAB PO SCH (20:44)
[2019-05-22] MEDS: INSULIN GLARGINE [LANTus] (100 UNITS/ML) SYG SC SCH (21:01)
[2019-05-22 23:45] VITALS: BP 116/58; PULSE 77; RESP 18
[2019-05-23] VITALS (20 sets, daily range): BP systolic 130–156; BP diastolic 49–75; PULSE 72–88; RESP 18
[2019-05-23] MEDS: ACCU-CHEK XX SCH (02:00)
[2019-05-23] MEDS: ZOLPIDEM 5 MG TAB PO PRN (02:29)
[2019-05-23] MEDS: INSULIN ASPART [NOVOLOG] 3 ML PEN SC SCH ×3 (07:55→17:19)
[2019-05-23] MEDS: FISH OIL 1,000 MG CAP PO SCH (08:39)
[2019-05-23] MEDS: CALCIUM ACETATE 667 MG CAP PO SCH ×3 (08:40→17:19)
[2019-05-23] MEDS: NIFEdipine (XL) 30 MG TAB PO SCH (08:40)
[2019-05-23] MEDS: ALLOPURINOL 100 MG TAB PO SCH (08:40)
[2019-05-23] MEDS: HEPARIN 5,000 UNIT/1 ML VIAL SC SCH (08:46)
--- NOTE | 2019-05-23 09:01 | PN ---
DATE: 05/23/2019 SUBJECTIVE: The patient is stable, no events overnight. OBJECTIVE: VITAL SIGNS: Blood pressure is 132/63, pulse 73, respirations 18, temperature 98.0. HEENT: Head is normocephalic. NECK: Supple. HEART: Regular rate. LUNGS: Show diminished breath sounds at the base. ABDOMEN: Soft, nontender to palpation without rebound or guarding. EXTREMITIES: Negative for clubbing, cyanosis, no edema. DERMATOLOGIC: No rashes. MUSCULOSKELETAL: No joint effusion. NEUROLOGIC: No change in exam. MEDICATIONS: Have been reviewed. LABORATORY DATA: Has been reviewed. IMAGING STUDIES: Have been reviewed. ASSESSMENT AND PLAN: 1. Endstage renal disease. Plan is for hemodialysis today. Will dialyze 3 hours 2k bath, calcium 2. 5. 2. Anemia. Monitor hemoglobin and hematocrit levels and give Epogen intermittently. 3. Mineral bone disorder. Monitor calcium and phosphorus levels. 4. Sepsis secondary to diabetic foot ulcer. Continue current regimen. 5. Diabetes. Continue current insulin regimen. 6. Hypertension. Continue current blood pressure regimen. Dictated By: MEGHAN CASILLAS DO NR/NTS Conf#: [id number] DID#: [id number] CC: MICHEL HERNANDEZ MD;*EndCC*
--- NOTE | 2019-05-23 14:18 | CONS ---
Assessment/Plan Assessment/Plan Hospital Course (Demo Recall) Alert just finished hemodialysis no fevers overnight WBC 8.2 no shift no bands Microbiology: Blood culture on admission grew strep, urine culture grew strep, right foot drainage culture grew staph aureus Corynebacterium and strep Indwelling: AV fistula Antimicrobials: Vancomycin Physical examination: Well-developed well-nourished elderly man who is alert in no distress head atraumatic normocephalic sclera nonicteric neck is supple chest rise symmetrical breath sounds clear heart: S1-S2. Abdomen soft bowel sounds present. Extremities without cyanosis. Assessment: 1. Status post sepsis on admission 2. Strep bacteremia secondary to urinary tract infection and possible wound 3. Right diabetic foot ulceration 4. End-stage renal disease Plan: Patient is stable repeat blood cultures negative, anticipate discharge on IV vancomycin to complete 14 days Consultation Date/Type/Reason Admit Date/Time May 18, 2019 at 03:55 Initial Consult Date Type of Consult id Date/Time of Note DATE: 05/23/19 TIME: 14:18 Exam/Review of Systems Exam Vitals Vital Signs Date Temp Pulse Resp B/P (MAP) Pulse Ox O2 O2 Flow FiO2 Time Delivery Rate 05/23/19 86 12:42 05/23/19 98.0 18 139/75 98 11:54 (96) 05/23/19 Room Air 09:00 Intake and Output 05/22/19 05/22/19 05/23/19 1515:00 23:00 07:00 IntakeIntake Total 750 ml 490 ml 500 ml BalanceBalance 750 ml 490 ml 500 ml Results Result Diagram: 05/23/19 0629 05/23/19 0629 Results 24hrs Laboratory Tests Test 05/22/19 17:20 05/22/19 20:25 05/23/19 06:29 05/23/19 08:02 Bedside Glucose 133 140 103 White Blood Count 8.2 Red Blood Count 3.23 L Hemoglobin 9.8 L Hematocrit 29.9 L Mean Corpuscular Volume 92.6 Mean Corpuscular 30.3 Hemoglobin Mean Corpuscular 32.8 Hemoglobin Concent Red Cell Distribution 15.0 H Width Platelet Count 260 Mean Platelet Volume 11.2 H Immature Granulocytes % 3.700 H Neutrophils % 55.3 Lymphocytes % 21.9 Monocytes % 11.0 Eosinophils % 7.0 Basophils % 1.1 Nucleated Red Blood 0.0 Cells % Immature Granulocytes # 0.300 H Neutrophils # 4.5 Lymphocytes # 1.8 Monocytes # 0.9 Eosinophils # 0.6 H Basophils # 0.1 Nucleated Red Blood 0.0 Cells # Sodium Level 139 Potassium Level 5.9 H Chloride Level 100 Carbon Dioxide Level 22 Anion Gap 17 H Blood Urea Nitrogen 85 H Creatinine 9.27 H Est Glomerular Filtrat 6 L Rate mL/min Glucose Level 102 Calcium Level 8.9 Test 05/23/19 11:26 Bedside Glucose 110 Medications Medication Current Medications IV Flush (NS 3 ml) 3 ml PER PROTOCOL IV ; Start 05/18/19 at 07:00 Ondansetron HCl (Zofran Inj) 4 mg Q6H PRN IV NAUSEA/VOMITING; Start 05/18/19 at 07:00 Nitroglycerin (Nitroglycerin (Sl Tab) 0.4 Mg) 1 tab Q5M PRN SL .CHEST PAIN; Start 05/18/19 at 07:00 Acetaminophen (Tylenol Tab) 650 mg Q6H PRN PO .PAIN 1-3 OR TEMP; Start 05/18/19 at 07:00 Heparin Sodium (Porcine) (Heparin (5000 Units/1ml)) 5,000 unit Q12 SC Last administered on 05/23/19at 08:46; Admin Dose 5,000 UNIT; Start 05/18/19 at 09:00 Albuterol/ Ipratropium (Duoneb) 3 ml Q2H RESP THERAPY PRN HHN SHORTNESS OF BREATH; Start 05/18/19 at 07:00 Allopurinol (Zyloprim) 100 mg DAILY PO Last administered on 05/22/19 08:18; Admin Dose 100 MG; Start 05/18/19 at 09:00 Atorvastatin Calcium (Lipitor) 80 mg QHS PO Last administered on 05/22/19 20:44; Admin Dose 80 MG; Start 05/18/19 at 21:00 Calcium Acetate (Phoslo) 1,334 mg WITH MEALS PO Last administered on 05/23/19 11:27; Admin Dose 1,334 MG; Start 05/18/19 at 08:00 Carvedilol (Coreg) 3.125 mg BID PO Last administered on 05/22/19 20:44; Admin Dose 3.125 MG; Start 05/18/19 at 09:00 Furosemide (Lasix) 80 mg DAILY PO Last administered on 05/18/19 08:57; Admin Dose 80 MG; Start 05/18/19 at 09:00; Status Hold Insulin Glargine (Lantus) 10 units HS SC Last administered on 05/22/19 21:01; Admin Dose 10 UNITS; Start 05/18/19 at 21:00 Mirtazapine (Remeron) 7.5 mg HS PO Last administered on 05/22/19 20:44; Admin Dose 7.5 MG; Start 05/18/19 at 21:00 Nifedipine (Procardia Xl) 30 mg DAILY PO Last administered on 05/22/19 08:19; Admin Dose 30 MG; Start 05/18/19 at 09:00 Tamsulosin HCl (Flomax) 0.4 mg HS PO Last administered on 05/22/19 20:44; Admin Dose 0.4 MG; Start 05/18/19 at 21:00 Diagnostic Test (Pha) (Accu-Chek) 1 ea 02 XX Last administered on 05/21/19 01:27; Admin Dose 1 EA; Start 05/19/19 at 02:00 Insulin Aspart (Novolog Insulin Pen) NOVOLOG *MILD* ALGORITHM WITH MEALS BEDTIME SC Last administered on 05/20/19 20:54; Admin Dose 3 UNIT; Start 05/18/19 at 11:50 Miscellaneous Information 1 ea NOTE XX ; Start 05/18/19 at 10:00 Glucose (Glutose) 15 gm Q15M PRN PO DECREASED GLUCOSE; Start 05/18/19 at 10:00 Glucose (Glutose) 22.5 gm Q15M PRN PO DECREASED GLUCOSE; Start 05/18/19 at 10:00 Dextrose (D50w Syringe) 25 ml Q15M PRN IV DECREASED GLUCOSE; Start 05/18/19 at 10:00 Dextrose (D50w Syringe) 50 ml Q15M PRN IV DECREASED GLUCOSE; Start 05/18/19 at 10:00 Glucagon (Glucagen) 1 mg Q15M PRN IM DECREASED GLUCOSE; Start 05/18/19 at 10:00 Glucose (Glutose) 15 gm Q15M PRN BUCCAL DECREASED GLUCOSE; Start 05/18/19 at 10:00 Ranitidine HCl (Zantac) 150 mg HS PO Last administered on 05/22/19 20:43; Admin Dose 150 MG; Start 05/18/19 at 13:00 Fish Oil (Fish Oil) 1,000 mg BID PO Last administered on 05/22/19 20:44; Admin Dose 1,000 MG; Start 05/18/19 at 13:00 Vancomycin HCl (Vanco Iv Per Pharmacy) VANCOMYCIN PER PHARMACY PER PROTOCOL XX ; Start 05/18/19 at 18:30 Insulin Aspart (Novolog Insulin Pen) 5 unit WITH BREAKFAST SC Last administered on 05/22/19 11:31; Admin Dose 5 UNIT; Start 05/19/19 at 07:55 Epoetin Tutu-epbx (Retacrit (Esrd)) 10,000 unit TuThSa@1700 SC Last administered on 05/20/19 16:19; Admin Dose 10,000 UNIT; Start 05/20/19 at 17:00 Calcium Carbonate (Tums) 500 mg PC MEALS PRN PO PAIN; Start 05/20/19 at 12:30 Phenol (Cepastat Lozenge) 1 lozenge Q1H PRN MT COUGH Last administered on 05/21/19 21:41; Admin Dose 1 LOZENGE; Start 05/21/19 at 17:00 Guaifenesin (Robitussin Liquid Cup) 200 mg Q4H PRN PO COUGH Last administered on 05/21/19 17:45; Admin Dose 200 MG; Start 05/21/19 at 17:00 Zolpidem Tartrate (Ambien) 2.5 mg HS PRN PO INSOMNIA Last administered on 02:29; Admin Dose 2.5 MG; Start 05/21/19 at 18:00 MARION ROCHA NP May 23, 2019 14:18
--- NOTE | 2019-05-23 16:20 | PDOCDIS ---
Discharge Instructions DIAGNOSIS Discharge Diagnosis Streptococcus bacteremia CONDITION [id number] Patient Condition: [id number] Fair HOME CARE INSTRUCTIONS: [id number] Diet Instructions: [id number] Reduced Sodium ACTIVITY: [id number] Activity Restrictions: [id number] No Restrictions FOLLOW UP/APPOINTMENTS Follow-up Plan 1. Continue all medications as prescribed. 2. You will receieve IV antibiotics with dialysis until 05/31. 3. Continue dialysis as scheduled. JUAQUIN LOTT MD May 23, 2019 16:20
[2019-05-23] MEDS: EPOETIN ALFA-EPBX (ESRD) 10,000 UNIT/ML VIAL SC SCH (17:00)
--- NOTE | 2019-05-23 19:41 | DS ---
Date/Time of Note Date/Time of Note DATE: 05/23/19 TIME: 19:38 Discharge Summary Admission/Discharge Info Admit Date/Time May 18, 2019 at 03:55 Discharge Date/Time May 23, 2019 at 17:59 Discharge Diagnosis Streptococcus bacteremia Patient Condition: Good Hx of Present Illness Patient is a 63-year-old man with a history of hypertension, type 1 diabetes, ESRD on HD who presented to the ER complaining of fever as well as nausea and vomiting. Patient also reported some cough and malaise. Denies chest pain or acute shortness of breath When presented to ER, he was febrile with temperature of 101.7. WBC almost 16,000. Chest x-ray and UA nondiagnostic. Hospital Course Febrile on admission to 101.7. The patient was admitted to telemetry and got dialysis. Afterwards most symptoms resolved. Unfortunately his blood and urine cultures grew out group B strep. He also had a dry crusted ulcer on the foot which was "cultured" and grew polymicrobial susi. He will be treated with IV vancomycin for 2 weeks (until 05/31) for the bacteremia, this will be arranged with his dialysis center. Home Meds Reported Medications Insulin Lispro (Humalog Kwikpen U-100) 100 Unit/1 Ml Insuln.pen, 5 UNIT SQ AC B, EA 09/29/18 Insulin Glargine,Hum.rec.anlog (Basaglar Kwikpen U-100) 100 Unit/1 Ml Insuln.pen, 10 UNIT SC QHS, EA 09/29/18 Allopurinol* (Allopurinol*) 100 Mg Tablet, 100 MG PO DAILY, TAB 09/29/18 Mirtazapine* (Mirtazapine*) 7.5 Mg Tablet, 7.5 MG PO HS, TAB 09/29/18 [place]-3/Dha/Epa/Fish Oil (FISH OIL 1,000 MG SOFTGEL) 1 Each Capsule, 1 EACH PO BID, CAP 09/29/18 Atorvastatin* (Atorvastatin*) 80 Mg Tablet, 80 MG PO QHS, #30 TAB 09/29/18 Carvedilol* (Carvedilol*) 3.125 Mg Tablet, 3.125 MG PO BID, #60 TAB 09/29/18 Tamsulosin Hcl* (Tamsulosin Hcl*) 0.4 Mg Cap.er.24h, 0.4 MG PO HS, CAP 09/29/18 Nifedipine* (Nifedipine ER*) 30 Mg Tablet.sa, 30 MG PO DAILY, TAB.SA 09/29/18 Ranitidine Hcl* (Ranitidine Hcl*) 150 Mg Tablet, 150 MG PO HS, #30 TAB 09/29/18 Furosemide* (Lasix*) 80 Mg Tablet, 80 MG PO DAILY, TAB 09/29/18 Calcium Acetate* (Calcium Acetate*) 667 Mg Capsule, 1334 MG PO WITH MEALS, #60 CAP 09/29/18 Follow-up Plan 1. Continue all medications as prescribed. 2. You will receieve IV antibiotics with dialysis until 05/31. 3. Continue dialysis as scheduled. Primary Care Provider Not On Staff Doctor Time spent on discharge: > 30 minutes Pending Labs Laboratory Tests Test 05/22/19 20:25 05/23/19 06:29 05/23/19 08:02 05/23/19 11:26 Bedside 140 103 110 Glucose mg/dL (70-220) mg/dL (70-220) mg/dL (70-220) White Blood 8.2 Count 10^3/ul (4.8-1 0.8) Red Blood 3.23 Count 10^6/ul (4.70- 6.10) Hemoglobin 9.8 g/dl (14.0-18. 0) Hematocrit 29.9 % (42.0-52.0) Mean 92.6 Corpuscular fl (82.0-101.0 Volume ) Mean 30.3 Corpuscular pg (29.0-33.0) Hemoglobin Mean 32.8 Corpuscular g/dl (32.0-37. Hemoglobin Conc 0) ent Red Cell 15.0 Distribution % (11.5-14.5) Width Platelet Count 260 10^3/UL (140-4 15) Mean Platelet 11.2 Volume fl (7.4-10.4) Immature 3.700 Granulocytes % % (0.001-0.429 ) Neutrophils % 55.3 % (39.0-77.0) Lymphocytes % 21.9 % (15.0-51.0) Monocytes % 11.0 % (0.0-11.0) Eosinophils % 7.0 % (0.0-7.0) Basophils % 1.1 % (0.0-2.0) Nucleated Red 0.0 Blood Cells % /100WBC (0.0-0 .0) Immature 0.300 Granulocytes # 10^3/ul (0.0-0 .031) Neutrophils # 4.5 10^3/ul (1.6-7 .5) Lymphocytes # 1.8 10^3/ul (0.8-2 .9) Monocytes # 0.9 10^3/ul (0.3-0 .9) Eosinophils # 0.6 10^3/ul (0.0-0 .5) Basophils # 0.1 10^3/ul (0.0-0 .1) Nucleated Red 0.0 Blood Cells # 10^3/ul (0.0-0 .0) Sodium Level 139 mmol/L (135-14 4) Potassium 5.9 Level mmol/L (3.5-5. 1) Chloride Level 100 mmol/L (97-110 ) Carbon Dioxide 22 Level mmol/L (21-31) Anion Gap 17 (5-13) Blood Urea 85 Nitrogen mg/dl (7-20) Creatinine 9.27 mg/dl (0.61-1. 24) Est Glomerular 6 mL/min (>60) Filtrat Rate mL/min Glucose Level 102 mg/dl (70-220) Calcium Level 8.9 mg/dl (8.4-10. 2) Test 05/23/19 14:36 Sodium Level 139 mmol/L (135-144 ) Potassium 4.5 Level mmol/L (3.5-5.1 ) Chloride Level 99 mmol/L (97-110) Carbon Dioxide 28 Level mmol/L (21-31) Anion Gap 12 (5-13) Blood Urea 39 mg/dl (7-20) Nitrogen Creatinine 4.90 mg/dl (0.61-1.2 4) Est Glomerular 12 mL/min (>60) Filtrat Rate mL/min Glucose Level 172 mg/dl (70-220) Calcium Level 9.0 mg/dl (8.4-10.2 ) JUAQUIN LOTT MD May 23, 2019 19:41
== END 2019-05-23 17:59 | disposition home or self-care (01) | DRG 871 ==
LOC: FTE 21:00 → TEL 05-18 03:55
PROVIDERS: ADMIT Internal Medicine; ATTEND Internal Medicine
PROC: 5A1D80Z Performance of Urinary Filtration, Prolonged Intermittent, 6-18 hours Per Day (ICD-10-PCS; principal; 2019-05-18)
DX: A40.1 Sepsis due to streptococcus, group B (principal); N18.6 End stage renal disease; I12.0 Hypertensive chronic kidney disease with stage 5 chronic kidney disease or end stage renal disease; N39.0 Urinary tract infection, site not specified; E10.22 Type 1 diabetes mellitus with diabetic chronic kidney disease; Z99.2 Dependence on renal dialysis; E10.621 Type 1 diabetes mellitus with foot ulcer; D63.1 Anemia in chronic kidney disease; M89.8X9 Other specified disorders of bone, unspecified site; E83.89 Other disorders of mineral metabolism; L97.519 Non-pressure chronic ulcer of other part of right foot with unspecified severity; E66.9 Obesity, unspecified; Z68.31 Body mass index [BMI] 31.0-31.9, adult; E10.42 Type 1 diabetes mellitus with diabetic polyneuropathy; K31.84 Gastroparesis; E10.43 Type 1 diabetes mellitus with diabetic autonomic (poly)neuropathy
CPT/HCPCS: 71046; 76705; 80048; 80053; 80061; 80202; 81001; 82150; 82550; 82553; 82962; 83036; 83605; 83690; 83735; 83880; 84100; 84484; 85025; 85610; 85730; 86706; 87070; 87086; 87340; 90935; 93005; 93306; 96365; J0692; J1644; J1815; J1956; J2185; J3370; Q5105

== ENCOUNTER 2019-06-13 20:22 | Inpatient (IN) | payer MEDICARE, OTHER ==
[~2019-06-13] VITALS: Ht 165.1 cm; Wt 82.8 kg
[~2019-06-13 20:22] MED LIST changes: +CITA10TA5 PO; +LEVO500T10 PO
[2019-06-13] MEDS ORDERED: ONDANSETRON 4 MG INJ IV STA (22:28)
[2019-06-13] MEDS ORDERED: VANCOMYCIN 1 GM (PMX) 250 ML IVPB STA (22:28)
[2019-06-13] MEDS ORDERED: CLINDAMYCIN 900 MG/D5W (PMX) 50 ML IVPB STA (22:28)
[2019-06-13] MEDS ORDERED: SOD CHLORIDE 0.9% 500 ML IV STA (22:28)
[2019-06-13] MEDS ORDERED: morphine 4 MG/ML VIAL IV STA (22:28)
[2019-06-14] MEDS ORDERED: ONDANSETRON 4 MG INJ IV PRN ×2 (01:00→02:30)
[2019-06-14] MEDS ORDERED: ACETAMINOPHEN 325 MG TAB PO PRN ×2 (01:00→02:30)
--- NOTE | 2019-06-14 01:23 | ERD ---
ER Documentation Chief Complaint Chief Complaint R knee spider bite with swelling/pain X 3 days ago, cough, Hx DM HPI Is a 63-year-old male with a history of diabetes nausea comes with a right knee spider bite with swelling and pain. Patient was started on outpatient antibiotics 5 days ago but he said is getting progressively worse and more erythematous and indurated. Denies any drainage of pus. Denies fevers or chills. Denies any other current issues. ROS All systems reviewed and are negative except as per history of present illness. Medications Home Meds Reported Medications Insulin Lispro (Humalog Kwikpen U-100) 100 Unit/1 Ml Insuln.pen, 5 UNIT SQ AC B, EA 09/29/18 Insulin Glargine,Hum.rec.anlog (Basaglar Kwikpen U-100) 100 Unit/1 Ml Insul n.pen, 10 UNIT SC QHS, EA 09/29/18 Allopurinol* (Allopurinol*) 100 Mg Tablet, 100 MG PO DAILY, TAB 09/29/18 Mirtazapine* (Mirtazapine*) 7.5 Mg Tablet, 7.5 MG PO HS, TAB 09/29/18 [place]-3/Dha/Epa/Fish Oil (FISH OIL 1,000 MG SOFTGEL) 1 Each Capsule, 1 EACH PO BID, CAP 09/29/18 Atorvastatin* (Atorvastatin*) 80 Mg Tablet, 80 MG PO QHS, #30 TAB 09/29/18 Carvedilol* (Carvedilol*) 3.125 Mg Tablet, 3.125 MG PO BID, #60 TAB 09/29/18 Tamsulosin Hcl* (Tamsulosin Hcl*) 0.4 Mg Cap.er.24h, 0.4 MG PO HS, CAP 09/29/18 Nifedipine* (Nifedipine ER*) 30 Mg Tablet.sa, 30 MG PO DAILY, TAB.SA 09/29/18 Ranitidine Hcl* (Ranitidine Hcl*) 150 Mg Tablet, 150 MG PO HS, #30 TAB 09/29/18 Furosemide* (Lasix*) 80 Mg Tablet, 80 MG PO DAILY, TAB 09/29/18 Calcium Acetate* (Calcium Acetate*) 667 Mg Capsule, 1334 MG PO WITH MEALS, #60 CAP 09/29/18 Allergies Allergies: Coded Allergies: Penicillins (Verified Allergy, Unknown, 09/29/18) PMhx/Soc History of Surgery: Yes (appendectomy, amputation right 2nd and 3rd toe ) Anesthesia Reaction: No Hx Neurological Disorder: No Hx Respiratory Disorders: No Hx Cardiac Disorders: Yes (HTN ) Hx Psychiatric Problems: No Hx Miscellaneous Medical Probl: Yes (ESRD, DIALYSIS T, TH, SAT) Hx Alcohol Use: No Hx Substance Use: No Hx Tobacco Use: No Smoking Status: Never smoker Physical Exam Vitals Vital Signs Date Temp Pulse Resp B/P (MAP) Pulse Ox O2 O2 Flow FiO2 Time Delivery Rate 06/13/19 100.7 92 18 126/58 97 20:39 (80) Physical Exam Const: No acute distress Head: Atraumatic Eyes: Normal Conjunctiva ENT: Normal External Ears, Nose and Mouth. Neck: Full range of motion. No meningismus. Resp: Clear to auscultation bilaterally Cardio: Regular rate and rhythm, no murmurs Abd: Soft, non tender, non distended. Normal bowel sounds Skin: Erythema and induration noted right lower extremity about 8 x 8 cm no central fluctuance noted. Back: No midline or flank tenderness Ext: No cyanosis, or edema Neur: Awake and alert Psych: Normal Mood and Affect Result Diagram: 06/13/19223706/13/192237 Results 24 hrs Laboratory Tests Test 06/13/19 22:38 White Blood Count 10.4 10^3/ul Red Blood Count 3.41 10^6/ul Hemoglobin 10.1 g/dl Hematocrit 31.9 % Mean Corpuscular Volume 93.5 fl Mean Corpuscular Hemoglobin 29.6 pg Mean Corpuscular Hemoglobin Concent 31.7 g/dl Red Cell Distribution Width 15.2 % Platelet Count 327 10^3/UL Mean Platelet Volume 10.3 fl Immature Granulocytes % 0.800 % Neutrophils % 67.6 % Lymphocytes % 15.1 % Monocytes % 11.1 % Eosinophils % 4.6 % Basophils % 0.8 % Nucleated Red Blood Cells % 0.0 /100WBC Immature Granulocytes # 0.080 10^3/ul Neutrophils # 7.0 10^3/ul Lymphocytes # 1.6 10^3/ul Monocytes # 1.2 10^3/ul Eosinophils # 0.5 10^3/ul Basophils # 0.1 10^3/ul Nucleated Red Blood Cells # 0.0 10^3/ul Urine Color YELLOW Urine Clarity CLOUDY Urine pH 8.0 Urine Specific [place] 1.018 Urine Ketones NEGATIVE mg/dL Urine Nitrite NEGATIVE mg/dL Urine Bilirubin NEGATIVE mg/dL Urine Urobilinogen NEGATIVE mg/dL Urine Leukocyte Esterase NEGATIVE Da/ul Urine Microscopic RBC 3 /HPF Urine Microscopic WBC 23 /HPF Urine Squamous Epithelial Cells MODERATE /HPF Urine Hemoglobin NEGATIVE mg/dL Urine Glucose 3+ mg/dL Urine Total Protein 3+ mg/dl Sodium Level 141 mmol/L Potassium Level 4.5 mmol/L Chloride Level 94 mmol/L Carbon Dioxide Level 32 mmol/L Anion Gap 15 Blood Urea Nitrogen 33 mg/dl Creatinine 5.74 mg/dl Est Glomerular Filtrat Rate mL/min 10 mL/min Glucose Level 122 mg/dl Calcium Level 9.7 mg/dl Total Bilirubin 0.4 mg/dl Direct Bilirubin 0.00 mg/dl Indirect Bilirubin 0.4 mg/dl Aspartate Amino Transf (AST/SGOT) 22 IU/L Alanine Aminotransferase (ALT/SGPT) 20 IU/L Alkaline Phosphatase 251 IU/L Total Protein 8.6 g/dl Albumin 4.3 g/dl Globulin 4.30 g/dl Albumin/Globulin Ratio 1.00 Lipase 53 U/L Current Medications Medications Dose Sig/[place] Start Time Status Last (Trade) Ordered Route PRN Stop Time Admin Dose Reason Admin Sodium 500 ml @ Q1H STAT 06/13/19 DC 06/13/19 Chloride 500 mls/hr IV 22:28 22:49 06/13/19 23:27 Morphine 4 mg ONCE STAT 06/13/19 DC 06/13/19 Sulfate IV 22:28 22:49 (morphine) 06/13/19 22:31 Ondansetron 4 mg ONCE STAT 06/13/19 DC 06/13/19 HCl (Zofran IV 22:28 22:49 Inj) 06/13/19 22:31 Vancomycin 250 ml @ ONCE STAT 06/13/19 DC 06/13/19 HCl 125 mls/hr IVPB 22:28 23:52 06/14/19 00:27 Clindamycin 50 ml @ 50 ONCE STAT 06/13/19 DC 06/13/19 HCl/ mls/hr IVPB 22:28 22:55 Dextrose 06/13/19 23:27 Ondansetron 4 mg BRIDGE ORDER 06/14/19 HCl (Zofran PRN IV 01:00 06/15/19 Inj) NAUSEA/VOMITI 00:59 NG 650 mg ER BRIDGE 06/14/19 Acetaminophen PRN PO 01:00 06/15/19 (Tylenol .MILD PAIN 00:59 Tab) 1-3 OR TEMP Procedures/MDM Medical decision making: This is a 7-year-old male presents with lower extremity cellulitis failing outpatient management given his multiple comorbidities include diabetes mellitus end-stage renal disease, patient started on broad- spectrum antibiotics pending cultures. Admitted to hospitalist for further evaluation management. Departure Diagnosis: Primary Impression: Cellulitis Site of cellulitis: unspecified site Qualified Codes: L03.90 - Cellulitis, unspecified Condition: Serious MICHEL TORRES Jun 14, 2019 01:23
[2019-06-14 02:00] VITALS: BP 123/58; PULSE 81; RESP 18; Ht 165.1 cm; Wt 82.8 kg
[2019-06-14] MEDS ORDERED: ALBUTEROL/IPRATROPIUM (NEB) 3 ML AMP HHN PRN (02:30)
[2019-06-14] MEDS ORDERED: NACL 0.9% 3 ML SYG IV SCH (02:30)
[2019-06-14] MEDS ORDERED: HYDROCODONE/APAP (5/325) TAB PO PRN (02:30)
[2019-06-14] MEDS: CLINDAMYCIN 600 MG/D5W (PMX) 50 ML IVPB SCH ×3 (03:13→17:48)
[2019-06-14] MEDS ORDERED: DEXTROSE 50% 50 ML SYRINGE IV PRN ×2 (03:30)
[2019-06-14] MEDS ORDERED: GLUCAGON 1 MG INJ IM PRN (03:30)
[2019-06-14] MEDS ORDERED: GLUCOSE GEL 15 GRAM TUBE PO PRN ×2 (03:30)
[2019-06-14] MEDS ORDERED: GLUCOSE GEL 15 GRAM TUBE BUCCAL PRN (03:30)
[2019-06-14] MEDS: [UNRECOGNIZED DRUG - OTHER] XX SCH ×2 (05:31→17:42)
--- NOTE | 2019-06-14 06:45 | HP ---
Date/Time of Note Date/Time of Note DATE: 06/14/19 TIME: 06:41 Assessment/Plan VTE Prophylaxis Pharmacological prophylaxis: heparin Lines/Catheters [facility] Saline Lock Urinary Cath still in place: No Assessment/Plan Assessment/Plan 1. Right knee cellulitis/swelling -IV antibiotic -Follow-up culture results -Consider imaging 2. Sepsis: As evidenced by fever and tachycardia: Secondary to #1 and UTI -IV antibiotic, IV fluids. Follow-up culture results 3. UTI: See above 4. ESRD on HD: Nephrology for dialysis 5. Type 1 diabetes: Insulin 6. Hypertension: Adjust BP meds as needed Result Diagram: 06/14/19 0549 06/13/19 2238 Results 24hrs Laboratory Tests Test 06/13/19 22:38 06/14/19 05:49 White Blood Count 10.4 # 10.1 Red Blood Count 3.41 L 2.89 L Hemoglobin 10.1 L 8.6 L Hematocrit 31.9 L 27.4 L Mean Corpuscular Volume 93.5 94.8 Mean Corpuscular Hemoglobin 29.6 29.8 Mean Corpuscular Hemoglobin Concent 31.7 L 31.4 L Red Cell Distribution Width 15.2 H 15.0 H Platelet Count 327 # 277 Mean Platelet Volume 10.3 10.6 H Immature Granulocytes % 0.800 H 0.600 H Neutrophils % 67.6 66.5 Lymphocytes % 15.1 16.7 Monocytes % 11.1 H 10.3 Eosinophils % 4.6 4.9 Basophils % 0.8 1.0 Nucleated Red Blood Cells % 0.0 0.0 Immature Granulocytes # 0.080 H 0.060 H Neutrophils # 7.0 6.7 Lymphocytes # 1.6 1.7 Monocytes # 1.2 H 1.0 H Eosinophils # 0.5 0.5 Basophils # 0.1 0.1 Nucleated Red Blood Cells # 0.0 0.0 Urine Color YELLOW Urine Clarity CLOUDY A Urine pH 8.0 Urine Specific [place] 1.018 Urine Ketones NEGATIVE Urine Nitrite NEGATIVE Urine Bilirubin NEGATIVE Urine Urobilinogen NEGATIVE Urine Leukocyte Esterase NEGATIVE Urine Microscopic RBC 3 Urine Microscopic WBC 23 H Urine Squamous Epithelial Cells MODERATE Urine Hemoglobin NEGATIVE Urine Glucose 3+ H Urine Total Protein 3+ H Sodium Level 141 Potassium Level 4.5 Chloride Level 94 L Carbon Dioxide Level 32 H Anion Gap 15 H Blood Urea Nitrogen 33 H Creatinine 5.74 H Est Glomerular Filtrat Rate mL/min 10 L Glucose Level 122 Calcium Level 9.7 Total Bilirubin 0.4 Direct Bilirubin 0.00 Indirect Bilirubin 0.4 Aspartate Amino Transf (AST/SGOT) 22 Alanine Aminotransferase (ALT/SGPT) 20 Alkaline Phosphatase 251 H Total Protein 8.6 H Albumin 4.3 Globulin 4.30 H Albumin/Globulin Ratio 1.00 Lipase 53 HPI/ROS Admit Date/Time Admit Date/Time Jun 14, 2019 at 00:56 Hx of Present Illness Patient is a 63-year-old male with a history of hypertension, type 1 diabetes, ESRD on HD who presented to ER complaining of right knee swelling and tenderness. Patient thinks he was bitten by spider. No draining pus. Patient was discharged from here 3 weeks ago after he was admitted for sepsis bacteremia. At that time he had a dry crusted ulcer on the ventral aspect of the right foot. It is still appears dry and crusted. When he presented to the ER, he was febrile with temperature of 100.7. UA consistent with UTI. PMH/Family/Social Past Medical History Medications Current Medications IV Flush (NS 3 ml) 3 ml PER PROTOCOL IV ; Start 06/14/19 at 02:30 Ondansetron HCl (Zofran Inj) 4 mg Q6H PRN IV NAUSEA/VOMITING; Start 06/14/19 at 02:30 Acetaminophen (Tylenol Tab) 650 mg Q6H PRN PO .PAIN 1-3 OR TEMP; Start 06/14/19 at 02:30 Acetaminophen/ Hydrocodone Bitart ([place] (5/325)) 1 tab Q6H PRN PO .MOD PAIN 4- 6; Start 06/14/19 at 02:30 Acetaminophen/ Hydrocodone Bitart ([place] (5/325)) 2 tab Q6H PRN PO .SEVERE PAIN 7-10; Start 06/14/19 at 02:30 Heparin Sodium (Porcine) (Heparin (5000 Units/1ml)) 5,000 unit Q12 SC ; Start 06/14/19 at 09:00 Albuterol/ Ipratropium (Duoneb) 3 ml Q2H RESP THERAPY PRN HHN SHORTNESS OF BREATH; Start 06/14/19 at 02:30 Diagnostic Test (Pha) (Accu-Chek) 1 ea 02 XX ; Start 06/15/19 at 02:00 Insulin Aspart (Novolog Insulin Pen) 5 unit WITH MEALS SC ; Start 06/14/19 at 07:35 Insulin Aspart (Novolog Insulin Pen) NOVOLOG *MILD* ALGORITHM WITH MEALS BEDTIME SC ; Start 06/14/19 at 08:00 Allopurinol (Zyloprim) 100 mg DAILY PO ; Start 06/14/19 at 09:00 Atorvastatin Calcium (Lipitor) 80 mg QHS PO ; Start 06/14/19 at 21:00 Calcium Acetate (Phoslo) 1,334 mg WITH MEALS PO ; Start 06/14/19 at 07:35 Carvedilol (Coreg) 3.125 mg BID PO ; Start 06/14/19 at 09:00 Citalopram Hydrobromide (Citalopram) 10 mg DAILY PO ; Start 06/14/19 at 09:00 Furosemide (Lasix) 80 mg DAILY PO ; Start 06/14/19 at 09:00 Mirtazapine (Remeron) 7.5 mg HS PO ; Start 06/14/19 at 21:00 Nifedipine (Procardia Xl) 30 mg DAILY PO ; Start 06/14/19 at 09:00 Ranitidine HCl (Zantac) 150 mg HS PO ; Start 06/14/19 at 21:00 Tamsulosin HCl (Flomax) 0.4 mg HS PO ; Start 06/14/19 at 21:00 Clindamycin HCl/ Dextrose 50 ml @ 50 mls/hr Q8H IVPB Last administered on 06/14/19at 03:13; Admin Dose 50 MLS/HR; Start 06/14/19 at 02:30 Insulin Glargine (Lantus) 10 units HS SC ; Start 06/14/19 at 21:00 Miscellaneous Information 1 ea NOTE XX ; Start 06/14/19 at 03:30 Glucose (Glutose) 15 gm Q15M PRN PO DECREASED GLUCOSE; Start 06/14/19 at 03:30 Glucose (Glutose) 22.5 gm Q15M PRN PO DECREASED GLUCOSE; Start 06/14/19 at 03:30 Dextrose (D50w Syringe) 25 ml Q15M PRN IV DECREASED GLUCOSE; Start 06/14/19 at 03:30 Dextrose (D50w Syringe) 50 ml Q15M PRN IV DECREASED GLUCOSE; Start 06/14/19 at 03:30 Glucagon (Glucagen) 1 mg Q15M PRN IM DECREASED GLUCOSE; Start 06/14/19 at 03:30 Glucose (Glutose) 15 gm Q15M PRN BUCCAL DECREASED GLUCOSE; Start 06/14/19 at 03:30 Miscellaneous Information (* Miscellaneous Pharmacy Order) PATIENT'S OWN MEDICAT... Q12H XX ; Start 06/14/19 at 06:00 Fish Oil (Fish Oil) 1,000 mg BID PO ; Start 06/14/19 at 09:00 Coded Allergies: Penicillins (Verified Allergy, Unknown, 09/29/18) Social History Smoking Status: Never smoker Exam/Review of Systems Vital Signs Vitals Vital Signs Date Temp Pulse Resp B/P (MAP) Pulse Ox O2 O2 Flow FiO2 Time Delivery Rate 06/14/19 98.7 81 18 123/58 96 02:00 (79) 06/14/19 Room Air 01:28 Intake and Output 06/13/19 06/13/19 06/14/19 1515:00 23:00 07:00 IntakeIntake Total 1050 ml BalanceBalance 1050 ml Exam Constitutional: alert, oriented, well developed Head: normocephalic, atraumatic Eyes: EOMI, PERRL Respiratory: clear to auscultation, normal air movement Cardiovascular: regular rate and rhythm, nl pulses Gastrointestinal: soft, non-tender Extremities: normal pulses, other (Right knee is erythematous and tender) MICHEL HERNANDEZ MD Jun 14, 2019 06:45
[2019-06-14 08:00] VITALS: BP 127/63; PULSE 96; RESP 16
[2019-06-14] MEDS: INSULIN ASPART [NOVOLOG] 3 ML PEN SC SCH ×7 (08:00→21:00)
[2019-06-14] MEDS: CITALOPRAM 10 MG TAB PO SCH (08:11)
[2019-06-14] MEDS: FISH OIL 1,000 MG CAP PO SCH ×2 (08:12→21:16)
[2019-06-14] MEDS: HYDROCODONE/APAP (5/325) TAB PO PRN ×2 (08:13→21:10)
[2019-06-14] MEDS: ALLOPURINOL 100 MG TAB PO SCH (08:13)
[2019-06-14] MEDS: CALCIUM ACETATE 667 MG CAP PO SCH ×3 (08:14→17:44)
[2019-06-14] MEDS: HEPARIN 5,000 UNIT/1 ML VIAL SC SCH ×2 (08:17→21:20)
[2019-06-14] MEDS: NIFEdipine (XL) 30 MG TAB PO SCH (08:23)
[2019-06-14] MEDS: FUROSEMIDE 40 MG TAB PO SCH (08:23)
[2019-06-14] MEDS ORDERED: NON-FORMULARY/PATIENT OWN MED (Omega-3/Dha/Epa/Fish Oil (Fish Oil 1,000 Mg Softgel) 1 EACH PO SCH (09:00)
[2019-06-14 14:00] VITALS: BP 134/63; PULSE 89; RESP 16
--- NOTE | 2019-06-14 15:26 | PN ---
Date/Time of Note Date/Time of Note DATE: 06/14/19 TIME: 15:18 Assessment/Plan VTE Prophylaxis Risk score (from Ns)>0 risk: 3 SCD applied (from Ns): Yes Pharmacological prophylaxis: heparin Lines/Catheters [facility] Saline Lock Urinary Cath still in place: No Assessment/Plan Hospital Course Assessment and plan #Right knee cellulitis Continue IV antibiotic ID consult follow #Sepsis secondary to right knee cellulitis. Continue antibiotic ID consult follow # UTI Continue antibiotic #ESRD Community Life Director to follow Monitor electrolytes HD per dish cloth inspector #Diabetes Continue insulin #Hypertension Continue on antihypertensives Disposition and plan. Continue antibiotic's. Analgesics as needed. Follow-up with ID consult. Discussed POC with Dr. Torrez Result Diagram: 06/14/19 0549 06/14/19 0549 Results 24hrs Laboratory Tests Test 06/13/19 22:38 06/14/19 05:49 06/14/19 08:07 06/14/19 12:22 White Blood Count 10.4 # 10.1 Red Blood Count 3.41 L 2.89 L Hemoglobin 10.1 L 8.6 L Hematocrit 31.9 L 27.4 L Mean Corpuscular 93.5 94.8 Volume Mean Corpuscular 29.6 29.8 Hemoglobin Mean Corpuscular 31.7 L 31.4 L Hemoglobin Concent Red Cell 15.2 H 15.0 H Distribution Width Platelet Count 327 # 277 Mean Platelet Volume 10.3 10.6 H Immature 0.800 H 0.600 H Granulocytes % Neutrophils % 67.6 66.5 Lymphocytes % 15.1 16.7 Monocytes % 11.1 H 10.3 Eosinophils % 4.6 4.9 Basophils % 0.8 1.0 Nucleated Red Blood 0.0 0.0 Cells % Immature 0.080 H 0.060 H Granulocytes # Neutrophils # 7.0 6.7 Lymphocytes # 1.6 1.7 Monocytes # 1.2 H 1.0 H Eosinophils # 0.5 0.5 Basophils # 0.1 0.1 Nucleated Red Blood 0.0 0.0 Cells # Urine Color YELLOW Urine Clarity CLOUDY A Urine pH 8.0 Urine Specific 1.018 [place] Urine Ketones NEGATIVE Urine Nitrite NEGATIVE Urine Bilirubin NEGATIVE Urine Urobilinogen NEGATIVE Urine Leukocyte NEGATIVE Esterase Urine Microscopic 3 RBC Urine Microscopic 23 H WBC Urine Squamous MODERATE Epithelial Cells Urine Hemoglobin NEGATIVE Urine Glucose 3+ H Urine Total Protein 3+ H Sodium Level 141 140 Potassium Level 4.5 4.9 Chloride Level 94 L 97 Carbon Dioxide Level 32 H 29 Anion Gap 15 H 14 H Blood Urea Nitrogen 33 H 37 H Creatinine 5.74 H 6.09 H Est Glomerular 10 L 9 L Filtrat Rate mL/min Glucose Level 122 126 Calcium Level 9.7 8.8 Total Bilirubin 0.4 0.4 Direct Bilirubin 0.00 0.00 Indirect Bilirubin 0.4 0.4 Aspartate Amino 22 17 Transf (AST/SGOT) Alanine 20 19 Aminotransferase (AL T/SGPT) Alkaline Phosphatase 251 H 215 H Total Protein 8.6 H 7.5 # Albumin 4.3 4.1 Globulin 4.30 H 3.40 H Albumin/Globulin 1.00 1.20 Ratio Lipase 53 Phosphorus Level 4.8 Magnesium Level 1.7 Bedside Glucose 114 100 Subjective 24 Hr Interval Summary Free Text/Dictation patient reports pain on right knee Exam/Review of Systems Exam Vitals Vital Signs Date Temp Pulse Resp B/P (MAP) Pulse Ox O2 O2 Flow FiO2 Time Delivery Rate 06/14/19 98.8 89 16 134/63 96 14:00 (86) 06/14/19 Room Air 01:28 Intake and Output 06/13/19 06/13/19 06/14/19 1515:00 23:00 07:00 IntakeIntake Total 1050 ml BalanceBalance 1050 ml Constitutional: alert, oriented, obese Respiratory: clear to auscultation Cardiovascular: regular rate and rhythm Gastrointestinal: soft, non-tender Musculoskeletal: swelling (right knee) Neurological: nl mental status, nl speech Skin: nl turgor Results Results 24hrs Laboratory Tests Test 06/13/19 22:38 06/14/19 05:49 06/14/19 08:07 06/14/19 12:22 White Blood Count 10.4 # 10.1 Red Blood Count 3.41 L 2.89 L Hemoglobin 10.1 L 8.6 L Hematocrit 31.9 L 27.4 L Mean Corpuscular 93.5 94.8 Volume Mean Corpuscular 29.6 29.8 Hemoglobin Mean Corpuscular 31.7 L 31.4 L Hemoglobin Concent Red Cell 15.2 H 15.0 H Distribution Width Platelet Count 327 # 277 Mean Platelet Volume 10.3 10.6 H Immature 0.800 H 0.600 H Granulocytes % Neutrophils % 67.6 66.5 Lymphocytes % 15.1 16.7 Monocytes % 11.1 H 10.3 Eosinophils % 4.6 4.9 Basophils % 0.8 1.0 Nucleated Red Blood 0.0 0.0 Cells % Immature 0.080 H 0.060 H Granulocytes # Neutrophils # 7.0 6.7 Lymphocytes # 1.6 1.7 Monocytes # 1.2 H 1.0 H Eosinophils # 0.5 0.5 Basophils # 0.1 0.1 Nucleated Red Blood 0.0 0.0 Cells # Urine Color YELLOW Urine Clarity CLOUDY A Urine pH 8.0 Urine Specific 1.018 [place] Urine Ketones NEGATIVE Urine Nitrite NEGATIVE Urine Bilirubin NEGATIVE Urine Urobilinogen NEGATIVE Urine Leukocyte NEGATIVE Esterase Urine Microscopic 3 RBC Urine Microscopic 23 H WBC Urine Squamous MODERATE Epithelial Cells Urine Hemoglobin NEGATIVE Urine Glucose 3+ H Urine Total Protein 3+ H Sodium Level 141 140 Potassium Level 4.5 4.9 Chloride Level 94 L 97 Carbon Dioxide Level 32 H 29 Anion Gap 15 H 14 H Blood Urea Nitrogen 33 H 37 H Creatinine 5.74 H 6.09 H Est Glomerular 10 L 9 L Filtrat Rate mL/min Glucose Level 122 126 Calcium Level 9.7 8.8 Total Bilirubin 0.4 0.4 Direct Bilirubin 0.00 0.00 Indirect Bilirubin 0.4 0.4 Aspartate Amino 22 17 Transf (AST/SGOT) Alanine 20 19 Aminotransferase (AL T/SGPT) Alkaline Phosphatase 251 H 215 H Total Protein 8.6 H 7.5 # Albumin 4.3 4.1 Globulin 4.30 H 3.40 H Albumin/Globulin 1.00 1.20 Ratio Lipase 53 Phosphorus Level 4.8 Magnesium Level 1.7 Bedside Glucose 114 100 Medications Medication Current Medications IV Flush (NS 3 ml) 3 ml PER PROTOCOL IV ; Start 06/14/19 at 02:30 Ondansetron HCl (Zofran Inj) 4 mg Q6H PRN IV NAUSEA/VOMITING Last administered on 06/14/19at 14:52; Admin Dose 4 MG; Start 06/14/19 at 02:30 Acetaminophen (Tylenol Tab) 650 mg Q6H PRN PO .PAIN 1-3 OR TEMP; Start 06/14/19 at 02:30 Acetaminophen/ Hydrocodone Bitart ([place] (5/325)) 1 tab Q6H PRN PO .MOD PAIN 4- 6; Start 06/14/19 at 02:30 Acetaminophen/ Hydrocodone Bitart ([place] (5/325)) 2 tab Q6H PRN PO .SEVERE PAIN 7-10 Last administered on 06/14/19at 08:13; Admin Dose 2 TAB; Start 06/14/19 at 02:30 Heparin Sodium (Porcine) (Heparin (5000 Units/1ml)) 5,000 unit Q12 SC Last administered on 06/14/19at 08:17; Admin Dose 5,000 UNIT; Start 06/14/19 at 09:00 Albuterol/ Ipratropium (Duoneb) 3 ml Q2H RESP THERAPY PRN HHN SHORTNESS OF BREATH; Start 06/14/19 at 02:30 Diagnostic Test (Pha) (Accu-Chek) 1 ea 02 XX ; Start 06/15/19 at 02:00 Insulin Aspart (Novolog Insulin Pen) 5 unit WITH MEALS SC Last administered on 06/14/19at 12:24; Admin Dose 5 UNIT; Start 06/14/19 at 07:35 Insulin Aspart (Novolog Insulin Pen) NOVOLOG *MILD* ALGORITHM WITH MEALS BEDTIME SC ; Start 06/14/19 at 08:00 Allopurinol (Zyloprim) 100 mg DAILY PO Last administered on 06/14/19at 08:13; Admin Dose 100 MG; Start 06/14/19 at 09:00 Atorvastatin Calcium (Lipitor) 80 mg QHS PO ; Start 06/14/19 at 21:00 Calcium Acetate (Phoslo) 1,334 mg WITH MEALS PO Last administered on 06/14/19at 12:21; Admin Dose 1,334 MG; Start 06/14/19 at 07:35 Carvedilol (Coreg) 3.125 mg BID PO Last administered on 06/14/19at 08:24; Admin Dose 3.125 MG; Start 06/14/19 at 09:00 Citalopram Hydrobromide (Citalopram) 10 mg DAILY PO Last administered on 06/14/19at 08:11; Admin Dose 10 MG; Start 06/14/19 at 09:00 Furosemide (Lasix) 80 mg DAILY PO Last administered on 06/14/19at 08:23; Admin Dose 80 MG; Start 06/14/19 at 09:00 Mirtazapine (Remeron) 7.5 mg HS PO ; Start 06/14/19 at 21:00 Nifedipine (Procardia Xl) 30 mg DAILY PO Last administered on 06/14/19at 08:23; Admin Dose 30 MG; Start 06/14/19 at 09:00 Ranitidine HCl (Zantac) 150 mg HS PO ; Start 06/14/19 at 21:00 Tamsulosin HCl (Flomax) 0.4 mg HS PO ; Start 06/14/19 at 21:00 Clindamycin HCl/ Dextrose 50 ml @ 50 mls/hr Q8H IVPB Last administered on 06/14/19at 10:22; Admin Dose 50 MLS/HR; Start 06/14/19 at 02:30 Insulin Glargine (Lantus) 10 units HS SC ; Start 06/14/19 at 21:00 Miscellaneous Information 1 ea NOTE XX ; Start 06/14/19 at 03:30 Glucose (Glutose) 15 gm Q15M PRN PO DECREASED GLUCOSE; Start 06/14/19 at 03:30 Glucose (Glutose) 22.5 gm Q15M PRN PO DECREASED GLUCOSE; Start 06/14/19 at 03:30 Dextrose (D50w Syringe) 25 ml Q15M PRN IV DECREASED GLUCOSE; Start 06/14/19 at 03:30 Dextrose (D50w Syringe) 50 ml Q15M PRN IV DECREASED GLUCOSE; Start 06/14/19 at 03:30 Glucagon (Glucagen) 1 mg Q15M PRN IM DECREASED GLUCOSE; Start 06/14/19 at 03:30 Glucose (Glutose) 15 gm Q15M PRN BUCCAL DECREASED GLUCOSE; Start 06/14/19 at 03:30 Miscellaneous Information (* Miscellaneous Pharmacy Order) PATIENT'S OWN MEDICAT... Q12H XX ; Start 06/14/19 at 06:00 Fish Oil (Fish Oil) 1,000 mg BID PO Last administered on 06/14/19at 08:12; Admin Dose 1,000 MG; Start 06/14/19 at 09:00 MARY CARMEN MAN NP Jun 14, 2019 15:26
--- NOTE | 2019-06-14 19:50 | CONS ---
DATE OF ADMISSION: 06/14/2019 DATE OF CONSULTATION: 06/14/2019 TYPE OF CONSULTATION: Nephrology. REASON FOR CONSULTATION: End-stage renal disease. PHYSICIAN REQUESTING CONSULTATION: Nurse practitionerMary Carmen. HISTORY OF PRESENT ILLNESS: This is a 63-year-old male with a past medical history of end-stage syd l disease on dialysis Wednesday, , Wednesday, access AV fistula. The patient's primary nephrolo gist is Dr. Berry. He presents to [facility] with right knee swelling and tendernes s. The patient states he feels he was bitten by a spider approximately 3 weeks ago. The patient was also admitted for sepsis bacteremia at the hospital and subsequently discharged. The patient now pr esents with worsening right knee swelling. Upon arrival, the patient was febrile with a temperature of 100.7. The patient has a urinalysis consistent with UTI, was started on antibiotic therapy, admit quintin to med/surg. In terms of the patient's renal history, the patient is on dialysis Wednesday, , Wednesday. Acc ess AV fistula. Last hemodialysis was yesterday. PAST MEDICAL HISTORY: As stated above, history of end-stage renal disease, history of anemia, histor y of mineral bone disorder, history of hypertension, diabetes. PAST SURGICAL HISTORY: Status post AV fistula placement. FAMILY HISTORY: No family history of kidney disease. SOCIAL HISTORY: Does not drink, smoke, or do drugs. MEDICATIONS: The patient's medications have been reviewed. REVIEW OF SYSTEMS: A 14-point review of systems was conducted. Pertinent positives stated in the HP I, otherwise negative. PHYSICAL EXAMINATION: VITAL SIGNS: Blood pressure is 134/63, pulse 89, respirations 16, temperature is 98.8. HEENT: Head is normocephalic. NECK: Supple. HEART: Regular rate. LUNGS: Show diminished breath sounds at the base. ABDOMEN: Soft, nontender to palpation. No rebound or guarding. EXTREMITIES: Negative for clubbing, cyanosis. Positive swelling and erythema around the right knee. DERMATOLOGIC: No rashes. MUSCULOSKELETAL: No joint effusion. NEUROLOGIC: No focal deficits. LABORATORY DATA: Has been reviewed. IMAGING STUDIES: Have been reviewed. ASSESSMENT AND PLAN: 1. End-stage renal disease. The patient is on dialysis Wednesday, , Wednesday, access arteriov enous fistula. Plan for hemodialysis tomorrow. Will dialyze for 3 hours, 2K bath, potassium 2.5. 2. Anemia. Monitor hemoglobin and hematocrit levels. Will give Epogen as needed. 3. Mineral bone disorder. Monitor calcium and phosphorus levels. 4. Hypertension. Blood pressure controlled. Continue ultrafiltration with dialysis. 5. Right knee cellulitis. Continue antibiotic therapy. 6. Sepsis secondary to urinary tract infection, with cellulitis. Continue current medical managemen t. 7. Diabetes. Continue current insulin regimen. Thank you, Dr. Hernandez, for this interesting consult. It will be a pleasure to follow the patient with you throughout his hospital course. Dictated By: MEGHAN CASILLAS DO NR/NTS Conf#: [id number] DID#: [id number] CC: MICHEL HERNANDEZ MD; MARY CARMEN MAN [place];*EndCC*
[2019-06-14 20:20] VITALS: BP 116/57; PULSE 89; RESP 18
[2019-06-14] MEDS ORDERED: INSULIN GLARGINE [LANtus] 3 ML PEN SC SCH (21:00)
[2019-06-14] MEDS ORDERED: INSULIN GLARGINE [LANTus] (100 UNITS/ML) SYG SC SCH (21:00)
[2019-06-14] MEDS: ATORVASTATIN 80 MG TAB PO SCH (21:16)
[2019-06-14] MEDS: RANITIDINE 150 MG TAB PO SCH (21:16)
[2019-06-14] MEDS: TAMSULOSIN (SR) 0.4 MG CAP PO SCH (21:16)
[2019-06-14] MEDS: MIRTAZAPINE 15 MG TAB PO SCH (21:16)
[2019-06-14 21:24] VITALS: BP 121/59; PULSE 81
[2019-06-15] VITALS (18 sets, daily range): BP systolic 107–146; BP diastolic 56–88; PULSE 72–85; RESP 18
[2019-06-15] MEDS: ACCU-CHEK XX SCH (02:00)
[2019-06-15] MEDS: CLINDAMYCIN 600 MG/D5W (PMX) 50 ML IVPB SCH ×2 (03:09→12:35)
--- NOTE | 2019-06-15 03:44 | CONS ---
DATE OF ADMISSION: 06/14/2019 DATE OF CONSULTATION: 06/14/2019 TYPE OF CONSULTATION: Infectious Disease. REASON FOR CONSULTATION: Antibiotic management. HISTORY OF PRESENT ILLNESS: Bandar Cunningham is a 63-year-old male who comes in with a history of real betes mellitus and with what he claims to be a right knee spider bite with swelling and pain. Usuall y a spider bite connotes methicillin-resistant Staphylococcus aureus. The patient was started on out patient antibiotics 5 days ago prior to admission, but the wound has been getting progressively worse with increased redness and induration. He denies any fever, chills or purulent drainage. His past problems include: 1. Adult-onset diabetes mellitus. 2. Status post appendectomy. 3. Amputation of the right second and third toes. 4. Hypertension. 5. End-stage renal disease on dialysis. PAST MEDICAL HISTORY: As outlined. FAMILY HISTORY: Noncontributory. SOCIAL HISTORY: Does not smoke, drink or abuse drugs. ALLERGIES: NONE TO PENICILLIN, SULFA OR FOODS. MEDICATIONS: Per chart. REVIEW OF SYSTEMS: As per HPI. PHYSICAL EXAMINATION: GENERAL: The patient is an elderly-appearing male who is awake, responsive, in no acute distress. VITAL SIGNS: Stable. T-max of 100.7 on admission. SKIN: Without generalized rash. He has erythema and induration on the right lower extremity about 8 x 8 cm with no central fluctuance. HEENT: Within normal limits. NECK: Supple. LYMPH NODES: None palpable. CHEST: Decreased breath sounds at the bases. HEART: Without murmur or gallop. ABDOMEN: Soft, nontender, without organosplenomegaly or masses. EXTREMITIES: Without cyanosis, clubbing, or edema. RECTAL AND GENITAL: Deferred. NEUROLOGIC: No focal neurological abnormalities. Of note, he has amputation of right second and thi rd toes. ANCILLARY LABORATORY DATA: White count of 10.4 with 68% neutrophils, H and H of 10.1 and 31.9, plate let count 327,000. BUN and creatinine 33/5.74. Urinalysis is negative for nitrite and leukocyte est erase. IMPRESSION AND PLAN: The patient was started on vancomycin and also on clindamycin. He had one dose . Currently, the patient was seen by a nurse practitioner, Saul Feliz with right knee celluliti s, sepsis secondary to right knee cellulitis. He has a UTI. I do not think he has a UTI. His knee x-ray shows no acute fracture and that shows vascular calcifications. We will continue him on clinda mycin. THE PATIENT IS ALLERGIC TO PENICILLIN. His BUN and creatinine are 37/6.09, so he received 1 dose of vancomycin, I believe, which should be adequate for a few days. I will dictate my findings t o the hospitalist. Dictated By: MIGUEL BURR MD, JD/WARREN Conf#: [id number] DID#: [id number]
[2019-06-15] MEDS: [UNRECOGNIZED DRUG - OTHER] XX SCH ×2 (05:09→17:22)
--- NOTE | 2019-06-15 07:24 | PN ---
DATE: 06/15/2019 SUBJECTIVE: The patient is stable, no events overnight. No fevers or chills. OBJECTIVE: VITAL SIGNS: Blood pressure is 111/56, respirations 18, pulse 78, temperature 98.6. HEENT: Head is normocephalic. NECK: Supple. HEART: Regular rate. LUNGS: Show diminished breath sounds at the base. ABDOMEN: Soft, nontender to palpation. No rebound or guarding. EXTREMITIES: Negative for clubbing, cyanosis, no edema. DERMATOLOGIC: No rashes. MUSCULOSKELETAL: No joint effusion. NEUROLOGIC: No change in exam. MEDICATIONS: Have been reviewed. LABORATORY DATA: Has been reviewed. IMAGING STUDIES: Have been reviewed. ASSESSMENT AND PLAN: 1. End-stage renal disease, plan for hemodialysis today, will dialyze 3 hours 2k bath, calcium 2.5. 2. Anemia. Monitor hemoglobin and hematocrit levels, will give Epogen as needed. 3. Mineral bone disorder, monitor calcium and phosphorus levels. The patient will be resumed on antonella sphate binders as needed. 4. Hypertension. Continue current blood pressure regimen. Continue ultrafiltration dialysis. 5. Cellulitis, continue antibiotic therapy. 6. Sepsis secondary to urinary tract infection, cellulitis. Continue current medical management. 7. Diabetes. Continue current insulin regimen. Dictated By: MEGHAN HODGES/NTS Conf#: [id number] DID#: [id number] CC: MICHEL HERNANDEZ MD;*EndCC*
[2019-06-15] MEDS: INSULIN ASPART [NOVOLOG] 3 ML PEN SC SCH ×7 (08:21→21:00)
[2019-06-15] MEDS: CALCIUM ACETATE 667 MG CAP PO SCH ×3 (08:23→17:25)
[2019-06-15] MEDS: HEPARIN 5,000 UNIT/1 ML VIAL SC SCH ×2 (09:00→21:11)
--- NOTE | 2019-06-15 11:29 | PN ---
Date/Time of Note Date/Time of Note DATE: 06/15/19 TIME: 11:26 Assessment/Plan VTE Prophylaxis Risk score (from Nsg)>0 risk: 4 SCD applied (from Nsg): Yes Pharmacological prophylaxis: heparin Lines/Catheters IV Catheter Type (from Nrsg): Saline Lock Urinary Cath still in place: No Assessment/Plan Hospital Course Assessment and plan #Right knee cellulitis Continue IV antibiotic ID consult follow #Sepsis secondary to right knee cellulitis. 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 Continue abx Analgesics as needed. continue HD. monitor for improvement. will get PT eval Discussed POC with Dr. Torrez Result Diagram: 06/15/19 0536 06/15/19 0537 Results 24hrs Laboratory Tests Test 06/14/19 12:22 06/14/19 17:37 06/14/19 21:14 06/15/19 05:36 Bedside Glucose 100 95 111 White Blood Count 10.7 Red Blood Count 2.83 L Hemoglobin 8.2 L Hematocrit 27.5 L Mean Corpuscular 97.2 Volume Mean Corpuscular 29.0 Hemoglobin Mean Corpuscular 29.8 L Hemoglobin Concent Red Cell Distribution 15.5 H Width Platelet Count 274 Mean Platelet Volume 10.5 H Immature Granulocytes 0.900 H % Neutrophils % 65.0 Lymphocytes % 19.4 Monocytes % 9.8 Eosinophils % 4.0 Basophils % 0.9 Nucleated Red Blood 0.0 Cells % Immature Granulocytes 0.100 H # Neutrophils # 6.9 Lymphocytes # 2.1 Monocytes # 1.0 H Eosinophils # 0.4 Basophils # 0.1 Nucleated Red Blood 0.0 Cells # Test 06/15/19 05:37 06/15/19 08:11 Sodium Level 136 Potassium Level 5.7 H Chloride Level 93 L Carbon Dioxide Level 27 Anion Gap 16 H Blood Urea Nitrogen 56 H Creatinine 8.25 #H Est Glomerular 7 L Filtrat Rate mL/min Glucose Level 95 Calcium Level 8.7 Phosphorus Level 6.2 H Magnesium Level 1.8 Bedside Glucose 169 Subjective 24 Hr Interval Summary Free Text/Dictation patient with less pain on right knee. Was receiving dialysis during visit Exam/Review of Systems Exam Vitals Vital Signs Date Temp Pulse Resp B/P (MAP) Pulse Ox O2 O2 Flow FiO2 Time Delivery Rate 06/15/19 98.0 77 18 114/57 95 Room Air 08:27 (76) Intake and Output 06/14/19 06/14/19 06/15/19 1515:00 23:00 07:00 IntakeIntake Total 890 ml 1050 ml BalanceBalance 890 ml 1050 ml Exam Constitutional: alert, oriented, obese Respiratory: clear to auscultation Cardiovascular: regular rate and rhythm Gastrointestinal: soft, non-tender Musculoskeletal: swelling (right knee) Neurological: nl mental status, nl speech Skin: nl turgor Results Results 24hrs Laboratory Tests Test 06/14/19 12:22 06/14/19 17:37 06/14/19 21:14 06/15/19 05:36 Bedside Glucose 100 95 111 White Blood Count 10.7 Red Blood Count 2.83 L Hemoglobin 8.2 L Hematocrit 27.5 L Mean Corpuscular 97.2 Volume Mean Corpuscular 29.0 Hemoglobin Mean Corpuscular 29.8 L Hemoglobin Concent Red Cell Distribution 15.5 H Width Platelet Count 274 Mean Platelet Volume 10.5 H Immature Granulocytes 0.900 H % Neutrophils % 65.0 Lymphocytes % 19.4 Monocytes % 9.8 Eosinophils % 4.0 Basophils % 0.9 Nucleated Red Blood 0.0 Cells % Immature Granulocytes 0.100 H # Neutrophils # 6.9 Lymphocytes # 2.1 Monocytes # 1.0 H Eosinophils # 0.4 Basophils # 0.1 Nucleated Red Blood 0.0 Cells # Test 06/15/19 05:37 06/15/19 08:11 Sodium Level 136 Potassium Level 5.7 H Chloride Level 93 L Carbon Dioxide Level 27 Anion Gap 16 H Blood Urea Nitrogen 56 H Creatinine 8.25 #H Est Glomerular 7 L Filtrat Rate mL/min Glucose Level 95 Calcium Level 8.7 Phosphorus Level 6.2 H Magnesium Level 1.8 Bedside Glucose 169 Medications Medication Current Medications IV Flush (NS 3 ml) 3 ml PER PROTOCOL IV ; Start 06/14/19 at 02:30 Ondansetron HCl (Zofran Inj) 4 mg Q6H PRN IV NAUSEA/VOMITING Last administered on 06/14/19at 14:52; Admin Dose 4 MG; Start 06/14/19 at 02:30 Acetaminophen (Tylenol Tab) 650 mg Q6H PRN PO .PAIN 1-3 OR TEMP; Start 06/14/19 at 02:30 Acetaminophen/ Hydrocodone Bitart ([place] (5/325)) 1 tab Q6H PRN PO .MOD PAIN 4- 6; Start 06/14/19 at 02:30 Acetaminophen/ Hydrocodone Bitart ([place] (5/325)) 2 tab Q6H PRN PO .SEVERE PAIN 7-10 Last administered on 06/14/19at 21:10; Admin Dose 2 TAB; Start 06/14/19 at 02:30 Heparin Sodium (Porcine) (Heparin (5000 Units/1ml)) 5,000 unit Q12 SC Last administered on 06/14/19at 21:20; Admin Dose 5,000 UNIT; Start 06/14/19 at 09:00 Albuterol/ Ipratropium (Duoneb) 3 ml Q2H RESP THERAPY PRN HHN SHORTNESS OF BREATH; Start 06/14/19 at 02:30 Diagnostic Test (Pha) (Accu-Chek) 1 ea 02 XX ; Start 06/15/19 at 02:00 Insulin Aspart (Novolog Insulin Pen) 5 unit WITH MEALS SC Last administered on 06/15/19 08:21; Admin Dose 5 UNIT; Start 06/14/19 at 07:35 Insulin Aspart (Novolog Insulin Pen) NOVOLOG *MILD* ALGORITHM WITH MEALS BEDTIME SC Last administered on 06/15/19 08:22; Admin Dose 1 UNIT; Start 06/14/19 at 08:00 Allopurinol (Zyloprim) 100 mg DAILY PO Last administered on 06/14/19 08:13; Admin Dose 100 MG; Start 06/14/19 at 09:00 Atorvastatin Calcium (Lipitor) 80 mg QHS PO Last administered on 06/14/19at 21: 16; Admin Dose 80 MG; Start 06/14/19 at 21:00 Calcium Acetate (Phoslo) 1,334 mg WITH MEALS PO Last administered on 06/15/19 08:23; Admin Dose 1,334 MG; Start 06/14/19 at 07:35 Carvedilol (Coreg) 3.125 mg BID PO Last administered on 06/14/19at 08:24; Admin Dose 3.125 MG; Start 06/14/19 at 09:00 Citalopram Hydrobromide (Citalopram) 10 mg DAILY PO Last administered on 06/14/19 08:11; Admin Dose 10 MG; Start 06/14/19 at 09:00 Furosemide (Lasix) 80 mg DAILY PO Last administered on 06/14/19at 08:23; Admin Dose 80 MG; Start 06/14/19 at 09:00 Mirtazapine (Remeron) 7.5 mg HS PO Last administered on 06/14/19 21:16; Admin Dose 7.5 MG; Start 06/14/19 at 21:00 Nifedipine (Procardia Xl) 30 mg DAILY PO Last administered on 06/14/19 08:23; Admin Dose 30 MG; Start 06/14/19 at 09:00 Ranitidine HCl (Zantac) 150 mg HS PO Last administered on 06/14/19 21:16; Admin Dose 150 MG; Start 06/14/19 at 21:00 Tamsulosin HCl (Flomax) 0.4 mg HS PO Last administered on 06/14/19at 21:16; Admin Dose 0.4 MG; Start 06/14/19 at 21:00 Clindamycin HCl/ Dextrose 50 ml @ 50 mls/hr Q8H IVPB Last administered on 06/15 03:09; Admin Dose 50 MLS/HR; Start 06/14/19 at 02:30 Insulin Glargine (Lantus) 10 units HS SC Last administered on 06/14/19at 21:22; Admin Dose 10 UNITS; Start 06/14/19 at 21:00 Miscellaneous Information 1 ea NOTE XX ; Start 06/14/19 at 03:30 Glucose (Glutose) 15 gm Q15M PRN PO DECREASED GLUCOSE; Start 06/14/19 at 03:30 Glucose (Glutose) 22.5 gm Q15M PRN PO DECREASED GLUCOSE; Start 06/14/19 at 03:30 Dextrose (D50w Syringe) 25 ml Q15M PRN IV DECREASED GLUCOSE; Start 06/14/19 at 03:30 Dextrose (D50w Syringe) 50 ml Q15M PRN IV DECREASED GLUCOSE; Start 06/14/19 at 03:30 Glucagon (Glucagen) 1 mg Q15M PRN IM DECREASED GLUCOSE; Start 06/14/19 at 03:30 Glucose (Glutose) 15 gm Q15M PRN BUCCAL DECREASED GLUCOSE; Start 06/14/19 at 03:30 Miscellaneous Information (* Miscellaneous Pharmacy Order) PATIENT'S OWN MEDICAT... Q12H XX ; Start 06/14/19 at 06:00 Fish Oil (Fish Oil) 1,000 mg BID PO Last administered on 06/14/19at 21:16; Admin Dose 1,000 MG; Start 06/14/19 at 09:00 Epoetin Tutu-epbx (Retacrit (Esrd)) 10,000 unit MoWeFr@1700 SC ; Start 06/16/19 at 17:00 MARY CARMEN MAN NP Jun 15, 2019 11:29
[2019-06-15] MEDS: CITALOPRAM 10 MG TAB PO SCH (12:31)
[2019-06-15] MEDS: FISH OIL 1,000 MG CAP PO SCH ×2 (12:31→21:08)
[2019-06-15] MEDS: ALLOPURINOL 100 MG TAB PO SCH (12:32)
[2019-06-15] MEDS: NIFEdipine (XL) 30 MG TAB PO SCH (12:32)
[2019-06-15] MEDS: FUROSEMIDE 40 MG TAB PO SCH (12:33)
[2019-06-15] MEDS: HYDROCODONE/APAP (5/325) TAB PO PRN (12:40)
--- NOTE | 2019-06-15 15:11 | CONS ---
Assessment/Plan Assessment/Plan Hospital Course (Demo Recall) Alert feels better looks comfortable no fevers overnight WBC 10.7 no shift no bands BUN 56 creatinine 8.25 Antimicrobials: Clindamycin Physical examination: Well-developed well-nourished elderly man who is awake in no distress. Head atraumatic normocephalic neck is supple chest rise symmetrical breath sounds clear. Heart: S1-S2. Abdomen soft bowel sounds present. Extremities with right knee resolving edema and erythema Assessment: 1. Right knee cellulitis 2. End-stage renal disease, hemodialysis dependent 3. Diabetes 4. Hypertension 5. MRSA colonization Plan: Patient is doing better we will change antibiotics to IV vancomycin and add Bactroban to nares Consultation Date/Type/Reason Admit Date/Time Jun 14, 2019 at 00:56 Initial Consult Date Type of Consult id Date/Time of Note DATE: 06/15/19 TIME: 15:11 Exam/Review of Systems Exam Vitals Vital Signs Date Temp Pulse Resp B/P (MAP) Pulse Ox O2 O2 Flow FiO2 Time Delivery Rate 06/15/19 98.1 78 18 120/60 95 Room Air 14:58 (80) Intake and Output 06/14/19 06/14/19 06/15/19 1515:00 23:00 07:00 IntakeIntake Total 890 ml 1050 ml BalanceBalance 890 ml 1050 ml Results Result Diagram: 06/15/19 0536 06/15/19 0537 Results 24hrs Laboratory Tests Test 06/14/19 17:37 06/14/19 21:14 06/15/19 05:36 06/15/19 05:37 Bedside Glucose 95 111 White Blood Count 10.7 Red Blood Count 2.83 L Hemoglobin 8.2 L Hematocrit 27.5 L Mean Corpuscular 97.2 Volume Mean Corpuscular 29.0 Hemoglobin Mean Corpuscular 29.8 L Hemoglobin Concent Red Cell Distribution 15.5 H Width Platelet Count 274 Mean Platelet Volume 10.5 H Immature Granulocytes 0.900 H % Neutrophils % 65.0 Lymphocytes % 19.4 Monocytes % 9.8 Eosinophils % 4.0 Basophils % 0.9 Nucleated Red Blood 0.0 Cells % Immature Granulocytes 0.100 H # Neutrophils # 6.9 Lymphocytes # 2.1 Monocytes # 1.0 H Eosinophils # 0.4 Basophils # 0.1 Nucleated Red Blood 0.0 Cells # Sodium Level 136 Potassium Level 5.7 H Chloride Level 93 L Carbon Dioxide Level 27 Anion Gap 16 H Blood Urea Nitrogen 56 H Creatinine 8.25 #H Est Glomerular Filtrat 7 L Rate mL/min Glucose Level 95 Calcium Level 8.7 Phosphorus Level 6.2 H Magnesium Level 1.8 Test 06/15/19 08:11 06/15/19 12:30 Bedside Glucose 169 144 Medications Medication Current Medications IV Flush (NS 3 ml) 3 ml PER PROTOCOL IV ; Start 06/14/19 at 02:30 Ondansetron HCl (Zofran Inj) 4 mg Q6H PRN IV NAUSEA/VOMITING Last administered on 06/14/19at 14:52; Admin Dose 4 MG; Start 06/14/19 at 02:30 Acetaminophen (Tylenol Tab) 650 mg Q6H PRN PO .PAIN 1-3 OR TEMP; Start 06/14/19 at 02:30 Acetaminophen/ Hydrocodone Bitart ([place] (5/325)) 1 tab Q6H PRN PO .MOD PAIN 4-6; Start 06/14/19 at 02:30 Acetaminophen/ Hydrocodone Bitart ([place] (5/325)) 2 tab Q6H PRN PO .SEVERE PAIN 7-10 Last administered on 06/15/19at 12:40; Admin Dose 2 TAB; Start 06/14/19 at 02:30 Heparin Sodium (Porcine) (Heparin (5000 Units/1ml)) 5,000 unit Q12 SC Last administered on 06/14/19at 21:20; Admin Dose 5,000 UNIT; Start 06/14/19 at 09:00 Albuterol/ Ipratropium (Duoneb) 3 ml Q2H RESP THERAPY PRN HHN SHORTNESS OF BREATH; Start 06/14/19 at 02:30 Diagnostic Test (Pha) (Accu-Chek) 1 ea 02 XX ; Start 06/15/19 at 02:00 Insulin Aspart (Novolog Insulin Pen) 5 unit WITH MEALS SC Last administered on 06/15/19at 12:34; Admin Dose 5 UNIT; Start 06/14/19 at 07:35 Insulin Aspart (Novolog Insulin Pen) NOVOLOG *MILD* ALGORITHM WITH MEALS BEDTIME SC Last administered on 06/15/19at 12:35; Admin Dose 1 UNIT; Start 06/14/19 at 08:00 Allopurinol (Zyloprim) 100 mg DAILY PO Last administered on 06/15/19 12:32; Admin Dose 100 MG; Start 06/14/19 at 09:00 Atorvastatin Calcium (Lipitor) 80 mg QHS PO Last administered on 06/14/19 21:16; Admin Dose 80 MG; Start 06/14/19 at 21:00 Calcium Acetate (Phoslo) 1,334 mg WITH MEALS PO Last administered on 06/15/19 12:34; Admin Dose 1,334 MG; Start 06/14/19 at 07:35 Carvedilol (Coreg) 3.125 mg BID PO Last administered on 06/15/19 12:32; Admin Dose 3.125 MG; Start 06/14/19 at 09:00 Citalopram Hydrobromide (Citalopram) 10 mg DAILY PO Last administered on 06/15/19 12:31; Admin Dose 10 MG; Start 06/14/19 at 09:00 Furosemide (Lasix) 80 mg DAILY PO Last administered on 06/15/19 12:33; Admin Dose 80 MG; Start 06/14/19 at 09:00 Mirtazapine (Remeron) 7.5 mg HS PO Last administered on 06/14/19 21:16; Admin Dose 7.5 MG; Start 06/14/19 at 21:00 Nifedipine (Procardia Xl) 30 mg DAILY PO Last administered on 06/15/19 12:32; Admin Dose 30 MG; Start 06/14/19 at 09:00 Ranitidine HCl (Zantac) 150 mg HS PO Last administered on 06/14/19 21:16; Admin Dose 150 MG; Start 06/14/19 at 21:00 Tamsulosin HCl (Flomax) 0.4 mg HS PO Last administered on 06/14/19 21:16; Admin Dose 0.4 MG; Start 06/14/19 at 21:00 Clindamycin HCl/ Dextrose 50 ml @ 50 mls/hr Q8H IVPB Last administered on 06/15/19 12:35; Admin Dose 50 MLS/HR; Start 06/14/19 at 02:30 Insulin Glargine (Lantus) 10 units HS SC Last administered on 06/14/19 21:22; Admin Dose 10 UNITS; Start 06/14/19 at 21:00 Miscellaneous Information 1 ea NOTE XX ; Start 06/14/19 at 03:30 Glucose (Glutose) 15 gm Q15M PRN PO DECREASED GLUCOSE; Start 06/14/19 at 03:30 Glucose (Glutose) 22.5 gm Q15M PRN PO DECREASED GLUCOSE; Start 06/14/19 at 03:30 Dextrose (D50w Syringe) 25 ml Q15M PRN IV DECREASED GLUCOSE; Start 06/14/19 at 03:30 Dextrose (D50w Syringe) 50 ml Q15M PRN IV DECREASED GLUCOSE; Start 06/14/19 at 03:30 Glucagon (Glucagen) 1 mg Q15M PRN IM DECREASED GLUCOSE; Start 06/14/19 at 03:30 Glucose (Glutose) 15 gm Q15M PRN BUCCAL DECREASED GLUCOSE; Start 06/14/19 at 03:30 Miscellaneous Information (* Miscellaneous Pharmacy Order) PATIENT'S OWN MEDICAT... Q12H XX ; Start 06/14/19 at 06:00 Fish Oil (Fish Oil) 1,000 mg BID PO Last administered on 06/15/19at 12:31; Admin Dose 1,000 MG; Start 06/14/19 at 09:00 Epoetin Tutu-epbx (Retacrit (Esrd)) 10,000 unit MoWeFr@1700 SC ; Start 06/16/19 at 17:00 Bacitracin (Bacitracin 0.5%/ Zinc Oint) 1 applic BID TOP ; Start 06/15/19 at 21:00 MARION ROCHA NP Jun 15, 2019 15:11
[2019-06-15] MEDS ORDERED: VANCOMYCIN IV PER PHARMACY XX SCH (15:30)
[2019-06-15] MEDS ORDERED: [UNRECOGNIZED DRUG - OTHER] XX ONE (16:00)
[2019-06-15] MEDS: MUPIROCIN 2% 22 GM OINT TOP SCH (16:30)
[2019-06-15] MEDS ORDERED: VANCOMYCIN 1 GM 250 ML IVPB ONE (20:00)
[2019-06-15] MEDS: RANITIDINE 150 MG TAB PO SCH (21:08)
[2019-06-15] MEDS: ATORVASTATIN 80 MG TAB PO SCH (21:08)
[2019-06-15] MEDS: TAMSULOSIN (SR) 0.4 MG CAP PO SCH (21:08)
[2019-06-15] MEDS: MIRTAZAPINE 15 MG TAB PO SCH (21:08)
[2019-06-15] MEDS: INSULIN GLARGINE [LANTus] (100 UNITS/ML) SYG SC SCH (21:16)
[2019-06-15] MEDS: BACITRACIN 0.5%/ZINC 28.35 GM OINT TOP SCH (21:17)
[2019-06-16] MEDS: ACCU-CHEK XX SCH ×2 (02:00→23:43)
[2019-06-16 02:15] VITALS: BP 98/53; PULSE 71; RESP 18
[2019-06-16] MEDS: HYDROCODONE/APAP (5/325) TAB PO PRN ×2 (06:10→22:31)
[2019-06-16 08:00] VITALS: BP 133/65; PULSE 68; RESP 16
[2019-06-16] MEDS: INSULIN ASPART [NOVOLOG] 3 ML PEN SC SCH ×7 (08:00→20:47)
[2019-06-16] MEDS: FISH OIL 1,000 MG CAP PO SCH ×2 (08:27→20:24)
[2019-06-16] MEDS: CALCIUM ACETATE 667 MG CAP PO SCH ×3 (08:27→17:19)
[2019-06-16] MEDS: ALLOPURINOL 100 MG TAB PO SCH (08:27)
[2019-06-16] MEDS: CITALOPRAM 10 MG TAB PO SCH (08:27)
--- NOTE | 2019-06-16 08:28 | PN ---
DATE: 06/16/2019 SUBJECTIVE: The patient is stable. No events overnight. OBJECTIVE: VITAL SIGNS: Blood pressure is 120/60, pulse 85, respiration 18, temperature 98.1. HEENT: Head is normocephalic. NECK: Supple. HEART: Regular rate. LUNGS: Show diminished breath sounds at the base. ABDOMEN: Soft, nontender to palpation, no rebound or guarding. EXTREMITIES: Negative for clubbing, cyanosis, no edema. DERMATOLOGIC: No rashes. MUSCULOSKELETAL: No joint effusion. NEUROLOGIC: No change in exam. MEDICATIONS: Have been reviewed. LABORATORY DATA: Have been reviewed. IMAGING STUDIES: Have been reviewed. ASSESSMENT AND PLAN: 1. End-stage renal disease. The patient had hemodialysis yesterday. Plan for dialysis again tomorr ow. He is on a Wednesday, , Wednesday schedule. 2. Anemia. Monitor hemoglobin and hematocrit levels. We will give Epogen as needed. 3. Mineral bone disorder, monitor calcium and phosphorus levels. 4. Hypertension. Continue blood pressure regimen. Continue ultrafiltration with dialysis. 5. Hypokalemia. Continue dialysis on low potassium bath. 6. Cellulitis. Continue current antibiotic regimen. 7. Sepsis. Continue current medical management. 8. Diabetes. Continue current insulin regimen. Dictated By: MEGHAN CASILLAS DO NR/NTS Conf#: [id number] DID#: [id number] CC: MIGUEL BURR MD; MICHEL HERNANDEZ MD;*End*
[2019-06-16] MEDS: HEPARIN 5,000 UNIT/1 ML VIAL SC SCH ×2 (08:30→20:25)
[2019-06-16] MEDS: NIFEdipine (XL) 30 MG TAB PO SCH ×2 (08:31→08:37)
[2019-06-16] MEDS: FUROSEMIDE 40 MG TAB PO SCH (08:32)
[2019-06-16] MEDS: BACITRACIN 0.5%/ZINC 28.35 GM OINT TOP SCH ×2 (08:40→20:47)
[2019-06-16] MEDS: MUPIROCIN 2% 22 GM OINT TOP SCH ×2 (08:40→20:46)
--- NOTE | 2019-06-16 10:08 | PSY ---
Date/Time of Note Date/Time of Note DATE: 06/16/19 TIME: 10:07 Psychiatric Subjective Eval Subjective Evaluation Chief Complaint: R knee spider bite with swelling/pain X 3 days ago, cough, Hx DM History of present illness Patient is a 63-year-old male with a history of hypertension, type 1 diabetes, ESRD on HD who is admitted for right knee swelling and tenderness. On a [id number] evaluation, patient reports feeling hopeless and helpless reports depression and also complained of poor appetite. Patient will benefit from antidepressants Remeron and citalopram. Explained risk and benefits of antidepressants and patient verbalized understanding. Past psychiatric history Long history of depression Hospitalization: other Medical history Problems Medical Problems: (1) Cellulitis Status: Acute (2) Fever Status: Acute (3) Renal failure Status: Acute (4) Sepsis Status: Acute Allergies: Coded Allergies: Penicillins (Verified Allergy, Unknown, 09/29/18) Substance Abuse Substance abuse history: No Prior substance abuse treatmen: No Social History Marital status: DPA/Conservatorship: No Psychiatric Objective Eval Review of Systems: Review of Systems: Not Applicable Physical Examination: Physical Examination: Not Applicable Energy: Decreased Interest: Decreased Mental Status Examination: Eye Contact: Fair Psychomotor Activity: Slow Behavior: Cooperative Speech: Soft AFFECT: Flat, Flat Mood: Depressed Though Process: Linear Orientation: x4 Insight: Moderate Judgement: Moderate Attention Span: Distractible Laboratory Results Laboratory Tests Test 06/14/19 12:22 06/14/19 17:37 06/14/19 21:14 06/15/19 05:32 Bedside Glucose 100 mg/dL 95 mg/dL 111 mg/dL Random Vancomycin 14.7 ug/ml Level Test 06/15/19 05:36 06/15/19 05:37 06/15/19 08:11 06/15/19 12:30 White Blood Count 10.7 10^3/ul Red Blood Count 2.83 10^6/ul Hemoglobin 8.2 g/dl Hematocrit 27.5 % Mean Corpuscular 97.2 fl Volume Mean Corpuscular 29.0 pg Hemoglobin Mean Corpuscular 29.8 g/dl Hemoglobin Concent Red Cell 15.5 % Distribution Width Platelet Count 274 10^3/UL Mean Platelet Volume 10.5 fl Immature 0.900 % Granulocytes % Neutrophils % 65.0 % Lymphocytes % 19.4 % Monocytes % 9.8 % Eosinophils % 4.0 % Basophils % 0.9 % Nucleated Red Blood 0.0 /100WBC Cells % Immature 0.100 10^3/ul Granulocytes # Neutrophils # 6.9 10^3/ul Lymphocytes # 2.1 10^3/ul Monocytes # 1.0 10^3/ul Eosinophils # 0.4 10^3/ul Basophils # 0.1 10^3/ul Nucleated Red Blood 0.0 10^3/ul Cells # Sodium Level 136 mmol/L Potassium Level 5.7 mmol/L Chloride Level 93 mmol/L Carbon Dioxide Level 27 mmol/L Anion Gap 16 Blood Urea Nitrogen 56 mg/dl Creatinine 8.25 mg/dl Est Glomerular 7 mL/min Filtrat Rate mL/min Glucose Level 95 mg/dl Calcium Level 8.7 mg/dl Phosphorus Level 6.2 mg/dl Magnesium Level 1.8 mg/dl Bedside Glucose 169 mg/dL 144 mg/dL Test 06/15/19 17:21 06/15/19 21:13 06/16/19 07:53 Bedside Glucose 99 mg/dL 111 mg/dL 109 mg/dL Assessment and Plan Assessment/Diagnosis Diagnosis Major depressive disorder severe recurrent Recommendation/Plan Medication Management Remeron 7.5 mg at bedtime, citalopram 10 mg daily Discharge Disposition: Other Legal Status: Voluntary (Does not meet criteria for 5150 hold.) KATHLEEN ARBOLEDA NP Jun 16, 2019 10:08
--- NOTE | 2019-06-16 12:09 | PN ---
Date/Time of Note Date/Time of Note DATE: 06/16/19 TIME: 12:07 Assessment/Plan VTE Prophylaxis Risk score (from Nsg)>0 risk: 4 SCD applied (from Nsg): Yes Pharmacological prophylaxis: heparin Lines/Catheters IV Catheter Type (from Nrsg): Saline Lock Urinary Cath still in place: No Assessment/Plan Hospital Course Assessment and plan #Right knee cellulitis Continue IV antibiotic #Sepsis secondary to right knee cellulitis. 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 Continue abx Analgesics as needed. continue HD. Plan for abx with HD x10 . d/c planning ini progress. reports pain right foot. follow up right foot imaging Discussed POC with Dr. Torrez Result Diagram: 06/15/19 0536 06/15/19 0537 Results 24hrs Laboratory Tests Test 06/15/19 12:30 06/15/19 17:21 06/15/19 21:13 06/16/19 07:53 Bedside Glucose 144 99 111 109 Test 06/16/19 12:03 Bedside Glucose 103 Subjective 24 Hr Interval Summary Free Text/Dictation Reports less pain on right knee. Reports having some discomfort on right foot. Exam/Review of Systems Exam Vitals Vital Signs Date Temp Pulse Resp B/P (MAP) Pulse Ox O2 O2 Flow FiO2 Time Delivery Rate 06/16/19 98.0 68 16 133/65 96 08:00 (87) 06/15/19 Room Air 14:58 Intake and Output 06/15/19 06/15/19 06/16/19 1515:00 23:00 07:00 IntakeIntake Total 1830 ml 1710 ml 1000 ml OutputOutput Total 2100 ml BalanceBalance -270 ml 1710 ml 1000 ml Exam Constitutional: alert, oriented, obese Respiratory: clear to auscultation Cardiovascular: regular rate and rhythm Gastrointestinal: soft, non-tender Musculoskeletal: swelling (right knee) Neurological: nl mental status, nl speech Skin: right foot with scab under foot, less right knee erythema Results Results 24hrs Laboratory Tests Test 06/15/19 12:30 06/15/19 17:21 06/15/19 21:13 06/16/19 07:53 Bedside Glucose 144 99 111 109 Test 06/16/19 12:03 Bedside Glucose 103 Medications Medication Current Medications IV Flush (NS 3 ml) 3 ml PER PROTOCOL IV ; Start 06/14/19 at 02:30 Ondansetron HCl (Zofran Inj) 4 mg Q6H PRN IV NAUSEA/VOMITING Last administered on 06/14/19at 14:52; Admin Dose 4 MG; Start 06/14/19 at 02:30 Acetaminophen (Tylenol Tab) 650 mg Q6H PRN PO .PAIN 1-3 OR TEMP; Start 06/14/19 at 02:30 Acetaminophen/ Hydrocodone Bitart ([place] (5/325)) 1 tab Q6H PRN PO .MOD PAIN 4- 6; Start 06/14/19 at 02:30 Acetaminophen/ Hydrocodone Bitart ([place] (5/325)) 2 tab Q6H PRN PO .SEVERE PAIN 7-10 Last administered on 06/16/19 06:10; Admin Dose 2 TAB; Start 06/14/19 at 02:30 Heparin Sodium (Porcine) (Heparin (5000 Units/1ml)) 5,000 unit Q12 SC Last administered on 06/16/19at 08:30; Admin Dose 5,000 UNIT; Start 06/14/19 at 09:00 Albuterol/ Ipratropium (Duoneb) 3 ml Q2H RESP THERAPY PRN HHN SHORTNESS OF BREATH; Start 06/14/19 at 02:30 Diagnostic Test (Pha) (Accu-Chek) 1 ea 02 XX ; Start 06/15/19 at 02:00 Insulin Aspart (Novolog Insulin Pen) 5 unit WITH MEALS SC Last administered on 06/16/19at 08:29; Admin Dose 5 UNIT; Start 06/14/19 at 07:35 Insulin Aspart (Novolog Insulin Pen) NOVOLOG *MILD* ALGORITHM WITH MEALS BEDTIME SC Last administered on 06/15/19at 12:35; Admin Dose 1 UNIT; Start 06/14/19 at 08:00 Allopurinol (Zyloprim) 100 mg DAILY PO Last administered on 06/16/19 08:27; Admin Dose 100 MG; Start 06/14/19 at 09:00 Atorvastatin Calcium (Lipitor) 80 mg QHS PO Last administered on 06/15/19at 21:08; Admin Dose 80 MG; Start 06/14/19 at 21:00 Calcium Acetate (Phoslo) 1,334 mg WITH MEALS PO Last administered on 06/16/19 08:27; Admin Dose 1,334 MG; Start 06/14/19 at 07:35 Carvedilol (Coreg) 3.125 mg BID PO Last administered on 06/15/19 12:32; Admin Dose 3.125 MG; Start 06/14/19 at 09:00 Citalopram Hydrobromide (Citalopram) 10 mg DAILY PO Last administered on 06/16/19 08:27; Admin Dose 10 MG; Start 06/14/19 at 09:00 Furosemide (Lasix) 80 mg DAILY PO Last administered on 06/16/19 08:32; Admin D ose 80 MG; Start 06/14/19 at 09:00 Mirtazapine (Remeron) 7.5 mg HS PO Last administered on 06/15/19 21:08; Admin Dose 7.5 MG; Start 06/14/19 at 21:00 Nifedipine (Procardia Xl) 30 mg DAILY PO Last administered on 06/15/19 12:32; Admin Dose 30 MG; Start 06/14/19 at 09:00 Ranitidine HCl (Zantac) 150 mg HS PO Last administered on 06/15/19 21:08; Admin Dose 150 MG; Start 06/14/19 at 21:00 Tamsulosin HCl (Flomax) 0.4 mg HS PO Last administered on 06/15/19 21:08; Admin Dose 0.4 MG; Start 06/14/19 at 21:00 Miscellaneous Information 1 ea NOTE XX ; Start 06/14/19 at 03:30 Glucose (Glutose) 15 gm Q15M PRN PO DECREASED GLUCOSE; Start 06/14/19 at 03:30 Glucose (Glutose) 22.5 gm Q15M PRN PO DECREASED GLUCOSE; Start 06/14/19 at 03:30 Dextrose (D50w Syringe) 25 ml Q15M PRN IV DECREASED GLUCOSE; Start 06/14/19 at 03:30 Dextrose (D50w Syringe) 50 ml Q15M PRN IV DECREASED GLUCOSE; Start 06/14/19 at 03:30 Glucagon (Glucagen) 1 mg Q15M PRN IM DECREASED GLUCOSE; Start 06/14/19 at 03:30 Glucose (Glutose) 15 gm Q15M PRN BUCCAL DECREASED GLUCOSE; Start 06/14/19 at 03:30 Fish Oil (Fish Oil) 1,000 mg BID PO Last administered on 06/16/19at 08:27; Admin Dose 1,000 MG; Start 06/14/19 at 09:00 Epoetin Tutu-epbx (Retacrit (Esrd)) 10,000 unit MoWeFr@1700 SC ; Start 06/16/19 at 17:00 Bacitracin (Bacitracin 0.5%/ Zinc Oint) 1 applic BID TOP Last administered on 06/16/19at 08:40; Admin Dose 1 APPLIC; Start 06/15/19 at 21:00 Vancomycin HCl (Vanco Iv Per Pharmacy) VANCOMYCIN PER PHARMACY PER PROTOCOL XX ; Start 06/15/19 at 15:30 Mupirocin (Bactroban) 1 applic BID TOP ; Start 06/15/19 at 16:30 Insulin Glargine (Lantus) 10 units HS SC Last administered on 06/15/19at 21:16; Admin Dose 10 UNITS; Start 06/15/19 at 21:00 Miscellaneous Information Patients own medicat... BID@ XX ; Start 06/16/19 at 10:00 MARY CARMEN MAN NP Jun 16, 2019 12:09
[2019-06-16 14:00] VITALS: BP 131/65; PULSE 70; RESP 16
--- NOTE | 2019-06-16 16:16 | CONS ---
Assessment/Plan Assessment/Plan Hospital Course (Demo Recall) No acute changes overnight patient is awake looks comfortable no fevers overnight vital signs stable Antimicrobials: Vanco Physical examination: Well-developed well-nourished elderly man who is awake in no distress. Head atraumatic normocephalic neck is supple chest rise symmetrical breath sounds clear. Heart: S1-S2. Abdomen soft bowel sounds present. Extremities: right knee erythema is worse today with some fluctuance Assessment: 1. Right knee cellulitis, possibly developing abscess 2. End-stage renal disease, hemodialysis dependent 3. Diabetes 4. Hypertension 5. MRSA colonization Plan: Remains stable, continue on current antibiotics, consider surgical evaluation for possible right knee abscess Consultation Date/Type/Reason Admit Date/Time Jun 14, 2019 at 00:56 Initial Consult Date Type of Consult id Date/Time of Note DATE: 06/16/19 TIME: 16:14 Exam/Review of Systems Exam Vitals Vital Signs Date Temp Pulse Resp B/P (MAP) Pulse Ox O2 O2 Flow FiO2 Time Delivery Rate 06/16/19 97.9 70 16 131/65 91 14:00 (87) 06/15/19 Room Air 14:58 Intake and Output 06/15/19 06/15/19 06/16/19 1515:00 23:00 07:00 IntakeIntake Total 1830 ml 1710 ml 1000 ml OutputOutput Total 2100 ml BalanceBalance -270 ml 1710 ml 1000 ml Results Result Diagram: 06/15/19 0536 06/15/19 0537 Results 24hrs Laboratory Tests Test 06/15/19 17:21 06/15/19 21:13 06/16/19 07:53 06/16/19 12:03 Bedside Glucose 99 111 109 103 Medications Medication Current Medications IV Flush (NS 3 ml) 3 ml PER PROTOCOL IV ; Start 06/14/19 at 02:30 Ondansetron HCl (Zofran Inj) 4 mg Q6H PRN IV NAUSEA/VOMITING Last administered on 06/14/19at 14:52; Admin Dose 4 MG; Start 06/14/19 at 02:30 Acetaminophen (Tylenol Tab) 650 mg Q6H PRN PO .PAIN 1-3 OR TEMP; Start 06/14/19 at 02:30 Acetaminophen/ Hydrocodone Bitart ([place] (5/325)) 1 tab Q6H PRN PO .MOD PAIN 4- 6; Start 06/14/19 at 02:30 Acetaminophen/ Hydrocodone Bitart ([place] (5/325)) 2 tab Q6H PRN PO .SEVERE PAIN 7-10 Last administered on 06/16/19 06:10; Admin Dose 2 TAB; Start 06/14/19 at 02:30 Heparin Sodium (Porcine) (Heparin (5000 Units/1ml)) 5,000 unit Q12 SC Last administered on 06/16/19 08:30; Admin Dose 5,000 UNIT; Start 06/14/19 at 09:00 Albuterol/ Ipratropium (Duoneb) 3 ml Q2H RESP THERAPY PRN HHN SHORTNESS OF BREATH; Start 06/14/19 at 02:30 Diagnostic Test (Pha) (Accu-Chek) 1 ea 02 XX ; Start 06/15/19 at 02:00 Insulin Aspart (Novolog Insulin Pen) 5 unit WITH MEALS SC Last administered on 06/16/19 12:06; Admin Dose 5 UNIT; Start 06/14/19 at 07:35 Insulin Aspart (Novolog Insulin Pen) NOVOLOG *MILD* ALGORITHM WITH MEALS BEDTIME SC Last administered on 06/15/19 12:35; Admin Dose 1 UNIT; Start 06/14/19 at 08:00 Allopurinol (Zyloprim) 100 mg DAILY PO Last administered on 06/16/19 08:27; Admin Dose 100 MG; Start 06/14/19 at 09:00 Atorvastatin Calcium (Lipitor) 80 mg QHS PO Last administered on 06/15/19 21:08; Admin Dose 80 MG; Start 06/14/19 at 21:00 Calcium Acetate (Phoslo) 1,334 mg WITH MEALS PO Last administered on 06/16/19 12:04; Admin Dose 1,334 MG; Start 06/14/19 at 07:35 Carvedilol (Coreg) 3.125 mg BID PO Last administered on 06/15/19 12:32; Admin Dose 3.125 MG; Start 06/14/19 at 09:00 Citalopram Hydrobromide (Citalopram) 10 mg DAILY PO Last administered on 06/16/19 08:27; Admin Dose 10 MG; Start 06/14/19 at 09:00 Furosemide (Lasix) 80 mg DAILY PO Last administered on 06/16/19at 08:32; Admin Dose 80 MG; Start 06/14/19 at 09:00 Mirtazapine (Remeron) 7.5 mg HS PO Last administered on 06/15/19at 21:08; Admin Dose 7.5 MG; Start 06/14/19 at 21:00 Nifedipine (Procardia Xl) 30 mg DAILY PO Last administered on 06/15/19at 12:32; Admin Dose 30 MG; Start 06/14/19 at 09:00 Ranitidine HCl (Zantac) 150 mg HS PO Last administered on 06/15/19at 21:08; Admin Dose 150 MG; Start 06/14/19 at 21:00 Tamsulosin HCl (Flomax) 0.4 mg HS PO Last administered on 06/15/19at 21:08; Admin Dose 0.4 MG; Start 06/14/19 at 21:00 Miscellaneous Information 1 ea NOTE XX ; Start 06/14/19 at 03:30 Glucose (Glutose) 15 gm Q15M PRN PO DECREASED GLUCOSE; Start 06/14/19 at 03:30 Glucose (Glutose) 22.5 gm Q15M PRN PO DECREASED GLUCOSE; Start 06/14/19 at 03:30 Dextrose (D50w Syringe) 25 ml Q15M PRN IV DECREASED GLUCOSE; Start 06/14/19 at 03:30 Dextrose (D50w Syringe) 50 ml Q15M PRN IV DECREASED GLUCOSE; Start 06/14/19 at 03:30 Glucagon (Glucagen) 1 mg Q15M PRN IM DECREASED GLUCOSE; Start 06/14/19 at 03:30 Glucose (Glutose) 15 gm Q15M PRN BUCCAL DECREASED GLUCOSE; Start 06/14/19 at 03:30 Fish Oil (Fish Oil) 1,000 mg BID PO Last administered on 06/16/19at 08:27; Admin Dose 1,000 MG; Start 06/14/19 at 09:00 Epoetin Tutu-epbx (Retacrit (Esrd)) 10,000 unit MoWeFr@1700 SC ; Start 06/16/19 at 17:00 Bacitracin (Bacitracin 0.5%/ Zinc Oint) 1 applic BID TOP Last administered on 06/16/19at 08:40; Admin Dose 1 APPLIC; Start 06/15/19 at 21:00 Vancomycin HCl (Vanco Iv Per Pharmacy) VANCOMYCIN PER PHARMACY PER PROTOCOL XX ; Start 06/15/19 at 15:30 Mupirocin (Bactroban) 1 applic BID TOP ; Start 06/15/19 at 16:30 Insulin Glargine (Lantus) 10 units HS SC Last administered on 06/15/19at 21:16; Admin Dose 10 UNITS; Start 06/15/19 at 21:00 Miscellaneous Information Patients own medicat... BID@ XX ; Start 06/16/19 at 10:00 Miscellaneous Information (*Rx Drug Level Order Reminder*) RANDOM VANCO LEVEL... 0500 ONCE XX ; Start 06/18/19 at 05:00; Stop 06/18/19 at 05:01 MARION BELL NP Jun 16, 2019 16:16
[2019-06-16 20:17] VITALS: BP 130/65; PULSE 76; RESP 18
[2019-06-16] MEDS: RANITIDINE 150 MG TAB PO SCH (20:21)
[2019-06-16] MEDS: TAMSULOSIN (SR) 0.4 MG CAP PO SCH (20:22)
[2019-06-16] MEDS: MIRTAZAPINE 15 MG TAB PO SCH (20:23)
[2019-06-16] MEDS: ATORVASTATIN 80 MG TAB PO SCH (20:24)
[2019-06-16] MEDS: INSULIN GLARGINE [LANTus] (100 UNITS/ML) SYG SC SCH (20:33)
[2019-06-16] MEDS: EPOETIN ALFA-EPBX (ESRD) 10,000 UNIT/ML VIAL SC SCH (22:33)
[2019-06-17] VITALS (18 sets, daily range): BP systolic 113–179; BP diastolic 51–87; PULSE 64–78; RESP 16–19
[2019-06-17] MEDS: CALCIUM ACETATE 667 MG CAP PO SCH ×3 (07:35→17:21)
[2019-06-17] MEDS: INSULIN ASPART [NOVOLOG] 3 ML PEN SC SCH ×7 (07:35→21:00)
--- NOTE | 2019-06-17 08:22 | PN ---
DATE: 06/17/2019 SUBJECTIVE: The patient is stable. No events overnight. No fever, chills, nausea or vomiting. OBJECTIVE: VITAL SIGNS: Blood pressure 115/51, respirations 16, pulse 64, temperature 97.8. HEENT: Head is normocephalic. NECK: Supple. HEART: Regular rate. LUNGS: Show diminished breath sounds at the base. ABDOMEN: Soft, nontender to palpation. No rebound or guarding. EXTREMITIES: Negative for clubbing, cyanosis, no edema. DERMATOLOGIC: No rashes. MUSCULOSKELETAL: No joint effusion. NEUROLOGIC: No change in exam. MEDICATIONS: Have been reviewed. LABORATORY DATA: Has been reviewed. IMAGING STUDIES: Have been reviewed. ASSESSMENT AND PLAN: 1. Endstage renal disease. Plan for hemodialysis today, will dialyze 3 hours 2k bath, calcium 2.5. 2. Anemia. Monitor hemoglobin and hematocrit levels. Will continue Epogen. 3. Mineral bone disorder. Monitor calcium and phosphorus levels. 4. Hypertension. Continue current blood pressure regimen. Continue ultrafiltration dialysis. 5. Hyperkalemia. Continue dialysis on low potassium bath. 6. Cellulitis. Continue current antibiotic therapy. 7. Diabetes. Continue current insulin regimen. Dictated By: MEGHAN HODGES/NTS Conf#: [id number] DID#: [id number] CC: MICHEL HERNANDEZ MD;*End*
[2019-06-17] MEDS: FISH OIL 1,000 MG CAP PO SCH ×3 (09:00→20:53)
[2019-06-17] MEDS: ALLOPURINOL 100 MG TAB PO SCH ×2 (09:00→13:27)
[2019-06-17] MEDS: NIFEdipine (XL) 30 MG TAB PO SCH ×2 (09:00→13:27)
[2019-06-17] MEDS: CITALOPRAM 10 MG TAB PO SCH ×2 (09:00→13:28)
[2019-06-17] MEDS: FUROSEMIDE 40 MG TAB PO SCH ×2 (09:00→13:28)
[2019-06-17] MEDS: HEPARIN 5,000 UNIT/1 ML VIAL SC SCH ×3 (09:00→20:57)
--- NOTE | 2019-06-17 12:55 | PN ---
Date/Time of Note Date/Time of Note DATE: 06/17/19 TIME: 12:53 Assessment/Plan VTE Prophylaxis Risk score (from Nsg)>0 risk: 4 SCD applied (from Nsg): Yes Pharmacological prophylaxis: heparin Lines/Catheters IV Catheter Type (from Nrsg): Saline Lock Urinary Cath still in place: No Assessment/Plan Hospital Course Assessment and plan #Right knee cellulitis Continue IV antibiotic Discussed with orthopedic surgeon. Will get MRI of right knee. Further surgical evaluation pending results #Sepsis secondary to right knee cellulitis. 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 Discussed with orthopedic surgeon, will get further imaging of right knee. Further surgical evaluation pending results. Continue with antibiotics. Discussed POC with Dr. Torrez Result Diagram: 06/17/19 0451 06/17/19 0451 Results 24hrs Laboratory Tests Test 06/16/19 17:18 06/16/19 20:31 06/17/19 04:51 06/17/19 08:05 Bedside Glucose 81 135 94 White Blood Count 9.4 Red Blood Count 2.99 L Hemoglobin 8.8 L Hematocrit 28.1 L Mean Corpuscular Volume 94.0 Mean Corpuscular 29.4 Hemoglobin Mean Corpuscular 31.3 L Hemoglobin Concent Red Cell Distribution 15.4 H Width Platelet Count 293 Mean Platelet Volume 10.6 H Immature Granulocytes % 1.700 H Neutrophils % 61.7 Lymphocytes % 18.1 Monocytes % 10.0 Eosinophils % 7.5 H Basophils % 1.0 Nucleated Red Blood 0.0 Cells % Immature Granulocytes # 0.160 H Neutrophils # 5.8 Lymphocytes # 1.7 Monocytes # 0.9 Eosinophils # 0.7 H Basophils # 0.1 Nucleated Red Blood 0.0 Cells # Sodium Level 136 Potassium Level 5.1 Chloride Level 95 L Carbon Dioxide Level 26 Anion Gap 15 H Blood Urea Nitrogen 59 H Creatinine 8.56 H Est Glomerular Filtrat 6 L Rate mL/min Glucose Level 100 Calcium Level 8.8 Test 06/17/19 12:35 Bedside Glucose 107 Subjective 24 Hr Interval Summary Free Text/Dictation patient with right knee discomfort with bending it. was receiving HD during visit Exam/Review of Systems Exam Vitals Vital Signs Date Temp Pulse Resp B/P (MAP) Pulse Ox O2 O2 Flow FiO2 Time Delivery Rate 06/17/19 69 12:20 06/17/19 18 153/73 92 Room Air 10:50 (99) 06/17/19 98.0 07:44 Intake and Output 06/16/19 06/16/19 06/17/19 1515:00 23:00 07:00 IntakeIntake Total 1200 ml BalanceBalance 1200 ml Exam Constitutional: alert, oriented, obese Respiratory: clear to auscultation Cardiovascular: regular rate and rhythm Gastrointestinal: soft, non-tender Musculoskeletal: swelling (right knee now appears to have pus on surface Neurological: nl mental status, nl speech Skin: right foot with scab under foot, less right knee erythema Results Results 24hrs Laboratory Tests Test 06/16/19 17:18 06/16/19 20:31 06/17/19 04:51 06/17/19 08:05 Bedside Glucose 81 135 94 White Blood Count 9.4 Red Blood Count 2.99 L Hemoglobin 8.8 L Hematocrit 28.1 L Mean Corpuscular Volume 94.0 Mean Corpuscular 29.4 Hemoglobin Mean Corpuscular 31.3 L Hemoglobin Concent Red Cell Distribution 15.4 H Width Platelet Count 293 Mean Platelet Volume 10.6 H Immature Granulocytes % 1.700 H Neutrophils % 61.7 Lymphocytes % 18.1 Monocytes % 10.0 Eosinophils % 7.5 H Basophils % 1.0 Nucleated Red Blood 0.0 Cells % Immature Granulocytes # 0.160 H Neutrophils # 5.8 Lymphocytes # 1.7 Monocytes # 0.9 Eosinophils # 0.7 H Basophils # 0.1 Nucleated Red Blood 0.0 Cells # Sodium Level 136 Potassium Level 5.1 Chloride Level 95 L Carbon Dioxide Level 26 Anion Gap 15 H Blood Urea Nitrogen 59 H Creatinine 8.56 H Est Glomerular Filtrat 6 L Rate mL/min Glucose Level 100 Calcium Level 8.8 Test 06/17/19 12:35 Bedside Glucose 107 Medications Medication Current Medications IV Flush (NS 3 ml) 3 ml PER PROTOCOL IV ; Start 06/14/19 at 02:30 Ondansetron HCl (Zofran Inj) 4 mg Q6H PRN IV NAUSEA/VOMITING Last administered on 06/14/19at 14:52; Admin Dose 4 MG; Start 06/14/19 at 02:30 Acetaminophen (Tylenol Tab) 650 mg Q6H PRN PO .PAIN 1-3 OR TEMP; Start 06/14/19 at 02:30 Acetaminophen/ Hydrocodone Bitart ([place] (5/325)) 1 tab Q6H PRN PO .MOD PAIN 4- 6; Start 06/14/19 at 02:30 Acetaminophen/ Hydrocodone Bitart ([place] (5/325)) 2 tab Q6H PRN PO .SEVERE PAIN 7-10 Last administered on 06/16/19 22:31; Admin Dose 2 TAB; Start 06/14/19 at 02:30 Heparin Sodium (Porcine) (Heparin (5000 Units/1ml)) 5,000 unit Q12 SC Last administered on 06/16/19 20:25; Admin Dose 5,000 UNIT; Start 06/14/19 at 09:00 Albuterol/ Ipratropium (Duoneb) 3 ml Q2H RESP THERAPY PRN HHN SHORTNESS OF BREATH; Start 06/14/19 at 02:30 Diagnostic Test (Pha) (Accu-Chek) 1 ea 02 XX ; Start 06/15/19 at 02:00 Insulin Aspart (Novolog Insulin Pen) 5 unit WITH MEALS SC Last administered on 06/16/19 17:22; Admin Dose 5 UNIT; Start 06/14/19 at 07:35 Insulin Aspart (Novolog Insulin Pen) NOVOLOG *MILD* ALGORITHM WITH MEALS BEDTIME SC Last administered on 06/15/19 12:35; Admin Dose 1 UNIT; Start 06/14/19 at 08:00 Allopurinol (Zyloprim) 100 mg DAILY PO Last administered on 06/16/19 08:27; Admin Dose 100 MG; Start 06/14/19 at 09:00 Atorvastatin Calcium (Lipitor) 80 mg QHS PO Last administered on 06/16/19 20:24; Admin Dose 80 MG; Start 06/14/19 at 21:00 Calcium Acetate (Phoslo) 1,334 mg WITH MEALS PO Last administered on 06/16/19 17:19; Admin Dose 1,334 MG; Start 06/14/19 at 07:35 Carvedilol (Coreg) 3.125 mg BID PO Last administered on 06/16/19 20:23; Admin Dose 3.125 MG; Start 06/14/19 at 09:00 Citalopram Hydrobromide (Citalopram) 10 mg DAILY PO Last administered on 9at 08:27; Admin Dose 10 MG; Start 06/14/19 at 09:00 Furosemide (Lasix) 80 mg DAILY PO Last administered on 06/16/19 08:32; Admin Dose 80 MG; Start 06/14/19 at 09:00 Mirtazapine (Remeron) 7.5 mg HS PO Last administered on 06/16/19 20:23; Admin Dose 7.5 MG; Start 06/14/19 at 21:00 Nifedipine (Procardia Xl) 30 mg DAILY PO Last administered on 06/15/19 12:32; Admin Dose 30 MG; Start 06/14/19 at 09:00 Ranitidine HCl (Zantac) 150 mg HS PO Last administered on 06/16/19 20:21; Admin Dose 150 MG; Start 06/14/19 at 21:00 Tamsulosin HCl (Flomax) 0.4 mg HS PO Last administered on 06/16/19 20:22; Admin Dose 0.4 MG; Start 06/14/19 at 21:00 Miscellaneous Information 1 ea NOTE XX ; Start 06/14/19 at 03:30 Glucose (Glutose) 15 gm Q15M PRN PO DECREASED GLUCOSE; Start 06/14/19 at 03:30 Glucose (Glutose) 22.5 gm Q15M PRN PO DECREASED GLUCOSE; Start 06/14/19 at 03:30 Dextrose (D50w Syringe) 25 ml Q15M PRN IV DECREASED GLUCOSE; Start 06/14/19 at 03:30 Dextrose (D50w Syringe) 50 ml Q15M PRN IV DECREASED GLUCOSE; Start 06/14/19 at 03:30 Glucagon (Glucagen) 1 mg Q15M PRN IM DECREASED GLUCOSE; Start 06/14/19 at 03:30 Glucose (Glutose) 15 gm Q15M PRN BUCCAL DECREASED GLUCOSE; Start 06/14/19 at 03 :30 Fish Oil (Fish Oil) 1,000 mg BID PO Last administered on 06/16/19 20:24; Admin Dose 1,000 MG; Start 06/14/19 at 09:00 Epoetin Tutu-epbx (Retacrit (Esrd)) 10,000 unit MoWeFr@1700 SC Last administ ered on 8/2/19at 22:33; Admin Dose 10,000 UNIT; Start 06/16/19 at 17:00 Bacitracin (Bacitracin 0.5%/ Zinc Oint) 1 applic BID TOP Last administered on 06/16/19at 08:40; Admin Dose 1 APPLIC; Start 06/15/19 at 21:00 Vancomycin HCl (Vanco Iv Per Pharmacy) VANCOMYCIN PER PHARMACY PER PROTOCOL XX ; Start 06/15/19 at 15:30 Mupirocin (Bactroban) 1 applic BID TOP Last administered on 06/16/19at 20:46; Admin Dose 1 APPLIC; Start 06/15/19 at 16:30 Insulin Glargine (Lantus) 10 units HS SC Last administered on 06/16/19at 20:33; Admin Dose 10 UNITS; Start 06/15/19 at 21:00 Miscellaneous Information Patients own medicat... BID@10,16 XX ; Start 06/16/19 at 10:00 Miscellaneous Information (*Rx Drug Level Order Reminder*) RANDOM VANCO LEVEL... 0500 ONCE XX ; Start 06/18/19 at 05:00; Stop 06/18/19 at 05:01 MARY CARMEN MAN NP Jun 17, 2019 12:55
[2019-06-17] MEDS: MUPIROCIN 2% 22 GM OINT TOP SCH ×2 (13:32→21:02)
[2019-06-17] MEDS: BACITRACIN 0.5%/ZINC 28.35 GM OINT TOP SCH ×2 (13:35→21:00)
[2019-06-17] MEDS: HYDROCODONE/APAP (5/325) TAB PO PRN (15:30)
--- NOTE | 2019-06-17 19:29 | CONS ---
Assessment/Plan Assessment/Plan Hospital Course (Demo Recall) ID PROGRESS NOTE CURRENT ABX: DAY # => Vanco IV 24H INTERVAL SUMMARY * Overweight M, resting in bed, VSS, afebrile, WBC normal, generalized weakness,fatigue * Admit with concern septic knee w/MRI 06/17/19 (+) for R-knee abscess DIAGNOSTIC IMAGING * 06/17/19 MRI RIGHT KNEE: * 1. Prepatellar soft tissue swelling and irregular fluid collection consistent with an abscess with dimensions given above. * 2. No evidence for osteomyelitis. * 3. No evidence for fracture. MICRO * 06/14/19 (+)MRSA * 06/13/19 BCX (-) * 05/18/19 BCx #2=> (-) * 05/18/19 FOOT Cx (+) WOUND CULTURE Final Organism 1 STREP AGALACTIAE - (GROUP B) QUANTITY 1+ Organism 2 COAGULASE NEGATIVE STAPH QUANTITY SCANT GROWTH Organism 3 CORYNEBACTERIUM SPECIES QUANTITY 1+ Organism 4 STAPHYLOCOCCUS AUREUS QUANTITY SCANT GROWTH * 05/18/19 Urine Cx (+) STREP AGALACTIAE - (GROUP B) * 05/18/19 BCx #1 (+) 2/2 bottles: STREP AGALACTIAE - (GROUP B) PHYSICAL EXAMINATION: GENERAL: VSS, NAD HEENT: AT, NC, NECK: Supple, CHEST: Rise symmetrical HEART: Pulse RRR ABDOMEN: Obese EXTREMITIES: Warm, dry right lateral small ulcer SKIN: No rash, no diaphoresis ID ASSESSMENT 63 yo M admit with: 1. Right knee w/pre-patellar abscess = probably MRSA * 06/17/19 MRI RIGHT KNEE: * 1. Prepatellar soft tissue swelling and irregular fluid collection consistent with an abscess with dimensions given above. * 2. No evidence for osteomyelitis. * 3. No evidence for fracture. 2. s/p 05/18/19 Sepsis w/Strep Agalactiae (GBS) bacteremia due to Right DM foot ulcer plantar 3. DMT1 w/polyneuropathies: Renal, Peripheral 4. 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 s/p recent admission with Gallbladder wall thickening and rule out acalculous cholecystitis 6. Hepatomegaly with fatty liver disease 7. ESRD on HD 8. Anemia 9. Hypertension 10. Obesity 11. Depression -- feelings of hopelessness, appreciate [employer] notes (+)MRSA Nares-> Bactroban ABX ALLERGIES: PCN INVASIVES: PIV CURRENT ABX: ABX DAY #=> Vanco IV ID RECOMMENDATIONS/PLAN: 1. Continue current ABX 2. Ortho consult Consultation Date/Type/Reason Admit Date/Time Jun 14, 2019 at 00:56 Initial Consult Date Date/Time of Note DATE: 06/17/19 TIME: 19:29 Exam/Review of Systems Exam Vitals Vital Signs Date Temp Pulse Resp B/P (MAP) Pulse Ox O2 O2 Flow FiO2 Time Delivery Rate 06/17/19 97.4 78 18 154/72 100 Room Air 14:00 (99) Intake and Output 06/16/19 06/16/19 06/17/19 1515:00 23:00 07:00 IntakeIntake Total 1200 ml BalanceBalance 1200 ml Results Result Diagram: 06/17/19 0451 06/17/19 0451 Results 24hrs Laboratory Tests Test 06/16/19 20:31 06/17/19 04:51 06/17/19 08:05 06/17/19 12:35 Bedside Glucose 135 94 107 White Blood Count 9.4 Red Blood Count 2.99 L Hemoglobin 8.8 L Hematocrit 28.1 L Mean Corpuscular Volume 94.0 Mean Corpuscular 29.4 Hemoglobin Mean Corpuscular 31.3 L Hemoglobin Concent Red Cell Distribution 15.4 H Width Platelet Count 293 Mean Platelet Volume 10.6 H Immature Granulocytes % 1.700 H Neutrophils % 61.7 Lymphocytes % 18.1 Monocytes % 10.0 Eosinophils % 7.5 H Basophils % 1.0 Nucleated Red Blood 0.0 Cells % Immature Granulocytes # 0.160 H Neutrophils # 5.8 Lymphocytes # 1.7 Monocytes # 0.9 Eosinophils # 0.7 H Basophils # 0.1 Nucleated Red Blood 0.0 Cells # Sodium Level 136 Potassium Level 5.1 Chloride Level 95 L Carbon Dioxide Level 26 Anion Gap 15 H Blood Urea Nitrogen 59 H Creatinine 8.56 H Est Glomerular Filtrat 6 L Rate mL/min Glucose Level 100 Calcium Level 8.8 Test 06/17/19 17:11 Bedside Glucose 143 Medications Medication Current Medications IV Flush (NS 3 ml) 3 ml PER PROTOCOL IV ; Start 06/14/19 at 02:30 Ondansetron HCl (Zofran Inj) 4 mg Q6H PRN IV NAUSEA/VOMITING Last administered on 06/14/19at 14:52; Admin Dose 4 MG; Start 06/14/19 at 02:30 Acetaminophen (Tylenol Tab) 650 mg Q6H PRN PO .PAIN 1-3 OR TEMP; Start 06/14/19 at 02:30 Acetaminophen/ Hydrocodone Bitart ([place] (5/325)) 1 tab Q6H PRN PO .MOD PAIN 4- 6; Start 06/14/19 at 02:30 Acetaminophen/ Hydrocodone Bitart ([place] (5/325)) 2 tab Q6H PRN PO .SEVERE PAIN 7-10 Last administered on 06/17/19at 15:30; Admin Dose 2 TAB; Start 06/14/19 at 02:30 Heparin Sodium (Porcine) (Heparin (5000 Units/1ml)) 5,000 unit Q12 SC Last administered on 06/17/19 13:34; Admin Dose 5,000 UNIT; Start 06/14/19 at 09:00 Albuterol/ Ipratropium (Duoneb) 3 ml Q2H RESP THERAPY PRN HHN SHORTNESS OF BREATH; Start 06/14/19 at 02:30 Diagnostic Test (Pha) (Accu-Chek) 1 ea 02 XX ; Start 06/15/19 at 02:00 Insulin Aspart (Novolog Insulin Pen) 5 unit WITH MEALS SC Last administered on 06/17/19 17:22; Admin Dose 5 UNIT; Start 06/14/19 at 07:35 Insulin Aspart (Novolog Insulin Pen) NOVOLOG *MILD* ALGORITHM WITH MEALS BEDTIME SC Last administered on 06/17/19 17:23; Admin Dose 1 UNIT; Start 06/14/19 at 08:00 Allopurinol (Zyloprim) 100 mg DAILY PO Last administered on 06/17/19 13:27; Admin Dose 100 MG; Start 06/14/19 at 09:00 Atorvastatin Calcium (Lipitor) 80 mg QHS PO Last administered on 06/16/19 20:24; Admin Dose 80 MG; Start 06/14/19 at 21:00 Calcium Acetate (Phoslo) 1,334 mg WITH MEALS PO Last administered on 06/17/19 17:21; Admin Dose 1,334 MG; Start 06/14/19 at 07:35 Carvedilol (Coreg) 3.125 mg BID PO Last administered on 06/17/19 13:28; Admin Dose 3.125 MG; Start 06/14/19 at 09:00 Citalopram Hydrobromide (Citalopram) 10 mg DAILY PO Last administered on 06/17/19 13:28; Admin Dose 10 MG; Start 06/14/19 at 09:00 Furosemide (Lasix) 80 mg DAILY PO Last administered on 06/17/19 13:28; Admin Dose 80 MG; Start 06/14/19 at 09:00 Mirtazapine (Remeron) 7.5 mg HS PO Last administered on 06/16/19 20:23; Admin Dose 7.5 MG; Start 06/14/19 at 21:00 Nifedipine (Procardia Xl) 30 mg DAILY PO Last administered on 06/17/19 13:27; Admin Dose 30 MG; Start 06/14/19 at 09:00 Ranitidine HCl (Zantac) 150 mg HS PO Last administered on 06/16/19 20:21; Admin Dose 150 MG; Start 06/14/19 at 21:00 Tamsulosin HCl (Flomax) 0.4 mg HS PO Last administered on 06/16/19 20:22; Admin Dose 0.4 MG; Start 06/14/19 at 21:00 Miscellaneous Information 1 ea NOTE XX ; Start 06/14/19 at 03:30 Glucose (Glutose) 15 gm Q15M PRN PO DECREASED GLUCOSE; Start 06/14/19 at 03:30 Glucose (Glutose) 22.5 gm Q15M PRN PO DECREASED GLUCOSE; Start 06/14/19 at 03:30 Dextrose (D50w Syringe) 25 ml Q15M PRN IV DECREASED GLUCOSE; Start 06/14/19 at 03:30 Dextrose (D50w Syringe) 50 ml Q15M PRN IV DECREASED GLUCOSE; Start 06/14/19 at 03:30 Glucagon (Glucagen) 1 mg Q15M PRN IM DECREASED GLUCOSE; Start 06/14/19 at 03:30 Glucose (Glutose) 15 gm Q15M PRN BUCCAL DECREASED GLUCOSE; Start 06/14/19 at 03:30 Fish Oil (Fish Oil) 1,000 mg BID PO Last administered on 06/17/19at 13:28; Admin Dose 1,000 MG; Start 06/14/19 at 09:00 Epoetin Tutu-epbx (Retacrit (Esrd)) 10,000 unit MoWeFr@1700 SC Last administered on 06/16/19at 22:33; Admin Dose 10,000 UNIT; Start 06/16/19 at 17:00 Bacitracin (Bacitracin 0.5%/ Zinc Oint) 1 applic BID TOP Last administered on 06/17/19at 13:35; Admin Dose 1 APPLIC; Start 06/15/19 at 21:00 Vancomycin HCl (Vanco Iv Per Pharmacy) VANCOMYCIN PER PHARMACY PER PROTOCOL XX ; Start 06/15/19 at 15:30 Mupirocin (Bactroban) 1 applic BID TOP Last administered on 06/17/19at 13:32; Admin Dose 1 APPLIC; Start 06/15/19 at 16:30 Insulin Glargine (Lantus) 10 units HS SC Last administered on 06/16/19at 20:33; Admin Dose 10 UNITS; Start 06/15/19 at 21:00 Miscellaneous Information Patients own medicat... BID@10,16 XX ; Start 06/16/19 at 10:00 Miscellaneous Information (*Rx Drug Level Order Reminder*) RANDOM VANCO LEVEL... 0500 ONCE XX ; Start 06/18/19 at 05:00; Stop 06/18/19 at 05:01 RUPINDER WOODWARD NP Jun 17, 2019 19:29
[2019-06-17] MEDS: ATORVASTATIN 80 MG TAB PO SCH (20:52)
[2019-06-17] MEDS: RANITIDINE 150 MG TAB PO SCH (20:53)
[2019-06-17] MEDS: MIRTAZAPINE 15 MG TAB PO SCH (20:53)
[2019-06-17] MEDS: TAMSULOSIN (SR) 0.4 MG CAP PO SCH (20:53)
[2019-06-17] MEDS: INSULIN GLARGINE [LANTus] (100 UNITS/ML) SYG SC SCH (20:58)
[2019-06-18] MEDS: ACCU-CHEK XX SCH (02:00)
[2019-06-18 02:17] VITALS: BP 124/60; PULSE 69; RESP 17
[2019-06-18] MEDS: HYDROCODONE/APAP (5/325) TAB PO PRN ×2 (02:28→10:41)
[2019-06-18] MEDS: INSULIN ASPART [NOVOLOG] 3 ML PEN SC SCH ×7 (07:35→20:37)
[2019-06-18 08:04] VITALS: BP 139/64; PULSE 68; RESP 18
[2019-06-18] MEDS: CITALOPRAM 10 MG TAB PO SCH (08:16)
[2019-06-18] MEDS: FUROSEMIDE 40 MG TAB PO SCH (08:16)
[2019-06-18] MEDS: CALCIUM ACETATE 667 MG CAP PO SCH ×3 (08:17→16:56)
[2019-06-18] MEDS: FISH OIL 1,000 MG CAP PO SCH ×2 (08:17→20:20)
[2019-06-18] MEDS: NIFEdipine (XL) 30 MG TAB PO SCH (08:17)
[2019-06-18] MEDS: ALLOPURINOL 100 MG TAB PO SCH (08:17)
[2019-06-18] MEDS: MUPIROCIN 2% 22 GM OINT TOP SCH ×2 (08:17→20:30)
[2019-06-18] MEDS: BACITRACIN 0.5%/ZINC 28.35 GM OINT TOP SCH ×2 (08:18→21:00)
--- NOTE | 2019-06-18 08:19 | PN ---
DATE: 06/18/2019 SUBJECTIVE: The patient had hemodialysis yesterday, tolerated it well. No other events noted. OBJECTIVE: VITAL SIGNS: Blood pressure is 124/60, respirations 17, pulse 69, temperature 97.9. HEENT: Head is normocephalic. NECK: Supple. HEART: Regular rate. LUNGS: Show diminished breath sounds at the base. ABDOMEN: Soft, nontender to palpation. No rebound or guarding. EXTREMITIES: Negative for clubbing, cyanosis, no edema. DERMATOLOGIC: No rashes. MUSCULOSKELETAL: No joint effusion. NEUROLOGIC: No change in exam. MEDICATIONS: The patient's medications have been reviewed. LABORATORY DATA: Has been reviewed. IMAGING STUDIES: Have been reviewed. ASSESSMENT AND PLAN: 1. End-stage renal disease. The patient had hemodialysis yesterday, tolerated it well. Anticipate next dialysis on Wednesday. 2. Anemia. Monitor hemoglobin and hematocrit levels. Continue Epogen. 3. Mineral bone disorder. Monitor calcium and phosphorus levels. 4. Hypertension. Continue current blood pressure regimen. Continue ultrafiltration with dialysis. 5. Hypokalemia. Continue dialysis on low potassium bath. 6. Cellulitis. Continue antibiotic therapy. 7. Diabetes. Continue current insulin regimen. Dictated By: MEGHAN HODGES/WARREN Conf#: [id number] DID#: [id number]
[2019-06-18] MEDS: HEPARIN 5,000 UNIT/1 ML VIAL SC SCH ×2 (08:20→20:25)
--- NOTE | 2019-06-18 09:45 | PN ---
Date/Time of Note Date/Time of Note DATE: 06/18/19 TIME: 09:42 Assessment/Plan VTE Prophylaxis Risk score (from Nsg)>0 risk: 2 SCD applied (from Nsg): Yes Pharmacological prophylaxis: heparin Lines/Catheters IV Catheter Type (from Nrsg): Peripheral IV Urinary Cath still in place: No Assessment/Plan Hospital Course Assessment and plan #Right knee cellulitis Continue IV antibiotic Right knee MRI showing prepatellar soft tissue swelling and irregular fluid collection consistent with an abscess. No evidence of osteomyelitis. No reports of joint or bursa involvement. Will get general surgeon consultation #Sepsis secondary to right knee cellulitis. Continue antibiotic ID consult following # UTI Continue antibiotic #ES[employer] following Monitor electrolytes HD per [employer] extension specialist #Diabetes Continue insulin #Hypertension Continue on antihypertensives Disposition and plan. Will get general surgeon consultation for right knee abscess as per MRI of the right knee. Continue with antibiotics. Further recommendations pending clinical course Discussed POC with Dr. Torrez Result Diagram: 06/18/197 06/18/197 Results 24hrs Laboratory Tests Test 06/17/19 12:35 06/17/19 17:11 06/17/19 20:55 06/18/19 04:47 Bedside Glucose 107 143 124 White Blood Count 9.8 Red Blood Count 3.05 L Hemoglobin 9.0 L Hematocrit 28.8 L Mean Corpuscular Volume 94.4 Mean Corpuscular 29.5 Hemoglobin Mean Corpuscular 31.3 L Hemoglobin Concent Red Cell Distribution 15.3 H Width Platelet Count 310 Mean Platelet Volume 10.3 Immature Granulocytes % 1.900 H Neutrophils % 65.3 Lymphocytes % 16.7 Monocytes % 8.9 Eosinophils % 6.3 Basophils % 0.9 Nucleated Red Blood 0.0 Cells % Immature Granulocytes # 0.190 H Neutrophils # 6.4 Lymphocytes # 1.6 Monocytes # 0.9 Eosinophils # 0.6 H Basophils # 0.1 Nucleated Red Blood 0.0 Cells # Sodium Level 138 Potassium Level 4.5 Chloride Level 98 Carbon Dioxide Level 29 Anion Gap 11 Blood Urea Nitrogen 42 #H Creatinine 6.63 H Est Glomerular Filtrat 9 L Rate mL/min Glucose Level 115 Calcium Level 9.1 Random Vancomycin Level 16.3 Test 06/18/19 08:06 Bedside Glucose 103 Subjective 24 Hr Interval Summary Free Text/Dictation still has some pain on right knee. no s/s of distress Exam/Review of Systems Exam Vitals Vital Signs Date Temp Pulse Resp B/P (MAP) Pulse Ox O2 O2 Flow FiO2 Time Delivery Rate 06/18/19 97.6 68 18 139/64 95 08:04 (89) 06/17/19 Room Air 14:00 Intake and Output 06/17/19 06/17/19 06/18/19 1515:00 23:00 07:00 IntakeIntake Total 200 ml OutputOutput Total 2400 ml BalanceBalance -2200 ml Exam Constitutional: alert, oriented, obese Respiratory: clear to auscultation Cardiovascular: regular rate and rhythm Gastrointestinal: soft, non-tender Musculoskeletal: swelling (right knee now appears to have pus on surface Neurological: nl mental status, nl speech Skin: right foot with scab under foot, less right knee erythema Results Results 24hrs Laboratory Tests Test 06/17/19 12:35 06/17/19 17:11 06/17/19 20:55 06/18/19 04:47 Bedside Glucose 107 143 124 White Blood Count 9.8 Red Blood Count 3.05 L Hemoglobin 9.0 L Hematocrit 28.8 L Mean Corpuscular Volume 94.4 Mean Corpuscular 29.5 Hemoglobin Mean Corpuscular 31.3 L Hemoglobin Concent Red Cell Distribution 15.3 H Width Platelet Count 310 Mean Platelet Volume 10.3 Immature Granulocytes % 1.900 H Neutrophils % 65.3 Lymphocytes % 16.7 Monocytes % 8.9 Eosinophils % 6.3 Basophils % 0.9 Nucleated Red Blood 0.0 Cells % Immature Granulocytes # 0.190 H Neutrophils # 6.4 Lymphocytes # 1.6 Monocytes # 0.9 Eosinophils # 0.6 H Basophils # 0.1 Nucleated Red Blood 0.0 Cells # Sodium Level 138 Potassium Level 4.5 Chloride Level 98 Carbon Dioxide Level 29 Anion Gap 11 Blood Urea Nitrogen 42 #H Creatinine 6.63 H Est Glomerular Filtrat 9 L Rate mL/min Glucose Level 115 Calcium Level 9.1 Random Vancomycin Level 16.3 Test 06/18/19 08:06 Bedside Glucose 103 Medications Medication Current Medications IV Flush (NS 3 ml) 3 ml PER PROTOCOL IV ; Start 06/14/19 at 02:30 Ondansetron HCl (Zofran Inj) 4 mg Q6H PRN IV NAUSEA/VOMITING Last administered on 06/14/19at 14:52; Admin Dose 4 MG; Start 06/14/19 at 02:30 Acetaminophen (Tylenol Tab) 650 mg Q6H PRN PO .PAIN 1-3 OR TEMP; Start 06/14/19 at 02:30 Acetaminophen/ Hydrocodone Bitart ([place] (5/325)) 1 tab Q6H PRN PO .MOD PAIN 4- 6; Start 06/14/19 at 02:30 Acetaminophen/ Hydrocodone Bitart ([place] (5/325)) 2 tab Q6H PRN PO .SEVERE PAIN 7-10 Last administered on 06/18/19 02:28; Admin Dose 2 TAB; Start 06/14/19 at 02:30 Heparin Sodium (Porcine) (Heparin (5000 Units/1ml)) 5,000 unit Q12 SC Last administered on 06/18/19 08:20; Admin Dose 5,000 UNIT; Start 06/14/19 at 09:00 Albuterol/ Ipratropium (Duoneb) 3 ml Q2H RESP THERAPY PRN HHN SHORTNESS OF BREATH; Start 06/14/19 at 02:30 Diagnostic Test (Pha) (Accu-Chek) 1 ea 02 XX ; Start 06/15/19 at 02:00 Insulin Aspart (Novolog Insulin Pen) 5 unit WITH MEALS SC Last administered on 06/18/19 08:21; Admin Dose 5 UNIT; Start 06/14/19 at 07:35 Insulin Aspart (Novolog Insulin Pen) NOVOLOG *MILD* ALGORITHM WITH MEALS BEDTIME SC Last administered on 06/17/19 17:23; Admin Dose 1 UNIT; Start 06/14/19 at 08:00 Allopurinol (Zyloprim) 100 mg DAILY PO Last administered on 06/18/19 08:17; Admin Dose 100 MG; Start 06/14/19 at 09:00 Atorvastatin Calcium (Lipitor) 80 mg QHS PO Last administered on 06/17/19 20:52; Admin Dose 80 MG; Start 06/14/19 at 21:00 Calcium Acetate (Phoslo) 1,334 mg WITH MEALS PO Last administered on 06/18/19 08:17; Admin Dose 1,334 MG; Start 06/14/19 at 07:35 Carvedilol (Coreg) 3.125 mg BID PO Last administered on 06/18/19 08:17; Admin Dose 3.125 MG; Start 06/14/19 at 09:00 Citalopram Hydrobromide (Citalopram) 10 mg DAILY PO Last administered on 06/18/19 08:16; Admin Dose 10 MG; Start 06/14/19 at 09:00 Furosemide (Lasix) 80 mg DAILY PO Last administered on 06/18/19 08:16; Admin Dose 80 MG; Start 06/14/19 at 09:00 Mirtazapine (Remeron) 7.5 mg HS PO Last administered on 06/17/19 20:53; Admin Dose 7.5 MG; Start 06/14/19 at 21:00 Nifedipine (Procardia Xl) 30 mg DAILY PO Last administered on 06/18/19 08:17; Admin Dose 30 MG; Start 06/14/19 at 09:00 Ranitidine HCl (Zantac) 150 mg HS PO Last administered on 06/17/19 20:53; Admin Dose 150 MG; Start 06/14/19 at 21:00 Tamsulosin HCl (Flomax) 0.4 mg HS PO Last administered on 06/17/19 20:53; Admin Dose 0.4 MG; Start 06/14/19 at 21:00 Miscellaneous Information 1 ea NOTE XX ; Start 06/14/19 at 03:30 Glucose (Glutose) 15 gm Q15M PRN PO DECREASED GLUCOSE; Start 06/14/19 at 03:30 Glucose (Glutose) 22.5 gm Q15M PRN PO DECREASED GLUCOSE; Start 06/14/19 at 03:30 Dextrose (D50w Syringe) 25 ml Q15M PRN IV DECREASED GLUCOSE; Start 06/14/19 at 03:30 Dextrose (D50w Syringe) 50 ml Q15M PRN IV DECREASED GLUCOSE; Start 06/14/19 at 03:30 Glucagon (Glucagen) 1 mg Q15M PRN IM DECREASED GLUCOSE; Start 06/14/19 at 03:30 Glucose (Glutose) 15 gm Q15M PRN BUCCAL DECREASED GLUCOSE; Start 06/14/19 at 03:30 Fish Oil (Fish Oil) 1,000 mg BID PO Last administered on 06/18/19 08:17; Admin Dose 1,000 MG; Start 06/14/19 at 09:00 Epoetin Tutu-epbx (Retacrit (Esrd)) 10,000 unit MoWeFr@1700 SC Last administered on 06/16/19at 22:33; Admin Dose 10,000 UNIT; Start 06/16/19 at 17:00 Bacitracin (Bacitracin 0.5%/ Zinc Oint) 1 applic BID TOP Last administered on 06/17/19at 13:35; Admin Dose 1 APPLIC; Start 06/15/19 at 21:00 Vancomycin HCl (Vanco Iv Per Pharmacy) VANCOMYCIN PER PHARMACY PER PROTOCOL XX ; Start 06/15/19 at 15:30 Mupirocin (Bactroban) 1 applic BID TOP Last administered on 06/18/19at 08:17; Admin Dose 1 APPLIC; Start 06/15/19 at 16:30 Insulin Glargine (Lantus) 10 units HS SC Last administered on 06/17/19at 20:58; Admin Dose 10 UNITS; Start 06/15/19 at 21:00 Miscellaneous Information Patients own medicat... BID@ XX ; Start 06/16/19 at 10:00 MARY CARMEN MAN NP Jun 18, 2019 09:45
[2019-06-18] MEDS ORDERED: LIDOCAINE 1%/EPI 30 ML INJ INJ ONE (12:30)
[2019-06-18] MEDS ORDERED: HYDROmorphONE 0.5 MG/0.5 ML SYG IV STA (13:21)
[2019-06-18 13:22] VITALS: BP 132/63; PULSE 74; RESP 18
--- NOTE | 2019-06-18 13:32 | CONS ---
Assessment/Plan Assessment/Plan Assessment/Plan (Daily) Right knee soft tissue abscess, for incisional drainage bedside. Consultation Date/Type/Reason Admit Date/Time Jun 14, 2019 at 00:56 Date of Consultation: Jun 18, 2019 Type of Consult Surgical Reason for Consultation Right knee soft tissue abscess. Date/Time of Note DATE: 06/18/19 TIME: 13:29 Hx of Present Illness HISTORY OF PRESENT ILLNESS: This is a 63-year-old male with a past medical history of end-stage renal disease on dialysis Wednesday, , Wednesday, access AV fistula. 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 He presents to [facility] with right knee swelling and tenderness. The patient states he feels he was bitten by a spider approximately 3 weeks ago. The patient was also admitted for sepsis bacteremia at the hospital and subsequently discharged. The patient now presents with worsening right knee swelling. Upon arrival, the patient was febrile with a temperature of 100.7. The patient has a urinalysis consistent with UTI, was started on antibiotic therapy, admitted to med/surg. CT scan was performed that showed there is a fluid collection anterior to the knee patella. Constitutional: no complaints, improved Eyes: no complaints ENT: no complaints Respiratory: no complaints Cardiovascular: no complaints Gastrointestinal: no complaints Genitourinary: dysuria, other (Patient on hemodialysis.) Musculoskeletal: no complaints Skin: other Neurologic: no complaints Endocrine: no complaints Lymphatic: no complaints, other (Diabetes.) Psychological: no complaints, nl mood/affect Immunologic: no complaints Past Medical History Medical History: diabetes, hypertension, renal disease, urinary tract infection Home Meds Reported Medications Citalopram Hydrobromide* (Citalopram Hydrobromide*) 10 Mg Tablet, 10 MG PO DAILY, #30 TAB 06/14/19 Levofloxacin* (Levofloxacin*) 500 Mg Tablet, 500 MG PO Q48H, TAB 06/14/19 Insulin Lispro (Humalog Kwikpen U-100) 100 Unit/1 Ml Insuln.pen, 5 UNIT SQ AC B, EA 09/29/18 Insulin Glargine,Hum.rec.anlog (Basaglar Kwikpen U-100) 100 Unit/1 Ml Insuln.pen, 10 UNIT SC QHS, EA 09/29/18 Allopurinol* (Allopurinol*) 100 Mg Tablet, 100 MG PO DAILY, TAB 09/29/18 Mirtazapine* (Mirtazapine*) 7.5 Mg Tablet, 7.5 MG PO HS, TAB 09/29/18 [place]-3/Dha/Epa/Fish Oil (FISH OIL 1,000 MG SOFTGEL) 1 Each Capsule, 1 EACH PO BID, CAP 09/29/18 Atorvastatin* (Atorvastatin*) 80 Mg Tablet, 80 MG PO QHS, #30 TAB 09/29/18 Tamsulosin Hcl* (Tamsulosin Hcl*) 0.4 Mg Cap.er.24h, 0.4 MG PO HS, CAP 09/29/18 Ranitidine Hcl* (Ranitidine Hcl*) 150 Mg Tablet, 150 MG PO HS, #30 TAB 09/29/18 Furosemide* (Lasix*) 80 Mg Tablet, 80 MG PO DAILY, TAB 09/29/18 Calcium Acetate* (Calcium Acetate*) 667 Mg Capsule, 1334 MG PO WITH MEALS, #60 CAP 09/29/18 Discontinued Reported Medications Carvedilol* (Carvedilol*) 3.125 Mg Tablet, 3.125 MG PO BID, #60 TAB 09/29/18 Nifedipine* (Nifedipine ER*) 30 Mg Tablet.sa, 30 MG PO DAILY, TAB.SA 09/29/18 Medications Current Medications IV Flush (NS 3 ml) 3 ml PER PROTOCOL IV ; Start 06/14/19 at 02:30 Ondansetron HCl (Zofran Inj) 4 mg Q6H PRN IV NAUSEA/VOMITING Last administered on 06/14/19at 14:52; Admin Dose 4 MG; Start 06/14/19 at 02:30 Acetaminophen (Tylenol Tab) 650 mg Q6H PRN PO .PAIN 1-3 OR TEMP; Start 06/14/19 at 02:30 Acetaminophen/ Hydrocodone Bitart ([place] (5/325)) 1 tab Q6H PRN PO .MOD PAIN 4- 6; Start 06/14/19 at 02:30 Acetaminophen/ Hydrocodone Bitart ([place] (5/325)) 2 tab Q6H PRN PO .SEVERE PAIN 7-10 Last administered on 06/18/19at 10:41; Admin Dose 2 TAB; Start 06/14/19 at 02:30 Heparin Sodium (Porcine) (Heparin (5000 Units/1ml)) 5,000 unit Q12 SC Last administered on 06/18/19 08:20; Admin Dose 5,000 UNIT; Start 06/14/19 at 09:00 Albuterol/ Ipratropium (Duoneb) 3 ml Q2H RESP THERAPY PRN HHN SHORTNESS OF BREATH; Start 06/14/19 at 02:30 Diagnostic Test (Pha) (Accu-Chek) 1 ea 02 XX ; Start 06/15/19 at 02:00 Insulin Aspart (Novolog Insulin Pen) 5 unit WITH MEALS SC Last administered on 06/18/19 08:21; Admin Dose 5 UNIT; Start 06/14/19 at 07:35 Insulin Aspart (Novolog Insulin Pen) NOVOLOG *MILD* ALGORITHM WITH MEALS BEDTIME SC Last administered on 06/17/19 17:23; Admin Dose 1 UNIT; Start 06/14/19 at 08:00 Allopurinol (Zyloprim) 100 mg DAILY PO Last administered on 06/18/19 08:17; Admin Dose 100 MG; Start 06/14/19 at 09:00 Atorvastatin Calcium (Lipitor) 80 mg QHS PO Last administered on 06/17/19 20:52; Admin Dose 80 MG; Start 06/14/19 at 21:00 Calcium Acetate (Phoslo) 1,334 mg WITH MEALS PO Last administered on 06/18/19 08:17; Admin Dose 1,334 MG; Start 06/14/19 at 07:35 Carvedilol (Coreg) 3.125 mg BID PO Last administered on 06/18/19 08:17; Admin Dose 3.125 MG; Start 06/14/19 at 09:00 Citalopram Hydrobromide (Citalopram) 10 mg DAILY PO Last administered on 06/18/19 08:16; Admin Dose 10 MG; Start 06/14/19 at 09:00 Furosemide (Lasix) 80 mg DAILY PO Last administered on 06/18/19 08:16; Admin Dose 80 MG; Start 06/14/19 at 09:00 Mirtazapine (Remeron) 7.5 mg HS PO Last administered on 06/17/19 20:53; Admin Dose 7.5 MG; Start 06/14/19 at 21:00 Nifedipine (Procardia Xl) 30 mg DAILY PO Last administered on 06/18/19 08:17; Admin Dose 30 MG; Start 06/14/19 at 09:00 Ranitidine HCl (Zantac) 150 mg HS PO Last administered on 06/17/19 20:53; Admin Dose 150 MG; Start 06/14/19 at 21:00 Tamsulosin HCl (Flomax) 0.4 mg HS PO Last administered on 06/17/19 20:53; Admin Dose 0.4 MG; Start 06/14/19 at 21:00 Miscellaneous Information 1 ea NOTE XX ; Start 06/14/19 at 03:30 Glucose (Glutose) 15 gm Q15M PRN PO DECREASED GLUCOSE; Start 06/14/19 at 03:30 Glucose (Glutose) 22.5 gm Q15M PRN PO DECREASED GLUCOSE; Start 06/14/19 at 03:30 Dextrose (D50w Syringe) 25 ml Q15M PRN IV DECREASED GLUCOSE; Start 06/14/19 at 03:30 Dextrose (D50w Syringe) 50 ml Q15M PRN IV DECREASED GLUCOSE; Start 06/14/19 at 03:30 Glucagon (Glucagen) 1 mg Q15M PRN IM DECREASED GLUCOSE; Start 06/14/19 at 03:30 Glucose (Glutose) 15 gm Q15M PRN BUCCAL DECREASED GLUCOSE; Start 06/14/19 at 03:30 Fish Oil (Fish Oil) 1,000 mg BID PO Last administered on 06/18/19 08:17; Admin Dose 1,000 MG; Start 06/14/19 at 09:00 Epoetin Tutu-epbx (Retacrit (Esrd)) 10,000 unit MoWeFr@1700 SC Last administered on 06/16/19at 22:33; Admin Dose 10,000 UNIT; Start 06/16/19 at 17:00 Bacitracin (Bacitracin 0.5%/ Zinc Oint) 1 applic BID TOP Last administered on 06/17/19at 13:35; Admin Dose 1 APPLIC; Start 06/15/19 at 21:00 Vancomycin HCl (Vanco Iv Per Pharmacy) VANCOMYCIN PER PHARMACY PER PROTOCOL XX ; Start 06/15/19 at 15:30 Mupirocin (Bactroban) 1 applic BID TOP Last administered on 06/18/19 08:17; Admin Dose 1 APPLIC; Start 06/15/19 at 16:30 Insulin Glargine (Lantus) 10 units HS SC Last administered on 06/17/19at 20:58; Admin Dose 10 UNITS; Start 06/15/19 at 21:00 Miscellaneous Information Patients own medicat... BID@10,16 XX ; Start 06/16/19 at 10:00 Vancomycin HCl 250 ml @ 125 mls/hr ONCE IVPB ; Start 06/18/19 at 14:00; Stop 06/18/19 at 23:59 Allergies: Coded Allergies: Penicillins (Verified Allergy, Unknown, 09/29/18) Past Surgical History Past Surgical Hx: noncontributory Family History Significant Family History: no pertinent family hx Social History Smoking Status: Never smoker Exam/Review of Systems Exam Vitals Vital Signs Date Temp Pulse Resp B/P (MAP) Pulse Ox O2 O2 Flow FiO2 Time Delivery Rate 06/18/19 98.3 74 18 132/63 97 13:22 (86) 06/17/19 Room Air 14:00 Intake and Output 06/17/19 06/17/19 06/18/19 1515:00 23:00 07:00 IntakeIntake Total 200 ml OutputOutput Total 2400 ml BalanceBalance -2200 ml Constitutional: alert, oriented, well developed Psych: no complaints, nl mood/affect Head: normocephalic, atraumatic Eyes: nl conjunctiva, EOMI, nl lids, nl sclera, PERRL ENMT: nl external ears & nose, nl lips & teeth, nl nasal mucosa & septum Neck: supple, non-tender Respiratory: clear to auscultation, normal air movement Cardiovascular: regular rate and rhythm, nl pulses Gastrointestinal: soft, nl liver, spleen, non-tender Musculoskeletal: other (There is a swelling with cellulitis right knee small opening with fluctuation and small amount of pus draining out.) Extremities: normal pulses 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, nl mental status, nl speech, nl strength Skin: nl turgor; No rash or lesions Lymph: nl lymph nodes Results Result Diagram: 06/18/19 0447 06/18/19 0447 Results 24hrs Laboratory Tests Test 06/17/19 17:11 06/17/19 20:55 06/18/19 04:47 06/18/19 08:06 Bedside Glucose 143 124 103 White Blood Count 9.8 Red Blood Count 3.05 L Hemoglobin 9.0 L Hematocrit 28.8 L Mean Corpuscular Volume 94.4 Mean Corpuscular 29.5 Hemoglobin Mean Corpuscular 31.3 L Hemoglobin Concent Red Cell Distribution 15.3 H Width Platelet Count 310 Mean Platelet Volume 10.3 Immature Granulocytes % 1.900 H Neutrophils % 65.3 Lymphocytes % 16.7 Monocytes % 8.9 Eosinophils % 6.3 Basophils % 0.9 Nucleated Red Blood 0.0 Cells % Immature Granulocytes # 0.190 H Neutrophils # 6.4 Lymphocytes # 1.6 Monocytes # 0.9 Eosinophils # 0.6 H Basophils # 0.1 Nucleated Red Blood 0.0 Cells # Sodium Level 138 Potassium Level 4.5 Chloride Level 98 Carbon Dioxide Level 29 Anion Gap 11 Blood Urea Nitrogen 42 #H Creatinine 6.63 H Est Glomerular Filtrat 9 L Rate mL/min Glucose Level 115 Calcium Level 9.1 Random Vancomycin Level 16.3 Test 06/18/19 12:05 Bedside Glucose 153 Medications Medication Current Medications IV Flush (NS 3 ml) 3 ml PER PROTOCOL IV ; Start 06/14/19 at 02:30 Ondansetron HCl (Zofran Inj) 4 mg Q6H PRN IV NAUSEA/VOMITING Last administered on 06/14/19at 14:52; Admin Dose 4 MG; Start 06/14/19 at 02:30 Acetaminophen (Tylenol Tab) 650 mg Q6H PRN PO .PAIN 1-3 OR TEMP; Start 06/14/19 at 02:30 Acetaminophen/ Hydrocodone Bitart ([place] (5/325)) 1 tab Q6H PRN PO .MOD PAIN 4- 6; Start 06/14/19 at 02:30 Acetaminophen/ Hydrocodone Bitart ([place] (5/325)) 2 tab Q6H PRN PO .SEVERE PAIN 7-10 Last administered on 06/18/19at 10:41; Admin Dose 2 TAB; Start 06/14/19 at 02:30 Heparin Sodium (Porcine) (Heparin (5000 Units/1ml)) 5,000 unit Q12 SC Last administered on 06/18/19at 08:20; Admin Dose 5,000 UNIT; Start 06/14/19 at 09:00 Albuterol/ Ipratropium (Duoneb) 3 ml Q2H RESP THERAPY PRN HHN SHORTNESS OF BREATH; Start 06/14/19 at 02:30 Diagnostic Test (Pha) (Accu-Chek) 1 ea 02 XX ; Start 06/15/19 at 02:00 Insulin Aspart (Novolog Insulin Pen) 5 unit WITH MEALS SC Last administered on 06/18/19 08:21; Admin Dose 5 UNIT; Start 06/14/19 at 07:35 Insulin Aspart (Novolog Insulin Pen) NOVOLOG *MILD* ALGORITHM WITH MEALS BEDTIME SC Last administered on 06/17/19 17:23; Admin Dose 1 UNIT; Start 06/14/19 at 08:00 Allopurinol (Zyloprim) 100 mg DAILY PO Last administered on 06/18/19 08:17; Admin Dose 100 MG; Start 06/14/19 at 09:00 Atorvastatin Calcium (Lipitor) 80 mg QHS PO Last administered on 06/17/19 20:52; Admin Dose 80 MG; Start 06/14/19 at 21:00 Calcium Acetate (Phoslo) 1,334 mg WITH MEALS PO Last administered on 06/18/19 08:17; Admin Dose 1,334 MG; Start 06/14/19 at 07:35 Carvedilol (Coreg) 3.125 mg BID PO Last administered on 06/18/19 08:17; Admin Dose 3.125 MG; Start 06/14/19 at 09:00 Citalopram Hydrobromide (Citalopram) 10 mg DAILY PO Last administered on 06/18/19 08:16; Admin Dose 10 MG; Start 06/14/19 at 09:00 Furosemide (Lasix) 80 mg DAILY PO Last administered on 06/18/19 08:16; Admin Dose 80 MG; Start 06/14/19 at 09:00 Mirtazapine (Remeron) 7.5 mg HS PO Last administered on 06/17/19 20:53; Admin Dose 7.5 MG; Start 06/14/19 at 21:00 Nifedipine (Procardia Xl) 30 mg DAILY PO Last administered on 06/18/19 08:17; Admin Dose 30 MG; Start 06/14/19 at 09:00 Ranitidine HCl (Zantac) 150 mg HS PO Last administered on 06/17/19 20:53; Admin Dose 150 MG; Start 06/14/19 at 21:00 Tamsulosin HCl (Flomax) 0.4 mg HS PO Last administered on 06/17/19at 20:53; Admin Dose 0.4 MG; Start 06/14/19 at 21:00 Miscellaneous Information 1 ea NOTE XX ; Start 06/14/19 at 03:30 Glucose (Glutose) 15 gm Q15M PRN PO DECREASED GLUCOSE; Start 06/14/19 at 03:30 Glucose (Glutose) 22.5 gm Q15M PRN PO DECREASED GLUCOSE; Start 06/14/19 at 03:30 Dextrose (D50w Syringe) 25 ml Q15M PRN IV DECREASED GLUCOSE; Start 06/14/19 at 03:30 Dextrose (D50w Syringe) 50 ml Q15M PRN IV DECREASED GLUCOSE; Start 06/14/19 at 03:30 Glucagon (Glucagen) 1 mg Q15M PRN IM DECREASED GLUCOSE; Start 06/14/19 at 03:30 Glucose (Glutose) 15 gm Q15M PRN BUCCAL DECREASED GLUCOSE; Start 06/14/19 at 03:30 Fish Oil (Fish Oil) 1,000 mg BID PO Last administered on 06/18/19at 08:17; Admin Dose 1,000 MG; Start 06/14/19 at 09:00 Epoetin Tutu-epbx (Retacrit (Esrd)) 10,000 unit MoWeFr@1700 SC Last administered on 06/16/19at 22:33; Admin Dose 10,000 UNIT; Start 06/16/19 at 17:00 Bacitracin (Bacitracin 0.5%/ Zinc Oint) 1 applic BID TOP Last administered on 06/17/19at 13:35; Admin Dose 1 APPLIC; Start 06/15/19 at 21:00 Vancomycin HCl (Vanco Iv Per Pharmacy) VANCOMYCIN PER PHARMACY PER PROTOCOL XX ; Start 06/15/19 at 15:30 Mupirocin (Bactroban) 1 applic BID TOP Last administered on 06/18/19at 08:17; Admin Dose 1 APPLIC; Start 06/15/19 at 16:30 Insulin Glargine (Lantus) 10 units HS SC Last administered on 06/17/19at 20:58; Admin Dose 10 UNITS; Start 06/15/19 at 21:00 Miscellaneous Information Patients own medicat... BID@ XX ; Start 06/16/19 at 10:00 Vancomycin HCl 250 ml @ 125 mls/hr ONCE IVPB ; Start 06/18/19 at 14:00; Stop 06/18/19 at 23:59 RACHEL VALADEZ MD Jun 18, 2019 13:32
--- NOTE | 2019-06-18 13:34 | OPR ---
Date/Time of Note Date/Time of Note DATE: 06/18/19 TIME: 13:32 Operative Report Procedure Date: Jun 18, 2019 Preoperative Diagnosis Right knee soft tissue abscess Postoperative Diagnosis The same Operation/Procedure Performed Incision and drainage of right knee soft tissue abscess Surgeon see signature line Barrel Line Operator None Anesthesia Type: other (Local) Estimated Blood Loss: minimal Transfusion none Specimen Wound culture Grafts/Implants none Complications none Pt Condition Post Procedure: stable Disposition: other (Procedure performed bedside) Indications 63-year-old male with the right knee soft tissue abscess confirmed by CT scan. Procedure Description Patient was lying in his bed supine, the right knee was prepped and draped in a sterile fashion. Timeout was performed. Consent was obtained. Local anesthetic percent lidocaine with epinephrine injected over the palpated abscess. The vertical skin incision was performed with the 11 blade. Past was evacuated. Hemostasis was achieved. The wound was loosely packed with iodoform. Sterile dressing was applied with Kerlix. Patient tolerated procedure well. Instrument and sponge counts were correct x2. RACHEL VALADEZ MD Jun 18, 2019 13:34
[2019-06-18] MEDS ORDERED: VANCOMYCIN 1 GM 250 ML IVPB SCH (14:00)
--- NOTE | 2019-06-18 15:58 | CONS ---
Assessment/Plan Assessment/Plan Hospital Course (Demo Recall) ID PROGRESS NOTE CURRENT ABX: DAY # => Vanco IV 24H INTERVAL SUMMARY * Awake, alert, responsive, feeling OK, s/p Incision and drainage of right knee soft tissue abscess earlier today -- no complaints * Admit with concern septic knee w/MRI 06/17/19 (+) for R-knee abscess DIAGNOSTIC IMAGING * 06/17/19 MRI RIGHT KNEE: * 1. Prepatellar soft tissue swelling and irregular fluid collection consistent with an abscess with dimensions given above. * 2. No evidence for osteomyelitis. * 3. No evidence for fracture. MICRO * 06/14/19 (+)MRSA * 06/13/19 BCX (-) * 05/18/19 BCx #2=> (-) * 05/18/19 FOOT Cx (+) WOUND CULTURE Final Organism 1 STREP AGALACTIAE - (GROUP B) QUANTITY 1+ Organism 2 COAGULASE NEGATIVE STAPH QUANTITY SCANT GROWTH Organism 3 CORYNEBACTERIUM SPECIES QUANTITY 1+ Organism 4 STAPHYLOCOCCUS AUREUS QUANTITY SCANT GROWTH * 05/18/19 Urine Cx (+) STREP AGALACTIAE - (GROUP B) * 05/18/19 BCx #1 (+) 2/2 bottles: STREP AGALACTIAE - (GROUP B) PHYSICAL EXAMINATION: GENERAL: VSS, NAD HEENT: AT, NC, NECK: Supple, CHEST: Rise symmetrical HEART: Pulse RRR ABDOMEN: Obese EXTREMITIES: Warm, dry right lateral small ulcer SKIN: No rash, no diaphoresis ID ASSESSMENT 63 yo M admit with: 1. Right knee w/pre-patellar abscess = probably MRSA * s/p 06/18/19 s/p Incision and drainage of right knee soft tissue abscess earlier today * 06/17/19 MRI RIGHT KNEE: * 1. Prepatellar soft tissue swelling and irregular fluid collection consistent with an abscess with dimensions given above. * 2. No evidence for osteomyelitis. * 3. No evidence for fracture. 2. s/p 05/18/19 Sepsis w/Strep Agalactiae (GBS) bacteremia due to Right DM foot ulcer plantar 3. DMT1 w/polyneuropathies: Renal, Peripheral 4. 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 s/p recent admission with Gallbladder wall thickening and rule out acalculous cholecystitis 6. Hepatomegaly with fatty liver disease 7. ESRD on HD 8. Anemia 9. Hypertension 10. Obesity 11. Depression -- feelings of hopelessness, appreciate Lead Systems Analyst notes (+)MRSA Nares-> Bactroban ABX ALLERGIES: PCN INVASIVES: PIV CURRENT ABX: ABX DAY #=> Vanco IV ID RECOMMENDATIONS/PLAN: 1. Continue current ABX 2. s/p I&D today -- micro pending -- f/u tomorrow Consultation Date/Type/Reason Admit Date/Time Jun 14, 2019 at 00:56 Initial Consult Date Date/Time of Note DATE: 06/18/19 TIME: 15:56 Exam/Review of Systems Exam Vitals Vital Signs Date Temp Pulse Resp B/P (MAP) Pulse Ox O2 O2 Flow FiO2 Time Delivery Rate 06/18/19 98.3 74 18 132/63 97 13:22 (86) 06/17/19 Room Air 14:00 Intake and Output 06/17/19 06/17/19 06/18/19 1515:00 23:00 07:00 IntakeIntake Total 200 ml OutputOutput Total 2400 ml BalanceBalance -2200 ml Results Result Diagram: 06/18/19 0447 06/18/197 Results 24hrs Laboratory Tests Test 06/17/19 17:11 06/17/19 20:55 06/18/19 04:47 06/18/19 08:06 Bedside Glucose 143 124 103 White Blood Count 9.8 Red Blood Count 3.05 L Hemoglobin 9.0 L Hematocrit 28.8 L Mean Corpuscular Volume 94.4 Mean Corpuscular 29.5 Hemoglobin Mean Corpuscular 31.3 L Hemoglobin Concent Red Cell Distribution 15.3 H Width Platelet Count 310 Mean Platelet Volume 10.3 Immature Granulocytes % 1.900 H Neutrophils % 65.3 Lymphocytes % 16.7 Monocytes % 8.9 Eosinophils % 6.3 Basophils % 0.9 Nucleated Red Blood 0.0 Cells % Immature Granulocytes # 0.190 H Neutrophils # 6.4 Lymphocytes # 1.6 Monocytes # 0.9 Eosinophils # 0.6 H Basophils # 0.1 Nucleated Red Blood 0.0 Cells # Sodium Level 138 Potassium Level 4.5 Chloride Level 98 Carbon Dioxide Level 29 Anion Gap 11 Blood Urea Nitrogen 42 #H Creatinine 6.63 H Est Glomerular Filtrat 9 L Rate mL/min Glucose Level 115 Calcium Level 9.1 Random Vancomycin Level 16.3 Test 06/18/19 12:05 Bedside Glucose 153 Medications Medication Current Medications IV Flush (NS 3 ml) 3 ml PER PROTOCOL IV ; Start 06/14/19 at 02:30 Ondansetron HCl (Zofran Inj) 4 mg Q6H PRN IV NAUSEA/VOMITING Last administered on 06/14/19at 14:52; Admin Dose 4 MG; Start 06/14/19 at 02:30 Acetaminophen (Tylenol Tab) 650 mg Q6H PRN PO .PAIN 1-3 OR TEMP; Start 06/14/19 at 02:30 Acetaminophen/ Hydrocodone Bitart ([place] (5/325)) 1 tab Q6H PRN PO .MOD PAIN 4- 6; Start 06/14/19 at 02:30 Acetaminophen/ Hydrocodone Bitart ([place] (5/325)) 2 tab Q6H PRN PO .SEVERE PAIN 7-10 Last administered on 06/18/19at 10:41; Admin Dose 2 TAB; Start 06/14/19 at 02:30 Heparin Sodium (Porcine) (Heparin (5000 Units/1ml)) 5,000 unit Q12 SC Last administered on 06/18/19at 08:20; Admin Dose 5,000 UNIT; Start 06/14/19 at 09:00 Albuterol/ Ipratropium (Duoneb) 3 ml Q2H RESP THERAPY PRN HHN SHORTNESS OF BREATH; Start 06/14/19 at 02:30 Diagnostic Test (Pha) (Accu-Chek) 1 ea 02 XX ; Start 06/15/19 at 02:00 Insulin Aspart (Novolog Insulin Pen) 5 unit WITH MEALS SC Last administered on 06/18/19at 08:21; Admin Dose 5 UNIT; Start 06/14/19 at 07:35 Insulin Aspart (Novolog Insulin Pen) NOVOLOG *MILD* ALGORITHM WITH MEALS BEDTIME SC Last administered on 06/17/19at 17:23; Admin Dose 1 UNIT; Start 06/14/19 at 08:00 Allopurinol (Zyloprim) 100 mg DAILY PO Last administered on 06/18/19 08:17; Admin Dose 100 MG; Start 06/14/19 at 09:00 Atorvastatin Calcium (Lipitor) 80 mg QHS PO Last administered on 06/17/19 20:52; Admin Dose 80 MG; Start 06/14/19 at 21:00 Calcium Acetate (Phoslo) 1,334 mg WITH MEALS PO Last administered on 06/18/19 08:17; Admin Dose 1,334 MG; Start 06/14/19 at 07:35 Carvedilol (Coreg) 3.125 mg BID PO Last administered on 06/18/19 08:17; Admin Dose 3.125 MG; Start 06/14/19 at 09:00 Citalopram Hydrobromide (Citalopram) 10 mg DAILY PO Last administered on 06/18/19 08:16; Admin Dose 10 MG; Start 06/14/19 at 09:00 Furosemide (Lasix) 80 mg DAILY PO Last administered on 06/18/19 08:16; Admin Dose 80 MG; Start 06/14/19 at 09:00 Mirtazapine (Remeron) 7.5 mg HS PO Last administered on 06/17/19 20:53; Admin Dose 7.5 MG; Start 06/14/19 at 21:00 Nifedipine (Procardia Xl) 30 mg DAILY PO Last administered on 06/18/19 08:17; Admin Dose 30 MG; Start 06/14/19 at 09:00 Ranitidine HCl (Zantac) 150 mg HS PO Last administered on 06/17/19 20:53; Admin Dose 150 MG; Start 06/14/19 at 21:00 Tamsulosin HCl (Flomax) 0.4 mg HS PO Last administered on 06/17/19 20:53; Admin Dose 0.4 MG; Start 06/14/19 at 21:00 Miscellaneous Information 1 ea NOTE XX ; Start 06/14/19 at 03:30 Glucose (Glutose) 15 gm Q15M PRN PO DECREASED GLUCOSE; Start 06/14/19 at 03:30 Glucose (Glutose) 22.5 gm Q15M PRN PO DECREASED GLUCOSE; Start 06/14/19 at 03:30 Dextrose (D50w Syringe) 25 ml Q15M PRN IV DECREASED GLUCOSE; Start 06/14/19 at 03:30 Dextrose (D50w Syringe) 50 ml Q15M PRN IV DECREASED GLUCOSE; Start 06/14/19 at 03:30 Glucagon (Glucagen) 1 mg Q15M PRN IM DECREASED GLUCOSE; Start 06/14/19 at 03:30 Glucose (Glutose) 15 gm Q15M PRN BUCCAL DECREASED GLUCOSE; Start 06/14/19 at 03:30 Fish Oil (Fish Oil) 1,000 mg BID PO Last administered on 06/18/19at 08:17; Admin Dose 1,000 MG; Start 06/14/19 at 09:00 Epoetin Tutu-epbx (Retacrit (Esrd)) 10,000 unit MoWeFr@1700 SC Last adm inistered on 06/16/19at 22:33; Admin Dose 10,000 UNIT; Start 06/16/19 at 17:00 Bacitracin (Bacitracin 0.5%/ Zinc Oint) 1 applic BID TOP Last administered on 06/17/19at 13:35; Admin Dose 1 APPLIC; Start 06/15/19 at 21:00 Vancomycin HCl (Vanco Iv Per Pharmacy) VANCOMYCIN PER PHARMACY PER PROTOCOL XX ; Start 06/15/19 at 15:30 Mupirocin (Bactroban) 1 applic BID TOP Last administered on 06/18/19at 08:17; Admin Dose 1 APPLIC; Start 06/15/19 at 16:30 Insulin Glargine (Lantus) 10 units HS SC Last administered on 06/17/19at 20:58; Admin Dose 10 UNITS; Start 06/15/19 at 21:00 Miscellaneous Information Patients own medicat... BID@10,16 XX ; Start 06/16/19 at 10:00 Vancomycin HCl 250 ml @ 125 mls/hr ONCE IVPB Last administered on 06/18/19at 14:25; Admin Dose 125 MLS/HR; Start 06/18/19 at 14:00; Stop 06/18/19 at 23:59 RUPINDER WOODWARD NP Jun 18, 2019 15:58
[2019-06-18 19:44] VITALS: BP 109/55; PULSE 69; RESP 16
[2019-06-18] MEDS: ATORVASTATIN 80 MG TAB PO SCH (20:20)
[2019-06-18] MEDS: RANITIDINE 150 MG TAB PO SCH (20:20)
[2019-06-18] MEDS: TAMSULOSIN (SR) 0.4 MG CAP PO SCH (20:20)
[2019-06-18] MEDS: MIRTAZAPINE 15 MG TAB PO SCH (20:21)
[2019-06-18] MEDS: INSULIN GLARGINE [LANTus] (100 UNITS/ML) SYG SC SCH (20:25)
[2019-06-19] MEDS: ACCU-CHEK XX SCH (02:00)
[2019-06-19 02:10] VITALS: BP 118/62; PULSE 71; RESP 19
[2019-06-19] MEDS: INSULIN ASPART [NOVOLOG] 3 ML PEN SC SCH ×7 (07:35→21:00)
[2019-06-19] MEDS: CITALOPRAM 10 MG TAB PO SCH (08:18)
[2019-06-19] MEDS: CALCIUM ACETATE 667 MG CAP PO SCH ×3 (08:18→17:07)
[2019-06-19] MEDS: ALLOPURINOL 100 MG TAB PO SCH (08:18)
[2019-06-19] MEDS: FISH OIL 1,000 MG CAP PO SCH ×2 (08:18→20:26)
[2019-06-19] MEDS: HEPARIN 5,000 UNIT/1 ML VIAL SC SCH ×2 (08:19→20:28)
[2019-06-19] MEDS: MUPIROCIN 2% 22 GM OINT TOP SCH ×2 (08:21→20:30)
[2019-06-19] MEDS: BACITRACIN 0.5%/ZINC 28.35 GM OINT TOP SCH ×2 (08:22→20:30)
--- NOTE | 2019-06-19 08:23 | PN ---
DATE: 06/19/2019 SUBJECTIVE: The patient is stable. No events overnight. OBJECTIVE: VITAL SIGNS: Blood pressure is 118/62, respiration 19, pulse 71, temperature 97.9. HEENT: Head is normocephalic. NECK: Supple. HEART: Regular rate. LUNGS: Show diminished breath sounds at the base. ABDOMEN: Soft, nontender to palpation without rebound or guarding. EXTREMITIES: Negative for clubbing, cyanosis, no edema. DERMATOLOGIC: No rashes. MUSCULOSKELETAL: No joint effusion. NEUROLOGIC: No change in exam. MEDICATIONS: The patient's medications have been reviewed. LABORATORY DATA: Has been reviewed. IMAGING STUDIES: Have been reviewed. ASSESSMENT AND PLAN: 1. End-stage renal disease. The patient is on dialysis Wednesday, and Wednesday. Anticipate next hemodialysis tomorrow. 2. Anemia. Monitor hemoglobin and hematocrit levels. 3. Mineral bone disorder. Monitor calcium and phosphorus levels. 4. Hypertension. Continue current blood pressure regimen. Continue ultrafiltration with dialysis. 5. Hypokalemia. Continue dialysis on low potassium bath. 6. Cellulitis. Continue antibiotic therapy. 7. Diabetes. Continue current insulin regimen. Dictated By: MEGHAN CASILLAS DO NR/NTS Conf#: [id number] DID#: [id number] CC: MICHEL HERNANDEZ MD;*EndCC*
[2019-06-19] MEDS: FUROSEMIDE 40 MG TAB PO SCH (08:25)
[2019-06-19] MEDS: NIFEdipine (XL) 30 MG TAB PO SCH (08:27)
--- NOTE | 2019-06-19 16:51 | CONS ---
Assessment/Plan Assessment/Plan Hospital Course (Demo Recall) No acute changes alert, feels good, no fevers Antimicrobials: Vanco Physical examination: Well-developed well-nourished elderly man who is awake in no distress. Head atraumatic normocephalic neck is supple chest rise symmetrical breath sounds clear. Heart: S1-S2. Abdomen soft bowel sounds present. Extremities: right knee erythema is worse today with some fluctuance Assessment: 1. Right knee cellulitis/abscess s/p i/d 2. End-stage renal disease, hemodialysis dependent 3. Diabetes 4. Hypertension 5. MRSA colonization Plan: Remains stable, continue antibiotics, f/u surgical rec-s and intraoperative cultures Consultation Date/Type/Reason Admit Date/Time Jun 14, 2019 at 00:56 Initial Consult Date Type of Consult id Date/Time of Note DATE: 06/19/19 TIME: 16:49 Exam/Review of Systems Exam Vitals Vital Signs Date Temp Pulse Resp B/P (MAP) Pulse Ox O2 O2 Flow FiO2 Time Delivery Rate 06/19/19 97.9 71 19 118/62 92 02:10 (80) 06/17/19 Room Air 14:00 Intake and Output 06/18/19 06/18/19 06/19/19 1515:00 23:00 07:00 IntakeIntake Total 480 ml 850 ml BalanceBalance 480 ml 850 ml Results Result Diagram: 06/19/19 0509 06/19/19 0509 Results 24hrs Laboratory Tests Test 06/18/19 16:54 06/18/19 20:23 06/19/19 05:09 06/19/19 07:52 Bedside Glucose 174 84 70 White Blood Count 9.2 Red Blood Count 3.15 L Hemoglobin 9.3 L Hematocrit 29.8 L Mean Corpuscular Volume 94.6 Mean Corpuscular 29.5 Hemoglobin Mean Corpuscular 31.2 L Hemoglobin Concent Red Cell Distribution 15.8 H Width Platelet Count 314 Mean Platelet Volume 10.5 H Immature Granulocytes % 1.800 H Neutrophils % 61.9 Lymphocytes % 19.6 Monocytes % 9.2 Eosinophils % 6.4 Basophils % 1.1 Nucleated Red Blood 0.0 Cells % Immature Granulocytes # 0.170 H Neutrophils # 5.7 Lymphocytes # 1.8 Monocytes # 0.9 Eosinophils # 0.6 H Basophils # 0.1 Nucleated Red Blood 0.0 Cells # Sodium Level 139 Potassium Level 4.8 Chloride Level 98 Carbon Dioxide Level 28 Anion Gap 13 Blood Urea Nitrogen 56 H Creatinine 8.36 H Est Glomerular Filtrat 7 L Rate mL/min Glucose Level 72 # Calcium Level 9.1 Test 06/19/19 12:24 Bedside Glucose 153 Medications Medication Current Medications IV Flush (NS 3 ml) 3 ml PER PROTOCOL IV ; Start 06/14/19 at 02:30 Ondansetron HCl (Zofran Inj) 4 mg Q6H PRN IV NAUSEA/VOMITING Last administered on 06/14/19at 14:52; Admin Dose 4 MG; Start 06/14/19 at 02:30 Acetaminophen (Tylenol Tab) 650 mg Q6H PRN PO .PAIN 1-3 OR TEMP; Start 06/14/19 at 02:30 Acetaminophen/ Hydrocodone Bitart ([place] (5/325)) 1 tab Q6H PRN PO .MOD PAIN 4- 6; Start 06/14/19 at 02:30 Acetaminophen/ Hydrocodone Bitart ([place] (5/325)) 2 tab Q6H PRN PO .SEVERE PAIN 7-10 Last administered on 06/18/19at 10:41; Admin Dose 2 TAB; Start 06/14/19 at 02:30 Heparin Sodium (Porcine) (Heparin (5000 Units/1ml)) 5,000 unit Q12 SC Last administered on 06/19/19 08:19; Admin Dose 5,000 UNIT; Start 06/14/19 at 09:00 Albuterol/ Ipratropium (Duoneb) 3 ml Q2H RESP THERAPY PRN HHN SHORTNESS OF BREATH; Start 06/14/19 at 02:30 Diagnostic Test (Pha) (Accu-Chek) 1 ea 02 XX ; Start 06/15/19 at 02:00 Insulin Aspart (Novolog Insulin Pen) 5 unit WITH MEALS SC Last administered on 06/19/19 12:28; Admin Dose 5 UNIT; Start 06/14/19 at 07:35 Insulin Aspart (Novolog Insulin Pen) NOVOLOG *MILD* ALGORITHM WITH MEALS BEDTIME SC Last administered on 06/19/19 12:27; Admin Dose 1 UNIT; Start 06/14/19 at 08:00 Allopurinol (Zyloprim) 100 mg DAILY PO Last administered on 8/5/19at 08:18; Admin Dose 100 MG; Start 06/14/19 at 09:00 Atorvastatin Calcium (Lipitor) 80 mg QHS PO Last administered on 06/18/19 20:20; Admin Dose 80 MG; Start 06/14/19 at 21:00 Calcium Acetate (Phoslo) 1,334 mg WITH MEALS PO Last administered on 06/19/19 12:26; Admin Dose 1,334 MG; Start 06/14/19 at 07:35 Carvedilol (Coreg) 3.125 mg BID PO Last administered on 06/19/19 08:27; Admin Dose 3.125 MG; Start 06/14/19 at 09:00 Citalopram Hydrobromide (Citalopram) 10 mg DAILY PO Last administered on 06/19/19 at 08:18; Admin Dose 10 MG; Start 06/14/19 at 09:00 Furosemide (Lasix) 80 mg DAILY PO Last administered on 06/19/19 08:25; Admin Dose 80 MG; Start 06/14/19 at 09:00 Mirtazapine (Remeron) 7.5 mg HS PO Last administered on 06/18/19 20:21; Admin Dose 7.5 MG; Start 06/14/19 at 21:00 Nifedipine (Procardia Xl) 30 mg DAILY PO Last administered on 06/19/19 08:27; Admin Dose 30 MG; Start 06/14/19 at 09:00 Ranitidine HCl (Zantac) 150 mg HS PO Last administered on 06/18/19 20:20; Admin Dose 150 MG; Start 06/14/19 at 21:00 Tamsulosin HCl (Flomax) 0.4 mg HS PO Last administered on 06/18/19 20:20; Admin Dose 0.4 MG; Start 06/14/19 at 21:00 Miscellaneous Information 1 ea NOTE XX ; Start 06/14/19 at 03:30 Glucose (Glutose) 15 gm Q15M PRN PO DECREASED GLUCOSE; Start 06/14/19 at 03:30 Glucose (Glutose) 22.5 gm Q15M PRN PO DECREASED GLUCOSE; Start 06/14/19 at 03:30 Dextrose (D50w Syringe) 25 ml Q15M PRN IV DECREASED GLUCOSE; Start 06/14/19 at 03:30 Dextrose (D50w Syringe) 50 ml Q15M PRN IV DECREASED GLUCOSE; Start 06/14/19 at 03:30 Glucagon (Glucagen) 1 mg Q15M PRN IM DECREASED GLUCOSE; Start 06/14/19 at 03:30 Glucose (Glutose) 15 gm Q15M PRN BUCCAL DECREASED GLUCOSE; Start 06/14/19 at 03:30 Fish Oil (Fish Oil) 1,000 mg BID PO Last administered on 06/19/19at 08:18; Admin Dose 1,000 MG; Start 06/14/19 at 09:00 Epoetin Tutu-epbx (Retacrit (Esrd)) 10,000 unit MoWeFr@1700 SC Last administe red on 06/16/19at 22:33; Admin Dose 10,000 UNIT; Start 06/16/19 at 17:00 Bacitracin (Bacitracin 0.5%/ Zinc Oint) 1 applic BID TOP Last administered on 06/19/19at 08:22; Admin Dose 1 APPLIC; Start 06/15/19 at 21:00 Vancomycin HCl (Vanco Iv Per Pharmacy) VANCOMYCIN PER PHARMACY PER PROTOCOL XX ; Start 06/15/19 at 15:30 Mupirocin (Bactroban) 1 applic BID TOP Last administered on 06/19/19at 08:21; Admin Dose 1 APPLIC; Start 06/15/19 at 16:30 Insulin Glargine (Lantus) 10 units HS SC Last administered on 06/18/19at 20:25; Admin Dose 10 UNITS; Start 06/15/19 at 21:00 Miscellaneous Information Patients own medicat... BID@ XX ; Start 06/16/19 at 10:00 MARION BELL NP Jun 19, 2019 16:51
[2019-06-19] MEDS: EPOETIN ALFA-EPBX (ESRD) 10,000 UNIT/ML VIAL SC SCH (17:08)
--- NOTE | 2019-06-19 17:14 | PN ---
Date/Time of Note Date/Time of Note DATE: 06/19/19 TIME: 17:12 Assessment/Plan VTE Prophylaxis Risk score (from Nsg)>0 risk: 1 SCD applied (from Nsg): Yes Pharmacological prophylaxis: heparin Lines/Catheters IV Catheter Type (from Nrsg): Saline Lock Urinary Cath still in place: No Assessment/Plan Hospital Course SUBJECTIVE: Complains of minimal right knee pain. OBJECTIVE: Physical Exam General: Adequately build 63 year-old male lying in bed in no apparent distress. HEENT: Normocephalic, atraumatic. Eyes: Anicteric sclerae, conjunctivae clear. ENT: Nasal septum midline, oral mucosa moist. Neck supple, no JVD noticed. Respiratory: Bilaterally diminished breath sounds. No use of accessory muscles of respiration. No adventitious breath sounds. Cardiovascular: S1, S2 heard. Regular rate and rhythm. Abdomen: Soft, nontender, and nondistended. Bowel sounds positive in all 4 quadrants. Genitourinary: Deferred. Extremities: No cyanosis, no clubbing. Right knee surgical dressing in place. Neurologic: Cranial nerves II through XII grossly intact. The patient is awake, alert, and oriented. Labs & Vitals per chart ASSESSMENT & PLAN 63-year-old male with comorbidities including hypertension, diabetes mellitus, and end-stage renal disease on hemodialysis who presented to the emergency room complaining of right knee swelling and tenderness with the right knee MRI showing prepatellar soft tissue swelling and irregular fluid collection consistent with an abscess. 1. Right knee soft tissue abscess. Status post incision and drainage on 06/18/2019. Continue antimicrobials as per ID. 2. Diabetes mellitus. Continue sliding scale insulin along with basal insulin. 3. Hypertension. Continue antihypertensives. 4. Dyslipidemia. Continue statins. 5. MRSA colonization of the nares. Continue Bactroban. 6. Normocytic anemia. Most probably anemia chronic kidney disease. Monitor H&H closely. 7. End-stage renal disease on hemodialysis. Ultrafiltration as per nephrology. 8. Fluids, electrolytes, and nutrition. Renal diet. 9. DVT prophylaxis. Subcutaneous heparin. 10. Plan. Continue antimicrobials as per ID. Local dressing changes as per general surgery. Await clinical improvement before discharging the patient home. The patient was seen in collaboration with Dr. Persaud. Result Diagram: 06/19/19 0509 06/19/19 0509 Results 24hrs Laboratory Tests Test 06/18/19 20:23 06/19/19 05:09 06/19/19 07:52 06/19/19 12:24 Bedside Glucose 84 70 153 White Blood Count 9.2 Red Blood Count 3.15 L Hemoglobin 9.3 L Hematocrit 29.8 L Mean Corpuscular Volume 94.6 Mean Corpuscular 29.5 Hemoglobin Mean Corpuscular 31.2 L Hemoglobin Concent Red Cell Distribution 15.8 H Width Platelet Count 314 Mean Platelet Volume 10.5 H Immature Granulocytes % 1.800 H Neutrophils % 61.9 Lymphocytes % 19.6 Monocytes % 9.2 Eosinophils % 6.4 Basophils % 1.1 Nucleated Red Blood 0.0 Cells % Immature Granulocytes # 0.170 H Neutrophils # 5.7 Lymphocytes # 1.8 Monocytes # 0.9 Eosinophils # 0.6 H Basophils # 0.1 Nucleated Red Blood 0.0 Cells # Sodium Level 139 Potassium Level 4.8 Chloride Level 98 Carbon Dioxide Level 28 Anion Gap 13 Blood Urea Nitrogen 56 H Creatinine 8.36 H Est Glomerular Filtrat 7 L Rate mL/min Glucose Level 72 # Calcium Level 9.1 Test 06/19/19 17:07 Bedside Glucose 145 Exam/Review of Systems Exam Vitals Vital Signs Date Temp Pulse Resp B/P (MAP) Pulse Ox O2 O2 Flow FiO2 Time Delivery Rate 06/19/19 97.9 71 19 118/62 92 02:10 (80) 06/17/19 Room Air 14:00 Intake and Output 06/18/19 06/18/19 06/19/19 1414:59 22:59 06:59 IntakeIntake Total 480 ml 850 ml BalanceBalance 480 ml 850 ml Results Results 24hrs Laboratory Tests Test 06/18/19 20:23 06/19/19 05:09 06/19/19 07:52 06/19/19 12:24 Bedside Glucose 84 70 153 White Blood Count 9.2 Red Blood Count 3.15 L Hemoglobin 9.3 L Hematocrit 29.8 L Mean Corpuscular Volume 94.6 Mean Corpuscular 29.5 Hemoglobin Mean Corpuscular 31.2 L Hemoglobin Concent Red Cell Distribution 15.8 H Width Platelet Count 314 Mean Platelet Volume 10.5 H Immature Granulocytes % 1.800 H Neutrophils % 61.9 Lymphocytes % 19.6 Monocytes % 9.2 Eosinophils % 6.4 Basophils % 1.1 Nucleated Red Blood 0.0 Cells % Immature Granulocytes # 0.170 H Neutrophils # 5.7 Lymphocytes # 1.8 Monocytes # 0.9 Eosinophils # 0.6 H Basophils # 0.1 Nucleated Red Blood 0.0 Cells # Sodium Level 139 Potassium Level 4.8 Chloride Level 98 Carbon Dioxide Level 28 Anion Gap 13 Blood Urea Nitrogen 56 H Creatinine 8.36 H Est Glomerular Filtrat 7 L Rate mL/min Glucose Level 72 # Calcium Level 9.1 Test 06/19/19 17:07 Bedside Glucose 145 Medications Medication Current Medications IV Flush (NS 3 ml) 3 ml PER PROTOCOL IV ; Start 06/14/19 at 02:30 Ondansetron HCl (Zofran Inj) 4 mg Q6H PRN IV NAUSEA/VOMITING Last administered on 06/14/19at 14:52; Admin Dose 4 MG; Start 06/14/19 at 02:30 Acetaminophen (Tylenol Tab) 650 mg Q6H PRN PO .PAIN 1-3 OR TEMP; Start 06/14/19 at 02:30 Acetaminophen/ Hydrocodone Bitart ([place] (5/325)) 1 tab Q6H PRN PO .MOD PAIN 4-6; Start 06/14/19 at 02:30 Acetaminophen/ Hydrocodone Bitart ([place] (5/325)) 2 tab Q6H PRN PO .SEVERE PAIN 7-10 Last administered on 06/18/19at 10:41; Admin Dose 2 TAB; Start 06/14/19 at 02:30 Heparin Sodium (Porcine) (Heparin (5000 Units/1ml)) 5,000 unit Q12 SC Last administered on 06/19/19at 08:19; Admin Dose 5,000 UNIT; Start 06/14/19 at 09:00 Albuterol/ Ipratropium (Duoneb) 3 ml Q2H RESP THERAPY PRN HHN SHORTNESS OF BREATH; Start 06/14/19 at 02:30 Diagnostic Test (Pha) (Accu-Chek) 1 ea 02 XX ; Start 06/15/19 at 02:00 Insulin Aspart (Novolog Insulin Pen) 5 unit WITH MEALS SC Last administered on 06/19/19 12:28; Admin Dose 5 UNIT; Start 06/14/19 at 07:35 Insulin Aspart (Novolog Insulin Pen) NOVOLOG *MILD* ALGORITHM WITH MEALS BEDTIME SC Last administered on 06/19/19 12:27; Admin Dose 1 UNIT; Start 06/14/19 at 08:00 Allopurinol (Zyloprim) 100 mg DAILY PO Last administered on 06/19/19 08:18; Admin Dose 100 MG; Start 06/14/19 at 09:00 Atorvastatin Calcium (Lipitor) 80 mg QHS PO Last administered on 06/18/19 20:20; Admin Dose 80 MG; Start 06/14/19 at 21:00 Calcium Acetate (Phoslo) 1,334 mg WITH MEALS PO Last administered on 06/19/19 12:26; Admin Dose 1,334 MG; Start 06/14/19 at 07:35 Carvedilol (Coreg) 3.125 mg BID PO Last administered on 06/19/19 08:27; Admin Dose 3.125 MG; Start 06/14/19 at 09:00 Citalopram Hydrobromide (Citalopram) 10 mg DAILY PO Last administered on 08:18; Admin Dose 10 MG; Start 06/14/19 at 09:00 Furosemide (Lasix) 80 mg DAILY PO Last administered on 06/19/19 08:25; Admin Dose 80 MG; Start 06/14/19 at 09:00 Mirtazapine (Remeron) 7.5 mg HS PO Last administered on 06/18/19 20:21; Admin Dose 7.5 MG; Start 06/14/19 at 21:00 Nifedipine (Procardia Xl) 30 mg DAILY PO Last administered on 06/19/19 08:27; Admin Dose 30 MG; Start 06/14/19 at 09:00 Ranitidine HCl (Zantac) 150 mg HS PO Last administered on 06/18/19 20:20; Admin Dose 150 MG; Start 06/14/19 at 21:00 Tamsulosin HCl (Flomax) 0.4 mg HS PO Last administered on 06/18/19 20:20; Admin Dose 0.4 MG; Start 06/14/19 at 21:00 Miscellaneous Information 1 ea NOTE XX ; Start 06/14/19 at 03:30 Glucose (Glutose) 15 gm Q15M PRN PO DECREASED GLUCOSE; Start 06/14/19 at 03:30 Glucose (Glutose) 22.5 gm Q15M PRN PO DECREASED GLUCOSE; Start 06/14/19 at 03:30 Dextrose (D50w Syringe) 25 ml Q15M PRN IV DECREASED GLUCOSE; Start 06/14/19 at 03:30 Dextrose (D50w Syringe) 50 ml Q15M PRN IV DECREASED GLUCOSE; Start 06/14/19 at 03:30 Glucagon (Glucagen) 1 mg Q15M PRN IM DECREASED GLUCOSE; Start 06/14/19 at 03:30 Glucose (Glutose) 15 gm Q15M PRN BUCCAL DECREASED GLUCOSE; Start 06/14/19 at 03:30 Fish Oil (Fish Oil) 1,000 mg BID PO Last administered on 06/19/19 08:18; Admin Dose 1,000 MG; Start 06/14/19 at 09:00 Epoetin Tutu-epbx (Retacrit (Esrd)) 10,000 unit MoWeFr@1700 SC Last admi nistered on 06/16/19at 22:33; Admin Dose 10,000 UNIT; Start 06/16/19 at 17:00 Bacitracin (Bacitracin 0.5%/ Zinc Oint) 1 applic BID TOP Last administered on 06/19/19at 08:22; Admin Dose 1 APPLIC; Start 06/15/19 at 21:00 Vancomycin HCl (Vanco Iv Per Pharmacy) VANCOMYCIN PER PHARMACY PER PROTOCOL XX ; Start 06/15/19 at 15:30 Mupirocin (Bactroban) 1 applic BID TOP Last administered on 06/19/19at 08:21; Admin Dose 1 APPLIC; Start 06/15/19 at 16:30 Insulin Glargine (Lantus) 10 units HS SC Last administered on 06/18/19at 20:25; Admin Dose 10 UNITS; Start 06/15/19 at 21:00 Miscellaneous Information Patients own medicat... BID@10,16 XX ; Start 06/16/19 at 10:00 PADDY EWING NP Jun 19, 2019 17:14
[2019-06-19] MEDS: HYDROCODONE/APAP (5/325) TAB PO PRN ×2 (19:47→20:47)
[2019-06-19] MEDS: RANITIDINE 150 MG TAB PO SCH (20:25)
[2019-06-19] MEDS: TAMSULOSIN (SR) 0.4 MG CAP PO SCH (20:25)
[2019-06-19] MEDS: MIRTAZAPINE 15 MG TAB PO SCH (20:26)
[2019-06-19] MEDS: ATORVASTATIN 80 MG TAB PO SCH (20:26)
[2019-06-19] MEDS: INSULIN GLARGINE [LANTus] (100 UNITS/ML) SYG SC SCH (20:28)
[2019-06-19 20:48] VITALS: BP 133/63; PULSE 67; RESP 17
[2019-06-20] VITALS (18 sets, daily range): BP systolic 128–172; BP diastolic 61–90; PULSE 68–77; RESP 15–20
[2019-06-20] MEDS: ACCU-CHEK XX SCH (01:12)
[2019-06-20] MEDS: INSULIN ASPART [NOVOLOG] 3 ML PEN SC SCH ×7 (07:35→20:46)
[2019-06-20] MEDS: FISH OIL 1,000 MG CAP PO SCH ×2 (08:39→20:37)
[2019-06-20] MEDS: CALCIUM ACETATE 667 MG CAP PO SCH ×3 (08:39→17:04)
[2019-06-20] MEDS: ALLOPURINOL 100 MG TAB PO SCH (08:39)
[2019-06-20] MEDS: CITALOPRAM 10 MG TAB PO SCH (08:39)
[2019-06-20] MEDS: HEPARIN 5,000 UNIT/1 ML VIAL SC SCH ×2 (08:40→20:51)
[2019-06-20] MEDS: MUPIROCIN 2% 22 GM OINT TOP SCH ×2 (08:41→20:48)
[2019-06-20] MEDS: BACITRACIN 0.5%/ZINC 28.35 GM OINT TOP SCH ×2 (08:41→20:49)
[2019-06-20] MEDS: NIFEdipine (XL) 30 MG TAB PO SCH ×2 (08:44→14:38)
[2019-06-20] MEDS: FUROSEMIDE 40 MG TAB PO SCH ×2 (08:44→14:39)
--- NOTE | 2019-06-20 09:11 | PN ---
DATE: 06/20/2019 SUBJECTIVE: The patient is stable. No events overnight. OBJECTIVE: VITAL SIGNS: Blood pressure is 128/65, respirations 17, pulse 71, temperature 98.6. HEENT: Head is normocephalic. NECK: Supple. HEART: Regular rate. LUNGS: Show diminished breath sounds at the base. ABDOMEN: Soft, nontender to palpation. No rebound or guarding. EXTREMITIES: Negative for clubbing, cyanosis, no edema. DERMATOLOGIC: No rashes. MUSCULOSKELETAL: No joint effusion. NEUROLOGIC: No change in exam. MEDICATIONS: Have been reviewed. LABORATORY DATA: Has been reviewed. IMAGING STUDIES: Have been reviewed. ASSESSMENT AND PLAN: 1. End-stage renal disease. Plan for hemodialysis today. Will dialyze 3 hours, 2k bath, calcium 2. 5. 2. Anemia. Monitor hemoglobin and hematocrit levels. Will give Epogen as needed. 3. Mineral bone disorder. Monitor calcium and phosphorus levels. 4. Hypertension. Continue current blood pressure regimen. Continue ultrafiltration with dialysis. 5. Hyperkalemia. Continue dialysis on a low potassium bath. 6. Cellulitis. Continue current antibiotic therapy. 7. Diabetes. Continue current insulin regimen. Dictated By: MEGHAN CASILLAS DO NR/NTS Conf#: [id number] DID#: [id number] CC: MICHEL HERNANDEZ MD;*EndCC*
--- NOTE | 2019-06-20 13:57 | PN ---
Date/Time of Note Date/Time of Note DATE: 06/20/19 TIME: 13:56 Assessment/Plan VTE Prophylaxis Risk score (from Ns)>0 risk: 4 SCD applied (from Ns): No SCD contraindicated: other Pharmacological prophylaxis: heparin Lines/Catheters IV C[facility]ter Type [facility]from [facility] Urinary Cath still in place: No Assessment/Plan Hospital Course SUBJECTIVE: Complains of minimal right knee pain. OBJECTIVE: Physical Exam General: Adequately build 63 year-old male lying in bed in no apparent distress. HEENT: Normocephalic, atraumatic. Eyes: Anicteric sclerae, conjunctivae clear. ENT: Nasal septum midline, oral mucosa moist. Neck supple, no JVD noticed. Respiratory: Bilaterally diminished breath sounds. No use of accessory muscles of respiration. No adventitious breath sounds. Cardiovascular: S1, S2 heard. Regular rate and rhythm. Abdomen: Soft, nontender, and nondistended. Bowel sounds positive in all 4 quadrants. Genitourinary: Deferred. Extremities: No cyanosis, no clubbing. Right knee surgical dressing in place. Neurologic: Cranial nerves II through XII grossly intact. The patient is awake, alert, and oriented. Labs & Vitals per chart ASSESSMENT & PLAN 63-year-old male with comorbidities including hypertension, diabetes mellitus, and end-stage renal disease on hemodialysis who presented to the emergency room complaining of right knee swelling and tenderness with the right knee MRI showing prepatellar soft tissue swelling and irregular fluid collection consistent with an abscess. 1. Right knee soft tissue abscess. Status post incision and drainage on 06/18/2019. Continue antimicrobials as per ID. 2. Diabetes mellitus. Continue sliding scale insulin along with basal insulin. 3. Hypertension. Continue antihypertensives. 4. Dyslipidemia. Continue statins. 5. MRSA colonization of the nares. Continue Bactroban. 6. Normocytic anemia. Most probably anemia chronic kidney disease. Monitor H&H closely. 7. End-stage renal disease on hemodialysis. Ultrafiltration as per nephrology. 8. Fluids, electrolytes, and nutrition. Renal diet. 9. DVT prophylaxis. Subcutaneous heparin. 10. Plan. Continue antimicrobials as per ID. Local dressing changes as per general surgery. Await clinical improvement before discharging the patient home. The patient was seen in collaboration with Dr. Persaud. Result Diagram: 06/20/1942706/20/19427 Results 24hrs Laboratory Tests Test 06/19/19 17:07 06/19/19 20:25 06/20/19 04:28 06/20/19 08:07 Bedside Glucose 145 129 103 White Blood Count 8.6 Red Blood Count 3.25 L Hemoglobin 9.5 L Hematocrit 30.6 L Mean Corpuscular Volume 94.2 Mean Corpuscular 29.2 Hemoglobin Mean Corpuscular 31.0 L Hemoglobin Concent Red Cell Distribution 15.7 H Width Platelet Count 318 Mean Platelet Volume 10.1 Immature Granulocytes % 1.700 H Neutrophils % 59.5 Lymphocytes % 22.1 Monocytes % 8.5 Eosinophils % 7.2 H Basophils % 1.0 Nucleated Red Blood 0.0 Cells % Immature Granulocytes # 0.150 H Neutrophils # 5.1 Lymphocytes # 1.9 Monocytes # 0.7 Eosinophils # 0.6 H Basophils # 0.1 Nucleated Red Blood 0.0 Cells # Sodium Level 138 Potassium Level 5.1 Chloride Level 98 Carbon Dioxide Level 25 Anion Gap 15 H Blood Urea Nitrogen 62 H Creatinine 9.76 H Est Glomerular Filtrat 5 L Rate mL/min Glucose Level 117 # Calcium Level 8.9 Phosphorus Level 6.8 H Magnesium Level 2.2 Test 06/20/19 12:26 Bedside Glucose 129 Exam/Review of Systems Exam Vitals Vital Signs Date Temp Pulse Resp B/P (MAP) Pulse Ox O2 O2 Flow FiO2 Time Delivery Rate 06/20/19 72 13:20 06/20/19 98.0 15 132/61 95 08:00 (84) 06/17/19 Room Air 14:00 Intake and Output 06/19/19 06/19/19 06/20/19 1515:00 23:00 07:00 IntakeIntake Total 600 ml BalanceBalance 600 ml Results Results 24hrs Laboratory Tests Test 06/19/19 17:07 06/19/19 20:25 06/20/19 04:28 06/20/19 08:07 Bedside Glucose 145 129 103 White Blood Count 8.6 Red Blood Count 3.25 L Hemoglobin 9.5 L Hematocrit 30.6 L Mean Corpuscular Volume 94.2 Mean Corpuscular 29.2 Hemoglobin Mean Corpuscular 31.0 L Hemoglobin Concent Red Cell Distribution 15.7 H Width Platelet Count 318 Mean Platelet Volume 10.1 Immature Granulocytes % 1.700 H Neutrophils % 59.5 Lymphocytes % 22.1 Monocytes % 8.5 Eosinophils % 7.2 H Basophils % 1.0 Nucleated Red Blood 0.0 Cells % Immature Granulocytes # 0.150 H Neutrophils # 5.1 Lymphocytes # 1.9 Monocytes # 0.7 Eosinophils # 0.6 H Basophils # 0.1 Nucleated Red Blood 0.0 Cells # Sodium Level 138 Potassium Level 5.1 Chloride Level 98 Carbon Dioxide Level 25 Anion Gap 15 H Blood Urea Nitrogen 62 H Creatinine 9.76 H Est Glomerular Filtrat 5 L Rate mL/min Glucose Level 117 # Calcium Level 8.9 Phosphorus Level 6.8 H Magnesium Level 2.2 Test 06/20/19 12:26 Bedside Glucose 129 Medications Medication Current Medications IV Flush (NS 3 ml) 3 ml PER PROTOCOL IV ; Start 06/14/19 at 02:30 Ondansetron HCl (Zofran Inj) 4 mg Q6H PRN IV NAUSEA/VOMITING Last administered on 06/14/19at 14:52; Admin Dose 4 MG; Start 06/14/19 at 02:30 Acetaminophen (Tylenol Tab) 650 mg Q6H PRN PO .PAIN 1-3 OR TEMP; Start 06/14/19 at 02:30 Acetaminophen/ Hydrocodone Bitart ([place] (5/325)) 1 tab Q6H PRN PO .MOD PAIN 4- 6; Start 06/14/19 at 02:30 Acetaminophen/ Hydrocodone Bitart ([place] (5/325)) 2 tab Q6H PRN PO .SEVERE PAIN 7-10 Last administered on 06/19/19at 19:47; Admin Dose 2 TAB; Start 06/14/19 at 02:30 Heparin Sodium (Porcine) (Heparin (5000 Units/1ml)) 5,000 unit Q12 SC Last administered on 06/20/19at 08:40; Admin Dose 5,000 UNIT; Start 06/14/19 at 09:00 Albuterol/ Ipratropium (Duoneb) 3 ml Q2H RESP THERAPY PRN HHN SHORTNESS OF BREATH; Start 06/14/19 at 02:30 Diagnostic Test (Pha) (Accu-Chek) 1 ea 02 XX ; Start 06/15/19 at 02:00 Insulin Aspart (Novolog Insulin Pen) 5 unit WITH MEALS SC Last administered on 06/19/19at 17:11; Admin Dose 5 UNIT; Start 06/14/19 at 07:35 Insulin Aspart (Novolog Insulin Pen) NOVOLOG *MILD* ALGORITHM WITH MEALS BEDTIME SC Last administered on 06/19/19 17:09; Admin Dose 1 UNIT; Start 06/14/19 at 08:00 Allopurinol (Zyloprim) 100 mg DAILY PO Last administered on 06/20/19 08:39; Admin Dose 100 MG; Start 06/14/19 at 09:00 Atorvastatin Calcium (Lipitor) 80 mg QHS PO Last administered on 06/19/19 20:26; Admin Dose 80 MG; Start 06/14/19 at 21:00 Calcium Acetate (Phoslo) 1,334 mg WITH MEALS PO Last administered on 06/20/19 08:39; Admin Dose 1,334 MG; Start 06/14/19 at 07:35 Carvedilol (Coreg) 3.125 mg BID PO Last administered on 06/19/19 20:26; Admin Dose 3.125 MG; Start 06/14/19 at 09:00 Citalopram Hydrobromide (Citalopram) 10 mg DAILY PO Last administered on 06/20/19 08:39; Admin Dose 10 MG; Start 06/14/19 at 09:00 Furosemide (Lasix) 80 mg DAILY PO Last administered on 06/19/19 08:25; Admin Dose 80 MG; Start 06/14/19 at 09:00 Mirtazapine (Remeron) 7.5 mg HS PO Last administered on 06/19/19 20:26; Admin Dose 7.5 MG; Start 06/14/19 at 21:00 Nifedipine (Procardia Xl) 30 mg DAILY PO Last administered on 06/19/19 08:27; Admin Dose 30 MG; Start 06/14/19 at 09:00 Ranitidine HCl (Zantac) 150 mg HS PO Last administered on 06/19/19 20:25; Admin Dose 150 MG; Start 06/14/19 at 21:00 Tamsulosin HCl (Flomax) 0.4 mg HS PO Last administered on 06/19/19 20:25; Admin Dose 0.4 MG; Start 06/14/19 at 21:00 Miscellaneous Information 1 ea NOTE XX ; Start 06/14/19 at 03:30 Glucose (Glutose) 15 gm Q15M PRN PO DECREASED GLUCOSE; Start 06/14/19 at 03:30 Glucose (Glutose) 22.5 gm Q15M PRN PO DECREASED GLUCOSE; Start 06/14/19 at 03:30 Dextrose (D50w Syringe) 25 ml Q15M PRN IV DECREASED GLUCOSE; Start 06/14/19 at 03:30 Dextrose (D50w Syringe) 50 ml Q15M PRN IV DECREASED GLUCOSE; Start 06/14/19 at 03:30 Glucagon (Glucagen) 1 mg Q15M PRN IM DECREASED GLUCOSE; Start 06/14/19 at 03:30 Glucose (Glutose) 15 gm Q15M PRN BUCCAL DECREASED GLUCOSE; Start 06/14/19 at 03:30 Fish Oil (Fish Oil) 1,000 mg BID PO Last administered on 06/20/19at 08:39; Admin Dose 1,000 MG; Start 06/14/19 at 09:00 Epoetin Tutu-epbx (Retacrit (Esrd)) 10,000 unit MoWeFr@1700 SC Last administered on 06/19/19at 17:08; Admin Dose 10,000 UNIT; Start 06/16/19 at 17:00 Bacitracin (Bacitracin 0.5%/ Zinc Oint) 1 applic BID TOP Last administered on 06/19/19at 20:30; Admin Dose 1 APPLIC; Start 06/15/19 at 21:00 Vancomycin HCl (Vanco Iv Per Pharmacy) VANCOMYCIN PER PHARMACY PER PROTOCOL XX ; Start 06/15/19 at 15:30 Mupirocin (Bactroban) 1 applic BID TOP Last administered on 06/19/19at 20:30; Admin Dose 1 APPLIC; Start 06/15/19 at 16:30 Insulin Glargine (Lantus) 10 units HS SC Last administered on 06/19/19at 20:28; Admin Dose 10 UNITS; Start 06/15/19 at 21:00 Miscellaneous Information Patients own medicat... BID@ XX ; Start 06/16/19 at 10:00 PADDY EWING NP Jun 20, 2019 13:56
--- NOTE | 2019-06-20 15:00 | CONS ---
Assessment/Plan Assessment/Plan Hospital Course (Demo Recall) No acute changes awake feels good looks comfortable no fevers overnight Antimicrobials: Vanco Physical examination: Well-developed well-nourished elderly man who is awake in no distress. Head atraumatic normocephalic neck is supple chest rise symmetrical breath sounds clear. Heart: S1-S2. Abdomen soft bowel sounds present. Extremities: right knee with open wound and slight erythema surrounding it, no purulence Assessment: 1. Right knee cellulitis/abscess s/p i/d 2. End-stage renal disease, hemodialysis dependent 3. Diabetes 4. Hypertension 5. MRSA colonization Plan: Remains stable, continue antibiotics, wound culture Consultation Date/Type/Reason Admit Date/Time Jun 14, 2019 at 00:56 Initial Consult Date Type of Consult id Date/Time of Note DATE: 06/20/19 TIME: 14:59 Exam/Review of Systems Exam Vitals Vital Signs Date Temp Pulse Resp B/P (MAP) Pulse Ox O2 O2 Flow FiO2 Time Delivery Rate 06/20/19 97.7 77 18 158/66 95 14:42 (96) 06/20/19 Room Air 11:55 Intake and Output 06/19/19 06/19/19 06/20/19 1515:00 23:00 07:00 IntakeIntake Total 600 ml BalanceBalance 600 ml Results Result Diagram: 06/20/19 0428 06/20/19 0428 Results 24hrs Laboratory Tests Test 06/19/19 17:07 06/19/19 20:25 06/20/19 04:28 06/20/19 08:07 Bedside Glucose 145 129 103 White Blood Count 8.6 Red Blood Count 3.25 L Hemoglobin 9.5 L Hematocrit 30.6 L Mean Corpuscular Volume 94.2 Mean Corpuscular 29.2 Hemoglobin Mean Corpuscular 31.0 L Hemoglobin Concent Red Cell Distribution 15.7 H Width Platelet Count 318 Mean Platelet Volume 10.1 Immature Granulocytes % 1.700 H Neutrophils % 59.5 Lymphocytes % 22.1 Monocytes % 8.5 Eosinophils % 7.2 H Basophils % 1.0 Nucleated Red Blood 0.0 Cells % Immature Granulocytes # 0.150 H Neutrophils # 5.1 Lymphocytes # 1.9 Monocytes # 0.7 Eosinophils # 0.6 H Basophils # 0.1 Nucleated Red Blood 0.0 Cells # Sodium Level 138 Potassium Level 5.1 Chloride Level 98 Carbon Dioxide Level 25 Anion Gap 15 H Blood Urea Nitrogen 62 H Creatinine 9.76 H Est Glomerular Filtrat 5 L Rate mL/min Glucose Level 117 # Calcium Level 8.9 Phosphorus Level 6.8 H Magnesium Level 2.2 Test 06/20/19 12:26 Bedside Glucose 129 Medications Medication Current Medications IV Flush (NS 3 ml) 3 ml PER PROTOCOL IV ; Start 06/14/19 at 02:30 Ondansetron HCl (Zofran Inj) 4 mg Q6H PRN IV NAUSEA/VOMITING Last administered on 06/14/19at 14:52; Admin Dose 4 MG; Start 06/14/19 at 02:30 Acetaminophen (Tylenol Tab) 650 mg Q6H PRN PO .PAIN 1-3 OR TEMP; Start 06/14/19 at 02:30 Acetaminophen/ Hydrocodone Bitart ([place] (5/325)) 1 tab Q6H PRN PO .MOD PAIN 4- 6; Start 06/14/19 at 02:30 Acetaminophen/ Hydrocodone Bitart ([place] (5/325)) 2 tab Q6H PRN PO .SEVERE PAIN 7-10 Last administered on 06/19/19 19:47; Admin Dose 2 TAB; Start 06/14/19 at 02:30 Heparin Sodium (Porcine) (Heparin (5000 Units/1ml)) 5,000 unit Q12 SC Last administered on 06/20/19at 08:40; Admin Dose 5,000 UNIT; Start 06/14/19 at 09:00 Albuterol/ Ipratropium (Duoneb) 3 ml Q2H RESP THERAPY PRN HHN SHORTNESS OF BREATH; Start 06/14/19 at 02:30 Diagnostic Test (Pha) (Accu-Chek) 1 ea 02 XX ; Start 06/15/19 at 02:00 Insulin Aspart (Novolog Insulin Pen) 5 unit WITH MEALS SC Last administered on 06/19/19 17:11; Admin Dose 5 UNIT; Start 06/14/19 at 07:35 Insulin Aspart (Novolog Insulin Pen) NOVOLOG *MILD* ALGORITHM WITH MEALS BEDTIM E SC Last administered on 06/19/19 17:09; Admin Dose 1 UNIT; Start 06/14/19 at 08:00 Allopurinol (Zyloprim) 100 mg DAILY PO Last administered on 06/20/19 08:39; Admin Dose 100 MG; Start 06/14/19 at 09:00 Atorvastatin Calcium (Lipitor) 80 mg QHS PO Last administered on 06/19/19 20:26; Admin Dose 80 MG; Start 06/14/19 at 21:00 Calcium Acetate (Phoslo) 1,334 mg WITH MEALS PO Last administered on 06/20/19 08:39; Admin Dose 1,334 MG; Start 06/14/19 at 07:35 Carvedilol (Coreg) 3.125 mg BID PO Last administered on 06/20/19 14:38; Admin Dose 3.125 MG; Start 06/14/19 at 09:00 Citalopram Hydrobromide (Citalopram) 10 mg DAILY PO Last administered on 06/20/19 08:39; Admin Dose 10 MG; Start 06/14/19 at 09:00 Furosemide (Lasix) 80 mg DAILY PO Last administered on 06/20/19 14:39; Admin Dose 80 MG; Start 06/14/19 at 09:00 Mirtazapine (Remeron) 7.5 mg HS PO Last administered on 06/19/19 20:26; Admin Dose 7.5 MG; Start 06/14/19 at 21:00 Nifedipine (Procardia Xl) 30 mg DAILY PO Last administered on 06/20/19 14:38; Admin Dose 30 MG; Start 06/14/19 at 09:00 Ranitidine HCl (Zantac) 150 mg HS PO Last administered on 06/19/19 20:25; Admin Dose 150 MG; Start 06/14/19 at 21:00 Tamsulosin HCl (Flomax) 0.4 mg HS PO Last administered on 06/19/19 20:25; Admin Dose 0.4 MG; Start 06/14/19 at 21:00 Miscellaneous Information 1 ea NOTE XX ; Start 06/14/19 at 03:30 Glucose (Glutose) 15 gm Q15M PRN PO DECREASED GLUCOSE; Start 06/14/19 at 03:30 Glucose (Glutose) 22.5 gm Q15M PRN PO DECREASED GLUCOSE; Start 06/14/19 at 03:30 Dextrose (D50w Syringe) 25 ml Q15M PRN IV DECREASED GLUCOSE; Start 06/14/19 at 03:30 Dextrose (D50w Syringe) 50 ml Q15M PRN IV DECREASED GLUCOSE; Start 06/14/19 at 03:30 Glucagon (Glucagen) 1 mg Q15M PRN IM DECREASED GLUCOSE; Start 06/14/19 at 03:30 Glucose (Glutose) 15 gm Q15M PRN BUCCAL DECREASED GLUCOSE; Start 06/14/19 at 03:30 Fish Oil (Fish Oil) 1,000 mg BID PO Last administered on 06/20/19at 08:39; Admin Dose 1,000 MG; Start 06/14/19 at 09:00 Epoetin Tutu-epbx (Retacrit (Esrd)) 10,000 unit MoWeFr@1700 SC Last administered on 06/19/19at 17:08; Admin Dose 10,000 UNIT; Start 06/16/19 at 17:00 Bacitracin (Bacitracin 0.5%/ Zinc Oint) 1 applic BID TOP Last administered on 06/19/19at 20:30; Admin Dose 1 APPLIC; Start 06/15/19 at 21:00 Vancomycin HCl (Vanco Iv Per Pharmacy) VANCOMYCIN PER PHARMACY PER PROTOCOL XX ; Start 06/15/19 at 15:30 Mupirocin (Bactroban) 1 applic BID TOP Last administered on 06/19/19at 20:30; Admin Dose 1 APPLIC; Start 06/15/19 at 16:30 Insulin Glargine (Lantus) 10 units HS SC Last administered on 06/19/19at 20:28; Admin Dose 10 UNITS; Start 06/15/19 at 21:00 Miscellaneous Information Patients own medicat... BID@ XX ; Start 06/16/19 at 10:00 MARION BELL NP Jun 20, 2019 15:00
[2019-06-20] MEDS: RANITIDINE 150 MG TAB PO SCH (20:37)
[2019-06-20] MEDS: ATORVASTATIN 80 MG TAB PO SCH (20:37)
[2019-06-20] MEDS: TAMSULOSIN (SR) 0.4 MG CAP PO SCH (20:37)
[2019-06-20] MEDS: MIRTAZAPINE 15 MG TAB PO SCH (20:38)
[2019-06-20] MEDS: INSULIN GLARGINE [LANTus] (100 UNITS/ML) SYG SC SCH (20:52)
[2019-06-21] MEDS: HYDROCODONE/APAP (5/325) TAB PO PRN (00:33)
[2019-06-21] MEDS: ACCU-CHEK XX SCH (01:18)
[2019-06-21 02:26] VITALS: BP 99/54; PULSE 62; RESP 20
[2019-06-21] MEDS: INSULIN ASPART [NOVOLOG] 3 ML PEN SC SCH ×7 (07:35→21:00)
[2019-06-21 08:00] VITALS: BP 117/59; PULSE 66; RESP 18
[2019-06-21] MEDS: CITALOPRAM 10 MG TAB PO SCH (08:21)
[2019-06-21] MEDS: CALCIUM ACETATE 667 MG CAP PO SCH ×3 (08:21→17:29)
[2019-06-21] MEDS: ALLOPURINOL 100 MG TAB PO SCH (08:23)
[2019-06-21] MEDS: FISH OIL 1,000 MG CAP PO SCH ×2 (08:23→20:38)
[2019-06-21] MEDS: NIFEdipine (XL) 30 MG TAB PO SCH (08:23)
[2019-06-21] MEDS: FUROSEMIDE 40 MG TAB PO SCH (08:23)
[2019-06-21] MEDS: BACITRACIN 0.5%/ZINC 28.35 GM OINT TOP SCH ×2 (08:24→21:07)
[2019-06-21] MEDS: MUPIROCIN 2% 22 GM OINT TOP SCH ×2 (08:24→20:48)
[2019-06-21] MEDS: HEPARIN 5,000 UNIT/1 ML VIAL SC SCH ×2 (08:37→20:43)
--- NOTE | 2019-06-21 09:49 | PN ---
DATE: 06/21/2019 SUBJECTIVE: The patient is stable. No events overnight. OBJECTIVE: VITAL SIGNS: Blood pressure 99/54, respirations 20, pulse is 63, temperature 97.9. HEENT: Head is normocephalic. NECK: Supple. HEART: Regular rate. LUNGS: Show diminished breath sounds at the base. ABDOMEN: Soft, nontender to palpation without rebound or guarding. EXTREMITIES: Negative for clubbing, cyanosis, no edema. DERMATOLOGIC: No rashes. MUSCULOSKELETAL: No joint effusion. NEUROLOGIC: No change in exam. MEDICATIONS: Reviewed. LABORATORY DATA: Has been reviewed. IMAGING STUDIES: Have been reviewed. ASSESSMENT AND PLAN: 1. End-stage renal disease. The patient had hemodialysis yesterday, tolerated well. Plan for dialy sis tomorrow. 2. Hyperkalemia. Continue dialysis on a low potassium bath. 3. Anemia. Monitor hemoglobin and hematocrit levels. Give Epogen as needed. 4. Mineral bone disorder. Monitor calcium and phosphorus levels. 5. Hypertension. Continue current blood pressure regimen. Continue ultrafiltration with dialysis. 6. Cellulitis. Continue antibiotic therapy. 7. Diabetes. Continue current insulin regimen. Dictated By: MEGHAN CASILLAS DO NR/NTS Conf#: [id number] DID#: [id number] CC: MICHEL HERNANDEZ MD;*EndCC*
--- NOTE | 2019-06-21 11:09 | CONS ---
Assessment/Plan Assessment/Plan Hospital Course (Demo Recall) No acute changes looks comfortable no fevers overnight Antimicrobials: Vanco Physical examination: Well-developed well-nourished elderly man who is awake in no distress. Head atraumatic normocephalic neck is supple chest rise symmetrical breath sounds clear. Heart: S1-S2. Abdomen soft bowel sounds present. Extremities: right knee with open wound and slight erythema surroundin g it, no purulence Assessment: 1. Right knee cellulitis/abscess s/p i/d 2. End-stage renal disease, hemodialysis dependent 3. Diabetes 4. Hypertension 5. MRSA colonization Plan: Remains stable, continue antibiotics, await for wound culture Consultation Date/Type/Reason Admit Date/Time Jun 14, 2019 at 00:56 Initial Consult Date Type of Consult id Date/Time of Note DATE: 06/21/19 TIME: 11:08 Exam/Review of Systems Exam Vitals Vital Signs Date Temp Pulse Resp B/P (MAP) Pulse Ox O2 O2 Flow FiO2 Time Delivery Rate 06/21/19 97.7 66 18 117/59 96 08:00 (78) 06/20/19 Room Air 11:55 Intake and Output 06/20/19 06/20/19 06/21/19 1515:00 23:00 07:00 IntakeIntake Total 560 ml 250 ml OutputOutput Total 07755 ml BalanceBalance -21876 ml 560 ml 250 ml Results Result Diagram: 06/21/19 0457 06/21/19 0456 Results 24hrs Laboratory Tests Test 06/20/19 12:26 06/20/19 17:03 06/20/19 20:46 06/21/19 04:56 Bedside Glucose 129 162 132 Sodium Level 138 Potassium Level 4.6 Chloride Level 98 Carbon Dioxide Level 29 Anion Gap 11 Blood Urea Nitrogen 39 #H Creatinine 7.13 #H Est Glomerular Filtrat 8 L Rate mL/min Glucose Level 95 Calcium Level 9.0 Test 06/21/19 04:57 06/21/19 08:19 White Blood Count 9.0 Red Blood Count 3.26 L Hemoglobin 9.5 L Hematocrit 31.1 L Mean Corpuscular Volume 95.4 Mean Corpuscular 29.1 Hemoglobin Mean Corpuscular 30.5 L Hemoglobin Concent Red Cell Distribution 15.9 H Width Platelet Count 319 Mean Platelet Volume 10.3 Immature Granulocytes % 1.200 H Neutrophils % 60.0 Lymphocytes % 21.6 Monocytes % 9.0 Eosinophils % 7.2 H Basophils % 1.0 Nucleated Red Blood 0.0 Cells % Immature Granulocytes # 0.110 H Neutrophils # 5.4 Lymphocytes # 2.0 Monocytes # 0.8 Eosinophils # 0.7 H Basophils # 0.1 Nucleated Red Blood 0.0 Cells # Phosphorus Level 5.3 H Magnesium Level 2.1 Bedside Glucose 87 Medications Medication Current Medications IV Flush (NS 3 ml) 3 ml PER PROTOCOL IV ; Start 06/14/19 at 02:30 Ondansetron HCl (Zofran Inj) 4 mg Q6H PRN IV NAUSEA/VOMITING Last administered on 06/14/19at 14:52; Admin Dose 4 MG; Start 06/14/19 at 02:30 Acetaminophen (Tylenol Tab) 650 mg Q6H PRN PO .PAIN 1-3 OR TEMP; Start 06/14/19 at 02:30 Acetaminophen/ Hydrocodone Bitart ([place] (5/325)) 1 tab Q6H PRN PO .MOD PAIN 4- 6; Start 06/14/19 at 02:30 Acetaminophen/ Hydrocodone Bitart ([place] (5/325)) 2 tab Q6H PRN PO .SEVERE PAIN 7-10 Last administered on 06/21/19at 00:33; Admin Dose 2 TAB; Start 06/14/19 at 02:30 Heparin Sodium (Porcine) (Heparin (5000 Units/1ml)) 5,000 unit Q12 SC Last administered on 06/21/19at 08:37; Admin Dose 5,000 UNIT; Start 06/14/19 at 09:00 Albuterol/ Ipratropium (Duoneb) 3 ml Q2H RESP THERAPY PRN HHN SHORTNESS OF BREATH; Start 06/14/19 at 02:30 Diagnostic Test (Pha) (Accu-Chek) 1 ea 02 XX ; Start 06/15/19 at 02:00 Insulin Aspart (Novolog Insulin Pen) 5 unit WITH MEALS SC Last administered on 06/20/19at 17:07; Admin Dose 5 UNIT; Start 06/14/19 at 07:35 Insulin Aspart (Novolog Insulin Pen) NOVOLOG *MILD* ALGORITHM WITH MEALS BEDTIME SC Last administered on 06/20/19at 17:07; Admin Dose 1 UNIT; Start 06/14/19 at 08:00 Allopurinol (Zyloprim) 100 mg DAILY PO Last administered on 06/21/19 08:23; Admin Dose 100 MG; Start 06/14/19 at 09:00 Atorvastatin Calcium (Lipitor) 80 mg QHS PO Last administered on 06/20/19 20:37; Admin Dose 80 MG; Start 06/14/19 at 21:00 Calcium Acetate (Phoslo) 1,334 mg WITH MEALS PO Last administered on 06/21/19 08:21; Admin Dose 1,334 MG; Start 06/14/19 at 07:35 Carvedilol (Coreg) 3.125 mg BID PO Last administered on 06/21/19 08:22; Admin Dose 3.125 MG; Start 06/14/19 at 09:00 Citalopram Hydrobromide (Citalopram) 10 mg DAILY PO Last administered on 06/21/19 08:21; Admin Dose 10 MG; Start 06/14/19 at 09:00 Furosemide (Lasix) 80 mg DAILY PO Last administered on 06/21/19 08:23; Admin Dose 80 MG; Start 06/14/19 at 09:00 Mirtazapine (Remeron) 7.5 mg HS PO Last administered on 06/20/19 20:38; Admin Dose 7.5 MG; Start 06/14/19 at 21:00 Nifedipine (Procardia Xl) 30 mg DAILY PO Last administered on 06/21/19 08:23; Admin Dose 30 MG; Start 06/14/19 at 09:00 Ranitidine HCl (Zantac) 150 mg HS PO Last administered on 06/20/19 20:37; Admin Dose 150 MG; Start 06/14/19 at 21:00 Tamsulosin HCl (Flomax) 0.4 mg HS PO Last administered on 06/20/19 20:37; Admin Dose 0.4 MG; Start 06/14/19 at 21:00 Miscellaneous Information 1 ea NOTE XX ; Start 06/14/19 at 03:30 Glucose (Glutose) 15 gm Q15M PRN PO DECREASED GLUCOSE; Start 06/14/19 at 03:30 Glucose (Glutose) 22.5 gm Q15M PRN PO DECREASED GLUCOSE; Start 06/14/19 at 03:30 Dextrose (D50w Syringe) 25 ml Q15M PRN IV DECREASED GLUCOSE; Start 06/14/19 at 03:30 Dextrose (D50w Syringe) 50 ml Q15M PRN IV DECREASED GLUCOSE; Start 06/14/19 at 03:30 Glucagon (Glucagen) 1 mg Q15M PRN IM DECREASED GLUCOSE; Start 06/14/19 at 03:30 Glucose (Glutose) 15 gm Q15M PRN BUCCAL DECREASED GLUCOSE; Start 06/14/19 at 03:30 Fish Oil (Fish Oil) 1,000 mg BID PO Last administered on 06/21/19at 08:23; Admin Dose 1,000 MG; Start 06/14/19 at 09:00 Epoetin Tutu-epbx (Retacrit (Esrd)) 10,000 unit MoWeFr@1700 SC Last administered on 06/19/19at 17:08; Admin Dose 10,000 UNIT; Start 06/16/19 at 17:00 Bacitracin (Bacitracin 0.5%/ Zinc Oint) 1 applic BID TOP Last administered on 06/20/19at 20:49; Admin Dose 1 APPLIC; Start 06/15/19 at 21:00 Vancomycin HCl (Vanco Iv Per Pharmacy) VANCOMYCIN PER PHARMACY PER PROTOCOL XX ; Start 06/15/19 at 15:30 Mupirocin (Bactroban) 1 applic BID TOP Last administered on 06/20/19at 20:48; Admin Dose 1 APPLIC; Start 06/15/19 at 16:30 Insulin Glargine (Lantus) 10 units HS SC Last administered on 06/20/19at 20:52; Admin Dose 10 UNITS; Start 06/15/19 at 21:00 Miscellaneous Information Patients own medicat... BID@ XX ; Start 06/16/19 at 10:00 MRAION BELL NP Jun 21, 2019 11:09
--- NOTE | 2019-06-21 13:42 | PN ---
Date/Time of Note Date/Time of Note DATE: 06/21/19 TIME: 13:40 Assessment/Plan VTE Prophylaxis Risk score (from Ns)>0 risk: 4 SCD applied (from Ns): No SCD contraindicated: other Pharmacological prophylaxis: heparin Lines/Catheters IV [facility] Type [facility]from [facility] [place] [facility] Urinary Cath still in place: No Assessment/Plan Hospital Course SUBJECTIVE: Complains of minimal right knee pain. OBJECTIVE: Physical Exam General: Adequately build 63 year-old male lying in bed in no apparent distress. HEENT: Normocephalic, atraumatic. Eyes: Anicteric sclerae, conjunctivae clear. ENT: Nasal septum midline, oral mucosa moist. Neck supple, no JVD noticed. Respiratory: Bilaterally diminished breath sounds. No use of accessory muscles of respiration. No adventitious breath sounds. Cardiovascular: S1, S2 heard. Regular rate and rhythm. Abdomen: Soft, nontender, and nondistended. Bowel sounds positive in all 4 quadrants. Genitourinary: Deferred. Extremities: No cyanosis, no clubbing. Right knee surgical dressing in place. Neurologic: Cranial nerves II through XII grossly intact. The patient is awake, alert, and oriented. Labs & Vitals per chart ASSESSMENT & PLAN 63-year-old male with comorbidities including hypertension, diabetes mellitus, and end-stage renal disease on hemodialysis who presented to the emergency room complaining of right knee swelling and tenderness with the right knee MRI showing prepatellar soft tissue swelling and irregular fluid collection consistent with an abscess. 1. Right knee soft tissue abscess. Status post incision and drainage on 06/18/2019. Continue antimicrobials as per ID. 2. Diabetes mellitus. Continue sliding scale insulin along with basal insulin. 3. Hypertension. Continue antihypertensives. 4. Dyslipidemia. Continue statins. 5. MRSA colonization of the nares. Continue Bactroban. 6. Normocytic anemia. Most probably anemia chronic kidney disease. Monitor H&H closely. 7. End-stage renal disease on hemodialysis. Ultrafiltration as per nephrology. 8. Fluids, electrolytes, and nutrition. Renal diet. 9. DVT prophylaxis. Subcutaneous heparin. 10. Plan. Continue antimicrobials as per ID. Local dressing changes as per general surgery. Await final cultures to be available before discharging the patient home. The patient was seen in collaboration with Dr. Persaud. Result Diagram: 06/21/19 0457 06/21/19 0456 Results 24hrs Laboratory Tests Test 06/20/19 17:03 06/20/19 20:46 06/21/19 04:56 06/21/19 04:57 Bedside Glucose 162 132 Sodium Level 138 Potassium Level 4.6 Chloride Level 98 Carbon Dioxide Level 29 Anion Gap 11 Blood Urea Nitrogen 39 #H Creatinine 7.13 #H Est Glomerular Filtrat 8 L Rate mL/min Glucose Level 95 Calcium Level 9.0 White Blood Count 9.0 Red Blood Count 3.26 L Hemoglobin 9.5 L Hematocrit 31.1 L Mean Corpuscular Volume 95.4 Mean Corpuscular 29.1 Hemoglobin Mean Corpuscular 30.5 L Hemoglobin Concent Red Cell Distribution 15.9 H Width Platelet Count 319 Mean Platelet Volume 10.3 Immature Granulocytes % 1.200 H Neutrophils % 60.0 Lymphocytes % 21.6 Monocytes % 9.0 Eosinophils % 7.2 H Basophils % 1.0 Nucleated Red Blood 0.0 Cells % Immature Granulocytes # 0.110 H Neutrophils # 5.4 Lymphocytes # 2.0 Monocytes # 0.8 Eosinophils # 0.7 H Basophils # 0.1 Nucleated Red Blood 0.0 Cells # Phosphorus Level 5.3 H Magnesium Level 2.1 Test 06/21/19 08:19 06/21/19 12:42 Bedside Glucose 87 118 Exam/Review of Systems Exam Vitals Vital Signs Date Temp Pulse Resp B/P (MAP) Pulse Ox O2 O2 Flow FiO2 Time Delivery Rate 06/21/19 97.7 66 18 117/59 96 08:00 (78) 06/20/19 Room Air 11:55 Intake and Output 06/20/19 06/20/19 06/21/19 1515:00 23:00 07:00 IntakeIntake Total 560 ml 250 ml OutputOutput Total 55166 ml BalanceBalance -46833 ml 560 ml 250 ml Results Results 24hrs Laboratory Tests Test 06/20/19 17:03 06/20/19 20:46 06/21/19 04:56 06/21/19 04:57 Bedside Glucose 162 132 Sodium Level 138 Potassium Level 4.6 Chloride Level 98 Carbon Dioxide Level 29 Anion Gap 11 Blood Urea Nitrogen 39 #H Creatinine 7.13 #H Est Glomerular Filtrat 8 L Rate mL/min Glucose Level 95 Calcium Level 9.0 White Blood Count 9.0 Red Blood Count 3.26 L Hemoglobin 9.5 L Hematocrit 31.1 L Mean Corpuscular Volume 95.4 Mean Corpuscular 29.1 Hemoglobin Mean Corpuscular 30.5 L Hemoglobin Concent Red Cell Distribution 15.9 H Width Platelet Count 319 Mean Platelet Volume 10.3 Immature Granulocytes % 1.200 H Neutrophils % 60.0 Lymphocytes % 21.6 Monocytes % 9.0 Eosinophils % 7.2 H Basophils % 1.0 Nucleated Red Blood 0.0 Cells % Immature Granulocytes # 0.110 H Neutrophils # 5.4 Lymphocytes # 2.0 Monocytes # 0.8 Eosinophils # 0.7 H Basophils # 0.1 Nucleated Red Blood 0.0 Cells # Phosphorus Level 5.3 H Magnesium Level 2.1 Test 06/21/19 08:19 06/21/19 12:42 Bedside Glucose 87 118 Medications Medication Current Medications IV Flush (NS 3 ml) 3 ml PER PROTOCOL IV ; Start 06/14/19 at 02:30 Ondansetron HCl (Zofran Inj) 4 mg Q6H PRN IV NAUSEA/VOMITING Last administered on 06/14/19at 14:52; Admin Dose 4 MG; Start 06/14/19 at 02:30 Acetaminophen (Tylenol Tab) 650 mg Q6H PRN PO .PAIN 1-3 OR TEMP; Start 06/14/19 at 02:30 Acetaminophen/ Hydrocodone Bitart ([place] (5/325)) 1 tab Q6H PRN PO .MOD PAIN 4- 6; Start 06/14/19 at 02:30 Acetaminophen/ Hydrocodone Bitart ([place] (5/325)) 2 tab Q6H PRN PO .SEVERE PAIN 7-10 Last administered on 06/21/19at 00:33; Admin Dose 2 TAB; Start 06/14/19 at 02:30 Heparin Sodium (Porcine) (Heparin (5000 Units/1ml)) 5,000 unit Q12 SC Last a dministered on 06/21/19at 08:37; Admin Dose 5,000 UNIT; Start 06/14/19 at 09:00 Albuterol/ Ipratropium (Duoneb) 3 ml Q2H RESP THERAPY PRN HHN SHORTNESS OF BREATH; Start 06/14/19 at 02:30 Diagnostic Test (Pha) (Accu-Chek) 1 ea 02 XX ; Start 06/15/19 at 02:00 Insulin Aspart (Novolog Insulin Pen) 5 unit WITH MEALS SC Last administered on 06/20/19 17:07; Admin Dose 5 UNIT; Start 06/14/19 at 07:35 Insulin Aspart (Novolog Insulin Pen) NOVOLOG *MILD* ALGORITHM WITH MEALS BEDTIME SC Last administered on 06/20/19 17:07; Admin Dose 1 UNIT; Start 06/14/19 at 08:00 Allopurinol (Zyloprim) 100 mg DAILY PO Last administered on 06/21/19 08:23; Admin Dose 100 MG; Start 06/14/19 at 09:00 Atorvastatin Calcium (Lipitor) 80 mg QHS PO Last administered on 06/20/19 20:37; Admin Dose 80 MG; Start 06/14/19 at 21:00 Calcium Acetate (Phoslo) 1,334 mg WITH MEALS PO Last administered on 06/21/19 12:45; Admin Dose 1,334 MG; Start 06/14/19 at 07:35 Carvedilol (Coreg) 3.125 mg BID PO Last administered on 06/21/19 08:22; Admin Dose 3.125 MG; Start 06/14/19 at 09:00 Citalopram Hydrobromide (Citalopram) 10 mg DAILY PO Last administered on 06/21/19 08:21; Admin Dose 10 MG; Start 06/14/19 at 09:00 Furosemide (Lasix) 80 mg DAILY PO Last administered on 06/21/19 08:23; Admin Dose 80 MG; Start 06/14/19 at 09:00 Mirtazapine (Remeron) 7.5 mg HS PO Last administered on 06/20/19 20:38; Admin Dose 7.5 MG; Start 06/14/19 at 21:00 Nifedipine (Procardia Xl) 30 mg DAILY PO Last administered on 06/21/19 08:23; Admin Dose 30 MG; Start 06/14/19 at 09:00 Ranitidine HCl (Zantac) 150 mg HS PO Last administered on 06/20/19 20:37; Admin Dose 150 MG; Start 06/14/19 at 21:00 Tamsulosin HCl (Flomax) 0.4 mg HS PO Last administered on 06/20/19 20:37; Admin Dose 0.4 MG; Start 06/14/19 at 21:00 Miscellaneous Information 1 ea NOTE XX ; Start 06/14/19 at 03:30 Glucose (Glutose) 15 gm Q15M PRN PO DECREASED GLUCOSE; Start 06/14/19 at 03:30 Glucose (Glutose) 22.5 gm Q15M PRN PO DECREASED GLUCOSE; Start 06/14/19 at 03:3 0 Dextrose (D50w Syringe) 25 ml Q15M PRN IV DECREASED GLUCOSE; Start 06/14/19 at 03:30 Dextrose (D50w Syringe) 50 ml Q15M PRN IV DECREASED GLUCOSE; Start 06/14/19 at 03:30 Glucagon (Glucagen) 1 mg Q15M PRN IM DECREASED GLUCOSE; Start 06/14/19 at 03:30 Glucose (Glutose) 15 gm Q15M PRN BUCCAL DECREASED GLUCOSE; Start 06/14/19 at 03:30 Fish Oil (Fish Oil) 1,000 mg BID PO Last administered on 06/21/19at 08:23; Admin Dose 1,000 MG; Start 06/14/19 at 09:00 Epoetin Tutu-epbx (Retacrit (Esrd)) 10,000 unit MoWeFr@1700 SC Last administered on 06/19/19at 17:08; Admin Dose 10,000 UNIT; Start 06/16/19 at 17:00 Bacitracin (Bacitracin 0.5%/ Zinc Oint) 1 applic BID TOP Last administered on 06/20/19at 20:49; Admin Dose 1 APPLIC; Start 06/15/19 at 21:00 Vancomycin HCl (Vanco Iv Per Pharmacy) VANCOMYCIN PER PHARMACY PER PROTOCOL XX ; Start 06/15/19 at 15:30 Mupirocin (Bactroban) 1 applic BID TOP Last administered on 06/20/19at 20:48; Admin Dose 1 APPLIC; Start 06/15/19 at 16:30 Insulin Glargine (Lantus) 10 units HS SC Last administered on 06/20/19at 20:52; Admin Dose 10 UNITS; Start 06/15/19 at 21:00 Miscellaneous Information Patients own medicat... BID@ XX ; Start 06/16/19 at 10:00 PADDY EWING NP Jun 21, 2019 13:42
[2019-06-21 14:00] VITALS: BP 134/64; PULSE 74; RESP 16
[2019-06-21] MEDS: EPOETIN ALFA-EPBX (ESRD) 10,000 UNIT/ML VIAL SC SCH (17:28)
[2019-06-21] MEDS: TAMSULOSIN (SR) 0.4 MG CAP PO SCH (20:38)
[2019-06-21] MEDS: ATORVASTATIN 80 MG TAB PO SCH (20:38)
[2019-06-21] MEDS: RANITIDINE 150 MG TAB PO SCH (20:38)
[2019-06-21] MEDS: MIRTAZAPINE 15 MG TAB PO SCH (20:38)
[2019-06-21] MEDS: INSULIN GLARGINE [LANTus] (100 UNITS/ML) SYG SC SCH (20:42)
[2019-06-21 21:23] VITALS: BP 117/56; PULSE 72; RESP 17
[2019-06-22] VITALS (18 sets, daily range): BP systolic 130–165; BP diastolic 60–83; PULSE 64–75; RESP 14–18
[2019-06-22] MEDS: ACCU-CHEK XX SCH (02:00)
[2019-06-22] MEDS: INSULIN ASPART [NOVOLOG] 3 ML PEN SC SCH ×4 (07:35→12:38)
[2019-06-22] MEDS: NIFEdipine (XL) 30 MG TAB PO SCH (08:21)
[2019-06-22] MEDS: FISH OIL 1,000 MG CAP PO SCH (08:21)
[2019-06-22] MEDS: CITALOPRAM 10 MG TAB PO SCH (08:22)
[2019-06-22] MEDS: CALCIUM ACETATE 667 MG CAP PO SCH ×2 (08:22→12:39)
[2019-06-22] MEDS: FUROSEMIDE 40 MG TAB PO SCH (08:22)
[2019-06-22] MEDS: ALLOPURINOL 100 MG TAB PO SCH (08:22)
[2019-06-22] MEDS: MUPIROCIN 2% 22 GM OINT TOP SCH (08:23)
[2019-06-22] MEDS: BACITRACIN 0.5%/ZINC 28.35 GM OINT TOP SCH (08:23)
[2019-06-22] MEDS: HEPARIN 5,000 UNIT/1 ML VIAL SC SCH (08:29)
--- NOTE | 2019-06-22 08:59 | PN ---
DATE: 06/22/2019 SUBJECTIVE: The patient is stable. No events overnight. The patient has hemodialysis today. OBJECTIVE: VITAL SIGNS: Blood pressure is 137/65, pulse 64, respirations 14, temperature 98.4. HEENT: Head is normocephalic. NECK: Supple. HEART: Regular rate. LUNGS: Show diminished breath sounds at the base. ABDOMEN: Soft, nontender to palpation without rebound or guarding. EXTREMITIES: Negative for clubbing, cyanosis, no edema. DERMATOLOGIC: No rashes. MUSCULOSKELETAL: No joint effusion. NEUROLOGIC: No change in exam. MEDICATIONS: Have been reviewed. LABORATORY DATA: Has been reviewed. IMAGING STUDIES: Have been reviewed. ASSESSMENT AND PLAN: 1. End-stage renal disease. The patient is scheduled for dialysis today. We will dialyze for 3 sandra rs 2k bath, calcium 2.5. 2. Hypokalemia. Continue dialysis on low potassium bath. 3. Anemia. Monitor hemoglobin and hematocrit levels. 4. Mineral bone disorder. Monitor calcium and phosphorous levels. 5. Hypertension. Continue current blood pressure regimen. 6. Cellulitis status post incision and drainage. Continue antibiotic therapy. Follow up with cultu res. 7. Diabetes. Continue current insulin regimen. Dictated By: MEGHAN CASILLAS DO NR/NTS Conf#: [id number] DID#: [id number] CC: MIGUEL BURR MD; MICHEL HERNANDEZ MD;*EndCC*
--- NOTE | 2019-06-22 10:52 | PDOCDIS ---
Discharge Instructions CONDITION [id number] Patient Condition: [id number] Stable HOME CARE INSTRUCTIONS: [id number] Diet Instructions: [id number] Low Fat /Cholesterol FOLLOW UP/APPOINTMENTS Follow-up Plan 1. Ace Suero MD Specialty: Infectious Disease Office Address [address] [place] [address] Office 2. Jamal Haskins MD Specialty: General Surgery Office Address [address] [place] [address] Office OTHER ORDERS: Other Orders: 1. Resume home medications. Complete the course of antibiotics. 2. Follow-up with your hemodialysis clinic as scheduled. 3. To dressing changes of the right knee as instructed. 4. Follow-up with outpatient infectious diseases (Dr. Suero) in 2 weeks. 5. Please follow-up with the surgeon (Dr. Haskins) in 1 week. 6. Resume activities as tolerated. 7. Please go to the nearest emergency room if you have persistent fevers, significant pain in the right knee, or any other unusual signs/symptoms. PADDY EWING NP Jun 22, 2019 10:52
--- NOTE | 2019-06-22 13:28 | CONS ---
Assessment/Plan Assessment/Plan Hospital Course (Demo Recall) No acute changes looks comfortable no fevers overnight Antimicrobials: Vanco Physical examination: Well-developed well-nourished elderly man who is awake in no distress. Head atraumatic normocephalic neck is supple chest rise symmetrical breath sounds clear. Heart: S1-S2. Abdomen soft bowel sounds present. Extremities: right knee with open wound and slight erythema surroundin g it, no purulence Assessment: 1. Right knee cellulitis/abscess s/p i/d 2. End-stage renal disease, hemodialysis dependent 3. Diabetes 4. Hypertension 5. MRSA colonization Plan: Remains stable, wound culture positive staph aureus, recommend to keep on vancomycin for 2-3 more weeks to avoid septic arthritis as the wound is too big and close to the bone Consultation Date/Type/Reason Admit Date/Time Jun 14, 2019 at 00:56 Initial Consult Date Type of Consult id Date/Time of Note DATE: 06/22/19 TIME: 13:27 Exam/Review of Systems Exam Vitals Vital Signs Date Temp Pulse Resp B/P (MAP) Pulse Ox O2 O2 Flow FiO2 Time Delivery Rate 06/22/19 71 13:15 06/22/19 16 134/64 96 Room Air 11:45 (87) 06/22/19 98.4 07:47 Intake and Output 06/21/19 06/21/19 06/22/19 1515:00 23:00 07:00 IntakeIntake Total 740 ml 200 ml BalanceBalance 740 ml 200 ml Results Result Diagram: 06/22/19 0457 06/22/19 0457 Results 24hrs Laboratory Tests Test 06/21/19 17:16 06/21/19 20:38 06/22/19 04:57 06/22/19 08:19 Bedside Glucose 184 136 89 White Blood Count 10.0 Red Blood Count 3.28 L Hemoglobin 9.5 L Hematocrit 30.8 L Mean Corpuscular Volume 93.9 Mean Corpuscular 29.0 Hemoglobin Mean Corpuscular 30.8 L Hemoglobin Concent Red Cell Distribution 15.9 H Width Platelet Count 296 Mean Platelet Volume 9.9 Immature Granulocytes % 1.300 H Neutrophils % 61.4 Lymphocytes % 22.0 Monocytes % 7.8 Eosinophils % 6.6 Basophils % 0.9 Nucleated Red Blood 0.0 Cells % Immature Granulocytes # 0.130 H Neutrophils # 6.1 Lymphocytes # 2.2 Monocytes # 0.8 Eosinophils # 0.7 H Basophils # 0.1 Nucleated Red Blood 0.0 Cells # Sodium Level 137 Potassium Level 4.6 Chloride Level 98 Carbon Dioxide Level 27 Anion Gap 12 Blood Urea Nitrogen 50 H Creatinine 8.90 H Est Glomerular Filtrat 6 L Rate mL/min Glucose Level 96 Calcium Level 9.0 Phosphorus Level 5.9 H Magnesium Level 2.2 Random Vancomycin Level 18.1 Test 06/22/19 12:33 Bedside Glucose 115 Medications Medication Current Medications IV Flush (NS 3 ml) 3 ml PER PROTOCOL IV ; Start 06/14/19 at 02:30 Ondansetron HCl (Zofran Inj) 4 mg Q6H PRN IV NAUSEA/VOMITING Last administered on 06/14/19at 14:52; Admin Dose 4 MG; Start 06/14/19 at 02:30 Acetaminophen (Tylenol Tab) 650 mg Q6H PRN PO .PAIN 1-3 OR TEMP; Start 06/14/19 at 02:30 Acetaminophen/ Hydrocodone Bitart ([place] (5/325)) 1 tab Q6H PRN PO .MOD PAIN 4- 6; Start 06/14/19 at 02:30 Acetaminophen/ Hydrocodone Bitart ([place] (5/325)) 2 tab Q6H PRN PO .SEVERE PAIN 7-10 Last administered on 06/21/19at 00:33; Admin Dose 2 TAB; Start 06/14/19 at 02:30 Heparin Sodium (Porcine) (Heparin (5000 Units/1ml)) 5,000 unit Q12 SC Last ad ministered on 06/22/19at 08:29; Admin Dose 5,000 UNIT; Start 06/14/19 at 09:00 Albuterol/ Ipratropium (Duoneb) 3 ml Q2H RESP THERAPY PRN HHN SHORTNESS OF BREATH; Start 06/14/19 at 02:30 Diagnostic Test (Pha) (Accu-Chek) 1 ea 02 XX ; Start 06/15/19 at 02:00 Insulin Aspart (Novolog Insulin Pen) 5 unit WITH MEALS SC Last administered on 06/22/19at 12:38; Admin Dose 5 UNIT; Start 06/14/19 at 07:35 Insulin Aspart (Novolog Insulin Pen) NOVOLOG *MILD* ALGORITHM WITH MEALS BEDTIME SC Last administered on 06/21/19 17:31; Admin Dose 2 UNIT; Start 06/14/19 at 08:00 Allopurinol (Zyloprim) 100 mg DAILY PO Last administered on 06/22/19 08:22; Admin Dose 100 MG; Start 06/14/19 at 09:00 Atorvastatin Calcium (Lipitor) 80 mg QHS PO Last administered on 06/21/19 20:38; Admin Dose 80 MG; Start 06/14/19 at 21:00 Calcium Acetate (Phoslo) 1,334 mg WITH MEALS PO Last administered on 06/22/19 12:39; Admin Dose 1,334 MG; Start 06/14/19 at 07:35 Carvedilol (Coreg) 3.125 mg BID PO Last administered on 06/22/19 08:21; Admin Dose 3.125 MG; Start 06/14/19 at 09:00 Citalopram Hydrobromide (Citalopram) 10 mg DAILY PO Last administered on 06/22/19 08:22; Admin Dose 10 MG; Start 06/14/19 at 09:00 Furosemide (Lasix) 80 mg DAILY PO Last administered on 06/22/19 08:22; Admin Dose 80 MG; Start 06/14/19 at 09:00 Mirtazapine (Remeron) 7.5 mg HS PO Last administered on 06/21/19 20:38; Admin Dose 7.5 MG; Start 06/14/19 at 21:00 Nifedipine (Procardia Xl) 30 mg DAILY PO Last administered on 06/22/19 08:21; Admin Dose 30 MG; Start 06/14/19 at 09:00 Ranitidine HCl (Zantac) 150 mg HS PO Last administered on 06/21/19 20:38; Admin Dose 150 MG; Start 06/14/19 at 21:00 Tamsulosin HCl (Flomax) 0.4 mg HS PO Last administered on 06/21/19 20:38; Admin Dose 0.4 MG; Start 06/14/19 at 21:00 Miscellaneous Information 1 ea NOTE XX ; Start 06/14/19 at 03:30 Glucose (Glutose) 15 gm Q15M PRN PO DECREASED GLUCOSE; Start 06/14/19 at 03:30 Glucose (Glutose) 22.5 gm Q15M PRN PO DECREASED GLUCOSE; Start 06/14/19 at 03:30 Dextrose (D50w Syringe) 25 ml Q15M PRN IV DECREASED GLUCOSE; Start 06/14/19 at 03:30 Dextrose (D50w Syringe) 50 ml Q15M PRN IV DECREASED GLUCOSE; Start 06/14/19 at 03:30 Glucagon (Glucagen) 1 mg Q15M PRN IM DECREASED GLUCOSE; Start 06/14/19 at 03:30 Glucose (Glutose) 15 gm Q15M PRN BUCCAL DECREASED GLUCOSE; Start 06/14/19 at 03:30 Fish Oil (Fish Oil) 1,000 mg BID PO Last administered on 06/22/19 08:21; Admin Dose 1,000 MG; Start 06/14/19 at 09:00 Epoetin Tutu-epbx (Retacrit (Esrd)) 10,000 unit MoWeFr@1700 SC Last administered on 06/21/19at 17:28; Admin Dose 10,000 UNIT; Start 06/16/19 at 17:00 Bacitracin (Bacitracin 0.5%/ Zinc Oint) 1 applic BID TOP Last administered on 06/22/19 08:23; Admin Dose 1 APPLIC; Start 06/15/19 at 21:00 Vancomycin HCl (Vanco Iv Per Pharmacy) VANCOMYCIN PER PHARMACY PER PROTOCOL XX ; Start 06/15/19 at 15:30 Mupirocin (Bactroban) 1 applic BID TOP Last administered on 06/22/19at 08:23; Admin Dose 1 APPLIC; Start 06/15/19 at 16:30 Insulin Glargine (Lantus) 10 units HS SC Last administered on 06/21/19at 20:42; Admin Dose 10 UNITS; Start 06/15/19 at 21:00 Miscellaneous Information Patients own medicat... BID@ XX ; Start 06/16/19 at 10:00 MARION BELL NP Jun 22, 2019 13:28
--- NOTE | 2019-06-22 15:57 | DS ---
Date/Time of Note Date/Time of Note DATE: 06/22/19 TIME: 15:57 Discharge Summary Admission/Discharge Info Admit Date/Time Jun 14, 2019 at 00:56 Discharge Date/Time Discharge Diagnosis 1. Right knee soft tissue abscess. Status post incision and drainage on 019. 2. Diabetes mellitus. 3. Hypertension. 4. Dyslipidemia. 5. MRSA colonization of the nares. 6. Normocytic anemia. 7. End-stage renal disease on hemodialysis. Patient Condition: Stable Consults 1. Jamal Haskins MD, General Surgery. 2. Gilberto Brownlee DO, Nephrology. 3. Ace Suero MD, Infectious Diseases. Procedures Operative Report Procedure Date: Jun 18, 2019 Preoperative Diagnosis Right knee soft tissue abscess Postoperative Diagnosis The same Operation/Procedure Performed Incision and drainage of right knee soft tissue abscess Hx of Present Illness This is a 63-year-old male with comorbidities including hypertension, diabetes mellitus, and end-stage renal disease on hemodialysis who presented to the emergency room complaining of right knee swelling and tenderness with the right knee MRI showing prepatellar soft tissue swelling and irregular fluid collection consistent with an abscess. Hospital Course The patient underwent a knee MRI that was showing prepatellar soft tissue swelling and irregular fluid collection consistent with an abscess with no e vidence of osteomyelitis. The patient was taken to the OR on 06/18/2019 and the patient underwent incision and drainage. Cultures from abscess drainage are growing Staph aureus and coagulation negative Staphylococcus. Infectious disease consult was obtained for antimicrobial management. The patient was maintained on antimicrobials as per ID. Local dressing changes were done as per general surgery recommendations. The patient was evaluated by physical therapy and recommended no DME needs. Upon discharge, the patient will be discharged on IV vancomycin to be delivered with each hemodialysis session for at least 2 weeks as per ID recommendations. The patient's chronic problems include diabetes mellitus. The patient was maintained on sliding scale insulin along with basal insulin with well- controlled blood sugars throughout the hospital course. The patient was maintained on antihypertensives for his underlying hypertension. He has underlying dyslipidemia. He was maintained on statins. The patient had MRSA colonization of the nares. The patient was treated with Bactroban to bilateral nares. He is an end-stage renal disease patient on hemodialysis. Ultrafiltration was done as per nephrology. He has underlying normocytic anemia secondary to chronic kidney disease. The patient's H&H remained stable. The patient had a stable hospital course. The patient is stable to be discharge d home to be followed up with outpatient surgery and infectious diseases. Discharge Instructions 1. Resume home medications. Complete the course of antibiotics. 2. Follow-up with your hemodialysis clinic as scheduled. 3. Do dressing changes of the right knee as instructed. 4. Follow-up with outpatient infectious diseases (Dr. Suero) in 2 weeks. 5. Please follow-up with the surgeon (Dr. Haskins) in 1 week. 6. Resume activities as tolerated. 7. Please go to the nearest emergency room if you have persistent fevers, significant pain in the right knee, or any other unusual signs/symptoms. The patient verbalized understanding of his discharge instructions. At this time I would like to thank all the consultants for seeing the patient, doing the necessary procedures, and providing clinical recommendations. The patient was seen in collaboration with Dr. Persaud. Home Meds Active Scripts Carvedilol* (Carvedilol*) 3.125 Mg Tablet, 3.125 MG PO BID, #60 TAB Prov:PADDY EWING [employer] 06/22/19 Reported Medications Citalopram Hydrobromide* (Citalopram Hydrobromide*) 10 Mg Tablet, 10 MG PO DAILY, #30 TAB 06/14/19 Insulin Lispro (Humalog Kwikpen U-100) 100 Unit/1 Ml Insuln.pen, 5 UNIT SQ AC B, EA 09/29/18 Insulin Glargine,Hum.rec.anlog (Basaglar Kwikpen U-100) 100 Unit/1 Ml Insuln.pen, 10 UNIT SC QHS, EA 09/29/18 Allopurinol* (Allopurinol*) 100 Mg Tablet, 100 MG PO DAILY, TAB 09/29/18 Mirtazapine* (Mirtazapine*) 7.5 Mg Tablet, 7.5 MG PO HS, TAB 09/29/18 [place]-3/Dha/Epa/Fish Oil (FISH OIL 1,000 MG SOFTGEL) 1 Each Capsule, 1 EACH PO BID, CAP 09/29/18 Atorvastatin* (Atorvastatin*) 80 Mg Tablet, 80 MG PO QHS, #30 TAB 09/29/18 Tamsulosin Hcl* (Tamsulosin Hcl*) 0.4 Mg Cap.er.24h, 0.4 MG PO HS, CAP 09/29/18 Ranitidine Hcl* (Ranitidine Hcl*) 150 Mg Tablet, 150 MG PO HS, #30 TAB 09/29/18 Calcium Acetate* (Calcium Acetate*) 667 Mg Capsule, 1334 MG PO WITH MEALS, #60 CAP 09/29/18 Discontinued Reported Medications Levofloxacin* (Levofloxacin*) 500 Mg Tablet, 500 MG PO Q48H, TAB 06/14/19 Furosemide* (Lasix*) 80 Mg Tablet, 80 MG PO DAILY, TAB 09/29/18 Follow-up Plan 1. Ace Suero MD Specialty: Infectious Disease Office Address [address] [place] [address] Office 2. Jamal Haskins MD Specialty: General Surgery Office Address [id number] [place] [address] Office Primary Care Provider Yanique Madrigal MD Time spent on discharge: > 30 minutes Pending Labs Laboratory Tests Test 06/21/19 17:16 06/21/19 20:38 06/22/19 04:57 06/22/19 08:19 Bedside 184 136 89 Glucose mg/dL (70-220) mg/dL (70-220) mg/dL (70-220) White Blood 10.0 Count 10^3/ul (4.8-1 0.8) Red Blood 3.28 Count 10^6/ul (4.70- 6.10) Hemoglobin 9.5 g/dl (14.0-18. 0) Hematocrit 30.8 % (42.0-52.0) Mean 93.9 Corpuscular fl (82.0-101.0 Volume ) Mean 29.0 Corpuscular pg (29.0-33.0) Hemoglobin Mean 30.8 Corpuscular g/dl (32.0-37. Hemoglobin Conc 0) ent Red Cell 15.9 Distribution % (11.5-14.5) Width Platelet Count 296 10^3/UL (140-4 15) Mean Platelet 9.9 Volume fl (7.4-10.4) Immature 1.300 Granulocytes % % (0.001-0.429 ) Neutrophils % 61.4 % (39.0-77.0) Lymphocytes % 22.0 % (15.0-51.0) Monocytes % 7.8 % (0.0-11.0) Eosinophils % 6.6 % (0.0-7.0) Basophils % 0.9 % (0.0-2.0) Nucleated Red 0.0 Blood Cells % /100WBC (0.0-0 .0) Immature 0.130 Granulocytes # 10^3/ul (0.0-0 .031) Neutrophils # 6.1 10^3/ul (1.6-7 .5) Lymphocytes # 2.2 10^3/ul (0.8-2 .9) Monocytes # 0.8 10^3/ul (0.3-0 .9) Eosinophils # 0.7 10^3/ul (0.0-0 .5) Basophils # 0.1 10^3/ul (0.0-0 .1) Nucleated Red 0.0 Blood Cells # 10^3/ul (0.0-0 .0) Sodium Level 137 mmol/L (135-14 4) Potassium 4.6 Level mmol/L (3.5-5. 1) Chloride Level 98 mmol/L (97-110 ) Carbon Dioxide 27 Level mmol/L (21-31) Anion Gap 12 (5-13) Blood Urea 50 Nitrogen mg/dl (7-20) Creatinine 8.90 mg/dl (0.61-1. 24) Est Glomerular 6 mL/min (>60) Filtrat Rate mL/min Glucose Level 96 mg/dl (70-220) Calcium Level 9.0 mg/dl (8.4-10. 2) Phosphorus 5.9 Level mg/dl (2.5-4.9 ) Magnesium 2.2 Level mg/dl (1.7-2.5 ) Random 18.1 ug/ml Vancomycin Level Test 06/22/19 12:33 Bedside 115 Glucose mg/dL (70-220) PADDY EWING NP Jun 22, 2019 15:57
[2019-06-22] MEDS ORDERED: VANCOMYCIN 1 GM 250 ML IVPB SCH (21:00)
--- NOTE | 2019-06-23 10:18 | QN ---
Documentation Comment Received a call from microbiology stating that the patient's right knee wound has positive MRSA. Reviewed wound culture results. The MRSA is sensitive to the antimicrobials that the patient was discharged home on. PADDY EWING NP Jun 23, 2019 10:18
== END 2019-06-22 17:35 | disposition home health service (06) | DRG 871 ==
LOC: FTE 20:22 → PP2 06-14 00:56 → MS3 06-17 00:05
PROVIDERS: ADMIT Internal Medicine; ATTEND Internal Medicine
PROC: 5A1D70Z Performance of Urinary Filtration, Intermittent, Less than 6 Hours Per Day (ICD-10-PCS; 2019-06-15)
PROC: 0H9KXZZ Drainage of Right Lower Leg Skin, External Approach (ICD-10-PCS; principal; 2019-06-18)
DX: A41.9 Sepsis, unspecified organism (principal); N18.6 End stage renal disease; L03.115 Cellulitis of right lower limb; I12.0 Hypertensive chronic kidney disease with stage 5 chronic kidney disease or end stage renal disease; L02.415 Cutaneous abscess of right lower limb; N39.0 Urinary tract infection, site not specified; N17.9 Acute kidney failure, unspecified; Z99.2 Dependence on renal dialysis; D64.9 Anemia, unspecified; Z79.4 Long term (current) use of insulin; B95.62 Methicillin resistant Staphylococcus aureus infection as the cause of diseases classified elsewhere; Z22.322 Carrier or suspected carrier of Methicillin resistant Staphylococcus aureus; E87.6 Hypokalemia; E10.22 Type 1 diabetes mellitus with diabetic chronic kidney disease
CPT/HCPCS: 36415; 73562; 73630; 73721; 80048; 80053; 80202; 81001; 82962; 83690; 83735; 84100; 85025; 87070; 87081; 87340; 90935; 96365; 96367; 96375; 97161; J1170; J1644; J1815; J2270; J2405; J3370; J7040; Q5105